=== PATIENT | male | born 1965 | race Caucasian/White ===

== ENCOUNTER 2016-12-25 08:05 | Inpatient (IN) ==
--- NOTE | 2016-12-24 22:12 | Discharge Summary ---
<HenriettaAyleen L - Last Filed: 12/24/16 22:09> Date of Encounter: 12/24/16 - Discharge Diagnosis (1) Arthritis of knee, right Priority: Primary Status: Acute (2) Status post total knee replacement, right Priority: Primary Status: Acute (3) DMII (diabetes mellitus, type 2) Status: Chronic Qualifiers: Diabetes mellitus complication status: without complication Diabetes mellitus senior care insulin use: with keno terminal operator use Qualified Code(s): E11.9 - Type 2 diabetes mellitus without complications; Z79.4 - intermediate (current) use of insulin (4) HTN (hypertension) Priority: Secondary Status: Chronic Qualifiers: Hypertension type: essential hypertension Qualified Code(s): I10 - Essential (primary) hypertension (5) Obesity Priority: Secondary Status: Chronic Qualifiers: Obesity type: due to excess calories Obesity classification: unspecified obesity classification Serious obesity comorbidity presence: unspecified whether serious comorbidity present Qualified Code(s): E66.09 - Other obesity due to excess calories (6) CKD (chronic kidney disease) Priority: Secondary Status: Chronic Qualifiers: Chronic kidney disease stage: unspecified stage Qualified Code(s): N18.9 - Chronic kidney disease, unspecified - Discharge Medications Home Medications: Aspirin Enteric Coated [Aspirin EC] 325 mg PO DAILY #21 tablet.dr 12/24/16 [Rx] OxyCODONE Immed Rel [Roxicodone 5 MG] 5 - 10 mg PO Q6HR PRN #40 tablet 12/24/16 [Rx] Alogliptin Benzoate [Alogliptin] 25 mg PO DAILY 12/25/16 [History] Amlodipine Besylate 10 mg PO DAILY 12/25/16 [History] Aspirin [Lo-Dose Aspirin EC] 81 mg PO DAILY 12/25/16 [History] Atenolol [Tenormin] 50 mg PO BID 12/25/16 [History] Atorvastatin Calcium [Lipitor] 20 mg PO DAILY 12/25/16 [History] Chlorthalidone 50 mg PO DAILY 12/25/16 [History] Glimepiride [Amaryl] 4 mg PO BID 12/25/16 [History] Insulin Glargine,Hum.rec.anlog [Basaglar Kwikpen U-100] 60 unit SQ QPM 12/25/16 [History] Insulin Glargine,Hum.rec.anlog [Basaglar Kwikpen U-100] 80 unit SQ QAM 12/25/16 [History] Insulin LISPRO [Humalog Kwikpen U-100] 10 - 16 unit SQ TIDWM 12/25/16 [History] Liraglutide [Victoza 3-Baljit] 1.8 mg PO DAILY 12/25/16 [History] Lisinopril [Zestril] 20 mg PO DAILY 12/25/16 [History] metFORMIN [Glucophage] 500 mg PO BIDWM 12/25/16 [History] Allergies/Adverse Reactions: Allergies No Known Allergies Allergy (Verified 12/25/16 08:52) Primary care physician: Kayleen Sheth CNP - Patient Status Disposition: Home Health Service Condition: Good - Discharge Instructions Follow Up With: Raza Kirk MD [Partnered Physician] - 01/24/17 4:40 pm Ayleen Shrestha, HARJINDER [Physician Commercial Decorator] - 01/12/17 8:45 am Kayleen Sheth CNP [Primary Care Provider] - Racheal Angeles CNP [Advanced Practice Nurse] - 02/16/17 11:00 am Fransico Taylor MD [Partnered Physician] - 01/24/17 8:00 am - Hospital Course Hospital course: Mr. Ruano is a 51 year old male - Time Spent with Patient Total time spent providing and/or coordinating discharge services: <Raza Kirk - Last Filed: 12/27/16 07:44> Date of Encounter: 12/27/16 Time of Encounter: 07:43 - Discharge Diagnosis (1) Morbid obesity with BMI of 60.0-69.9, adult Priority: Secondary Status: Chronic (2) Arthritis of knee, right Priority: Primary Status: Chronic (3) Status post total knee replacement, right Priority: Secondary Status: Acute (4) DMII (diabetes mellitus, type 2) Priority: Secondary Status: Chronic Qualifiers: Diabetes mellitus complication status: without complication Diabetes mellitus senior care insulin use: with keno terminal operator use Qualified Code(s): E11.9 - Type 2 diabetes mellitus without complications; Z79.4 - intermediate (current) use of insulin (5) HTN (hypertension) Priority: Secondary Status: Chronic Qualifiers: Hypertension type: essential hypertension Qualified Code(s): I10 - Essential (primary) hypertension (6) CKD (chronic kidney disease) Priority: Secondary Status: Chronic Qualifiers: Chronic kidney disease stage: stage 2 (mild) Qualified Code(s): N18.2 - Chronic kidney disease, stage 2 (mild) Primary care physician: Kayleen Sheth CNP - Patient Status Functional capacity at discharge: uses cane/walker Overall status at discharge: patient is progressing back to baseline - Hospital Course Hospital course: Mr. Ruano is a 51 year old male Status post right total knee replacement. The patient had an uneventful postoperative course. They received antibiotics and physical therapy and were discharged in stable condition. There will follow -up in the office in 2 weeks. - Time Spent with Patient Total time spent providing and/or coordinating discharge services:
--- NOTE | 2016-12-24 22:15 | Physician Discharge Referral ---
Home Health/Hosp Referral Info Transfer to: Home Health Provider in Charge Post Discharge: PCP - Diagnosis (1) Arthritis of knee, right Priority: Primary Status: Acute (2) Status post total knee replacement, right Priority: Primary Status: Acute (3) DMII (diabetes mellitus, type 2) Priority: Secondary Status: Chronic (4) HTN (hypertension) Priority: Secondary Status: Chronic (5) Obesity Priority: Secondary Status: Chronic (6) CKD (chronic kidney disease) Priority: Secondary Status: Chronic - Respiratory Orders None Smoking Cessation: Smoking cessation has been advised. For more information, call the [place] Tobacco Quit Line at 4-356-RGRA-NOW. - Diet/Nutrition Diet/Nutrition Orders: Regular, Renal - Activity Activity Orders: Up ad tony, Ambulate - Services Needed Following services are medically necessary services: Nursing, Home Health Aide, Physical Therapy, Occupational Therapy Other Treatments: Opsite dressing, leave intact until first post-operative visit. If dressing becomes >50% saturated, contact office, remove dressing and place appropriate dressing in its place. Do not allow for dressing to get wet. Emma in place, plan to remove at post-operative day #14-16. Total Joint Precautions x 6 weeks Apply cold therapy wrap 3-6x/day for 20 minutes at a time. Encourage ambulation throughout the day Use Incentive spirometer 10x/hour. Elevate affected extremity above heart as tolerated. Brace: Wear knee immobilizer at night x 2 weeks. - Transfer Medications Prescriptions: OxyCODONE Immed Rel [Roxicodone 5 MG] 5 - 10 mg PO Q6HR PRN #40 tablet PRN Reason: Pain Aspirin Enteric Coated [Aspirin EC] 325 mg PO DAILY #21 tablet. Home Medications: Aspirin Enteric Coated [Aspirin EC] 325 mg PO DAILY #21 tablet. 12/24/16 [Rx] OxyCODONE Immed Rel [Roxicodone 5 MG] 5 - 10 mg PO Q6HR PRN #40 tablet 12/24/16 [Rx] Allergies/Adverse Reactions: Allergies No Known Allergies Allergy (Verified 12/18/16 10:05) Certification: Further, I certify that my clinical findings support that this patient is homebound (i.e. absences from home require considerable and taxing effort and are for medical reasons or catholic services or infrequently or short duration when for other reasons) because: Homebound Reason: Post-surgery restriction and or conditions limit ability to leave home Attestation: My signature below is to certify that this patient is under my care and that I, or nurse practitioner, or a physician's nursing assistant working with me, has a face-to -face encounter with this patient.
--- NOTE | 2016-12-25 08:15 | History & Physical Report ---
Date of Encounter: 12/25/16 Time of Encounter: 08:14 24 Hour HP Update - Instructions Instructions: If the History and Physical is less than 30 days old and was completed prior to A.M. admission and or procedure and has NOT been updated on calendar day of procedure please complete this update prior to performing procedure. - Update Patient reports changes in Medical Condition: No Changes in examination, assessment, or condition: No Changes in Medication: No Preop tests/diagnostics Reviewed: Yes Surgery Remains Indicated: Yes Consent for Planned Operative Procedure(s) Verified: Yes - Pre-Operative Checklist Preoperative Checklist Indicated: No Prophylactic Antibiotic Ordered: Yes Is VTE Prophylaxis Indicated?: Yes
[2016-12-25] MEDS ORDERED: Ringers Solution, Lactated 1,000 ML IVC SCH ×2 (08:45→13:15)
[2016-12-25] MEDS ORDERED: CeFAZolin Pre 3,000 MG/100 ML 3,000 MG/100 ML BAG IVPB ONE (08:45)
--- NOTE | 2016-12-25 09:04 | Anesthesia Evaluation PreOp ---
Date of Encounter: 12/25/16 Time of Encounter: 09:00 - Past History Planned Operation: r tka Cardiac History: HTN, Hyperlipidemia Pulmonary History: Denies Any Significant HX BMET History: Denies Any Significant HX Other Medical History: Renal (stones), Diabetes Type II Anesthesia History: No Prior Anesthetic Complications, Past Anesthesia (t&a, l tka) Alcohol Use: none Drug use: none Medications and Allergies Aspirin Enteric Coated [Aspirin EC] 325 mg PO DAILY #21 tablet.dr 12/24/16 [Rx] OxyCODONE Immed Rel [Roxicodone 5 MG] 5 - 10 mg PO Q6HR PRN #40 tablet 12/24/16 [Rx] Alogliptin Benzoate [Alogliptin] 25 mg PO DAILY 12/25/16 [History] Amlodipine Besylate 10 mg PO DAILY 12/25/16 [History] Aspirin [Lo-Dose Aspirin EC] 81 mg PO DAILY 12/25/16 [History] Atenolol [Tenormin] 50 mg PO BID 12/25/16 [History] Atorvastatin Calcium [Lipitor] 20 mg PO DAILY 12/25/16 [History] Chlorthalidone 50 mg PO DAILY 12/25/16 [History] Glimepiride [Amaryl] 4 mg PO BID 12/25/16 [History] Insulin Glargine,Hum.rec.anlog [Basaglar Kwikpen U-100] 60 unit SQ QPM 12/25/16 [History] Insulin Glargine,Hum.rec.anlog [Basaglar Kwikpen U-100] 80 unit SQ QAM 12/25/16 [History] Insulin LISPRO [Humalog Kwikpen U-100] 10 - 16 unit SQ TIDWM 12/25/16 [History] Liraglutide [Victoza 3-Baljit] 1.8 mg PO DAILY 12/25/16 [History] Lisinopril [Zestril] 20 mg PO DAILY 12/25/16 [History] metFORMIN [Glucophage] 500 mg PO BIDWM 12/25/16 [History] Allergies No Known Allergies Allergy (Verified 12/25/16 08:52) - Meds/Allergy Pre-op Review Medications Reviewed: Yes Allergies Reviewed: Yes Beta Blockers on Current Med List: Yes If Beta Blockers taken, Date/Time (Last Dose taken): atenolol 0600 Anesthesia Results - Labs Laboratory Tests 12/18/16 12/18/16 12/18/16 10:23 10:23 10:23 Hgb 13.7 Hct 42.7 Plt Count 343 PT 9.6 INR 0.9 APTT 29.0 Sodium 139 Potassium 3.6 Creatinine 1.69 H - Imaging EKG: report reviewed (sr, mod ivcd) Anesthesia Exam O2 Sat Height 1.68 m Height 1.68 m Height 1.68 m Weight 170.097 kg Weight 170.097 kg Weight 170.097 kg O2 Sat by Pulse Oximetry 96 O2 Sat by Pulse Oximetry 98 Vital Signs Temp Pulse Resp BP Pulse Ox 97.7 F 77 18 163/78 98 12/25/16 08:30 12/25/16 08:30 12/25/16 08:30 12/25/16 08:30 12/25/16 08:30 Blood glucose: 138 Height: 1.68 Weight: 170 NPO (# of Hours): >8 - HEENT Pupil (Motor): Pupils equal, EOMI Mallampati: II Teeth: Poor dentition Oral Opening: Greater than 3 (good underbite) - BMET LOC: Oriented BMET Motor: Normal RUE, Normal LUE, Normal RLE, Normal LLE, Normal Face BMET Sensory: Normal: RUE, LUE, RLE, LLE, Face - Cardiac Rhythm: Regular Murmur: None - Pulmonary Breath Sounds: bilateral Clear Respiratory Effort: Symmetrical Anesthesia Assess/Plan ASA Score: 3 Modified Fowler Scale for Level of Consciousness: Cooperative, oriented, and tranquil Anesthetic Plan: General, Regional Monitoring Plan: Standard Monitors Recovery Plan: PACU
[2016-12-25] MEDS ORDERED: CloNIDine Patch 0.1 MG PATCH (WEEKLY) TD ONE (09:30)
[2016-12-25] MEDS ORDERED: *HR* Midazolam HCl 5 MG/5 ML VIAL IVP ONE (09:33)
[2016-12-25] MEDS ORDERED: *HR* Propofol 200 MG/20 ML VIAL IVP ONE (09:33)
[2016-12-25] MEDS ORDERED: *HR* FentaNYL (PF) 100 MCG/2 ML VIAL ONE (09:34)
[2016-12-25] MEDS ORDERED: *HR* Midazolam HCl 2 MG/2 ML VIAL ONE ×2 (09:34→09:58)
[2016-12-25] MEDS ORDERED: Ketamine *HR* 500 MG/10 ML MDV ONE (09:37)
[2016-12-25] MEDS ORDERED: *HR* Succinylcholine 200 MG/10 ML VIAL IVP ONE (09:37)
[2016-12-25] MEDS ORDERED: Lidocaine -MPF 2% 2 ML VIAL ONE (09:37)
[2016-12-25] MEDS ORDERED: Lidocaine -MPF 4% 5 ML AMPUL ONE (09:38)
[2016-12-25] MEDS ORDERED: CloNIDine Patch 0.1 MG PATCH (WEEKLY) ONE (09:38)
[2016-12-25] MEDS ORDERED: *HR* Promethazine 25 MG/ML VIAL IVP PRN (09:56)
[2016-12-25] MEDS ORDERED: *HR* Labetalol 20 MG/4 ML SYRINGE IVP PRN (09:56)
[2016-12-25] MEDS ORDERED: *HR* HYDROmorphone (PF) 1 MG/ML SYRINGE IVP PRN ×2 (09:56→13:15)
[2016-12-25] MEDS ORDERED: ROPIVACAINE HCL/PF 0.5% 30 ML VIAL ONE (10:09)
[2016-12-25] MEDS ORDERED: Bupivacaine/Clonidine Syringe 1 EACH SYRINGE ONE (10:09)
[2016-12-25] MEDS ORDERED: *HR* Magnesium Sulfate 1 GM/2 ML VIAL ONE (10:53)
[2016-12-25] MEDS ORDERED: Ketorolac 30 MG/ML VIAL ONE (10:55)
[2016-12-25] MEDS ORDERED: Ondansetron 4 MG/2 ML VIAL ONE (10:59)
--- NOTE | 2016-12-25 11:12 | Anesthesia Procedures ---
Date of Encounter: 12/25/16 Time of Encounter: 10:34 Procedures: Anesthesia - Nerve Block Procedure Date: 12/25/16 Time: 10:34 Allergies/Adv Reactions: nka Pre-op Diagnosis: right knee OA Surgical Procedure: right TKA Checklist: Correct Patient Identifier, Correct procedure, History checked Correct side: Right Blood Thinner: No Monitor Applied: EKG, BP, Pulse Oximetry Supplemental Oxygen via Nasal Cannula (L/min): 2 Sedation: Versed (mg): 4 Sedation: Fentanyl (mcg): 100 Indication: Post Op Analgesia Pre-op Neuro Deficits: No Block Type: Femoral, Other (IPACK, anterior infiltration) Catheter placed: No Sterile Technique: Yes Ultrasound used: Yes Anatomy identified: Yes Visual spread of Local: Yes Neuro Stimulation: Yes (femoral only) Nerve Stimulator Range: 0.2 - 0.4 mA Blood on Needle Aspiration: No Smooth Injection of Local: Yes Pain with Injection of Local: No Prep: Chlorhexadine Needle: 22 x 50 mm Stimuplex Local: 0.25% Bupivicaine w/Clonidine 20 mcg/cc (40mL ipack / anterior infiltration), Ropivacaine (0.5% femoral), Other (10mg decadron femoral) Volume (cc): 70 Number of Attempts: 1 Complications: None/effective block Vitals: Vital Signs/O2 Sat/Glucose, Most Recent Temp Pulse Resp BP Pulse Ox 97.7 F 67 15 153/75 96 12/25/16 08:30 12/25/16 10:34 12/25/16 10:34 12/25/16 10:34 12/25/16 10:34 Blood Glucose* 138
[2016-12-25] MEDS ORDERED: *HR* HYDROmorphone 2 MG/ML SYRINGE ONE (11:23)
--- NOTE | 2016-12-25 11:49 | Orthopedic Operative Note ---
Date of procedure: 12/25/16 Pre-op diagnosis: Knee arthritis right Post-op diagnosis: same Procedure: Procedure: Right Total knee replacement Estimated blood loss: 200 cc Hardware: Metal and polyethylene replacement: Biomet Femur: 70, 16 x 120 stem Tibia: 75, 12 x 120 stem Sahara insert: 12 Patella: 40 Exam Under anesthesia: Loss full extension 10 degrees flexion 90 degrees Procedural Notes: Grade 4 arthritic changes medial compartment grade 3 arthritic changes patellofemoral joint. Operative procedure: The patient was brought to the operating room and placed on the operating room table. After general anesthesia was administered the operative knee was examined. Findings were noted in the exam under anesthesia. The operative extremity was prepped and draped in sterile surgical fashion. The patient received IV antibiotics prior to skin incision. A standard midline incision was made centered over the patella. The incision was made through the skin and subcutaneous tissue. A medial parapatellar tendon approach was performed. Care was taken to preserve tissue along the medial aspect of the patella. And to protect the patella tendon. The deep MCL was released off the medial tibia. The infra patella fat pad was excised. Knee was brought into flexion. Patient noted to have grade 4 arthritic changes medial compartment and grade 3 arthritic changes patellofemoral joint. The entry hole was made for the intramedullary femoral guide. The guide was seated in 6 degrees of valgus. Anterior cut was made followed by the distal cut. The PCL the medial and the lateral menisci were excised. The tibia was subluxed forward. The entry hole was made for the intramedullary tibial guide. Guide was seated to resect 2 mm off the more abnormal side. The knee was brought into flexion the distal femur was sized to a 70 The femur was first reamed to a 16 x 120 The femoral guide was seated, the anterior cut was made followed by the posterior condylar cut, followed by the chamfer cuts. The finishing guide was seated the box cut was made. Trial had good fit and fixation The tibia was sized to a an 75 The tibia was first reamed 12 by 120 Trial reduction revealed full extension no varus valgus instability with the appropriate 12 insert. The patella was everted and cut was made at the level of the insertion of the quadriceps and patella tendon. The patella was sized to a 40 the guide was seated and the lug holes are drilled. Trial reduction revealed excellent patella tracking. All trial components were removed all bony surfaces were irrigated. Components were assembled on the back table. The femur was cemented first followed by the tibia. The X Shaara was seated and secured. The knee was brought into full extension. The patella was cemented and held in place with the patellar holding clamp. After the cement had hardened, the knee sat for 2 minutes with a Betadine saline solution. The knee was then irrigated out with 2 L of pulse irrigation. The knee was closed by the PA. The extensor mechanism was closed with #2 FiberWire suture and #2 PDS suture. The subcutaneous tissue was then irrigated and closed deep with #1 PDS suture superficially with 0 PDS suture and skin was closed with skin renay The patient was then placed in a sterile dressing and a postoperative brace extubated and transferred to recovery room in stable condition. Anesthesia: SERGEY Surgeon: Raza Kirk Cognos Consultant: Ayleen Shrestha Condition: stable Disposition: PACU
--- NOTE | 2016-12-25 13:03 | Anesthesia Evaluation Post Op ---
Date of Encounter: 12/25/16 Time of Encounter: 12:55 - Vital Signs Vital Signs: Last Vital Signs Temp 97.2 F L 12/25/16 12:51 Pulse 64 12/25/16 12:51 Resp 16 12/25/16 12:51 BP 143/81 12/25/16 12:51 Pulse Ox 94 12/25/16 12:51 - Lungs Lungs: Clear Ascult./Percussion - Airway Airway: Non-obstructed - Cardiovascular Regular Rate - Mental Status Mental Status: Alert & Oriented, Answers Appropriately - Pain Pain Scale: 3 - Nausea Vomiting Nausea Vomiting: Not Present - Hydration Hydration: NPO - Discharge PostOp Status: Transfer Patient to floor
[2016-12-25] MEDS ORDERED: D5% in Water 1,000 ML IVC PRN (13:15)
[2016-12-25] MEDS ORDERED: Dextrose Gel 15 GM PO PRN ×2 (13:15)
[2016-12-25] MEDS ORDERED: MOM Conc 10 ML UD.LIQ PO PRN (13:15)
[2016-12-25] MEDS ORDERED: Naloxone 0.4 MG/ML INJ IVP PRN (13:15)
[2016-12-25] MEDS ORDERED: Ondansetron 4 MG/2 ML VIAL IVP PRN (13:15)
[2016-12-25] MEDS ORDERED: *HR* Dextrose 50 % in Water (Syg) 50 ML SYRINGE IVP PRN (13:15)
[2016-12-25 13:37] LABS: Hematocrit 39.7 % (37.5-50.1); Hemoglobin 12.7 g/dL (12.9-16.9)
[2016-12-25] MEDS: *HR* OxyCODONE Immed Rel 5 MG TABLET PO PRN (14:04)
[2016-12-25] MEDS: Insulin LISPRO 300 UNITS/3 ML VIAL SQ SCH ×6 (14:05→17:10)
[2016-12-25] MEDS: ceFAZolin 3,000 MG in D5% in Water 100 ML IVPB SCH ×2 (16:16→22:59)
[2016-12-25] MEDS: *HR* Metformin 500 MG TABLET PO SCH (17:08)
[2016-12-25] MEDS: *HR* Enoxaparin 30 MG/0.3 ML SYRINGE SQ SCH (17:08)
[2016-12-25] MEDS ORDERED: NON-FORMULARY MEDICATION 1 EACH EACH (Insulin Glargine,Hum.Rec.Anlog [Basaglar Kwikpen U-1 SQ SCH (18:00)
[2016-12-25] MEDS ORDERED: *HR* Enoxaparin 30 MG/0.3 ML SYRINGE SQ SCH (18:00)
[2016-12-25] MEDS: *HR* Glimepiride 4 MG TABLET PO SCH (19:53)
[2016-12-25] MEDS: Insulin DETEMIR 100 UNIT/ML X5UNITS SQ SCH (20:54)
[2016-12-25] MEDS ORDERED: Sennosides 8.6 MG TABLET PO PRN (21:00)
[2016-12-25] MEDS ORDERED: Temazepam 15 MG CAPSULE PO PRN (21:00)
[2016-12-26] MEDS: *HR* OxyCODONE Immed Rel 5 MG TABLET PO PRN ×6 (00:01→23:16)
[2016-12-26] MEDS: *HR* Enoxaparin 30 MG/0.3 ML SYRINGE SQ SCH ×2 (04:23→17:38)
--- NOTE | 2016-12-26 06:46 | Orthopedics Progress Note ---
Date of Encounter: 12/26/16 Time of Encounter: 06:46 - Assessment and Plan (1) Morbid obesity with BMI of 60.0-69.9, adult Current Visit: Yes Status: Chronic (2) Arthritis of knee, right Current Visit: Yes Status: Chronic (3) Status post total knee replacement, right Current Visit: Yes Status: Acute (4) DMII (diabetes mellitus, type 2) Current Visit: Yes Status: Chronic Qualifiers: Diabetes mellitus complication status: without complication Diabetes mellitus residential insulin use: with residential use Qualified Code(s): E11.9 - Type 2 diabetes mellitus without complications; Z79.4 - half-way (current) use of insulin (5) HTN (hypertension) Current Visit: Yes Status: Chronic Qualifiers: Hypertension type: essential hypertension Qualified Code(s): I10 - Essential (primary) hypertension (6) CKD (chronic kidney disease) Current Visit: Yes Status: Chronic Qualifiers: Chronic kidney disease stage: stage 2 (mild) Qualified Code(s): N18.2 - Chronic kidney disease, stage 2 (mild) Subjective Interval history: Patient was seen this morning doing well without complaints. Afebrile vital signs stable. Operative extremity: Neurovascularly intact Dressing clean dry and intact Calves nontender Assessment and plan: Continue with postoperative care Hematocrit 39 Objective Vital signs: Vital Signs Temp Pulse Resp BP Pulse Ox 12/26/16 05:34 97.7 F 77 20 126/61 94 12/26/16 00:39 98.0 F 78 18 149/74 91 12/25/16 19:56 98.1 F 77 17 145/68 94 12/25/16 16:10 98 F 67 16 105/53 96 12/25/16 15:21 98.2 F 73 18 120/53 95 12/25/16 14:16 93 12/25/16 14:10 97.8 F 72 20 135/60 93 12/25/16 13:45 94 12/25/16 13:40 65 16 140/69 94 12/25/16 13:15 97.6 F 65 16 136/64 97 12/25/16 12:51 97.2 F L 64 16 143/81 94 12/25/16 12:41 64 16 141/78 96 12/25/16 12:31 62 16 125/63 96 12/25/16 12:21 97.2 F L 72 16 138/70 96 12/25/16 10:34 67 15 153/75 96 12/25/16 10:05 75 16 162/70 100 12/25/16 08:30 97.7 F 78 18 163/78 96 Intake and Output 12/25/16 12/25/16 12/26/16 15:59 23:59 07:59 Intake Total 760 / 760 700 / 700 Output Total 200 / 200 200 / 200 Balance -200 / -200 760 / 760 500 / 500 Intake: IV Fluids 200 / 200 Ancef 3,000 MG In 200 / 200 Dextrose 5% 100 ML @ 200 mls/hr IVPB Q8HR MK Rx#: [id number] Oral 560 / 560 700 / 700 Output: Urine 0 / 0 200 / 200 Estimated Blood Loss 200 / 200 Other: Meal Dinner Percent of Meal Consumed 90% 100% # Voids 2 Weight 170 kg Blood Glucose* 182 235 - Labs CBC & BMP: 12/25/16 13:29 Labs: Abnormal lab results Hgb 12.7 g/dL (12.9-16.9) L 12/25/16 13:29 POC Glucose 252 (58-89) H 12/25/16 20:58 - VTE Documentation of Mechanical Device: Venous foot pump, device Consult Discharge Plan - Plan Referrals: Kayleen Sheth, ACID CONCENTRATOR [Primary Care Provider] -
[2016-12-26 08:06] LABS: Hematocrit 36.7 % (37.5-50.1); Hemoglobin 12.1 g/dL (12.9-16.9)
[2016-12-26] MEDS: Aspirin Enteric Coated 81 MG Tablet PO SCH (08:25)
[2016-12-26] MEDS: *HR* Glimepiride 4 MG TABLET PO SCH ×2 (08:25→21:06)
[2016-12-26] MEDS: Lisinopril 20 MG TABLET PO SCH (08:26)
[2016-12-26] MEDS: *HR* Metformin 500 MG TABLET PO SCH ×2 (08:26→17:39)
[2016-12-26] MEDS: amLODIPine 5 MG TABLET PO SCH (08:26)
[2016-12-26] MEDS: Insulin LISPRO 300 UNITS/3 ML VIAL SQ SCH ×6 (08:27→17:40)
[2016-12-26] MEDS: (Liraglutide [Victoza 3-Pak] 1.8 MG) PO SCH (08:28)
[2016-12-26] MEDS: (Alogliptin Benzoate [Alogliptin] 25 MG) PO SCH (08:28)
[2016-12-26] MEDS: Insulin DETEMIR 100 UNIT/ML X5UNITS SQ SCH ×2 (08:33→21:06)
[2016-12-26] MEDS ORDERED: NON-FORMULARY MEDICATION 1 EACH EACH (Insulin Glargine,Hum.Rec.Anlog [Basaglar Kwikpen U-1 SQ SCH (09:00)
[2016-12-26 09:03] LABS: Calcium 8.8 mg/dL (8.6-10.8); Potassium 4.6 mEq/L (3.5-4.5)
--- NOTE | 2016-12-26 12:41 | Event Note ---
Date of Encounter: 12/26/16 Time of Encounter: 12:41 PCR - POD#1 - Right TKR Patient seen at bedside. Pain control: Yes Participating in PT. All questions and concerns addressed. Educated on use of incentive spirometer, ambulation, and hydration. Patient educated on post-operative restrictions and care. Addressed: See above D/C plan:.D/c Home tomorrow with home health
[2016-12-27] MEDS: Gabapentin 300 MG CAPSULE PO SCH ×2 (00:01→08:21)
[2016-12-27] MEDS: *HR* OxyCODONE Immed Rel 5 MG TABLET PO PRN ×3 (01:44→09:28)
[2016-12-27] MEDS: *HR* Enoxaparin 30 MG/0.3 ML SYRINGE SQ SCH (05:17)
--- NOTE | 2016-12-27 07:45 | Orthopedics Progress Note ---
Date of Encounter: 12/27/16 Time of Encounter: 07:44 - Assessment and Plan (1) Morbid obesity with BMI of 60.0-69.9, adult Current Visit: Yes Status: Chronic (2) Arthritis of knee, right Current Visit: Yes Status: Chronic (3) Status post total knee replacement, right Current Visit: Yes Status: Acute (4) DMII (diabetes mellitus, type 2) Current Visit: Yes Status: Chronic Qualifiers: Diabetes mellitus complication status: without complication Diabetes mellitus bed bug exterminator insulin use: with bed bug exterminator use Qualified Code(s): E11.9 - Type 2 diabetes mellitus without complications; Z79.4 - MCFP (current) use of insulin (5) HTN (hypertension) Current Visit: Yes Status: Chronic Qualifiers: Hypertension type: essential hypertension Qualified Code(s): I10 - Essential (primary) hypertension (6) CKD (chronic kidney disease) Current Visit: Yes Status: Chronic Qualifiers: Chronic kidney disease stage: stage 2 (mild) Qualified Code(s): N18.2 - Chronic kidney disease, stage 2 (mild) Subjective Interval history: Patient was seen this morning doing well without complaints. Afebrile vital signs stable. Operative extremity: Neurovascularly intact Dressing clean dry and intact Calves nontender Assessment and plan: Continue with postoperative care Hematocrit 38 discharged today Objective Vital signs: Vital Signs Temp Pulse Resp BP Pulse Ox 12/27/16 07:30 97.5 F L 69 18 133/68 12/27/16 04:02 97.1 F L 61 18 165/71 90 12/27/16 00:22 97.5 F L 73 21 186/70 95 12/26/16 20:36 97.8 F 78 18 147/71 90 12/26/16 16:19 97.5 F L 79 18 159/65 91 12/26/16 11:25 98.1 F 72 18 119/66 91 Intake and Output 12/26/16 12/26/16 12/27/16 15:59 23:59 07:59 Intake Total 480 / 480 240 / 240 500 / 500 Balance 480 / 480 240 / 240 500 / 500 Intake: Oral 480 / 480 240 / 240 500 / 500 Other: Meal Lunch Dinner Percent of Meal Consumed 100% 100% # Voids 1 2 Blood Glucose* 181 153 105 - Labs CBC & BMP: 12/26/16 06:55 12/26/16 06:55 Labs: Abnormal lab results Hgb 12.1 g/dL (12.9-16.9) L 12/26/16 06:55 Hct 36.7 % (37.5-50.1) L 12/26/16 06:55 Potassium 4.6 mEq/L (3.5-4.5) H 12/26/16 06:55 BUN 47 mg/dL (8-26) H 12/26/16 06:55 Creatinine 2.06 mg/dL (0.72-1.25) H 12/26/16 06:55 Est GFR ( Amer) 41 (> 60) L 12/26/16 06:55 Est GFR (Non-Af Amer) 34 (> 60) L 12/26/16 06:55 Glucose 193 mg/dL (70-99) H 12/26/16 06:55 POC Glucose 252 (58-89) H 12/25/16 20:58 Calculated Osmolality 302 (280-300) H 12/26/16 06:55 - VTE Documentation of Mechanical Device: Venous foot pump, device Consult Discharge Plan - Plan Referrals: Raza Kirk MD [Partnered Physician] - 01/24/17 4:40 pm Ayleen Shrestha, PAC [Physician Tripper] - 01/12/17 8:45 am Kayleen Sheth CNP [Primary Care Provider] - Racheal Angeles CNP [Advanced Practice Nurse] - 02/16/17 11:00 am Fransico Taylor MD [Partnered Physician] - 01/24/17 8:00 am
[2016-12-27 08:02] LABS: Calcium 8.6 mg/dL (8.6-10.8); Potassium 3.7 mEq/L (3.5-4.5)
[2016-12-27] MEDS: Insulin LISPRO 300 UNITS/3 ML VIAL SQ SCH ×4 (08:06→11:38)
[2016-12-27] MEDS: Aspirin Enteric Coated 81 MG Tablet PO SCH (08:17)
[2016-12-27] MEDS: *HR* Metformin 500 MG TABLET PO SCH (08:17)
[2016-12-27] MEDS: *HR* Glimepiride 4 MG TABLET PO SCH (08:19)
[2016-12-27] MEDS: Lisinopril 20 MG TABLET PO SCH (08:19)
[2016-12-27] MEDS: amLODIPine 5 MG TABLET PO SCH (08:22)
[2016-12-27] MEDS: (Alogliptin Benzoate [Alogliptin] 25 MG) PO SCH (08:25)
[2016-12-27] MEDS: (Liraglutide [Victoza 3-Pak] 1.8 MG) PO SCH (08:26)
[2016-12-27 08:27] LABS: Hematocrit 36.7 % (37.5-50.1); Hemoglobin 11.6 g/dL (12.9-16.9)
[2016-12-27] MEDS: Insulin DETEMIR 100 UNIT/ML X5UNITS SQ SCH (08:30)
[2016-12-27 11:25] VITALS: BP 149/61
== END 2016-12-27 12:42 | disposition home health service (06) | DRG 302 ==
LOC: SAMDAY 08:05 → 3NENU 13:12
PROVIDERS: ADMIT Orthopaedic Surgery; ATTEND Orthopaedic Surgery

== ENCOUNTER 2017-09-05 20:40 | Inpatient (IN) ==
--- NOTE | 2017-09-06 00:07 | Internal Med History&Physical ---
<Quintin Posada - Last Filed: 09/06/17 00:52> Date of Encounter: 09/06/17 Time of Encounter: 00:12 Internal Medicine - H&P: HPI Chief complaint: Right knee pain Admitted From: Hospital to Hospital Transfer Plans for Post Hospital Care: Home History of present illness: Donn Ruano is a 51 year old male with a past medical history of diabetes mellitus and CHF who presented to [facility] on the evening of 09/05/17 as a transfer from [facility]. Patient presented to [facility] ED via EMS with a chief complaint of weakness. Patient reported that his right knee started becoming painful yesterday afternoon following a trip to [address] [place] [address]. Patient reported that his pain was located in the front of his knee, and that he was experiencing shortness of breath and a cough with phlegm. Patient reports that he had a total knee replacement on December 252016. His pain was exacerbated with weight bearing, and range of motion. Upon presentation to [facility], patients blood pressure was 106/43, pulse was 95, temperature was elevated at 99.9, respiratory rate was 23/m, and O2 saturation was 93%. Patients BMI was calculated at 64.9. On physical exam, patients lung sounds were diminished. Tenderness was present around the right knee. Erythema was present, pain with range of motion. Tender to palpation. Chronic venous stasis changes present in bilateral lower extremities. Chest x-ray performed on 09/05/17 demonstrated the following: Increased bronchovascular markings, no lobar infiltrates, cardiomegaly. Right knee radiographs demonstrated the following: Status post total knee arthroplasty, no fracture. Right lower extremity venous Doppler was performed; demonstrated no evidence of DVT. EKG demonstrated no ischemic changes Laboratory analysis at [facility] demonstrated the following: Elevated white count with left shift; White count 14.6, hemoglobin 10.1, glucose was elevated at 349 , BUN was elevated at 80, creatinine was elevated at 2.74, d-dimer 738, BNP 1490 , Lactate 1.8, Sedimentation rate 107. Patient was placed on 2 L of oxygen and then transferred to [facility]. Patient was seen and examined at bedside this evening. Erythema present on left knee; faint erythema present on the right knee as well. Patient appears to be very drowsy; currently on BiPAP. Mask appears to be uncomfortable to patient. Currently in moderate respiratory distress. Unable to obtain review of systems. Past Med Surg Social Fam HX - Past Medical History Medical history: cardiomyopathy, diabetes, hypertension Psychiatric history: no psych history - Social History Smoking Status: Former smoker Smokeless Tobacco Status: No Alcohol use: none Drug use: none Internal Medicine - H&P: Meds Amlodipine Besylate 10 mg PO DAILY 12/25/16 [History] Aspirin [Lo-Dose Aspirin EC] 81 mg PO DAILY 12/25/16 [History] Atenolol [Tenormin] 50 mg PO BID 12/25/16 [History] Atorvastatin Calcium [Lipitor] 20 mg PO DAILY 12/25/16 [History] Chlorthalidone 50 mg PO DAILY 12/25/16 [History] Glimepiride [Amaryl] 4 mg PO BID 12/25/16 [History] Liraglutide [Victoza 3-Baljit] 1.8 mg PO DAILY 12/25/16 [History] Lisinopril [Zestril] 20 mg PO DAILY 12/25/16 [History] metFORMIN [Glucophage] 500 mg PO BIDWM 12/25/16 [History] Furosemide [Lasix] 40 mg PO DAILY #14 tablet 06/14/17 [Rx] Gabapentin [Neurontin] 300 mg PO TID PRN 09/06/17 [History] Insulin Regular U-500 [HumuLIN R U-500] 65 - 75 unit SQ BID 09/06/17 [History] 3 Allergy/AdvReac Type Severity Reaction Status Date / Time No Known Allergies Allergy Verified 12/25/16 08:52 ROS unobtainable: due to mental status All Systems PM: A 10-system review of systems was performed and is negative for pertinent findings except as documented above in the HPI. - Constitutional Vitals: Temp Pulse Resp BP Pulse Ox 98.7 F 90 18 115/65 92 09/05/17 23:32 09/05/17 23:32 09/05/17 23:32 09/05/17 23:32 09/05/17 23:40 General appearance: Present: morbidly obese, severe distress - Head Head exam: Present: atraumatic, normocephalic - Respiratory Respiratory exam: Present: decreased breath sounds, prolonged expiratory phase, wheezes. Absent: accessory muscle use, rales, rhonchi - Cardiovascular Cardiovascular exam: Present: RRR, +S1, +S2. Absent: diastolic murmur, gallop, rubs, systolic murmur - Extremities Exam Extremities exam: Present: warm. Absent: calf tenderness, cyanotic, pedal edema Additional comments: Erythema present on both lower extremities; left greater than right. Postsurgical scar observed on the right knee. - Skin Skin exam: Present: dry, intact - Assessment and plan (1) Right knee pain Current Visit: Yes Status: Acute Assessment and plan: Concern for possible septic prosthetic joint - Patient presented to [facility] with a chief complaint of right knee pain - Pain present with weightbearing; exacerbated with increased range of motion - Area appears swollen and erythematous; tenderness to palpation - Patient is status post total knee replacement - Right knee radiographs demonstrated the following: Status post total knee arthroplasty, no fracture - Laboratory analysis demonstrated an elevated white count with left shift; white count 14.6 - Lactic acid was 1.8 Plan: - IV vancomycin - IV Zosyn - Obtain blood cultures; tailor antibiotic therapy based on results Qualifiers: Qualified Code(s): M25.561 - Pain in right knee (2) Acute respiratory failure with hypoxia Current Visit: Yes Status: Acute Assessment and plan: Patient presented to [facility] with shortness of breath and increased sputum production - Chest x-ray performed on 09/05/17 demonstrated the following: Increased bronchovascular markings, no lobar infiltrates, cardiomegaly - Arterial blood gas demonstrated the following: Arterial pH 7.34, PCO2 64, PO2 52, bicarbonate 34.5, CO2 total of 36.5, O2 saturation 84 - Patient was placed on BiPAP upon arrival to [facility] - Currently satting at 92% - Patient will be transferred to ICU for further management - Continuous pulse oximetry (3) Elevated d-dimer Current Visit: Yes Status: Acute Assessment and plan: Laboratory analysis at [facility] demonstrated an elevated d-dimer at 738 - Venous Doppler ultrasound of lower extremities was performed; demonstrated no evidence of DVT; deep veins of the leg poorly visualized - We will start on heparin drip - Obtain VQ scan in the morning - We will continue to monitor patients clinical condition (4) Diabetes mellitus Current Visit: Yes Status: Acute Assessment and plan: Patient had an elevated glucose on laboratory analysis at 349 - Patient has a known history of diabetes; takes metformin at home - Sliding scale insulin Qualifiers: Qualified Code(s): E11.9 - Type 2 diabetes mellitus without complications (5) JAZZY (acute kidney injury) Current Visit: Yes Status: Acute Assessment and plan: Laboratory analysis demonstrated an elevated creatinine at 2.42 - IV fluid hydration (6) Hypertension Current Visit: Yes Status: Acute Assessment and plan: Patient has a known history of hypertension - Takes the following medications at home: Amlodipine, atenolol, chlorthalidone Qualifiers: Qualified Code(s): I10 - Essential (primary) hypertension - Time Spent With Patient Total time spent is greater than 50% in coordination of care (as documented) at patient's floor/unit and/or counseling patient: <Dewayne Funez - Last Filed: 09/06/17 20:26> Date of Encounter: 09/06/17 Internal Medicine - H&P: HPI History of present illness: Mr. Ruano is a 51 year old male All Systems PM: A 10-system review of systems was performed and is negative for pertinent findings except as documented above in the HPI. - Constitutional Vitals: Temp Pulse Resp BP Pulse Ox 100.8 F H 78 22 133/69 92 09/06/17 19:00 09/06/17 20:14 09/06/17 20:14 09/06/17 20:14 09/06/17 20:14 Internal Med - H&P Results - Labs CBC & Chem 7: 09/06/17 14:49 09/06/17 14:49 Labs: Short CBC 09/06/17 09/06/17 09/06/17 Range/Units 01:33 03:43 14:49 WBC 14.3 H 15.5 H 11.6 H (4.3-11.1) K/mcL Hgb 10.3 L 10.3 L 9.5 L (12.9-16.9) g/dL Hct 34.7 L 35.5 L 30.9 L (37.5-50.1) % Plt Count 327 337 325 (140-400) K/mcL Neutrophils # 11.3 H 8.3 (1.6-8.9) K/mcL BMP 09/06/17 09/06/17 03:43 14:49 Sodium 136 139 Potassium 3.8 3.7 Chloride 97 L 100 Carbon Dioxide 32 H 30 H BUN 79 H 82 H Creatinine 2.81 H 2.88 H Glucose 269 H 188 H Calcium 8.6 8.6 Cardiac Enzymes 09/06/17 Range/Units 08:17 Troponin I 0.05 H* (< 0.04) ng/mL - ABG Interpretation ABG results: 09/06/17 09/06/17 09/06/17 01:35 04:26 06:44 ABG pH 7.21 L 7.17 L* 7.23 L ABG pCO2 89 H* 93 H* 80 H* ABG pO2 108 H 58 L D 56 L ABG HCO3 35 H 34 H 33 H ABG Total CO2 38 H 37 H 36 H ABG O2 Saturation 96 79 L 81 L ABG Base Excess 5 H 3 4 H 09/06/17 07:59 ABG pH 7.34 ABG pCO2 61 H ABG pO2 71 L ABG HCO3 33 H ABG Total CO2 35 H ABG O2 Saturation 92 L ABG Base Excess 6 H - Impressions ITS Impressions Chest X-Ray 09/06/17 05:32 IMPRESSION: Chest: 1. The endotracheal tube tip is approximately 5 cm above the casa. 2. Bilateral airspace disease is favored to represent pulmonary edema. There is superimposed left basilar atelectasis or pneumonia. Abdomen: 1. The tip of the enteric tube is either in the distal stomach or proximal duodenum. 2. Bowel-gas pattern suggests a small bowel obstruction. D/ / Dustin Velasco MD / Dustin Velasco MD Interpreting Provider: Dustin Velasco MD X-Ray 09/06/17 05:32 IMPRESSION: Chest: 1. The endotracheal tube tip is approximately 5 cm above the casa. 2. Bilateral airspace disease is favored to represent pulmonary edema. There is superimposed left basilar atelectasis or pneumonia. Abdomen: 1. The tip of the enteric tube is either in the distal stomach or proximal duodenum. 2. Bowel-gas pattern suggests a small bowel obstruction. D/ / Dustin Velasco MD / Dustin Velasco MD Interpreting Provider: Dustin Velasco MD Abdomen/Pelvis CT 09/06/17 08:00 IMPRESSION: 1. Partial collapse of the bilateral lower lobes with suspected superimposed pneumonia. Additional areas of atelectasis in the bilateral upper lobes without suggestion of pneumonia. 2. Trace bilateral pleural effusions. 3. A few mildly dilated jejunal loops most likely due to ileus. 4. Skin thickening and minimal subcutaneous stranding in the pannus potentially related to edema or cellulitis. 5. Multifocal intravenous gas. Correlate for recent attempts at venous access. 6. A few solid nodules in the right upper lobe measuring up to 0.6 cm x 0.3 cm, most likely benign sequelae of an infectious or inflammatory process. Consider follow-up chest CT in 12 months as below. 7. 3.4 cm x 2.5 cm right thyroid nodule. Recommend further evaluation with sonography on a nonemergent basis as below. 8. Additional incidental findings as above. RECOMMENDATIONS: Fleischner Society guidelines for follow-up and management of incidentally detected pulmonary nodules: Multiple Solid Nodules: Nodule size less than 6 mm In a high-risk patient, optional CT at 12 months. Radiology 2017 http://pubs.rsna.org/doi/full/10.1148/radiol.9247644370 Managing Incidental Thyroid Nodule Detected at CT or MRI or US 1. Further evaluation by thyroid Ultrasound recommended for these incidental nodules: Patient Age 35 years or more - Nodule 1.5 cm in size or greater 3. NO further imaging is recommended in the following scenarios - Any nodule not meeting above criteria. - Those patients with limited life expectancy or significant co-morbidities. Note: These recommendations do not apply to pts. w/ increased risk for thyroid cancer or pts. with symptomatic thyroid disease. Recommendations for f/u of Incidental Thyroid Nodules (ITN) found on CT, MR, NM and Extrathyroidal US are based upon the ACR white paper and Cardoza 3-tiered system for managing ITNs: J Am Malia Radiol. 2015 Jun;12(2): 143-50 D/ / Rosalio Wylie MD / Rosalio Wylie MD Interpreting Provider: Rosalio Wylie MD Chest CT 09/06/17 08:00 IMPRESSION: 1. Partial collapse of the bilateral lower lobes with suspected superimposed pneumonia. Additional areas of atelectasis in the bilateral upper lobes without suggestion of pneumonia. 2. Trace bilateral pleural effusions. 3. A few mildly dilated jejunal loops most likely due to ileus. 4. Skin thickening and minimal subcutaneous stranding in the pannus potentially related to edema or cellulitis. 5. Multifocal intravenous gas. Correlate for recent attempts at venous access. 6. A few solid nodules in the right upper lobe measuring up to 0.6 cm x 0.3 cm, most likely benign sequelae of an infectious or inflammatory process. Consider follow-up chest CT in 12 months as below. 7. 3.4 cm x 2.5 cm right thyroid nodule. Recommend further evaluation with sonography on a nonemergent basis as below. 8. Additional incidental findings as above. RECOMMENDATIONS: Fleischner Society guidelines for follow-up and management of incidentally detected pulmonary nodules: Multiple Solid Nodules: Nodule size less than 6 mm In a high-risk patient, optional CT at 12 months. Radiology 2017 http://pubs.rsna.org/doi/full/10.1148/radiol.8661852976 Managing Incidental Thyroid Nodule Detected at CT or MRI or US 1. Further evaluation by thyroid Ultrasound recommended for these incidental nodules: Patient Age 35 years or more - Nodule 1.5 cm in size or greater 3. NO further imaging is recommended in the following scenarios - Any nodule not meeting above criteria. - Those patients with limited life expectancy or significant co-morbidities. Note: These recommendations do not apply to pts. w/ increased risk for thyroid cancer or pts. with symptomatic thyroid disease. Recommendations for f/u of Incidental Thyroid Nodules (ITN) found on CT, MR, NM and Extrathyroidal US are based upon the ACR white paper and Cardoza 3-tiered system for managing ITNs: J Am Malia Radiol. 2015 Jun;12(2): 143-50 D/ / Rosalio Wylie MD / Rosalio Wylie MD Interpreting Provider: Rosalio Wylie MD Lower Extremity CT 09/06/17 08:00 IMPRESSION: 1. Skin thickening and subcutaneous edema about the anterior aspect of each knee and proximal leg. Subcutaneous edema involves the majority of the imaged portion of the right leg. Findings may reflect cellulitis. No defined abscess or soft tissue gas. 2. Bilateral total knee arthroplasties are in place. No joint effusions identified. D/ / 09/06/2017 10:15:14 Froialn Gregory MD / get Interpreting Provider: Froilan Gregory MD Lower Extremity CT 09/06/17 08:00 IMPRESSION: 1. Skin thickening and subcutaneous edema about the anterior aspect of each knee and proximal leg. Subcutaneous edema involves the majority of the imaged portion of the right leg. Findings may reflect cellulitis. No defined abscess or soft tissue gas. 2. Bilateral total knee arthroplasties are in place. No joint effusions identified. D/ / 09/06/2017 10:15:14 Froilan Gregory MD / get Interpreting Provider: Froilan Gregory MD - Attending Attestation I examined this patient and my medical decision-making was reviewed with the Resident Physician. I agree with the documented findings, disposition and treatment plan as described except to the extent set forth below. - Time Spent With Patient Total time spent is greater than 50% in coordination of care (as documented) at patient's floor/unit and/or counseling patient:
[2017-09-06] MEDS ORDERED: *HR* Heparin 5,000 UNIT/ML VIAL IVP PRN ×2 (00:44)
[2017-09-06] MEDS ORDERED: *HR* Heparin 5,000 UNIT/ML VIAL IVP ONE (00:44)
[2017-09-06] MEDS ORDERED: Naloxone 0.4 MG/ML INJ IVP PRN (00:49)
[2017-09-06 01:40] LABS: Hematocrit 34.7 % (37.5-50.1); Hemoglobin 10.3 g/dL (12.9-16.9); Mean Corpuscular HGB Conc 29.7 g/dL (31.6-35.5); Mean Corpuscular Hemoglobin 27.2 pg (28.0-33.3); Mean Corpuscular Volume 91.8 fL (83.0-100.0); Mean Platelet Volume 9.4 fL (9.4-12.4); Platelet Count 327 K/mcL (140-400); Red Blood Count 3.78 M/mcL (4.19-5.50); Red Cell Distribution Width 15.7 % (11.5-14.5)
[2017-09-06 01:45] LABS: INR 1.2; Prothrombin Time 12.9 Seconds (9.4-12.1)
[2017-09-06 01:47] LABS: Activated Partial Thrombo Time 33.5 Seconds (26.0-36.0)
[2017-09-06 01:52] LABS: ABG Base Excess 5 mEq/L (-2 to 3); ABG HCO3 35 mEq/L (21-27); ABG Oxygen Saturation 96 % (95-98); ABG PCO2 89 mmHg (35-45); ABG PH 7.21 pH Units (7.32-7.45); ABG PO2 108 mmHg (85-104); ABG TCO2 38 mEq/L (20-26)
[2017-09-06] MEDS: Heparin 25,000 UNIT/500 ML D5W 25,000 UNIT/500 ML BAG IVC SCH ×2 (01:58→11:33)
[2017-09-06 04:05] LABS: Basophils # 0.1 K/mcL (0.0-0.2); Basophils % 0.4 %; Eosinophils # 0.1 K/mcL (0.0-0.6); Eosinophils % 0.8 %; Hematocrit 35.5 % (37.5-50.1); Hemoglobin 10.3 g/dL (12.9-16.9); Lymphocytes # 1.9 K/mcL (0.6-4.6); Mean Corpuscular Hemoglobin 26.8 pg (28.0-33.3); Mean Corpuscular Volume 92.4 fL (83.0-100.0); Mean Platelet Volume 9.7 fL (9.4-12.4); Monocytes % 12.7 %; Neutrophils # 11.3 K/mcL (1.6-8.9); Platelet Count 337 K/mcL (140-400); Red Blood Count 3.84 M/mcL (4.19-5.50); Red Cell Distribution Width 15.8 % (11.5-14.5); Segmented Neutrophils % 73.1 %
[2017-09-06 04:20] LABS: Calcium 8.6 mg/dL (8.6-10.3); Potassium 3.8 mEq/L (3.5-5.1)
[2017-09-06 04:32] LABS: ABG Base Excess 3 mEq/L (-2 to 3); ABG HCO3 34 mEq/L (21-27); ABG Oxygen Saturation 79 % (95-98); ABG PCO2 93 mmHg (35-45); ABG PH 7.17 pH Units (7.32-7.45); ABG PO2 58 mmHg (85-104); ABG TCO2 37 mEq/L (20-26)
--- NOTE | 2017-09-06 05:31 | Anesthesia Procedures ---
Date of Encounter: 09/06/17 Time of Encounter: 05:29 Procedures: Anesthesia - Intubation Time out performed: No (emergency in ICU) Sedative: none (per KEG INSPECTORstaffing consultant) Amount Sedative given: see JENNIFER Laryngoscope: video scope (Storz unit D Blade) Laryngoscope Size: 3 ET Tube Size: 7.5 ET tube uncuffed: Yes Tube secured depth (cm): 23 Tube secured location: lips Tube Placement Confirmation: visualized tube passing through cords, equal breath sounds bilaterally, no breath sounds over epigastrium, confirmation by capnometry, confirmation by colorimetric device Patient tolerated procedure: well, no complications Intubation complications: none Additional comments: called to ICU Bed #9 at 5:15a to be on stan for "possible intubation" 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 Arrived to ICU at 5:20a. R/T staff providing face-mask ventilation via ambu bag using 2 person technique w/ max jaw thrust and oral airway. Per staff, 2 intubation attempts already made. Blood in airway. SpO2 86%. Intubation attempt made with SpO2 at 93%. Although initial attempt took about 45sec-1min, was successful on 1st attempt. Grade IIb view with D-BLade. Oral mucosa and dentition unchanged.
[2017-09-06] MEDS ORDERED: Piperacillin/Tazobactam 3.375 GM in 0.9 % Sodium Chloride Mini Bag 100 ML IVPB SCH ×2 (06:00→14:00)
[2017-09-06 06:48] LABS: ABG Base Excess 4 mEq/L (-2 to 3); ABG HCO3 33 mEq/L (21-27); ABG Oxygen Saturation 81 % (95-98); ABG PCO2 80 mmHg (35-45); ABG PH 7.23 pH Units (7.32-7.45); ABG PO2 56 mmHg (85-104); ABG TCO2 36 mEq/L (20-26); Blood Gas Modality VC; Blood Gas PEEP 15 cm H2O; Blood Gas Respiration Rate 14; Blood Gas VT 600 cc
[2017-09-06] MEDS ORDERED: *HR* FentaNYL (PF) 100 MCG/2 ML VIAL ONE (07:06)
[2017-09-06] MEDS ORDERED: Dexmedetomidine HCl 400 MCG/100 ML MLS IVC ONE (07:06)
[2017-09-06] MEDS ORDERED: Lacri-Lube 3.5 GM TUBE BOTH EYES PRN (07:06)
[2017-09-06] MEDS: Dexmedetomidine HCl 400 MCG/100 ML MLS IVC SCH ×6 (07:14→22:30)
[2017-09-06] MEDS ORDERED: *HR* FentaNYL (PF) 100 MCG/2 ML VIAL IVP ONE (07:14)
[2017-09-06] MEDS: FentaNYL (PF) 1,000 MCG in 0.9 % Sodium Chloride 80 ML IVC SCH ×3 (07:18→21:35)
[2017-09-06] MEDS ORDERED: Dextrose Gel 15 GM/37.5 ML TUBE PO PRN ×2 (07:18)
[2017-09-06] MEDS ORDERED: D5% in Water 1,000 ML IVC PRN (07:18)
[2017-09-06] MEDS ORDERED: *HR* Dextrose 50 % in Water (Syg) 50 ML SYRINGE IVP PRN ×2 (07:18→09:52)
--- NOTE | 2017-09-06 07:19 | Pulmonology Consult Note ---
<Les Velazquez W - Last Filed: 09/06/17 10:19> Date of Encounter: 09/06/17 Medications and Allergies Amlodipine Besylate 10 mg PO DAILY 12/25/16 [History] Aspirin [Lo-Dose Aspirin EC] 81 mg PO DAILY 12/25/16 [History] Atenolol [Tenormin] 50 mg PO BID 12/25/16 [History] Atorvastatin Calcium [Lipitor] 20 mg PO DAILY 12/25/16 [History] Chlorthalidone 50 mg PO DAILY 12/25/16 [History] Glimepiride [Amaryl] 4 mg PO BID 12/25/16 [History] Liraglutide [Victoza 3-Baljit] 1.8 mg PO DAILY 12/25/16 [History] Lisinopril [Zestril] 20 mg PO DAILY 12/25/16 [History] metFORMIN [Glucophage] 500 mg PO BIDWM 12/25/16 [History] Furosemide [Lasix] 40 mg PO DAILY #14 tablet 06/14/17 [Rx] Gabapentin [Neurontin] 300 mg PO TID PRN 09/06/17 [History] Insulin Regular U-500 [HumuLIN R U-500] 65 - 75 unit SQ BID 09/06/17 [History] 3 Allergy/AdvReac Type Severity Reaction Status Date / Time No Known Allergies Allergy Verified 12/25/16 08:52 All Systems: The remainder of the systems were reviewed and are negative Physical Examination Vital Signs: Vital Signs, Last 4 Hours Pulse Resp BP Pulse Ox 09/06/17 07:43 22 88/54 92 09/06/17 07:00 87 15 129/66 91 09/06/17 06:08 89 14 86/38 95 09/06/17 05:53 14 82/35 94 09/06/17 05:00 88 19 131/55 93 Ventilator Settings Ventilator Settings: Ventilator Settings, Last 8 Hours Ventilator Mode VC+ Ventilator Mode VC+ Ventilator Mode VC+ Ventilator Mode VC+ Ventilator Mode VC+ Ventilator Mode VC+ Ventilator Tidal Volume 500 Setting Ventilator Tidal Volume 500 Setting Ventilator Tidal Volume 600 Setting Ventilator Tidal Volume 600 Setting Ventilator Tidal Volume 600 Setting Ventilator Tidal Volume 600 Setting Ventilator Respiratory Rate 22 Setting Ventilator Respiratory Rate 22 Setting Ventilator Respiratory Rate 14 Setting Ventilator Respiratory Rate 14 Setting Ventilator Respiratory Rate 14 Setting Ventilator Respiratory Rate 14 Setting Actual Respiratory Rate 22 Actual Respiratory Rate 15 Actual Respiratory Rate 14 Actual Respiratory Rate 14 Positive End Expiratory 15 Pressure Positive End Expiratory 15 Pressure Positive End Expiratory 15 Pressure Positive End Expiratory 15 Pressure Positive End Expiratory 15 Pressure Positive End Expiratory 15 Pressure Peak Inspiratory Airway 38 Pressure Peak Inspiratory Airway 43 Pressure Peak Inspiratory Airway 34 Pressure Peak Inspiratory Airway 34 Pressure Results - Laboratory Findings CBC and BMP: 09/06/17 03:43 09/06/17 03:43 ABG ABG pH 7.34 pH Units (7.32-7.45) 09/06/17 07:59 ABG pCO2 61 mmHg (35-45) H 09/06/17 07:59 ABG pO2 71 mmHg (85-104) L 09/06/17 07:59 ABG O2 Saturation 92 % (95-98) L 09/06/17 07:59 PT/INR, D-dimer PT 12.9 Seconds (9.4-12.1) H 09/06/17 01:33 Abnormal lab findings: Abnormal lab results WBC 15.5 K/mcL (4.3-11.1) H 09/06/17 03:43 RBC 3.84 M/mcL (4.19-5.50) L 09/06/17 03:43 Hgb 10.3 g/dL (12.9-16.9) L 09/06/17 03:43 Hct 35.5 % (37.5-50.1) L 09/06/17 03:43 MCH 26.8 pg (28.0-33.3) L 09/06/17 03:43 MCHC 29.0 g/dL (31.6-35.5) L 09/06/17 03:43 RDW 15.8 % (11.5-14.5) H 09/06/17 03:43 Neutrophils # 11.3 K/mcL (1.6-8.9) H 09/06/17 03:43 Monocytes # 2.0 K/mcL (0.0-1.3) H 09/06/17 03:43 PT 12.9 Seconds (9.4-12.1) H 09/06/17 01:33 ABG pCO2 61 mmHg (35-45) H 09/06/17 07:59 ABG pO2 71 mmHg (85-104) L 09/06/17 07:59 ABG HCO3 33 mEq/L (21-27) H 09/06/17 07:59 ABG Total CO2 35 mEq/L (20-26) H 09/06/17 07:59 ABG O2 Saturation 92 % (95-98) L 09/06/17 07:59 ABG Base Excess 6 mEq/L (-2 to 3) H 09/06/17 07:59 Chloride 97 mEq/L (98-107) L 09/06/17 03:43 Carbon Dioxide 32 mEq/L (23-29) H 09/06/17 03:43 BUN 79 mg/dL (6-20) H 09/06/17 03:43 Creatinine 2.81 mg/dL (0.70-1.30) H 09/06/17 03:43 Est GFR ( Amer) 29 (> 60) L 09/06/17 03:43 Est GFR (Non-Af Amer) 24 (> 60) L 09/06/17 03:43 BUN/Creatinine Ratio 28 (6-26) H 09/06/17 03:43 Glucose 269 mg/dL (70-105) H 09/06/17 03:43 POC Glucose 242 mg/dL (70-99) H 09/06/17 00:20 Calculated Osmolality 315 (280-300) H 09/06/17 03:43 - Clinical Findings Intake & Output: Intake & Output 09/05/17 09/06/17 09/06/17 23:59 07:59 15:59 Intake Total 0 / 0 Output Total 520 / 520 Balance -520 / -520 Weight 158.304 kg 190.5 kg Consult Discharge Plan - Plan Referrals: Kayleen Sheth, [employer] SCIENTIST [Primary Care Provider] - - Attending Attestation I examined this patient and my medical decision-making was reviewed with the Resident Physician. I agree with the documented findings, disposition and treatment plan as described except to the extent set forth below. We independently had [id number] contact with the patient I spent 35min of Critical Care time with this patient. It involved decision making of high complexity to assess, manipulate, and support vital organ system failure and/or to prevent further life threatening deterioration of the patient' s condition. The time involved in the performance of separately reportable procedures was not counted toward critical care time. Patient seen and examined at bedside Labs, radiology, chart personally reviewed. Management was reviewed during multidisciplinary critical care rounds. 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 No focal deficits prior to deeper sedation on exam Pulm: Aucte on chronic respiratory failure s/t to PNA complicated by cardiogenic pulmonary edema and supermorbid obesity. Start LTV vent strategy wiith high PEEP to FIO2 ratio. Acceptable gas exchange now after vent changes. PEEK/plat pressures Cards: BP stable. history of HFpEF with elevated BNP. Trop slightly elevated likely s/t demand ischemia. Consider Cardiology consult if trop uptrends he is on heparin for ?VTE prohylaxis . FEN-GI: NPO for now. GI prophylaxis given Renal: UOP monitored. He has acute on chronic kidney injury and will renallly dose all meds. ID: treating for PNA and Possible Cellultis with plan to deescalate based upon micro studies Heme/Onc: ON Heparin gtt for concern of LE DVT however I have less concern for this will repeat LE duplex here if negative will stop infusion. Endo: Glucose Monitored on insulin gtt for now Integ/MSK: Skin Care per routine ICU Nursing Protocol to prevent ulcers. Lines: All lines examined without evidence of infection : Dispo: ICU for critical illness CODE:Full <Rosalio Gallardo - Last Filed: 09/06/17 14:18> Date of Encounter: 09/06/17 Time of Encounter: 08:25 Assessment and Plan (1) CHF (congestive heart failure) Current Visit: Yes Status: Acute Acute on chronic heart failure with preserved ejection fraction The patient demonstrates pulmonary edema on CXR, BNP Acute respiratory failure is consistent with decompensated CHF Initially we will be cautious with diuresis due to sepsis and JAZZY We will monitor I/Os and assess fluid balance daily Qualifiers: Heart failure type: diastolic Heart failure chronicity: acute on chronic Qualified Code(s): I50.33 - Acute on chronic diastolic (congestive) heart failure (2) Acute respiratory failure with hypoxia Current Visit: Yes Status: Acute Acute hypoxic respiratory failure with hypercapnia, ventilator dependent This is likely secondary to acutely decompensated CHF with comorbid pneumonia PE is considered a less likely potential cause of acute respiratory failure On arrival the patient had respiratory acidosis with pH of 7.17 CXR shows increased pulmonary vascular congestion CT Chest shows Partial collapse of the bilateral lower lobes with suspected superimposed pneumonia ABG'S 7.17/93/58/34/79% on BiPAP 7.34/61/71/33/93% on AC with 100%FiO2 Plan -Treat pneumonia with Cefepime and Vancomycin -Continue ventilator support, repeat ABG in the morning -Following hemo-dynamic improvement, consider gentle diuresis (3) Sepsis Current Visit: Yes Status: Acute Sepsis secondary to Pneumonia vs. Cellulitis SIRS Criteria: Hypotension, Tachycardia, Tachypnea, WBC 15.5 Lactic acid 1.8 -> 0.6 -> 1.3 Possible source: Pneumonia vs. Cellulitis Started on Vancomycin and Zosyn on arrival Currently no pressor support Plan: -We will DC Zosyn due to JZAZY Vancomycin Day 1 Cefepime Day 1 -Careful hydration due to CHF with pulmonary edema -May require addition of Levophed depending on BP stability Qualifiers: Sepsis type: sepsis due to unspecified organism Qualified Code(s): A41.9 - Sepsis, unspecified organism (4) DMII (diabetes mellitus, type 2) Current Visit: Yes Status: Chronic Poorly controlled Insulin Dependent DM2 Patient is apparently transitioning to a U500 Insulin regimen at home Currently the patient is very hyperglycemic Plan: -Start IV Insulin to maintain goal Glucose 140-180 -Q1h Accucheck Qualifiers: Diabetes mellitus nursing home insulin use: with nursing home use Diabetes mellitus complication status: without complication Qualified Code(s): E11.9 - Type 2 diabetes mellitus without complications; 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; Z79.4 - half-way (current) use of insulin; Z79.4 - half-way ( current) use of insulin; 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 (5) Right knee pain Current Visit: Yes Status: Acute Acute right knee pain status post total right knee replacement in December 2016 Although there is initial concern for septic joint, the patient does not have that appearance to me I see very limited swelling and the erythema seems to be superficial I believe this is more of a cellulitis than a septic joint CT of the lower extremity does demonstrate soft tissue edema without obvious fluid collection in the joint We will continue to monitor this If blood cultures come back positive we will consider further workup for septic joint Qualifiers: Chronicity: acute Qualified Code(s): M25.561 - Pain in right knee (6) JAZZY (acute kidney injury) Current Visit: Yes Status: Acute Acute on chronic kidney injury Patient does have elevated serum creatinine (2.81) from baseline (~1.8) Likely this is due to sepsis and intravascular volume depletion We will continue to slowly replete fluid with colloid Trend BMPs (7) Ileus Current Visit: Yes Status: Suspected Likely Ileus on CT/CXR The patient has OG tube in place NPO/Bowel rest (8) Morbid obesity with BMI of 60.0-69.9, adult Current Visit: No Status: Chronic (9) Elevated d-dimer Current Visit: Yes Status: Acute Elevated d-dimer in setting of acute respiratory failure I believe that pulmonary embolism is unlikely in this patient however cannot be ruled out Right leg venous Doppler did not demonstrate DVT, however it was noted that the study was suboptimal CTA of the chest is contraindicated in this patient secondary to JAZZY on CKD We will repeat bilateral lower extremity Doppler ultrasound The patient is currently being treated with a heparin drip, however intended discontinue if Doppler ultrasounds are negative (10) DVT prophylaxis Current Visit: Yes Status: Acute Patient is currently on a heparin drip History of Present Illness Consult date: 09/06/17 Requesting physician: Quintin Posada Reason for consult: other (Respiratory failure) Chief complaint: Weakness and shortness of breath History of present illness: Mr. Ruano is a 51-year-old gentleman with a history of morbid obesity, poorly controlled diabetes mellitus and diastolic cardiomyopathy with CHF, presented initially to [facility] via EMS for chief complaint of weakness and right leg pain. Significantly, the patient does have a history of bilateral total knee replacements, with most recent total knee of the right knee in December 2016. The patient is currently under sedation and intubated so it is impossible to gather a history from him, however history below is primarily taken from previous documentation. The patient apparently initially developed pain in his right knee approximately 2 days ago, and he felt that it may be swollen. He had significant trouble bearing weight and turning on the slide. In addition to this, the patient said that he had been developing shortness of breath and a cough with significant phlegm production. At that time he was found to be hypotensive and borderline febrile with a temperature of 99.2. He additionally had some respiratory distress which continued to get worse, and the patient was tachycardic so consideration of pulmonary embolism was made. They found erythema and edema in his lower extremities, most notably in the right lower extremity at which time they ordered lower extremity venous Doppler on the right leg which was seemingly negative for DVT however it mention that the study was poor quality. D-dimer was elevated, however CTA of the chest was not appropriate to the patient's acute kidney injury. Chest x-ray at that time demonstrated increased bronchovascular markings without obvious infiltrates. The ER was concern for possible septic joint and pulmonary embolism determined that it would be appropriate to transfer the patient to [facility] for advanced care. On transport to [place] the patient apparently became significantly short of breath and hypoxic, and the patient required BiPAP. He was initially admitted with concern of septic joint, however he continued to decompensate as far as respiratory status was concerned, and eventually was determined that the patient would require intubation with ventilatory support. At that time the patient was transferred to the ICU. Past Med Surg Social Fam HX - Past Medical History Medical history: cardiomyopathy, diabetes, hypertension Psychiatric history: no psych history - Social History Smoking Status: Former smoker Smokeless Tobacco Status: No Alcohol use: none Drug use: none ROS unobtainable: due to endotracheal tube All Systems: The remainder of the systems were reviewed and are negative Physical Examination Vital Signs: Vital Signs, Last 4 Hours Temp Pulse Resp BP Pulse Ox 09/06/17 07:00 87 15 129/66 91 09/06/17 06:08 89 14 86/38 95 09/06/17 05:53 14 82/35 94 09/06/17 05:00 88 19 131/55 93 09/06/17 04:00 98.9 F 72 12 107/50 91 09/06/17 03:49 89 Gen: Vitals noted. No acute distress. HEENT: Normocephalic, atraumatic. ET Tube and OG Tube in place with possible clots in aspirated fluid Neck: Supple. No adenopathy. Cardiac: RRR, no murmur, +S1/S2 Pulmonary: Diffuse wheezes and possible rhonchi b/l Abdomen: Mildly distended without any palpable masses. There is erythema and moisture in abdominal folds suggestive of pannus cellulitis : Rogel catheter in place Neuro: Difficult to assess due to sedation Extremities: * Left Lower: Grossly edematous with erythema and warmth on the medial thigh extending to distal thigh without inclusion of knee joint. Mid-patellar vertical incision scar present which appears well healed. There is 1-2+ pretibial edema with evidence of stasis wounds and surrounding excoriations * Right Lower: Grossly edematous with mild erythema on medial thigh which is less apparent than LLE. Mid-patellar vertical incision scar present which appears well healed. There is 1-2+ pretibial edema with evidence of stasis wounds and surrounding excoriations Ventilator Settings Ventilator Settings: Ventilator Settings, Last 8 Hours Ventilator Mode VC+ Ventilator Mode VC+ Ventilator Mode VC+ Ventilator Mode VC+ Ventilator Tidal Volume 600 Setting Ventilator Tidal Volume 600 Setting Ventilator Tidal Volume 600 Setting Ventilator Tidal Volume 600 Setting Ventilator Respiratory Rate 14 Setting Ventilator Respiratory Rate 14 Setting Ventilator Respiratory Rate 14 Setting Ventilator Respiratory Rate 14 Setting Actual Respiratory Rate 15 Actual Respiratory Rate 14 Actual Respiratory Rate 14 Positive End Expiratory 15 Pressure Positive End Expiratory 15 Pressure Positive End Expiratory 15 Pressure Positive End Expiratory 15 Pressure Peak Inspiratory Airway 43 Pressure Peak Inspiratory Airway 34 Pressure Peak Inspiratory Airway 34 Pressure Results - Laboratory Findings CBC and BMP: 09/06/17 03:43 09/06/17 03:43 ABG ABG pH 7.23 pH Units (7.32-7.45) L 09/06/17 06:44 ABG pCO2 80 mmHg (35-45) H* 09/06/17 06:44 ABG pO2 56 mmHg (85-104) L 09/06/17 06:44 ABG O2 Saturation 81 % (95-98) L 09/06/17 06:44 PT/INR, D-dimer PT 12.9 Seconds (9.4-12.1) H 09/06/17 01:33 Abnormal lab findings: Abnormal lab results WBC 15.5 K/mcL (4.3-11.1) H 09/06/17 03:43 RBC 3.84 M/mcL (4.19-5.50) L 09/06/17 03:43 Hgb 10.3 g/dL (12.9-16.9) L 09/06/17 03:43 Hct 35.5 % (37.5-50.1) L 09/06/17 03:43 MCH 26.8 pg (28.0-33.3) L 09/06/17 03:43 MCHC 29.0 g/dL (31.6-35.5) L 09/06/17 03:43 RDW 15.8 % (11.5-14.5) H 09/06/17 03:43 Neutrophils # 11.3 K/mcL (1.6-8.9) H 09/06/17 03:43 Monocytes # 2.0 K/mcL (0.0-1.3) H 09/06/17 03:43 PT 12.9 Seconds (9.4-12.1) H 09/06/17 01:33 ABG pH 7.23 pH Units (7.32-7.45) L 09/06/17 06:44 ABG pCO2 80 mmHg (35-45) H* 09/06/17 06:44 ABG pO2 56 mmHg (85-104) L 09/06/17 06:44 ABG HCO3 33 mEq/L (21-27) H 09/06/17 06:44 ABG Total CO2 36 mEq/L (20-26) H 09/06/17 06:44 ABG O2 Saturation 81 % (95-98) L 09/06/17 06:44 ABG Base Excess 4 mEq/L (-2 to 3) H 09/06/17 06:44 Chloride 97 mEq/L (98-107) L 09/06/17 03:43 Carbon Dioxide 32 mEq/L (23-29) H 09/06/17 03:43 BUN 79 mg/dL (6-20) H 09/06/17 03:43 Creatinine 2.81 mg/dL (0.70-1.30) H 09/06/17 03:43 Est GFR ( Amer) 29 (> 60) L 09/06/17 03:43 Est GFR (Non-Af Amer) 24 (> 60) L 09/06/17 03:43 BUN/Creatinine Ratio 28 (6-26) H 09/06/17 03:43 Glucose 269 mg/dL (70-105) H 09/06/17 03:43 POC Glucose 242 mg/dL (70-99) H 09/06/17 00:20 Calculated Osmolality 315 (280-300) H 09/06/17 03:43 - Clinical Findings Intake & Output: Intake & Output 09/05/17 09/05/17 09/06/17 15:59 23:59 07:59 Intake Total 0 / 0 Output Total 520 / 520 Balance -520 / -520 Weight 158.304 kg 190.5 kg
[2017-09-06] MEDS ORDERED: *HR* Midazolam HCl 5 MG/5 ML VIAL IVP ONE (07:57)
[2017-09-06] MEDS ORDERED: *HR* Etomidate 20 MG/10 ML AMPUL IVP ONE (07:57)
[2017-09-06 08:04] LABS: ABG Base Excess 6 mEq/L (-2 to 3); ABG HCO3 33 mEq/L (21-27); ABG Oxygen Saturation 92 % (95-98); ABG PCO2 61 mmHg (35-45); ABG PH 7.34 pH Units (7.32-7.45); ABG PO2 71 mmHg (85-104); ABG TCO2 35 mEq/L (20-26); Blood Gas Modality VC; Blood Gas PEEP 15 cm H2O; Blood Gas Respiration Rate 22; Blood Gas VT 500 cc
[2017-09-06] MEDS: Insulin LISPRO 300 UNITS/3 ML VIAL SQ SCH ×2 (09:26→10:57)
[2017-09-06] MEDS: Lacri-Lube 3.5 GM TUBE BOTH EYES SCH ×5 (09:27→23:36)
[2017-09-06] MEDS: Chlorhexidine Rinse 15 ML MOUTHWASH MM SCH ×2 (09:27→20:25)
[2017-09-06 09:47] LABS: Troponin I 0.05 ng/mL (< 0.04)
[2017-09-06] MEDS ORDERED: *HR* Atropine Sulfate 1 MG/10 ML SYRINGE IV ONE (10:44)
[2017-09-06] MEDS: Cefepime HCl 2,000 MG in Water for inj. (sterile) 20 ML 20 ML IVP SCH ×2 (10:56→23:41)
[2017-09-06] MEDS: Insulin Human Regular 100 UNIT in 0.9 % Sodium Chloride 100 ML IVC SCH (11:09)
[2017-09-06 11:12] LABS: Adenovirus Not Detected (Not Detect); Bordetella Pertussis Not Detected (Not Detect); Chlamydophila pneumoniae Not Detected (Not Detect); Coronavirus 229E Not Detected (Not Detect); Coronavirus HKU1 Not Detected (Not Detect); Coronavirus NL63 Not Detected (Not Detect); Coronavirus OC43 Not Detected (Not Detect); Human Metapneumovirus Not Detected (Not Detect); Human Rhinovirus/Enterovirus Not Detected (Not Detect); Influenza A Subtype 2009 H1 Not Detected (Not Detect); Influenza A Untypeable Not Detected (Not Detect); Influenza B Not Detected (Not Detect); Mycoplasma pneumoniae Not Detected (Not Detect); Parainfluenza Virus 1 Not Detected (Not Detect); Parainfluenza Virus 2 Not Detected (Not Detect); Parainfluenza Virus 3 Not Detected (Not Detect); Parainfluenza Virus 4 Not Detected (Not Detect); Respiratory Syncytial Virus Not Detected (Not Detect)
[2017-09-06 15:00] LABS: Basophils # 0.1 K/mcL (0.0-0.2); Basophils % 0.5 %; Eosinophils # 0.2 K/mcL (0.0-0.6); Eosinophils % 1.5 %; Hematocrit 30.9 % (37.5-50.1); Hemoglobin 9.5 g/dL (12.9-16.9); Immature Granulocytes % 1.5 % (0-4); Lymphocytes # 1.7 K/mcL (0.6-4.6); Lymphocytes % 14.6 %; Mean Corpuscular HGB Conc 30.7 g/dL (31.6-35.5); Mean Corpuscular Hemoglobin 27.5 pg (28.0-33.3); Mean Corpuscular Volume 89.3 fL (83.0-100.0); Mean Platelet Volume 9.7 fL (9.4-12.4); Monocytes # 1.2 K/mcL (0.0-1.3); Monocytes % 10.6 %; Neutrophils # 8.3 K/mcL (1.6-8.9); Nucleated Red Blood Cells 0.2 /100 WBC (0); Platelet Count 325 K/mcL (140-400); Red Blood Count 3.46 M/mcL (4.19-5.50); Red Cell Distribution Width 15.8 % (11.5-14.5); Segmented Neutrophils % 71.3 %
[2017-09-06 15:17] LABS: Calcium 8.6 mg/dL (8.6-10.3); Potassium 3.7 mEq/L (3.5-5.1)
[2017-09-06] MEDS: Pantoprazole 40 MG VIAL IVP SCH (16:06)
[2017-09-06] MEDS ORDERED: Cefepime HCl 2,000 MG in D5% in Water (Mini-Bag+) 100 ML IVPB SCH (18:00)
[2017-09-06] MEDS: *HR* Heparin 5,000 UNIT/ML VIAL SQ SCH (20:25)
[2017-09-07 00:23] LABS: Hematocrit 32.9 % (37.5-50.1); Hemoglobin 10.4 g/dL (12.9-16.9)
[2017-09-07] MEDS: FentaNYL (PF) 1,000 MCG in 0.9 % Sodium Chloride 80 ML IVC SCH ×2 (01:57→07:25)
[2017-09-07] MEDS: Dexmedetomidine HCl 400 MCG/100 ML MLS IVC SCH (02:55)
[2017-09-07 03:38] LABS: Basophils # 0.1 K/mcL (0.0-0.2); Basophils % 0.7 %; Eosinophils # 0.3 K/mcL (0.0-0.6); Eosinophils % 2.4 %; Hematocrit 32.9 % (37.5-50.1); Hemoglobin 10.5 g/dL (12.9-16.9); Immature Granulocytes % 1.7 % (0-4); Lymphocytes # 1.5 K/mcL (0.6-4.6); Mean Corpuscular HGB Conc 31.9 g/dL (31.6-35.5); Mean Corpuscular Hemoglobin 27.5 pg (28.0-33.3); Mean Corpuscular Volume 86.1 fL (83.0-100.0); Mean Platelet Volume 9.8 fL (9.4-12.4); Monocytes # 1.3 K/mcL (0.0-1.3); Monocytes % 10.8 %; Neutrophils # 8.4 K/mcL (1.6-8.9); Platelet Count 324 K/mcL (140-400); Red Blood Count 3.82 M/mcL (4.19-5.50); Red Cell Distribution Width 15.7 % (11.5-14.5); Segmented Neutrophils % 71.4 %
[2017-09-07 03:54] LABS: Calcium 8.7 mg/dL (8.6-10.3); Potassium 3.4 mEq/L (3.5-5.1)
[2017-09-07 04:12] LABS: ABG Base Excess 5 mEq/L (-2 to 3); ABG HCO3 30 mEq/L (21-27); ABG Oxygen Saturation 90 % (95-98); ABG PCO2 47 mmHg (35-45); ABG PH 7.42 pH Units (7.32-7.45); ABG PO2 59 mmHg (85-104); ABG TCO2 32 mEq/L (20-26); Blood Gas Modality VC; Blood Gas PEEP 13 cm H2O; Blood Gas Respiration Rate 22; Blood Gas VT 500 cc
[2017-09-07] MEDS: Lacri-Lube 3.5 GM TUBE BOTH EYES SCH ×5 (04:21→21:52)
[2017-09-07] MEDS: *HR* Heparin 5,000 UNIT/ML VIAL SQ SCH ×3 (05:33→21:51)
[2017-09-07] MEDS: Pantoprazole 40 MG VIAL IVP SCH ×2 (05:33→17:12)
[2017-09-07] MEDS ORDERED: Potassium Chloride 20 MEQ, Lidocaine 1% 2 ML in D5% in Water 250 ML IVPB ONE (06:36)
--- NOTE | 2017-09-07 07:02 | Pulmonology Progress Note ---
<CarolineLes W - Last Filed: 09/07/17 12:09> Date of Encounter: 09/07/17 Objective PUL Vital signs: Last Vital Signs Temp 98.8 F 09/07/17 07:45 Pulse 58 09/07/17 09:00 Resp 18 09/07/17 09:00 BP 114/61 09/07/17 09:00 Pulse Ox 93 09/07/17 09:00 Ventilator Settings Ventilator Settings: Ventilator Settings, Last 8 Hours Ventilator Mode VC+ Ventilator Mode VC+ Ventilator Mode VC+ Ventilator Mode VC+ Ventilator Mode VC+ Ventilator Mode VC+ Ventilator Mode VC+ Ventilator Mode VC+ Ventilator Mode VC+ Ventilator Mode VC+ Ventilator Mode VC+ Ventilator Mode VC+ Ventilator Mode VC+ Ventilator Tidal Volume 500 Setting Ventilator Tidal Volume 500 Setting Ventilator Tidal Volume 500 Setting Ventilator Tidal Volume 500 Setting Ventilator Tidal Volume 500 Setting Ventilator Tidal Volume 500 Setting Ventilator Tidal Volume 500 Setting Ventilator Tidal Volume 500 Setting Ventilator Tidal Volume 500 Setting Ventilator Tidal Volume 500 Setting Ventilator Tidal Volume 500 Setting Ventilator Tidal Volume 500 Setting Ventilator Tidal Volume 500 Setting Ventilator Respiratory Rate 18 Setting Ventilator Respiratory Rate 18 Setting Ventilator Respiratory Rate 18 Setting Ventilator Respiratory Rate 22 Setting Ventilator Respiratory Rate 22 Setting Ventilator Respiratory Rate 22 Setting Ventilator Respiratory Rate 22 Setting Ventilator Respiratory Rate 22 Setting Ventilator Respiratory Rate 22 Setting Ventilator Respiratory Rate 22 Setting Ventilator Respiratory Rate 22 Setting Ventilator Respiratory Rate 22 Setting Ventilator Respiratory Rate 22 Setting Actual Respiratory Rate 18 Actual Respiratory Rate 18 Actual Respiratory Rate 22 Actual Respiratory Rate 22 Actual Respiratory Rate 22 Actual Respiratory Rate 22 Actual Respiratory Rate 22 Actual Respiratory Rate 22 Actual Respiratory Rate 22 Actual Respiratory Rate 22 Actual Respiratory Rate 22 Positive End Expiratory 16 Pressure Positive End Expiratory 16 Pressure Positive End Expiratory 16 Pressure Positive End Expiratory 13 Pressure Positive End Expiratory 13 Pressure Positive End Expiratory 13 Pressure Positive End Expiratory 13 Pressure Positive End Expiratory 13 Pressure Positive End Expiratory 13 Pressure Positive End Expiratory 13 Pressure Positive End Expiratory 13 Pressure Positive End Expiratory 13 Pressure Positive End Expiratory 13 Pressure Peak Inspiratory Airway 36 Pressure Peak Inspiratory Airway 33 Pressure Peak Inspiratory Airway 37 Pressure Peak Inspiratory Airway 45 Pressure Peak Inspiratory Airway 38 Pressure Peak Inspiratory Airway 39 Pressure Peak Inspiratory Airway 37 Pressure Peak Inspiratory Airway 41 Pressure Peak Inspiratory Airway 47 Pressure Peak Inspiratory Airway 35 Pressure Peak Inspiratory Airway 31 Pressure Results - Laboratory Findings CBC and BMP: 09/07/17 03:29 09/07/17 03:29 ABG ABG pH 7.39 pH Units (7.32-7.45) 09/07/17 08:17 ABG pCO2 46 mmHg (35-45) H 09/07/17 08:17 ABG pO2 68 mmHg (85-104) L 09/07/17 08:17 ABG O2 Saturation 93 % (95-98) L 09/07/17 08:17 PT/INR, D-dimer PT 12.9 Seconds (9.4-12.1) H 09/06/17 01:33 Abnormal lab findings: Abnormal lab results WBC 11.7 K/mcL (4.3-11.1) H 09/07/17 03:29 RBC 3.82 M/mcL (4.19-5.50) L 09/07/17 03:29 Hgb 10.5 g/dL (12.9-16.9) L 09/07/17 03:29 Hct 32.9 % (37.5-50.1) L 09/07/17 03:29 MCH 27.5 pg (28.0-33.3) L 09/07/17 03:29 RDW 15.7 % (11.5-14.5) H 09/07/17 03:29 Nucleated RBCs/100 WBC 0.2 /100 WBC (0) H 09/06/17 14:49 PT 12.9 Seconds (9.4-12.1) H 09/06/17 01:33 APTT 45.9 Seconds (26.0-36.0) H 09/06/17 08:17 ABG pCO2 46 mmHg (35-45) H 09/07/17 08:17 ABG pO2 68 mmHg (85-104) L 09/07/17 08:17 ABG HCO3 28 mEq/L (21-27) H 09/07/17 08:17 ABG Total CO2 29 mEq/L (20-26) H 09/07/17 08:17 ABG O2 Saturation 93 % (95-98) L 09/07/17 08:17 Potassium 3.4 mEq/L (3.5-5.1) L 09/07/17 03:29 BUN 74 mg/dL (6-20) H 09/07/17 03:29 Creatinine 2.49 mg/dL (0.70-1.30) H 09/07/17 03:29 Est GFR ( Amer) 33 (> 60) L 09/07/17 03:29 Est GFR (Non-Af Amer) 27 (> 60) L 09/07/17 03:29 BUN/Creatinine Ratio 30 (6-26) H 09/07/17 03:29 Glucose 160 mg/dL (70-105) H 09/07/17 03:29 POC Glucose 201 mg/dL (70-99) H 09/07/17 08:57 Calculated Osmolality 319 (280-300) H 09/07/17 03:29 Creatine Kinase 251 Units/L (30-223) H 09/06/17 08:17 Troponin I 0.05 ng/mL (< 0.04) H* 09/06/17 08:17 B-Natriuretic Peptide 127 pg/mL (Less than 100) H 09/06/17 08:16 - Microbiology Findings Microbiology Findings: Microbiology, Last 48 Hours 09/06/17 15:00 Sputum Culture - Preliminary Sputum - Clinical Findings Intake & Output: Intake & Output 09/06/17 09/07/17 09/07/17 23:59 07:59 15:59 Intake Total 538.9 / 538.9 1001.1 / 1001.1 98 / 98 Output Total 690 / 690 1150 / 1150 550 / 550 Balance -151.1 / -151.1 -148.9 / -148.9 -452 / -452 Weight 191 kg Consult Discharge Plan - Plan Referrals: Kayleen Sheth, SITE MEDICAL DIRECTOR [Primary Care Provider] - - Attending Attestation I examined this patient and my medical decision-making was reviewed with the Resident Physician. I agree with the documented findings, disposition and treatment plan as described except to the extent set forth below. We independently had [id number] contact with the patient Patient seen and examined at bedside Labs, radiology, chart personally reviewed. Management was reviewed during multidisciplinary critical care rounds. 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 Prior to increasing level of sedation on my arrival the patient was more awake and able to follow commands without deficit Pulm: Acute hypoxic hypercarbic respiratory failure secondary to pneumonia complicated by cardiogenic and noncardiogenic pulmonary edema we will continue low tidal volume ventilatory strategy with high PEEP to FiO2 O2 ratio I increased the PEEP further today for hypoxia diuresis should also help pulmonary edema otherwise acceptable gas exchange. Overall respiratory mechanics are affected by his super morbid obesity peak and plateau pressures are not reliable given size of patient but generally within acceptable range Cards: Blood pressure monitored and stable diuresis for cardiogenic pulmonary edema FEN-GI: GI prophylaxis given Renal: Acute on chronic kidney injury which is improving continue diuresis continue daily monitoring of serum creatinine and electrolytes ID: Treating for presumed pneumonia on broad-spectrum antibiotics with planned to de-escalate based upon cultures Heme/Onc: DVT prophylaxis given lower extremity duplex negative for DVT stop heparin infusion Endo: Glucose Monitored Integ/MSK: Skin Care per routine ICU Nursing Protocol to prevent ulcers. Lines: All lines examined without evidence of infection : Dispo: Remain in ICU for ventilator management CODE: Full <Rosalio Gallardo - Last Filed: 09/07/17 14:49> Date of Encounter: 09/07/17 Time of Encounter: 08:35 Assessment and Plan (1) CHF (congestive heart failure) Current Visit: Yes Status: Acute Acute on chronic heart failure with preserved ejection fraction The patient demonstrates pulmonary edema on CXR, BNP Acute respiratory failure is consistent with decompensated CHF Initially we will be cautious with diuresis due to sepsis and JAZZY With gentle lasix usage, the patient's UOP is poor today We will monitor I/Os and assess fluid balance daily Qualifiers: Heart failure type: diastolic Heart failure chronicity: acute on chronic Qualified Code(s): I50.33 - Acute on chronic diastolic (congestive) heart failure (2) Acute respiratory failure with hypoxia Current Visit: Yes Status: Acute Acute hypoxic respiratory failure with hypercapnia/ARDS, ventilator dependent This is likely secondary to acutely decompensated CHF with comorbid pneumonia PE is considered a less likely potential cause of acute respiratory failure On arrival the patient had respiratory acidosis with pH of 7.17 CXR shows increased pulmonary vascular congestion CT Chest shows Partial collapse of the bilateral lower lobes with suspected superimposed pneumonia ABG'S 7.17/93/58/34/79% on BiPAP 7.39/46/68/27.9/93% on AC with 80%FiO2 Plan -Treat pneumonia with Cefepime and Vancomycin Day 2 -Continue ventilator support, repeat ABG in the morning -Following hemo-dynamic improvement, consider gentle diuresis (3) JAZZY (acute kidney injury) Current Visit: Yes Status: Acute Acute on chronic kidney injury with oliguria Patient does have elevated serum creatinine (2.81) from baseline (~1.8) Likely this is due to sepsis and intravascular volume depletion vs hypoperfusion There was mild improvement with the introduction of Colloid fluid yesterday Plan: -We will continue to slowly replete fluid with colloid as needed -IV Lasix for gentle diuesis with monitor of UOP -Trend BMPs (4) Sepsis Current Visit: Yes Status: Acute Sepsis secondary to Pneumonia vs. Cellulitis SIRS Criteria: Hypotension, Tachycardia, Tachypnea, WBC 7.7 Lactic acid 1.8 -> 0.6 -> 1.3 Possible source: Pneumonia vs. Cellulitis Started on Vancomycin and Zosyn on arrival Currently no pressor support Plan: -We will DC Zosyn due to JAZZY Vancomycin Day 2 Cefepime Day 2 -Careful hydration due to CHF with pulmonary edema -May require addition of Levophed depending on BP stability -Consider DC of Vancomycin if cellulitis improves/negative blood cultures Qualifiers: Sepsis type: sepsis due to unspecified organism Qualified Code(s): A41.9 - Sepsis, unspecified organism (5) DMII (diabetes mellitus, type 2) Current Visit: Yes Status: Chronic Poorly controlled Insulin Dependent DM2 Patient is apparently transitioning to a U500 Insulin regimen at home Currently the patient is very hyperglycemic Plan: -Start IV Insulin to maintain goal Glucose 140-180 -Q1h Accucheck Qualifiers: Diabetes mellitus [facility] insulin use: with [facility] use Diabetes mellitus complication status: without complication Qualified Code(s): E11.9 - Type 2 diabetes mellitus without complications; Z79.4 - [facility] (current) use of insulin; Z79.4 - [facility] (current) use of insulin; Z79.4 - [facility] ( current) use of insulin; 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 (6) Right knee pain Current Visit: Yes Status: Acute Acute right knee pain status post total right knee replacement in December 2016 Although there is initial concern for septic joint, the patient does not have that appearance to me I see very limited swelling and the erythema seems to be superficial I believe this is more of a cellulitis than a septic joint CT of the lower extremity does demonstrate soft tissue edema without obvious fluid collection in the joint We will continue to monitor this If blood cultures come back positive we will consider further workup for septic joint Qualifiers: Chronicity: acute Qualified Code(s): M25.561 - Pain in right knee (7) Ileus Current Visit: Yes Status: Suspected Likely Ileus on CT/CXR The patient has OG tube in place NPO/Bowel rest (8) Morbid obesity with BMI of 60.0-69.9, adult Current Visit: No Status: Chronic (9) Elevated d-dimer Current Visit: Yes Status: Acute Elevated d-dimer in setting of acute respiratory failure I believe that pulmonary embolism is unlikely in this patient however cannot be ruled out Right leg venous Doppler did not demonstrate DVT, however it was noted that the study was suboptimal Repeat doppler US b/l is negative, suspicion for DVT/PE is extremely low CTA of the chest is contraindicated in this patient secondary to JAZZY on CKD We will continue DVT prophylaxis, however no heparin drip at this time (10) DVT prophylaxis Current Visit: Yes Status: Acute SQ Heparin Subjective Principal diagnosis: Acute hypoxic respiratory Interval history: The patient continues to have severe respiratory failure and remains intubated. He has required increased sedation in order to prevent fighting the vent which was causing some desaturation. He is otherwise stable. Objective PUL Vital signs: Last Vital Signs Temp 98.1 F 09/07/17 03:45 Pulse 63 09/07/17 06:00 Resp 22 09/07/17 06:00 BP 94/67 09/07/17 06:00 Pulse Ox 93 09/07/17 06:00 Gen: Vitals noted. No acute distress. Remains sedated, more so than prior day HEENT: Normocephalic, atraumatic. ET Tube and OG Tube in place Neck: Supple. No adenopathy. Cardiac: RRR, no murmur, +S1/S2 Pulmonary: Diffuse wheezes and possible rhonchi b/l Abdomen: Mildly distended without any palpable masses. There is erythema and moisture in abdominal folds suggestive of pannus cellulitis : Rogel catheter in place Neuro: Patient remains intubated Extremities: * Left Lower: Grossly edematous with erythema and warmth on the medial thigh extending to distal thigh without inclusion of knee joint which is significantly improved from prior. Mid-patellar vertical incision scar present which appears well healed. There is 1-2+ pretibial edema with evidence of stasis wounds and surrounding excoriations * Right Lower: Grossly edematous with mild erythema on medial thigh which is less apparent than LLE which is significantly improved from prior. Mid-patellar vertical incision scar present which appears well healed. There is 1-2+ pretibial edema with evidence of stasis wounds and surrounding excoriations Ventilator Settings Ventilator Settings: Ventilator Settings, Last 8 Hours Ventilator Mode VC+ Ventilator Mode VC+ Ventilator Mode VC+ Ventilator Mode VC+ Ventilator Mode VC+ Ventilator Mode VC+ Ventilator Mode VC+ Ventilator Mode VC+ Ventilator Mode VC+ Ventilator Mode VC+ Ventilator Mode VC+ Ventilator Mode VC+ Ventilator Tidal Volume 500 Setting Ventilator Tidal Volume 500 Setting Ventilator Tidal Volume 500 Setting Ventilator Tidal Volume 500 Setting Ventilator Tidal Volume 500 Setting Ventilator Tidal Volume 500 Setting Ventilator Tidal Volume 500 Setting Ventilator Tidal Volume 500 Setting Ventilator Tidal Volume 500 Setting Ventilator Tidal Volume 500 Setting Ventilator Tidal Volume 500 Setting Ventilator Tidal Volume 500 Setting Ventilator Respiratory Rate 22 Setting Ventilator Respiratory Rate 22 Setting Ventilator Respiratory Rate 22 Setting Ventilator Respiratory Rate 22 Setting Ventilator Respiratory Rate 22 Setting Ventilator Respiratory Rate 22 Setting Ventilator Respiratory Rate 22 Setting Ventilator Respiratory Rate 22 Setting Ventilator Respiratory Rate 22 Setting Ventilator Respiratory Rate 22 Setting Ventilator Respiratory Rate 22 Setting Ventilator Respiratory Rate 22 Setting Actual Respiratory Rate 22 Actual Respiratory Rate 22 Actual Respiratory Rate 22 Actual Respiratory Rate 22 Actual Respiratory Rate 22 Actual Respiratory Rate 22 Actual Respiratory Rate 22 Actual Respiratory Rate 22 Actual Respiratory Rate 22 Actual Respiratory Rate 22 Actual Respiratory Rate 22 Positive End Expiratory 13 Pressure Positive End Expiratory 13 Pressure Positive End Expiratory 13 Pressure Positive End Expiratory 13 Pressure Positive End Expiratory 13 Pressure Positive End Expiratory 13 Pressure Positive End Expiratory 13 Pressure Positive End Expiratory 13 Pressure Positive End Expiratory 13 Pressure Positive End Expiratory 13 Pressure Positive End Expiratory 13 Pressure Positive End Expiratory 13 Pressure Peak Inspiratory Airway 38 Pressure Peak Inspiratory Airway 39 Pressure Peak Inspiratory Airway 37 Pressure Peak Inspiratory Airway 41 Pressure Peak Inspiratory Airway 47 Pressure Peak Inspiratory Airway 35 Pressure Peak Inspiratory Airway 31 Pressure Peak Inspiratory Airway 30 Pressure Peak Inspiratory Airway 30 Pressure Peak Inspiratory Airway 30 Pressure Peak Inspiratory Airway 30 Pressure Results - Laboratory Findings CBC and BMP: 09/07/17 03:29 09/07/17 03:29 ABG ABG pH 7.42 pH Units (7.32-7.45) 09/07/17 04:07 ABG pCO2 47 mmHg (35-45) H 09/07/17 04:07 ABG pO2 59 mmHg (85-104) L 09/07/17 04:07 ABG O2 Saturation 90 % (95-98) L 09/07/17 04:07 PT/INR, D-dimer PT 12.9 Seconds (9.4-12.1) H 09/06/17 01:33 Abnormal lab findings: Abnormal lab results WBC 11.7 K/mcL (4.3-11.1) H 09/07/17 03:29 RBC 3.82 M/mcL (4.19-5.50) L 09/07/17 03:29 Hgb 10.5 g/dL (12.9-16.9) L 09/07/17 03:29 Hct 32.9 % (37.5-50.1) L 09/07/17 03:29 MCH 27.5 pg (28.0-33.3) L 09/07/17 03:29 RDW 15.7 % (11.5-14.5) H 09/07/17 03:29 Nucleated RBCs/100 WBC 0.2 /100 WBC (0) H 09/06/17 14:49 PT 12.9 Seconds (9.4-12.1) H 09/06/17 01:33 APTT 45.9 Seconds (26.0-36.0) H 09/06/17 08:17 ABG pCO2 47 mmHg (35-45) H 09/07/17 04:07 ABG pO2 59 mmHg (85-104) L 09/07/17 04:07 ABG HCO3 30 mEq/L (21-27) H 09/07/17 04:07 ABG Total CO2 32 mEq/L (20-26) H 09/07/17 04:07 ABG O2 Saturation 90 % (95-98) L 09/07/17 04:07 ABG Base Excess 5 mEq/L (-2 to 3) H 09/07/17 04:07 Potassium 3.4 mEq/L (3.5-5.1) L 09/07/17 03:29 BUN 74 mg/dL (6-20) H 09/07/17 03:29 Creatinine 2.49 mg/dL (0.70-1.30) H 09/07/17 03:29 Est GFR ( Amer) 33 (> 60) L 09/07/17 03:29 Est GFR (Non-Af Amer) 27 (> 60) L 09/07/17 03:29 BUN/Creatinine Ratio 30 (6-26) H 09/07/17 03:29 Glucose 160 mg/dL (70-105) H 09/07/17 03:29 POC Glucose 144 mg/dL (70-99) H 09/07/17 06:04 Calculated Osmolality 319 (280-300) H 09/07/17 03:29 Creatine Kinase 251 Units/L (30-223) H 09/06/17 08:17 Troponin I 0.05 ng/mL (< 0.04) H* 09/06/17 08:17 B-Natriuretic Peptide 127 pg/mL (Less than 100) H 09/06/17 08:16 - Microbiology Findings Microbiology Findings: Microbiology, Last 48 Hours 09/06/17 15:00 Sputum Culture - Preliminary Sputum - Clinical Findings Intake & Output: Intake & Output 09/06/17 09/06/17 09/07/17 15:59 23:59 07:59 Intake Total 2379 / 2379 538.9 / 538.9 818 / 818 Output Total 625 / 625 690 / 690 900 / 900 Balance 1754 / 1754 -151.1 / -151.1 -82 / -82 Weight 191 kg
[2017-09-07] MEDS ORDERED: Furosemide 20 MG/2 ML VIAL IVP ONE (07:20)
[2017-09-07] MEDS: MethylPREDNISolone 40 MG/ML VIAL IVP SCH ×2 (07:34→15:00)
[2017-09-07] MEDS: Chlorhexidine Rinse 15 ML MOUTHWASH MM SCH ×2 (07:34→21:52)
[2017-09-07] MEDS: Insulin Human Regular 100 UNIT in 0.9 % Sodium Chloride 100 ML IVC SCH ×2 (07:58→17:54)
[2017-09-07] MEDS ORDERED: Aminoglycoside Consult 1 EACH MC ONE (08:05)
[2017-09-07 08:20] LABS: ABG Base Excess 3 mEq/L (-2 to 3); ABG HCO3 28 mEq/L (21-27); ABG Oxygen Saturation 93 % (95-98); ABG PCO2 46 mmHg (35-45); ABG PH 7.39 pH Units (7.32-7.45); ABG PO2 68 mmHg (85-104); ABG TCO2 29 mEq/L (20-26); Blood Gas Modality VC; Blood Gas PEEP 16 cm H2O; Blood Gas Respiration Rate 18; Blood Gas VT 500 cc
[2017-09-07] MEDS: Cefepime HCl 2,000 MG in Water for inj. (sterile) 20 ML 20 ML IVP SCH ×2 (09:57→22:08)
[2017-09-07] MEDS: Ipratropium/Albuterol Neb 3 ML IH SCH ×3 (09:59→21:38)
[2017-09-07] MEDS: FentaNYL (PF) 2,500 MCG in EMPTY BAG 50 EACH IVC SCH ×2 (11:12→18:14)
[2017-09-07 14:53] LABS: Acinetobacter baumannii by PCR Not Detected (Not Detect); Candida albicans by PCR Not Detected (Not Detect); Candida glabrata by PCR Not Detected (Not Detect); Candida krusei by PCR Not Detected (Not Detect); Candida parapsilosis by PCR Not Detected (Not Detect); Candida tropicalis by PCR Not Detected (Not Detect); Enterococcus by PCR Not Detected (Not Detect); Escherichia coli by PCR Not Detected (Not Detect); Klebsiella oxytoca by PCR Not Detected (Not Detect); Klebsiella pneumoniae by PCR Not Detected (Not Detect); Pseudomonas aeruginosa by PCR Not Detected (Not Detect); Serratia marcescens by PCR Not Detected (Not Detect); Staphylococcus aureus by PCR Not Detected (Not Detect); Streptococcus agalactiae(B)PCR Not Detected (Not Detect); Streptococcus by PCR Not Detected (Not Detect); Streptococcus pneumoniae PCR Not Detected (Not Detect); Streptococcus pyogenes (A) PCR Not Detected (Not Detect)
[2017-09-07 16:35] LABS: Calcium 8.9 mg/dL (8.6-10.3); Potassium 4.8 mEq/L (3.5-5.1)
[2017-09-08] MEDS: Insulin Human Regular 100 UNIT in 0.9 % Sodium Chloride 100 ML IVC SCH ×4 (00:05→23:34)
[2017-09-08] MEDS: Lacri-Lube 3.5 GM TUBE BOTH EYES SCH ×7 (00:06→22:55)
[2017-09-08] MEDS: MethylPREDNISolone 40 MG/ML VIAL IVP SCH ×4 (00:30→22:56)
[2017-09-08] MEDS: Ipratropium/Albuterol Neb 3 ML IH SCH ×4 (03:37→21:48)
[2017-09-08] MEDS: *HR* Heparin 5,000 UNIT/ML VIAL SQ SCH ×3 (05:56→20:51)
[2017-09-08] MEDS: Pantoprazole 40 MG VIAL IVP SCH ×2 (05:56→18:42)
[2017-09-08 06:24] LABS: VBG HCO3 25 mEq/L (21-27); VBG PCO2 61 mmHg (41-51); VBG PH 7.22 pH Units (7.32-7.42); VBG PO2 166 mmHg (25-50)
[2017-09-08 06:29] LABS: Basophils % 0.3 %; Hemoglobin 9.8 g/dL (12.9-16.9); Immature Granulocytes % 2.6 % (0-4); Lymphocytes # 0.5 K/mcL (0.6-4.6); Lymphocytes % 3.3 %; Mean Corpuscular HGB Conc 29.7 g/dL (31.6-35.5); Mean Corpuscular Hemoglobin 27.1 pg (28.0-33.3); Mean Corpuscular Volume 91.2 fL (83.0-100.0); Mean Platelet Volume 9.9 fL (9.4-12.4); Monocytes # 0.6 K/mcL (0.0-1.3); Monocytes % 4.1 %; Neutrophils # 12.3 K/mcL (1.6-8.9); Nucleated Red Blood Cells 0.1 /100 WBC (0); Platelet Count 358 K/mcL (140-400); Red Blood Count 3.62 M/mcL (4.19-5.50); Red Cell Distribution Width 15.9 % (11.5-14.5); Segmented Neutrophils % 89.7 %
[2017-09-08 06:44] LABS: Calcium 8.9 mg/dL (8.6-10.3); Potassium 4.6 mEq/L (3.5-5.1)
[2017-09-08 06:46] LABS: ABG Base Excess -4 mEq/L (-2 to 3); ABG HCO3 25 mEq/L (21-27); ABG Oxygen Saturation 86 % (95-98); ABG PCO2 60 mmHg (35-45); ABG PH 7.22 pH Units (7.32-7.45); ABG PO2 63 mmHg (85-104); ABG TCO2 26 mEq/L (20-26); Blood Gas Modality PRVC; Blood Gas PEEP 16 cm H2O; Blood Gas Respiration Rate 18; Blood Gas VT 500 cc
[2017-09-08] MEDS: FentaNYL (PF) 2,500 MCG in EMPTY BAG 50 EACH IVC SCH ×2 (06:52→18:35)
--- NOTE | 2017-09-08 07:14 | Pulmonology Progress Note ---
<Rosalio Gallardo - Last Filed: 09/08/17 08:26> Date of Encounter: 09/08/17 Time of Encounter: 08:04 Assessment and Plan (1) CHF (congestive heart failure) Current Visit: Yes Status: Acute Acute on chronic heart failure with preserved ejection fraction The patient demonstrates pulmonary edema on CXR, BNP Acute respiratory failure is consistent with decompensated CHF Respiratory failure continues to make minimal improvement More aggressive diuresis will be needed in this patient to stimulate UOP We will monitor I/Os and assess fluid balance daily Qualifiers: Heart failure type: diastolic Heart failure chronicity: acute on chronic Qualified Code(s): I50.33 - Acute on chronic diastolic (congestive) heart failure (2) Acute respiratory failure with hypoxia Current Visit: Yes Status: Acute Acute hypoxic respiratory failure with hypercapnia/ARDS, ventilator dependent This is likely secondary to acutely decompensated CHF with comorbid pneumonia PE is considered a less likely potential cause of acute respiratory failure On arrival the patient had respiratory acidosis with pH of 7.17 CXR shows increased pulmonary vascular congestion CT Chest shows Partial collapse of the bilateral lower lobes with suspected superimposed pneumonia ABG'S 7.17/93/58/34/79% on BiPAP 7.22/60/63/25/86% on AC with 80%FiO2 Plan -Due to minimal improvement in respiratory status, we will reconstitute Zosyn, DC Vanc/Cefepime -More aggressive diuresis with 80mg Lasix -Continue ventilator support, repeat ABG in the morning -Following hemo-dynamic improvement, consider gentle diuresis (3) JAZZY (acute kidney injury) Current Visit: Yes Status: Acute Acute on chronic kidney injury with oliguria Patient does have elevated serum creatinine (3.57) from baseline (~1.8) Likely this is due to sepsis and intravascular volume depletion vs hypoperfusion There seems to be progression of kidney disease in response to acute illness UOP overnight was approximately 75mL despite hydration and lasix Plan: -We will start albumin 25% q8h -IV Lasix at higher dose to attempt to remove fluid, patient may require progression to HD -Nephrology consultation with Dr. Lucas, appreciate recommendations -Trend BMPs (4) Sepsis Current Visit: Yes Status: Acute Sepsis secondary to Pneumonia vs. Cellulitis SIRS Criteria: Hypotension, Tachycardia, Tachypnea, WBC 13.7 Lactic acid 1.8 -> 0.6 -> 1.3 Possible source: Pneumonia vs. Cellulitis Started on Vancomycin and Zosyn on arrival Cultures do currently grow few GPC, however may be contaminant Currently no pressor support Plan: -JAZZY is worsening, no evidence of continued cellulitis Stop Vancomycin and Cefepime Restart Zosyn at renal dosing Antibiotic day 3 -Consider repeat blood cultures -Careful hydration due to CHF with pulmonary edema -May require addition of Levophed depending on BP stability Qualifiers: Sepsis type: sepsis due to unspecified organism Qualified Code(s): A41.9 - Sepsis, unspecified organism (5) DMII (diabetes mellitus, type 2) Current Visit: Yes Status: Chronic Poorly controlled Insulin Dependent DM2 Patient is apparently transitioning to a U500 Insulin regimen at home Currently the patient is very hyperglycemic Plan: -Start IV Insulin to maintain goal Glucose 140-180 -Q1h Accucheck Qualifiers: Diabetes mellitus senior care insulin use: with senior care use Diabetes mellitus complication status: without complication Qualified Code(s): E11.9 - Type 2 diabetes mellitus without complications; Z79.4 - skilled nursing (current) use of insulin; Z79.4 - superintendent container terminal (current) use of insulin; Z79.4 - superintendent container terminal ( current) use of insulin; Z79.4 - superintendent container terminal (current) use of insulin (6) Right knee pain Current Visit: Yes Status: Acute Acute right knee pain status post total right knee replacement in December 2016 Although there is initial concern for septic joint, the patient does not have that appearance to me I see very limited swelling and the erythema seems to be superficial I believe this is more of a cellulitis than a septic joint CT of the lower extremity does demonstrate soft tissue edema without obvious fluid collection in the joint If blood cultures come back positive we will consider further workup for septic joint We will continue to monitor this Qualifiers: Chronicity: acute Qualified Code(s): M25.561 - Pain in right knee (7) Ileus Current Visit: Yes Status: Suspected Likely Ileus on CT/CXR The patient has OG tube in place NPO/Bowel rest (8) Morbid obesity with BMI of 60.0-69.9, adult Current Visit: No Status: Chronic (9) Elevated d-dimer Current Visit: Yes Status: Acute Elevated d-dimer in setting of acute respiratory failure I believe that pulmonary embolism is unlikely in this patient however cannot be ruled out Right leg venous Doppler did not demonstrate DVT, however it was noted that the study was suboptimal Repeat doppler US b/l is negative, suspicion for DVT/PE is extremely low CTA of the chest is contraindicated in this patient secondary to JAZZY on CKD We will continue DVT prophylaxis, however no heparin drip at this time (10) DVT prophylaxis Current Visit: Yes Status: Acute SQ Heparin Subjective Principal diagnosis: Acute hypoxic respiratory Interval history: The patient continues to have severe respiratory failure and remains intubated. Overnight he continues to be oliguric with approximately 50-75mL UOP total despite fluid resuscitation and albumin given. Objective PUL Vital signs: Last Vital Signs Temp 97.4 F L 09/08/17 04:00 Pulse 85 09/08/17 06:00 Resp 18 09/08/17 06:00 BP 121/71 09/08/17 06:00 Pulse Ox 91 09/08/17 06:00 Gen: Vitals noted. No acute distress. Remains sedated, more so than prior day HEENT: Normocephalic, atraumatic. ET Tube and OG Tube in place Neck: Supple. No adenopathy. Cardiac: RRR, no murmur, +S1/S2 Pulmonary: CTAB on today's exam Abdomen: Mildly distended without any palpable masses. There is erythema and moisture in abdominal folds suggestive of pannus cellulitis : Rogel catheter in place Neuro: Patient remains intubated Extremities: * Left Lower: Grossly edematous with erythema and warmth on the medial thigh extending to distal thigh without inclusion of knee joint which is significantly improved from prior. Mid-patellar vertical incision scar present which appears well healed. There is 1-2+ pretibial edema with evidence of stasis wounds and surrounding excoriations * Right Lower: Grossly edematous with mild erythema on medial thigh which is less apparent than LLE which is significantly improved from prior. Mid-patellar vertical incision scar present which appears well healed. There is 1-2+ pretibial edema with evidence of stasis wounds and surrounding excoriations Ventilator Settings Ventilator Settings: Ventilator Settings, Last 8 Hours Ventilator Mode VC+ Ventilator Mode VC+ Ventilator Mode VC+ Ventilator Mode VC+ Ventilator Mode VC+ Ventilator Mode VC+ Ventilator Mode VC+ Ventilator Mode VC+ Ventilator Mode VC+ Ventilator Mode VC+ Ventilator Mode VC+ Ventilator Mode VC+ Ventilator Tidal Volume 500 Setting Ventilator Tidal Volume 500 Setting Ventilator Tidal Volume 500 Setting Ventilator Tidal Volume 500 Setting Ventilator Tidal Volume 500 Setting Ventilator Tidal Volume 500 Setting Ventilator Tidal Volume 500 Setting Ventilator Tidal Volume 500 Setting Ventilator Tidal Volume 500 Setting Ventilator Tidal Volume 500 Setting Ventilator Tidal Volume 500 Setting Ventilator Tidal Volume 500 Setting Ventilator Respiratory Rate 18 Setting Ventilator Respiratory Rate 18 Setting Ventilator Respiratory Rate 18 Setting Ventilator Respiratory Rate 18 Setting Ventilator Respiratory Rate 18 Setting Ventilator Respiratory Rate 18 Setting Ventilator Respiratory Rate 18 Setting Ventilator Respiratory Rate 18 Setting Ventilator Respiratory Rate 18 Setting Ventilator Respiratory Rate 18 Setting Ventilator Respiratory Rate 18 Setting Ventilator Respiratory Rate 18 Setting Actual Respiratory Rate 18 Actual Respiratory Rate 18 Actual Respiratory Rate 18 Actual Respiratory Rate 18 Actual Respiratory Rate 18 Actual Respiratory Rate 18 Actual Respiratory Rate 18 Actual Respiratory Rate 18 Actual Respiratory Rate 18 Actual Respiratory Rate 18 Actual Respiratory Rate 18 Positive End Expiratory 16 Pressure Positive End Expiratory 16 Pressure Positive End Expiratory 16 Pressure Positive End Expiratory 16 Pressure Positive End Expiratory 16 Pressure Positive End Expiratory 16 Pressure Positive End Expiratory 16 Pressure Positive End Expiratory 16 Pressure Positive End Expiratory 16 Pressure Positive End Expiratory 16 Pressure Positive End Expiratory 16 Pressure Positive End Expiratory 16 Pressure Peak Inspiratory Airway 34 Pressure Peak Inspiratory Airway 35 Pressure Peak Inspiratory Airway 35 Pressure Peak Inspiratory Airway 39 Pressure Peak Inspiratory Airway 37 Pressure Peak Inspiratory Airway 37 Pressure Peak Inspiratory Airway 34 Pressure Peak Inspiratory Airway 39 Pressure Peak Inspiratory Airway 33 Pressure Peak Inspiratory Airway 34 Pressure Peak Inspiratory Airway 34 Pressure Results - Laboratory Findings CBC and BMP: 09/08/17 06:03 09/08/17 06:03 ABG ABG pH 7.22 pH Units (7.32-7.45) L 09/08/17 06:42 ABG pCO2 60 mmHg (35-45) H 09/08/17 06:42 ABG pO2 63 mmHg (85-104) L 09/08/17 06:42 ABG O2 Saturation 86 % (95-98) L 09/08/17 06:42 PT/INR, D-dimer PT 12.9 Seconds (9.4-12.1) H 09/06/17 01:33 Abnormal lab findings: Abnormal lab results WBC 13.7 K/mcL (4.3-11.1) H 09/08/17 06:03 RBC 3.62 M/mcL (4.19-5.50) L 09/08/17 06:03 Hgb 9.8 g/dL (12.9-16.9) L 09/08/17 06:03 Hct 33.0 % (37.5-50.1) L 09/08/17 06:03 MCH 27.1 pg (28.0-33.3) L 09/08/17 06:03 MCHC 29.7 g/dL (31.6-35.5) L 09/08/17 06:03 RDW 15.9 % (11.5-14.5) H 09/08/17 06:03 Neutrophils # 12.3 K/mcL (1.6-8.9) H 09/08/17 06:03 Lymphocytes # 0.5 K/mcL (0.6-4.6) L 09/08/17 06:03 Nucleated RBCs/100 WBC 0.1 /100 WBC (0) H 09/08/17 06:03 PT 12.9 Seconds (9.4-12.1) H 09/06/17 01:33 APTT 45.9 Seconds (26.0-36.0) H 09/06/17 08:17 ABG pH 7.22 pH Units (7.32-7.45) L 09/08/17 06:42 ABG pCO2 60 mmHg (35-45) H 09/08/17 06:42 ABG pO2 63 mmHg (85-104) L 09/08/17 06:42 ABG O2 Saturation 86 % (95-98) L 09/08/17 06:42 ABG Base Excess -4 mEq/L (-2 to 3) L 09/08/17 06:42 VBG pH 7.22 pH Units (7.32-7.42) L 09/08/17 06:20 VBG pCO2 61 mmHg (41-51) H 09/08/17 06:20 VBG pO2 166 mmHg (25-50) H 09/08/17 06:20 BUN 83 mg/dL (6-20) H 09/08/17 06:03 Creatinine 3.57 mg/dL (0.70-1.30) H 09/08/17 06:03 Est GFR ( Amer) 22 (> 60) L 09/08/17 06:03 Est GFR (Non-Af Amer) 18 (> 60) L 09/08/17 06:03 Glucose 174 mg/dL (70-105) H 09/08/17 06:03 POC Glucose 185 mg/dL (70-99) H 09/08/17 06:46 Calculated Osmolality 315 (280-300) H 09/08/17 06:03 Creatine Kinase 251 Units/L (30-223) H 09/06/17 08:17 Troponin I 0.05 ng/mL (< 0.04) H* 09/06/17 08:17 B-Natriuretic Peptide 127 pg/mL (Less than 100) H 09/06/17 08:16 - Microbiology Findings Microbiology Findings: Microbiology, Last 48 Hours 09/06/17 01:33 Blood Culture - Preliminary Peripheral Venipuncture Gram Positive Cocci 09/06/17 15:00 Sputum Culture - Preliminary Sputum - Clinical Findings Intake & Output: Intake & Output 09/07/17 09/07/17 09/08/17 15:59 23:59 07:59 Intake Total 1326 / 1326 1697 / 1697 482 / 482 Output Total 835 / 835 90 / 90 310 / 310 Balance 491 / 491 1607 / 1607 172 / 172 Weight 193.3 kg Consult Discharge Plan - Plan Referrals: Kayleen Sheth CNP [Primary Care Provider] - <Les Velazquez - Last Filed: 09/08/17 10:19> Date of Encounter: 09/08/17 Objective PUL Vital signs: Last Vital Signs Temp 97.7 F 09/08/17 08:02 Pulse 80 09/08/17 09:02 Resp 20 09/08/17 09:02 BP 128/75 09/08/17 09:02 Pulse Ox 92 09/08/17 09:02 Ventilator Settings Ventilator Settings: Ventilator Settings, Last 8 Hours Ventilator Mode VC+ Ventilator Mode VC+ Ventilator Mode VC+ Ventilator Mode VC+ Ventilator Mode VC+ Ventilator Mode VC+ Ventilator Mode VC+ Ventilator Mode VC+ Ventilator Mode VC+ Ventilator Mode VC+ Ventilator Tidal Volume 500 Setting Ventilator Tidal Volume 500 Setting Ventilator Tidal Volume 500 Setting Ventilator Tidal Volume 500 Setting Ventilator Tidal Volume 500 Setting Ventilator Tidal Volume 500 Setting Ventilator Tidal Volume 500 Setting Ventilator Tidal Volume 500 Setting Ventilator Tidal Volume 500 Setting Ventilator Tidal Volume 500 Setting Ventilator Respiratory Rate 20 Setting Ventilator Respiratory Rate 20 Setting Ventilator Respiratory Rate 18 Setting Ventilator Respiratory Rate 18 Setting Ventilator Respiratory Rate 18 Setting Ventilator Respiratory Rate 18 Setting Ventilator Respiratory Rate 18 Setting Ventilator Respiratory Rate 18 Setting Ventilator Respiratory Rate 18 Setting Ventilator Respiratory Rate 18 Setting Actual Respiratory Rate 20 Actual Respiratory Rate 20 Actual Respiratory Rate 21 Actual Respiratory Rate 18 Actual Respiratory Rate 18 Actual Respiratory Rate 18 Actual Respiratory Rate 18 Actual Respiratory Rate 18 Actual Respiratory Rate 18 Positive End Expiratory 16 Pressure Positive End Expiratory 16 Pressure Positive End Expiratory 16 Pressure Positive End Expiratory 16 Pressure Positive End Expiratory 16 Pressure Positive End Expiratory 16 Pressure Positive End Expiratory 16 Pressure Positive End Expiratory 16 Pressure Positive End Expiratory 16 Pressure Positive End Expiratory 16 Pressure Peak Inspiratory Airway 34 Pressure Peak Inspiratory Airway 33 Pressure Peak Inspiratory Airway 34 Pressure Peak Inspiratory Airway 34 Pressure Peak Inspiratory Airway 35 Pressure Peak Inspiratory Airway 35 Pressure Peak Inspiratory Airway 39 Pressure Peak Inspiratory Airway 37 Pressure Peak Inspiratory Airway 37 Pressure Results - Laboratory Findings CBC and BMP: 09/08/17 06:03 09/08/17 06:03 ABG ABG pH 7.22 pH Units (7.32-7.45) L 09/08/17 06:42 ABG pCO2 60 mmHg (35-45) H 09/08/17 06:42 ABG pO2 63 mmHg (85-104) L 09/08/17 06:42 ABG O2 Saturation 86 % (95-98) L 09/08/17 06:42 PT/INR, D-dimer PT 12.9 Seconds (9.4-12.1) H 09/06/17 01:33 Abnormal lab findings: Abnormal lab results WBC 13.7 K/mcL (4.3-11.1) H 09/08/17 06:03 RBC 3.62 M/mcL (4.19-5.50) L 09/08/17 06:03 Hgb 9.8 g/dL (12.9-16.9) L 09/08/17 06:03 Hct 33.0 % (37.5-50.1) L 09/08/17 06:03 MCH 27.1 pg (28.0-33.3) L 09/08/17 06:03 MCHC 29.7 g/dL (31.6-35.5) L 09/08/17 06:03 RDW 15.9 % (11.5-14.5) H 09/08/17 06:03 Neutrophils # 12.3 K/mcL (1.6-8.9) H 09/08/17 06:03 Lymphocytes # 0.5 K/mcL (0.6-4.6) L 09/08/17 06:03 Nucleated RBCs/100 WBC 0.1 /100 WBC (0) H 09/08/17 06:03 PT 12.9 Seconds (9.4-12.1) H 09/06/17 01:33 APTT 45.9 Seconds (26.0-36.0) H 09/06/17 08:17 ABG pH 7.22 pH Units (7.32-7.45) L 09/08/17 06:42 ABG pCO2 60 mmHg (35-45) H 09/08/17 06:42 ABG pO2 63 mmHg (85-104) L 09/08/17 06:42 ABG O2 Saturation 86 % (95-98) L 09/08/17 06:42 ABG Base Excess -4 mEq/L (-2 to 3) L 09/08/17 06:42 VBG pH 7.22 pH Units (7.32-7.42) L 09/08/17 06:20 VBG pCO2 61 mmHg (41-51) H 09/08/17 06:20 VBG pO2 166 mmHg (25-50) H 09/08/17 06:20 BUN 83 mg/dL (6-20) H 09/08/17 06:03 Creatinine 3.57 mg/dL (0.70-1.30) H 09/08/17 06:03 Est GFR ( Amer) 22 (> 60) L 09/08/17 06:03 Est GFR (Non-Af Amer) 18 (> 60) L 09/08/17 06:03 Glucose 174 mg/dL (70-105) H 09/08/17 06:03 POC Glucose 151 mg/dL (70-99) H 09/08/17 09:03 Calculated Osmolality 315 (280-300) H 09/08/17 06:03 Creatine Kinase 251 Units/L (30-223) H 09/06/17 08:17 Troponin I 0.05 ng/mL (< 0.04) H* 09/06/17 08:17 B-Natriuretic Peptide 127 pg/mL (Less than 100) H 09/06/17 08:16 - Microbiology Findings Microbiology Findings: Microbiology, Last 48 Hours 09/06/17 15:00 Sputum Culture - Preliminary Sputum 09/06/17 01:33 Blood Culture - Preliminary Peripheral Venipuncture Gram Positive Cocci - Clinical Findings Intake & Output: Intake & Output 09/07/17 09/08/17 09/08/17 23:59 07:59 15:59 Intake Total 1697 / 1697 582 / 582 Output Total 90 / 90 310 / 310 100 / 100 Balance 1607 / 1607 272 / 272 -100 / -100 Weight 193.3 kg - Attending Attestation I examined this patient and my medical decision-making was reviewed with the Resident Physician. I agree with the documented findings, disposition and treatment plan as described except to the extent set forth below. We independently had [id number] contact with the patient Patient seen and examined at bedside Labs, radiology, chart personally reviewed. Management was reviewed during multidisciplinary critical care rounds. [employer]: Patient remains deeply sedated for ventilator synchrony. Pulm: Acute on chronic hypoxic hypercarbic respiratory failure likely secondary to pneumonia with progression to ARDS also complicated by underlying noncardiogenic pulmonary edema continue low tidal volume ventilatory strategy with high PEEP to FiO2 ratio unfortunately remains on 70% FiO2 today we will continue to decrease to keep PO2 greater than 55 her saturation greater than 89% . Overall acceptable oxygenation although more acidotic today which is secondary to increased PCO2 as well as a metabolic component renal failure 5 increase the minute ventilation slightly to accommodate for this however we will continue to employ permissive hypercapnia strategy. Patient plateau pressures are appropriate further complicated by the patient's super morbid obesity. Continue steroids and bronchodilators Cards: Blood pressure monitored and stable off pressor FEN-GI: Start trophic enteral nutrition per dietary recommendations continue GI prophylaxis Renal: Worsening acute on chronic kidney injury patient responded to albumin yesterday we will employ a strategy of albumin and Lasix diuresis formal consultation nephrology has been placed continue to renal dose all medications ID: 1 blood culture positive for gram-positive cocci I suspect this is probably a contaminant holding vancomycin at present because of kidney injury will switch back from cefepime to Zosyn because of worsening leukocytosis and the concern of aspiration. Heme/Onc: DVT prophylaxis given Endo: Glucose Monitored continue insulin infusion for hyperglycemia Integ/MSK: Skin Care per routine ICU Nursing Protocol to prevent ulcers. Lines: All lines examined without evidence of infection : Dispo: Remain in ICU CODE: Full code
[2017-09-08] MEDS ORDERED: Furosemide 40 MG/4 ML VIAL IVP ONE (08:25)
[2017-09-08] MEDS ORDERED: Furosemide 480 MG in D5% in Water 192 ML IVC SCH (08:30)
[2017-09-08] MEDS: Piperacillin/Tazobactam 3.375 GM in 0.9 % Sodium Chloride Mini Bag 100 ML IVPB SCH ×3 (08:36→22:56)
[2017-09-08] MEDS: Albumin 25% 25gram/100mL 25 GM/100 ML IV.SOLN IVPB SCH ×3 (08:36→22:56)
--- NOTE | 2017-09-08 08:36 | Nephrology Consult Note ---
Date of Encounter: 09/18/17 Time of Encounter: 08:34 History of Present Illness - History of Present Illness This is a 51-year-old male who originally presented to an outside hospital with complaints of knee pain as well as weakness. Patient was subsequently [facility] He subsequently has been diagnosed with pneumonia sepsis and respiratory failure. He does have a history of chronic kidney disease. Appears his baseline creatinine ranges from 1.6-2.0. Urine hospital the patient apparently has become all icteric and has developed acute kidney injury superimposed on his chronic kidney disease. Hypotensive episodes during his hospital stay. He has not required any vasopressors. He has required intubation and mechanical ventilation. Her creatinine today has increased to 3.57. Blood cultures are growing gram-positive cocci. Urinalysis shows only trace proteinuria. Patient does have a long-standing history of diabetes. Recent echocardiogram showed a preserved left ventricular ejection fraction with evidence of diastolic dysfunction as well as moderate pulmonary hypertension. Patient is intubated and on though unable to give any history. History is obtained from the medical record. Patient is currently requiring 70 % FiO2 as well as 16 of PEEP to maintain oxygenation. Patient has a clinical picture of acute kidney injury superimposed on stage III chronic kidney disease in the setting of sepsis, pneumonia, and respiratory failure. Acute kidney injury is likely related to these acute illnesses as well as possible nephrotoxicity from vancomycin and/or Zosyn. Patient does have quite a bit of lower extremity edema and some difficulty with oxygenation. He is oliguric. I have recommended starting the patient on a Lasix drip at 20 mg per hour. I have also discussed with the ICU team the possibility of continuing to give him some supplemental albumin to help maintain intravascular refilling. If the patient fails to improve he may require dialysis in the near future. I would recommend avoiding nephrotoxic antibiotics as much as possible. I realize the in order to adequately treat his infection this may not be entirely possible. Past Med Surg Social Fam HX - Past Medical History Medical history: cardiomyopathy, diabetes, hypertension Psychiatric history: no psych history - Social History Smoking Status: Former smoker Smokeless Tobacco Status: No Alcohol use: none Drug use: none Medications and Allergies Amlodipine Besylate 10 mg PO DAILY 12/25/16 [History] Aspirin [Lo-Dose Aspirin EC] 81 mg PO DAILY 12/25/16 [History] Atenolol [Tenormin] 50 mg PO BID 12/25/16 [History] Atorvastatin Calcium [Lipitor] 20 mg PO DAILY 12/25/16 [History] Chlorthalidone 50 mg PO DAILY 12/25/16 [History] Glimepiride [Amaryl] 4 mg PO BID 12/25/16 [History] Liraglutide [Victoza 3-Baljit] 1.8 mg PO DAILY 12/25/16 [History] Lisinopril [Zestril] 20 mg PO DAILY 12/25/16 [History] metFORMIN [Glucophage] 500 mg PO BIDWM 12/25/16 [History] Furosemide [Lasix] 40 mg PO DAILY #14 tablet 06/14/17 [Rx] Gabapentin [Neurontin] 300 mg PO TID PRN 09/06/17 [History] Insulin Regular U-500 [HumuLIN R U-500] 65 - 75 unit SQ BID 09/06/17 [History] 3 Allergy/AdvReac Type Severity Reaction Status Date / Time No Known Allergies Allergy Verified 12/25/16 08:52 Review of Systems ROS unobtainable: due to endotracheal tube Exam - Vital Signs Vital signs: Initial Vital Signs Temp Pulse Resp BP Pulse Ox 98.7 F 90 18 115/65 92 09/05/17 23:32 09/05/17 23:32 09/05/17 23:32 09/05/17 23:32 09/05/17 23:32 Vital Signs - Last 8 Hours Temp Pulse Resp BP Pulse Ox 09/08/17 08:02 97.7 F 09/08/17 07:45 21 128/59 89 09/08/17 06:00 85 18 121/71 91 09/08/17 05:46 18 119/67 90 09/08/17 05:00 86 19 120/71 91 09/08/17 04:00 97.4 F L 84 19 124/67 88 09/08/17 03:37 18 119/59 91 09/08/17 03:00 83 18 133/68 90 09/08/17 02:00 85 18 149/57 93 09/08/17 01:00 75 18 97/54 92 Intake and Output 09/07/17 09/08/17 09/08/17 23:59 07:59 15:59 Intake Total 1697 / 1697 482 / 482 Output Total 90 / 90 310 / 310 100 / 100 Balance 1607 / 1607 172 / 172 -100 / -100 Intake: IV Fluids 1697 / 1697 482 / 482 ALBURX 5% 12.5 gm In 250 ml @ 1000 / 1000 60 mls/hr IVC .Q4H10M MK Rx#: [id number] FentaNYL (PF) 2,500 MCG In 50 / 50 50 / 50 Empty Bag 50 Each @ 200 MCG/HR 4 mls/hr IVC CONT MK Rx#: [id number] HumuLIN R 100 UNIT In 0.9 % 147 / 147 112 / 112 Sodium Chloride 100 ML @ 7 UNIT /HR 7.07 mls/hr IVC CONT MK Rx #:[id number] Diprivan 1,000 mg In 100 ml @ 5 500 / 500 300 / 300 MCG/KG/MIN 5.715 mls/hr IVC . [id number] MK Rx#:[id number] Maxipime 2,000 MG In Water for 20 / 20 inj. (sterile) 20 ML @ 300 mls/ hr IVP Q12H MK Rx#:[id number] Oral 0 / 0 Output: Gastric Tube Lavage Amount 100 / 100 Oral 100 / 100 Catheter 40 / 40 110 / 110 100 / 100 Urethral (Rogel) 20 / 20 55 / 55 Gastric Drainage 50 / 50 100 / 100 Other: Weight 193.3 kg Blood Glucose* 175 185 Patient Weight 09/08/17 23:59 Weight 193.3 kg - General Appearance Exam: Patient is currently sedated on the ventilator. Blood pressure is 128/59. Patient is morbidly obese and appears chronically ill. Lungs to manage breath sounds bilaterally. Heart regular rate and rhythm with a 2/6 talk ejection murmur. Abdomen is obese. Bowel sounds are diminished. There is no guarding nor rigidity. Patient has 2-3+ lower extremity edema. A Rogel catheter is in place. Results - Lab Results 09/17/17 01:22 09/17/17 01:22 Most recent lab results ABG pH 7.22 pH Units (7.32-7.45) L 09/08/17 06:42 ABG pCO2 60 mmHg (35-45) H 09/08/17 06:42 ABG pO2 63 mmHg (85-104) L 09/08/17 06:42 ABG HCO3 25 mEq/L (21-27) 09/08/17 06:42 ABG O2 Saturation 86 % (95-98) L 09/08/17 06:42 Calcium 8.9 mg/dL (8.6-10.3) 09/08/17 06:03 Magnesium 2.2 mg/dL (1.6-2.6) 09/07/17 15:59 Consult Discharge Plan - Plan Referrals: Kayleen Sheth, PAUL [Primary Care Provider] -
[2017-09-08] MEDS: Chlorhexidine Rinse 15 ML MOUTHWASH MM SCH ×2 (08:37→20:08)
[2017-09-08] MEDS ORDERED: Furosemide 40 MG/4 ML VIAL IVP SCH (09:30)
[2017-09-08 10:24] LABS: Bilirubin,Urine Negative (Negative); Blood,Urine Large (Negative); Clarity,Urine Turbid (Clear); Color,Urine Yellow (Yellow); Glucose,Urine (UA) Normal (Normal); Ketones,Urine Negative (Negative); Leukocyte Esterase,Urine Negative (Negative); Nitrite,Urine Negative (Negative); PH,Urine 5.5 pH Units (5.0-8.0); Protein,Urine 30 mg/dL (Neg-Trace); Specific Gravity,Urine 1.025 (1.010-1.025); Urobilinogen,Urine Normal (Normal)
[2017-09-08 10:28] LABS: Bacteria,Urine None Seen per hpf (None-Few); Squamous Epithelial Cell,Urine Many per lpf (None-Few); WBC,Urine TNTC per hpf (0-3)
[2017-09-08 10:51] LABS: RBC,Urine 50-100 per hpf (0-3)
[2017-09-08 10:54] LABS: Transitional Epi Cells,Urine Few per hpf (None-Few)
[2017-09-08 10:59] LABS: Renal Epithelial Cells,Urine Few per hpf (None-Few)
[2017-09-08 11:00] LABS: Amorphous Sediment,Urine Moderate (Few)
[2017-09-08 11:22] LABS: ABG Base Excess -3 mEq/L (-2 to 3); ABG HCO3 25 mEq/L (21-27); ABG Oxygen Saturation 91 % (95-98); ABG PCO2 53 mmHg (35-45); ABG PH 7.28 pH Units (7.32-7.45); ABG PO2 70 mmHg (85-104); ABG TCO2 26 mEq/L (20-26); Blood Gas Modality ASSIST CONTROL; Blood Gas PEEP 16 cm H2O; Blood Gas Respiration Rate 20; Blood Gas VT 500 cc
[2017-09-08 11:59] LABS: ABG Base Excess -3 mEq/L (-2 to 3); ABG HCO3 25 mEq/L (21-27); ABG Oxygen Saturation 87 % (95-98); ABG PCO2 57 mmHg (35-45); ABG PH 7.25 pH Units (7.32-7.45); ABG PO2 63 mmHg (85-104); ABG TCO2 27 mEq/L (20-26); Blood Gas Modality ASSIST CONTROL; Blood Gas PEEP 16 cm H2O; Blood Gas Respiration Rate 20; Blood Gas VT 500 cc
[2017-09-08 12:06] LABS: ABG Base Excess -4 mEq/L (-2 to 3); ABG HCO3 24 mEq/L (21-27); ABG Oxygen Saturation 88 % (95-98); ABG PCO2 52 mmHg (35-45); ABG PH 7.27 pH Units (7.32-7.45); ABG PO2 64 mmHg (85-104); ABG TCO2 25 mEq/L (20-26); Blood Gas Modality ASSIST CONTROL; Blood Gas PEEP 5 cm H2O; Blood Gas Respiration Rate 20; Blood Gas VT 500 cc
--- NOTE | 2017-09-08 12:44 | Procedure Note ---
Date of procedure: 09/08/17 Pre-op diagnosis: Hypotension Post-op diagnosis: same Procedure: CVC insertion under ultrasound guidance Surgeon: Les Velazquez Was there an assistant golf course superintendent present: No Estimated blood loss (cc): 1 Specimen: none Pathology: none sent Disposition: no change Procedures: Internal Med - Central Line Placement Right IJ Consent Obtained: verbal consent Time out performed: Yes Patient placed on monitor/pulse ox: Yes MD prep: mask, gown, gloves, other Central line prep: Chlorhexidine scrub Local anesthesia used: Lidocaine 1% Amount of anesthesia used (mls): 10 Ultrasound used for placement: Yes Central line lumen inserted: triple Post Procedure: sutured in place, good blood return, all ports aspirated, flushed, capped, sterile dressing applied, dark venous blood, biodisk applied Post procedure x-ray: other (Pending ) Patient tolerated procedure: well, no complications
[2017-09-08 14:52] LABS: Albumin 3.3 g/dL (3.5-5.7); Albumin/Globulin Ratio 0.9 (1.1-2.2); Bilirubin,Direct 0.3 mg/dL (0.0-0.2); Bilirubin,Indirect 0.1 mg/dL (0.0-1.2); Bilirubin,Total 0.4 mg/dL (0.3-1.0); Globulin 3.5 g/dL (2.4-3.5); Total Protein 6.8 g/dL (6.4-8.9)
[2017-09-08] MEDS: Docusate Oral Soln 100 MG/10 ML UDC GTUBE SCH (20:09)
[2017-09-09] MEDS: Ipratropium/Albuterol Neb 3 ML IH SCH ×4 (03:53→21:46)
[2017-09-09 03:55] LABS: Hematocrit 29.2 % (37.5-50.1); Hemoglobin 8.8 g/dL (12.9-16.9); Mean Corpuscular HGB Conc 30.1 g/dL (31.6-35.5); Mean Corpuscular Hemoglobin 26.9 pg (28.0-33.3); Mean Corpuscular Volume 89.3 fL (83.0-100.0); Monocytes # 0.4 K/mcL (0.0-1.3); Nucleated Red Blood Cells 0.4 /100 WBC (0); Platelet Count 327 K/mcL (140-400); Red Blood Count 3.27 M/mcL (4.19-5.50); Red Cell Distribution Width 15.9 % (11.5-14.5)
[2017-09-09] MEDS: Insulin Human Regular 100 UNIT in 0.9 % Sodium Chloride 100 ML IVC SCH ×6 (03:59→23:11)
[2017-09-09] MEDS: Lacri-Lube 3.5 GM TUBE BOTH EYES SCH ×6 (04:01→23:11)
[2017-09-09 04:14] LABS: Calcium 8.8 mg/dL (8.6-10.3); Magnesium 2.4 mg/dL (1.6-2.6)
[2017-09-09 04:15] LABS: Chol/HDL Ratio 6.9 (0-4.9); Cholesterol 138 mg/dL (< 200); HDL Cholesterol 20 mg/dL (40-59); Triglycerides 526 mg/dL (< 150)
[2017-09-09 04:31] LABS: LDL Cholesterol,Direct 60 mg/dL (75-193)
[2017-09-09 04:38] LABS: Neutrophils # 8.3 K/mcL (1.6-8.9); Platelet Estimate Normal (Normal)
[2017-09-09] MEDS: Pantoprazole 40 MG VIAL IVP SCH ×2 (05:50→17:29)
[2017-09-09] MEDS: *HR* Heparin 5,000 UNIT/ML VIAL SQ SCH ×3 (05:50→20:45)
[2017-09-09 06:06] LABS: ABG Base Excess -3 mEq/L (-2 to 3); ABG HCO3 24 mEq/L (21-27); ABG Oxygen Saturation 94 % (95-98); ABG PCO2 51 mmHg (35-45); ABG PH 7.28 pH Units (7.32-7.45); ABG PO2 81 mmHg (85-104); ABG TCO2 26 mEq/L (20-26); Blood Gas Modality PRVC; Blood Gas PEEP 16 cm H2O; Blood Gas Respiration Rate 20; Blood Gas VT 500 cc
[2017-09-09] MEDS: FentaNYL (PF) 2,500 MCG in EMPTY BAG 50 EACH IVC SCH ×3 (06:42→21:30)
--- NOTE | 2017-09-09 07:59 | Nephrology Progress Note ---
Date of Encounter: 09/09/17 Time of Encounter: 07:57 - Assessment and Plan (1) JAZZY (acute kidney injury) Current Visit: Yes Status: Acute Patient has acute kidney injury superimposed on stage III chronic kidney disease in the setting of sepsis, pneumonia, and acute respiratory failure. Azotemia continues to increase. Urine output is fair. The patient's renal function continues to worsen he may require dialysis within the next 24-48 hours. He continues to receive albumin for blood pressure support. (2) Acute respiratory failure with hypoxia Current Visit: Yes Status: Acute (3) Chronic kidney disease, stage III (moderate) Current Visit: Yes Status: Acute Subjective Principal diagnosis: Acute hypoxic respiratory Interval history: The patient remained sedated on the ventilator. Serum creatinine continues to worsen. He did receive some Lasix yesterday. Urine output appears to be approximately 760 mL for yesterday. Blood pressure is better today 154/65. He still requiring 70% supplemental oxygen on the ventilator. Objective - Vital Signs Vital signs: Vital Signs Temp Pulse Resp BP Pulse Ox 09/09/17 07:48 97.3 F L 09/09/17 07:25 17 145/57 93 09/09/17 06:00 87 20 154/65 93 09/09/17 05:00 80 20 115/54 92 09/09/17 04:27 96.7 F L 09/09/17 04:00 70 20 102/46 92 09/09/17 03:54 20 107/57 92 09/09/17 03:00 68 20 98/48 91 09/09/17 02:00 74 20 110/54 93 09/09/17 01:00 82 20 123/56 94 09/09/17 00:00 86 20 122/59 95 09/08/17 23:52 97.9 F 09/08/17 23:41 20 116/55 95 09/08/17 23:25 85 09/08/17 23:00 85 20 120/58 95 09/08/17 22:00 81 20 126/62 95 09/08/17 21:48 20 130/64 95 09/08/17 21:00 77 20 117/59 94 09/08/17 20:08 98.4 F 09/08/17 20:07 20 101/51 92 09/08/17 20:00 72 20 101/51 92 09/08/17 19:01 81 20 105/50 92 09/08/17 18:30 89 20 120/53 95 09/08/17 17:56 20 132/55 95 09/08/17 17:00 89 20 141/60 95 09/08/17 16:37 91 20 151/61 97 09/08/17 15:27 22 122/57 93 09/08/17 15:24 97.3 F L 09/08/17 15:00 88 09/08/17 14:07 80 20 122/57 94 09/08/17 13:23 20 122/57 94 09/08/17 13:00 73 20 105/50 94 09/08/17 12:20 78 20 100/56 09/08/17 11:39 76 21 95/65 91 09/08/17 11:34 20 128/75 92 09/08/17 09:02 80 20 128/75 92 09/08/17 08:11 80 20 134/62 92 09/08/17 08:02 97.7 F Intake and Output 09/08/17 09/08/17 09/09/17 15:59 23:59 07:59 Intake Total 590 / 590 851 / 851 1611 / 1611 Output Total 400 / 400 200 / 200 275 / 275 Balance 190 / 190 651 / 651 1336 / 1336 Intake: IV Fluids 590 / 590 851 / 851 1401 / 1401 FentaNYL (PF) 2,500 MCG In 50 / 50 50 / 50 Empty Bag 50 Each @ 200 MCG/HR 4 mls/hr IVC CONT MK Rx#: [id number] HumuLIN R 100 UNIT In 0.9 % 90 / 90 101 / 101 151 / 151 Sodium Chloride 100 ML @ 7 UNIT /HR 7.07 mls/hr IVC CONT MK Rx #:[id number] Diprivan 1,000 mg In 100 ml @ 5 300 / 300 500 / 500 500 / 500 MCG/KG/MIN 5.715 mls/hr IVC . [id number] MK Rx#:[id number] Flexbumin 25 gm In 100 ml @ 60 100 / 100 100 / 100 100 / 100 mls/hr IVPB Q8HR MK Rx#: [id number] Zosyn 3.375 GM In 0.9 % Sodium 100 / 100 100 / 100 100 / 100 Chloride (Mini-Bag +) 100 ML @ 25 mls/hr IVPB Q8HR [facility] Rx#: [id number] Tube Feeding 210 / 210 Output: Catheter 400 / 400 200 / 200 275 / 275 Other: Weight 185.3 kg Blood Glucose* 155 212 195 - General Appearance Exam: Patient is sedated on the ventilator. He is in no acute distress. Lungs coarse breath sounds. Heart regular rate and rhythm. Abdomen shows some diminished bowel sounds. Abdomen is obese. There is no guarding or rigidity. Patient has 2+ lower extremity swelling. A Rogel catheter is in place. - Lab 09/09/17 03:40 09/09/17 03:40 Most recent lab results ABG pH 7.28 pH Units (7.32-7.45) L 09/09/17 06:03 ABG pCO2 51 mmHg (35-45) H 09/09/17 06:03 ABG pO2 81 mmHg (85-104) L 09/09/17 06:03 ABG HCO3 24 mEq/L (21-27) 09/09/17 06:03 ABG O2 Saturation 94 % (95-98) L 09/09/17 06:03 Calcium 8.8 mg/dL (8.6-10.3) 09/09/17 03:40 Magnesium 2.4 mg/dL (1.6-2.6) 09/09/17 03:40 Consult Discharge Plan - Plan Referrals: Kayleen Sheth, LOTTERY SALES CLERK [Primary Care Provider] -
[2017-09-09] MEDS: MethylPREDNISolone 40 MG/ML VIAL IVP SCH ×2 (08:08→16:02)
[2017-09-09] MEDS: Piperacillin/Tazobactam 3.375 GM in 0.9 % Sodium Chloride Mini Bag 100 ML IVPB SCH ×3 (08:08→23:09)
[2017-09-09] MEDS: Albumin 25% 25gram/100mL 25 GM/100 ML IV.SOLN IVPB SCH ×3 (08:08→23:10)
[2017-09-09] MEDS: Dexmedetomidine HCl 400 MCG/100 ML MLS IVC SCH ×2 (08:09→17:29)
[2017-09-09] MEDS: Chlorhexidine Rinse 15 ML MOUTHWASH MM SCH ×2 (08:09→20:45)
[2017-09-09] MEDS: Docusate Oral Soln 100 MG/10 ML UDC GTUBE SCH ×2 (08:10→20:45)
[2017-09-09] MEDS ORDERED: Furosemide 40 MG/4 ML VIAL IVP ONE (08:12)
--- NOTE | 2017-09-09 08:24 | Pulmonology Progress Note ---
<CarolineLes W - Last Filed: 09/09/17 09:10> Date of Encounter: 09/09/17 Objective PUL Vital signs: Last Vital Signs Temp 97.3 F L 09/09/17 07:48 Pulse 87 09/09/17 06:00 Resp 25 09/09/17 08:14 BP 138/65 09/09/17 08:14 Pulse Ox 90 09/09/17 08:14 Ventilator Settings Ventilator Settings: Ventilator Settings, Last 8 Hours Ventilator Mode VC+ Ventilator Mode VC+ Ventilator Mode VC+ Ventilator Mode VC+ Ventilator Mode VC+ Ventilator Mode VC+ Ventilator Mode VC+ Ventilator Mode VC+ Ventilator Mode VC+ Ventilator Mode VC+ Ventilator Tidal Volume 500 Setting Ventilator Tidal Volume 500 Setting Ventilator Tidal Volume 500 Setting Ventilator Tidal Volume 500 Setting Ventilator Tidal Volume 500 Setting Ventilator Tidal Volume 500 Setting Ventilator Tidal Volume 500 Setting Ventilator Tidal Volume 500 Setting Ventilator Tidal Volume 500 Setting Ventilator Tidal Volume 500 Setting Ventilator Respiratory Rate 20 Setting Ventilator Respiratory Rate 20 Setting Ventilator Respiratory Rate 20 Setting Ventilator Respiratory Rate 20 Setting Ventilator Respiratory Rate 20 Setting Ventilator Respiratory Rate 20 Setting Ventilator Respiratory Rate 20 Setting Ventilator Respiratory Rate 20 Setting Ventilator Respiratory Rate 20 Setting Ventilator Respiratory Rate 20 Setting Actual Respiratory Rate 22 Actual Respiratory Rate 21 Actual Respiratory Rate 20 Actual Respiratory Rate 20 Actual Respiratory Rate 20 Actual Respiratory Rate 20 Actual Respiratory Rate 20 Actual Respiratory Rate 20 Actual Respiratory Rate 20 Positive End Expiratory 16 Pressure Positive End Expiratory 16 Pressure Positive End Expiratory 16 Pressure Positive End Expiratory 16 Pressure Positive End Expiratory 16 Pressure Positive End Expiratory 16 Pressure Positive End Expiratory 16 Pressure Positive End Expiratory 16 Pressure Positive End Expiratory 16 Pressure Positive End Expiratory 16 Pressure Peak Inspiratory Airway 45 Pressure Peak Inspiratory Airway 38 Pressure Peak Inspiratory Airway 37 Pressure Peak Inspiratory Airway 34 Pressure Peak Inspiratory Airway 35 Pressure Peak Inspiratory Airway 34 Pressure Peak Inspiratory Airway 34 Pressure Peak Inspiratory Airway 34 Pressure Peak Inspiratory Airway 32 Pressure Results - Laboratory Findings CBC and BMP: 09/09/17 03:40 09/09/17 03:40 ABG ABG pH 7.28 pH Units (7.32-7.45) L 09/09/17 06:03 ABG pCO2 51 mmHg (35-45) H 09/09/17 06:03 ABG pO2 81 mmHg (85-104) L 09/09/17 06:03 ABG O2 Saturation 94 % (95-98) L 09/09/17 06:03 PT/INR, D-dimer PT 12.9 Seconds (9.4-12.1) H 09/06/17 01:33 Abnormal lab findings: Abnormal lab results RBC 3.27 M/mcL (4.19-5.50) L 09/09/17 03:40 Hgb 8.8 g/dL (12.9-16.9) L 09/09/17 03:40 Hct 29.2 % (37.5-50.1) L 09/09/17 03:40 MCH 26.9 pg (28.0-33.3) L 09/09/17 03:40 MCHC 30.1 g/dL (31.6-35.5) L 09/09/17 03:40 RDW 15.9 % (11.5-14.5) H 09/09/17 03:40 Band Neutrophils % 22.0 % (0-4) H 09/09/17 03:40 Nucleated RBCs/100 WBC 0.4 /100 WBC (0) H 09/09/17 03:40 PT 12.9 Seconds (9.4-12.1) H 09/06/17 01:33 ABG pH 7.28 pH Units (7.32-7.45) L 09/09/17 06:03 ABG pCO2 51 mmHg (35-45) H 09/09/17 06:03 ABG pO2 81 mmHg (85-104) L 09/09/17 06:03 ABG O2 Saturation 94 % (95-98) L 09/09/17 06:03 ABG Base Excess -3 mEq/L (-2 to 3) L 09/09/17 06:03 VBG pH 7.22 pH Units (7.32-7.42) L 09/08/17 06:20 VBG pCO2 61 mmHg (41-51) H 09/08/17 06:20 VBG pO2 166 mmHg (25-50) H 09/08/17 06:20 Carbon Dioxide 22 mEq/L (23-29) L 09/09/17 03:40 BUN 104 mg/dL (6-20) H 09/09/17 03:40 Creatinine 3.87 mg/dL (0.70-1.30) H 09/09/17 03:40 Est GFR ( Amer) 20 (> 60) L 09/09/17 03:40 Est GFR (Non-Af Amer) 16 (> 60) L 09/09/17 03:40 BUN/Creatinine Ratio 27 (6-26) H 09/09/17 03:40 Glucose 227 mg/dL (70-105) H 09/09/17 03:40 POC Glucose 209 mg/dL (70-99) H 09/09/17 07:56 Calculated Osmolality 326 (280-300) H 09/09/17 03:40 Direct Bilirubin 0.3 mg/dL (0.0-0.2) H 09/08/17 06:03 AST 69 Units/L (13-39) H 09/08/17 06:03 ALT 60 Units/L (7-52) H 09/08/17 06:03 Creatine Kinase 1160 Units/L (30-223) H 09/09/17 03:40 Troponin I 0.05 ng/mL (< 0.04) H* 09/06/17 08:17 B-Natriuretic Peptide 127 pg/mL (Less than 100) H 09/06/17 08:16 Albumin 3.3 g/dL (3.5-5.7) L 09/08/17 06:03 Albumin/Globulin Ratio 0.9 (1.1-2.2) L 09/08/17 06:03 Triglycerides 526 mg/dL (< 150) H 09/09/17 03:40 LDL Cholesterol Measurd 60 mg/dL (75-193) L 09/09/17 03:40 HDL Cholesterol 20 mg/dL (40-59) L 09/09/17 03:40 Cholesterol/HDL Ratio 6.9 (0-4.9) H 09/09/17 03:40 Urine Clarity Turbid (Clear) A 09/08/17 09:40 Urine Protein 30 mg/dL (Neg-Trace) H 09/08/17 09:40 Urine Blood Large (Negative) H 09/08/17 09:40 Urine Microscopic RBC 50-100 per hpf (0-3) H 09/08/17 09:40 Urine Microscopic WBC TNTC per hpf (0-3) H 09/08/17 09:40 Ur Squamous Epith Cells Many per lpf (None-Few) H 09/08/17 09:40 Amorphous Sediment Moderate (Few) H 09/08/17 09:40 Vancomycin Trough 57 mcg/mL (5-10) H 09/08/17 06:03 - Microbiology Findings Microbiology Findings: Microbiology, Last 48 Hours 09/06/17 15:00 Sputum Culture - Final Sputum 09/06/17 01:33 Blood Culture - Preliminary Peripheral Venipuncture Gram Positive Cocci - Clinical Findings Intake & Output: Intake & Output 09/08/17 09/09/17 09/09/17 23:59 07:59 15:59 Intake Total 851 / 851 1611 / 1611 51 / 51 Output Total 200 / 200 275 / 275 Balance 651 / 651 1336 / 1336 51 / 51 Weight 185.3 kg Consult Discharge Plan - Plan Referrals: Kayleen Sheth, HEALTH INFORMATION CODER [Primary Care Provider] - - Attending Attestation I examined this patient and my medical decision-making was reviewed with the Resident Physician. I agree with the documented findings, disposition and treatment plan as described except to the extent set forth below. We independently had [id number] contact with the patient Patient seen and examined at bedside Labs, radiology, chart personally reviewed. Management was reviewed during multidisciplinary critical care rounds. 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 not candidate for SAT today because of severe Hypoxemia Pulm: Remains intubated on vent. Acceptable gas exchange. severe ARDS complicated with underlying cardiogenic pulmonary edema. Wean Fio2 today and then will attempt to lower PEEP. super morbid obesity is complicating this condition. Cards: BP monitored and stable. FEN-GI: Cont trophic enteral nutrition per nutrition consult recs. Gi prophylaxis given Renal: JAZZY ON CKD Neprho following oliguric. Cont albumin with Lasix. Likely will need LUMBER SORTER MACHINE but no ID: Cont Zosyn for PNA see a positive trend in WBC after switching I suspect aspiration Heme/Onc: DVT prophylaxis given Endo: Glucose Monitored stop steroids because of worsening Hyperglycemia. Integ/MSK: Skin Care per routine ICU Nursing Protocol to prevent ulcers. Lines: All lines examined without evidence of infection : Dispo: Remain in ICU for VEnt mngt CODE: Full. <Quintin Posada - Last Filed: 09/09/17 15:13> Date of Encounter: 09/09/17 Time of Encounter: 08:22 Assessment and Plan (1) CHF (congestive heart failure) Current Visit: Yes Status: Acute - Acute on chronic heart failure with preserved ejection fraction - The patient demonstrates pulmonary edema on CXR, BNP - Acute respiratory failure is consistent with decompensated CHF - Respiratory failure continues to make minimal improvement - More aggressive diuresis will be needed in this patient to stimulate UOP - Monitor I/Os and assess fluid balance daily; total I/O balance is 5481 mL - Lasix drip; initial bolus of 40 mg, followed by a rate of 20 mg per hour Qualifiers: Heart failure type: diastolic Heart failure chronicity: acute on chronic Qualified Code(s): I50.33 - Acute on chronic diastolic (congestive) heart failure (2) Acute respiratory failure with hypoxia Current Visit: Yes Status: Acute Acute hypoxic respiratory failure with hypercapnia/ARDS, ventilator dependent - Likely secondary to acutely decompensated CHF with comorbid pneumonia - PE is considered a less likely potential cause of acute respiratory failure - On arrival the patient had respiratory acidosis with pH of 7.17 - CXR shows increased pulmonary vascular congestion - CT Chest shows Partial collapse of the bilateral lower lobes with suspected superimposed pneumonia Plan - Solu-Medrol 40 mg IV every 8 - Duo nebs 3 mL inhaled every 6 scheduled - Currently sedated on propofol, Precedex, fentanyl - O2 sat this morning was 93 - Currently sedated on propofol, Precedex, fentanyl (3) JAZZY (acute kidney injury) Current Visit: Yes Status: Acute - Acute on chronic kidney injury with oliguria - Patient does have elevated serum creatinine (3.57) from baseline (~1.8) - Likely this is due to sepsis and intravascular volume depletion vs hypoperfusion - There seems to be progression of kidney disease in response to acute illness -Was given albumin 25% q8h Plan: - Nephrology consultation with Dr. Lucas, appreciate recommendations - Trend BMPs (4) Sepsis Current Visit: Yes Status: Acute Sepsis secondary to Pneumonia vs. Cellulitis - SIRS Criteria: Hypotension, Tachycardia, Tachypnea, WBC 13.7 - Lactic acid 1.8 -> 0.6 -> 1.3 - Possible source: Pneumonia vs. Cellulitis - Started on Vancomycin and Zosyn on arrival - Cultures do currently grow few GPC, however may be contaminant - Currently no pressor support - White count has decreased from 13.7-9.7 - Blood culture drawn on 09/06/17 was positive for gram-positive cocci; final report pending Plan: -JAZZY is worsening, no evidence of continued cellulitis - Zosyn 3.375 g IV Q8; was restarted after being d/c (started 09/08/17; day 2) day 4 total of ABX -Consider repeat blood cultures -Careful hydration due to CHF with pulmonary edema Qualifiers: Sepsis type: sepsis due to unspecified organism Qualified Code(s): A41.9 - Sepsis, unspecified organism (5) Right knee pain Current Visit: Yes Status: Acute - Blood culture drawn on 09/06/17 was positive for gram-positive cocci; final report pending - Creatinine kinase morning was 1060 Qualifiers: Chronicity: acute Qualified Code(s): M25.561 - Pain in right knee (6) Diabetes mellitus Current Visit: Yes Status: Acute - Poorly controlled Insulin Dependent DM2 - Patient is apparently transitioning to a U500 Insulin regimen at home Qualifiers: Qualified Code(s): E11.9 - Type 2 diabetes mellitus without complications (7) Ileus Current Visit: Yes Status: Suspected - Likely Ileus on CT/CXR - The patient has OG tube in place - NPO/Bowel rest - Protonix 40 mg IV every 12 Subjective Principal diagnosis: Acute hypoxic respiratory Interval history: Patient was seen and examined at bedside this morning. Patient is currently asleep. Currently sedated. Oxygenation slightly improved. Clinical picture is consistent with severe ARDS complicated with underlying cardiogenic pulmonary edema. Wean FiO2 today. We will attempt to lower PEEP. Objective PUL Vital signs: Last Vital Signs Temp 97.3 F L 09/09/17 07:48 Pulse 87 09/09/17 06:00 Resp 25 09/09/17 08:14 BP 138/65 09/09/17 08:14 Pulse Ox 90 09/09/17 08:14 General appearance: asleep Eyes: nonicteric ENT: oropharynx moist Neck: supple Effort: normal Auscultation: bilateral: diminished breath sounds, rales, rhonchi Percussion: bilateral: not dull Tactile fremitus: bilateral: normal Cardiovascular: regular rate and rhythm Gastrointestinal: hypoactive bowel sounds Integumentary: normal Musculoskeletal: joint inflammation Ventilator Settings Ventilator Settings: Ventilator Settings, Last 8 Hours Ventilator Mode VC+ Ventilator Mode VC+ Ventilator Mode VC+ Ventilator Mode VC+ Ventilator Mode VC+ Ventilator Mode VC+ Ventilator Mode VC+ Ventilator Mode VC+ Ventilator Mode VC+ Ventilator Mode VC+ Ventilator Tidal Volume 500 Setting Ventilator Tidal Volume 500 Setting Ventilator Tidal Volume 500 Setting Ventilator Tidal Volume 500 Setting Ventilator Tidal Volume 500 Setting Ventilator Tidal Volume 500 Setting Ventilator Tidal Volume 500 Setting Ventilator Tidal Volume 500 Setting Ventilator Tidal Volume 500 Setting Ventilator Tidal Volume 500 Setting Ventilator Respiratory Rate 20 Setting Ventilator Respiratory Rate 20 Setting Ventilator Respiratory Rate 20 Setting Ventilator Respiratory Rate 20 Setting Ventilator Respiratory Rate 20 Setting Ventilator Respiratory Rate 20 Setting Ventilator Respiratory Rate 20 Setting Ventilator Respiratory Rate 20 Setting Ventilator Respiratory Rate 20 Setting Ventilator Respiratory Rate 20 Setting Actual Respiratory Rate 22 Actual Respiratory Rate 21 Actual Respiratory Rate 20 Actual Respiratory Rate 20 Actual Respiratory Rate 20 Actual Respiratory Rate 20 Actual Respiratory Rate 20 Actual Respiratory Rate 20 Actual Respiratory Rate 20 Positive End Expiratory 16 Pressure Positive End Expiratory 16 Pressure Positive End Expiratory 16 Pressure Positive End Expiratory 16 Pressure Positive End Expiratory 16 Pressure Positive End Expiratory 16 Pressure Positive End Expiratory 16 Pressure Positive End Expiratory 16 Pressure Positive End Expiratory 16 Pressure Positive End Expiratory 16 Pressure Peak Inspiratory Airway 45 Pressure Peak Inspiratory Airway 38 Pressure Peak Inspiratory Airway 37 Pressure Peak Inspiratory Airway 34 Pressure Peak Inspiratory Airway 35 Pressure Peak Inspiratory Airway 34 Pressure Peak Inspiratory Airway 34 Pressure Peak Inspiratory Airway 34 Pressure Peak Inspiratory Airway 32 Pressure Results - Laboratory Findings CBC and BMP: 09/09/17 03:40 09/09/17 13:50 ABG ABG pH 7.28 pH Units (7.32-7.45) L 09/09/17 06:03 ABG pCO2 51 mmHg (35-45) H 09/09/17 06:03 ABG pO2 81 mmHg (85-104) L 09/09/17 06:03 ABG O2 Saturation 94 % (95-98) L 09/09/17 06:03 PT/INR, D-dimer PT 12.9 Seconds (9.4-12.1) H 09/06/17 01:33 Abnormal lab findings: Abnormal lab results RBC 3.27 M/mcL (4.19-5.50) L 09/09/17 03:40 Hgb 8.8 g/dL (12.9-16.9) L 09/09/17 03:40 Hct 29.2 % (37.5-50.1) L 09/09/17 03:40 MCH 26.9 pg (28.0-33.3) L 09/09/17 03:40 MCHC 30.1 g/dL (31.6-35.5) L 09/09/17 03:40 RDW 15.9 % (11.5-14.5) H 09/09/17 03:40 Band Neutrophils % 22.0 % (0-4) H 09/09/17 03:40 Nucleated RBCs/100 WBC 0.4 /100 WBC (0) H 09/09/17 03:40 PT 12.9 Seconds (9.4-12.1) H 09/06/17 01:33 ABG pH 7.28 pH Units (7.32-7.45) L 09/09/17 06:03 ABG pCO2 51 mmHg (35-45) H 09/09/17 06:03 ABG pO2 81 mmHg (85-104) L 09/09/17 06:03 ABG O2 Saturation 94 % (95-98) L 09/09/17 06:03 ABG Base Excess -3 mEq/L (-2 to 3) L 09/09/17 06:03 VBG pH 7.22 pH Units (7.32-7.42) L 09/08/17 06:20 VBG pCO2 61 mmHg (41-51) H 09/08/17 06:20 VBG pO2 166 mmHg (25-50) H 09/08/17 06:20 Carbon Dioxide 22 mEq/L (23-29) L 09/09/17 03:40 BUN 104 mg/dL (6-20) H 09/09/17 03:40 Creatinine 3.87 mg/dL (0.70-1.30) H 09/09/17 03:40 Est GFR ( Amer) 20 (> 60) L 09/09/17 03:40 Est GFR (Non-Af Amer) 16 (> 60) L 09/09/17 03:40 BUN/Creatinine Ratio 27 (6-26) H 09/09/17 03:40 Glucose 227 mg/dL (70-105) H 09/09/17 03:40 POC Glucose 209 mg/dL (70-99) H 09/09/17 07:56 Calculated Osmolality 326 (280-300) H 09/09/17 03:40 Direct Bilirubin 0.3 mg/dL (0.0-0.2) H 09/08/17 06:03 AST 69 Units/L (13-39) H 09/08/17 06:03 ALT 60 Units/L (7-52) H 09/08/17 06:03 Creatine Kinase 1160 Units/L (30-223) H 09/09/17 03:40 Troponin I 0.05 ng/mL (< 0.04) H* 09/06/17 08:17 B-Natriuretic Peptide 127 pg/mL (Less than 100) H 09/06/17 08:16 Albumin 3.3 g/dL (3.5-5.7) L 09/08/17 06:03 Albumin/Globulin Ratio 0.9 (1.1-2.2) L 09/08/17 06:03 Triglycerides 526 mg/dL (< 150) H 09/09/17 03:40 LDL Cholesterol Measurd 60 mg/dL (75-193) L 09/09/17 03:40 HDL Cholesterol 20 mg/dL (40-59) L 09/09/17 03:40 Cholesterol/HDL Ratio 6.9 (0-4.9) H 09/09/17 03:40 Urine Clarity Turbid (Clear) A 09/08/17 09:40 Urine Protein 30 mg/dL (Neg-Trace) H 09/08/17 09:40 Urine Blood Large (Negative) H 09/08/17 09:40 Urine Microscopic RBC 50-100 per hpf (0-3) H 09/08/17 09:40 Urine Microscopic WBC TNTC per hpf (0-3) H 09/08/17 09:40 Ur Squamous Epith Cells Many per lpf (None-Few) H 09/08/17 09:40 Amorphous Sediment Moderate (Few) H 09/08/17 09:40 Vancomycin Trough 57 mcg/mL (5-10) H 09/08/17 06:03 - Microbiology Findings Microbiology Findings: Microbiology, Last 48 Hours 09/06/17 15:00 Sputum Culture - Final Sputum 09/06/17 01:33 Blood Culture - Preliminary Peripheral Venipuncture Gram Positive Cocci - Clinical Findings Intake & Output: Intake & Output 09/08/17 09/09/17 09/09/17 23:59 07:59 15:59 Intake Total 851 / 851 1611 / 1611 51 / 51 Output Total 200 / 200 275 / 275 Balance 651 / 651 1336 / 1336 51 / 51 Weight 185.3 kg
[2017-09-09] MEDS: Furosemide 480 MG in D5% in Water 192 ML IVC SCH (09:27)
[2017-09-09 14:42] LABS: Potassium 4.1 mEq/L (3.5-5.1)
[2017-09-10] MEDS: Ipratropium/Albuterol Neb 3 ML IH SCH ×4 (03:54→21:27)
[2017-09-10 04:33] LABS: ABG Base Excess -4 mEq/L (-2 to 3); ABG HCO3 24 mEq/L (21-27); ABG Oxygen Saturation 90 % (95-98); ABG PCO2 58 mmHg (35-45); ABG PH 7.22 pH Units (7.32-7.45); ABG PO2 70 mmHg (85-104); ABG TCO2 26 mEq/L (20-26); Blood Gas Modality VC; Blood Gas PEEP 16 cm H2O; Blood Gas Respiration Rate 20; Blood Gas VT 500 cc
[2017-09-10] MEDS: Pantoprazole 40 MG VIAL IVP SCH ×2 (04:50→17:14)
[2017-09-10] MEDS: *HR* Heparin 5,000 UNIT/ML VIAL SQ SCH ×3 (04:50→20:58)
[2017-09-10] MEDS: Lacri-Lube 3.5 GM TUBE BOTH EYES SCH ×6 (04:51→23:23)
[2017-09-10 04:53] LABS: Hemoglobin 9.1 g/dL (12.9-16.9); Mean Corpuscular HGB Conc 30.3 g/dL (31.6-35.5); Mean Corpuscular Hemoglobin 27.1 pg (28.0-33.3); Mean Corpuscular Volume 89.3 fL (83.0-100.0); Mean Platelet Volume 9.6 fL (9.4-12.4); Nucleated Red Blood Cells 0.7 /100 WBC (0); Platelet Count 340 K/mcL (140-400); Red Blood Count 3.36 M/mcL (4.19-5.50); Red Cell Distribution Width 16.3 % (11.5-14.5)
[2017-09-10 05:13] LABS: Calcium 8.6 mg/dL (8.6-10.3); Potassium 4.6 mEq/L (3.5-5.1)
[2017-09-10 05:14] LABS: Lymphocytes # 0.7 K/mcL (0.6-4.6); Monocytes # 1.3 K/mcL (0.0-1.3); Neutrophils # 9.9 K/mcL (1.6-8.9)
[2017-09-10 05:15] LABS: Platelet Estimate Normal (Normal)
[2017-09-10] MEDS: FentaNYL (PF) 2,500 MCG in EMPTY BAG 50 EACH IVC SCH ×2 (05:33→17:16)
[2017-09-10] MEDS: Insulin Human Regular 100 UNIT in 0.9 % Sodium Chloride 100 ML IVC SCH (05:33)
[2017-09-10] MEDS: Dexmedetomidine HCl 400 MCG/100 ML MLS IVC SCH ×2 (06:11→15:20)
--- NOTE | 2017-09-10 07:03 | Pulmonology Progress Note ---
<Luisa Shirley M - Last Filed: 09/10/17 10:25> Date of Encounter: 09/10/17 Objective PUL Vital signs: Last Vital Signs Temp 98.2 F 09/10/17 04:00 Pulse 88 09/10/17 10:10 Resp 22 09/10/17 10:10 BP 157/69 09/10/17 10:10 Pulse Ox 91 09/10/17 10:10 Ventilator Settings Ventilator Settings: Ventilator Settings, Last 8 Hours Ventilator Mode VC+ Ventilator Mode VC+ Ventilator Mode VC+ Ventilator Mode VC+ Ventilator Mode VC+ Ventilator Mode VC+ Ventilator Mode VC+ Ventilator Mode VC+ Ventilator Mode VC+ Ventilator Mode VC+ Ventilator Mode VC+ Ventilator Tidal Volume 550 Setting Ventilator Tidal Volume 550 Setting Ventilator Tidal Volume 550 Setting Ventilator Tidal Volume 500 Setting Ventilator Tidal Volume 500 Setting Ventilator Tidal Volume 500 Setting Ventilator Tidal Volume 500 Setting Ventilator Tidal Volume 500 Setting Ventilator Tidal Volume 500 Setting Ventilator Tidal Volume 500 Setting Ventilator Tidal Volume 500 Setting Ventilator Respiratory Rate 22 Setting Ventilator Respiratory Rate 22 Setting Ventilator Respiratory Rate 22 Setting Ventilator Respiratory Rate 20 Setting Ventilator Respiratory Rate 20 Setting Ventilator Respiratory Rate 20 Setting Ventilator Respiratory Rate 20 Setting Ventilator Respiratory Rate 20 Setting Ventilator Respiratory Rate 20 Setting Ventilator Respiratory Rate 20 Setting Ventilator Respiratory Rate 20 Setting Actual Respiratory Rate 22 Actual Respiratory Rate 22 Actual Respiratory Rate 22 Actual Respiratory Rate 20 Actual Respiratory Rate 20 Actual Respiratory Rate 20 Actual Respiratory Rate 20 Actual Respiratory Rate 20 Actual Respiratory Rate 20 Actual Respiratory Rate 20 Positive End Expiratory 14 Pressure Positive End Expiratory 14 Pressure Positive End Expiratory 14 Pressure Positive End Expiratory 16 Pressure Positive End Expiratory 16 Pressure Positive End Expiratory 16 Pressure Positive End Expiratory 16 Pressure Positive End Expiratory 16 Pressure Positive End Expiratory 16 Pressure Positive End Expiratory 16 Pressure Positive End Expiratory 16 Pressure Peak Inspiratory Airway 34 Pressure Peak Inspiratory Airway 36 Pressure Peak Inspiratory Airway 35 Pressure Peak Inspiratory Airway 35 Pressure Peak Inspiratory Airway 35 Pressure Peak Inspiratory Airway 34 Pressure Peak Inspiratory Airway 36 Pressure Peak Inspiratory Airway 38 Pressure Peak Inspiratory Airway 35 Pressure Peak Inspiratory Airway 35 Pressure Results - Laboratory Findings CBC and BMP: 09/10/17 04:00 09/10/17 04:00 ABG ABG pH 7.22 pH Units (7.32-7.45) L 09/10/17 04:27 ABG pCO2 58 mmHg (35-45) H 09/10/17 04:27 ABG pO2 70 mmHg (85-104) L 09/10/17 04:27 ABG O2 Saturation 90 % (95-98) L 09/10/17 04:27 PT/INR, D-dimer PT 12.9 Seconds (9.4-12.1) H 09/06/17 01:33 Abnormal lab findings: Abnormal lab results WBC 12.2 K/mcL (4.3-11.1) H 09/10/17 04:00 RBC 3.36 M/mcL (4.19-5.50) L 09/10/17 04:00 Hgb 9.1 g/dL (12.9-16.9) L 09/10/17 04:00 Hct 30.0 % (37.5-50.1) L 09/10/17 04:00 MCH 27.1 pg (28.0-33.3) L 09/10/17 04:00 MCHC 30.3 g/dL (31.6-35.5) L 09/10/17 04:00 RDW 16.3 % (11.5-14.5) H 09/10/17 04:00 Metamyelocytes % 1.0 % (0) H 09/10/17 04:00 Myelocytes % 1.0 % (0) H 09/10/17 04:00 Neutrophils # 9.9 K/mcL (1.6-8.9) H 09/10/17 04:00 Nucleated RBCs/100 WBC 0.7 /100 WBC (0) H 09/10/17 04:00 PT 12.9 Seconds (9.4-12.1) H 09/06/17 01:33 ABG pH 7.22 pH Units (7.32-7.45) L 09/10/17 04:27 ABG pCO2 58 mmHg (35-45) H 09/10/17 04:27 ABG pO2 70 mmHg (85-104) L 09/10/17 04:27 ABG O2 Saturation 90 % (95-98) L 09/10/17 04:27 ABG Base Excess -4 mEq/L (-2 to 3) L 09/10/17 04:27 VBG pH 7.22 pH Units (7.32-7.42) L 09/08/17 06:20 VBG pCO2 61 mmHg (41-51) H 09/08/17 06:20 VBG pO2 166 mmHg (25-50) H 09/08/17 06:20 Chloride 97 mEq/L (98-107) L 09/10/17 04:00 Carbon Dioxide 21 mEq/L (23-29) L 09/10/17 04:00 BUN 120 mg/dL (6-20) H 09/10/17 04:00 Creatinine 4.08 mg/dL (0.70-1.30) H 09/10/17 04:00 Est GFR ( Amer) 19 (> 60) L 09/10/17 04:00 Est GFR (Non-Af Amer) 15 (> 60) L 09/10/17 04:00 BUN/Creatinine Ratio 29 (6-26) H 09/10/17 04:00 Glucose 127 mg/dL (70-105) H 09/10/17 04:00 POC Glucose 105 mg/dL (70-99) H 09/10/17 10:09 Calculated Osmolality 328 (280-300) H 09/10/17 04:00 Direct Bilirubin 0.3 mg/dL (0.0-0.2) H 09/08/17 06:03 AST 69 Units/L (13-39) H 09/08/17 06:03 ALT 60 Units/L (7-52) H 09/08/17 06:03 Creatine Kinase 1160 Units/L (30-223) H 09/09/17 03:40 Troponin I 0.05 ng/mL (< 0.04) H* 09/06/17 08:17 B-Natriuretic Peptide 127 pg/mL (Less than 100) H 09/06/17 08:16 Albumin 3.3 g/dL (3.5-5.7) L 09/08/17 06:03 Albumin/Globulin Ratio 0.9 (1.1-2.2) L 09/08/17 06:03 Triglycerides 526 mg/dL (< 150) H 09/09/17 03:40 LDL Cholesterol Measurd 60 mg/dL (75-193) L 09/09/17 03:40 HDL Cholesterol 20 mg/dL (40-59) L 09/09/17 03:40 Cholesterol/HDL Ratio 6.9 (0-4.9) H 09/09/17 03:40 Urine Clarity Turbid (Clear) A 09/08/17 09:40 Urine Protein 30 mg/dL (Neg-Trace) H 09/08/17 09:40 Urine Blood Large (Negative) H 09/08/17 09:40 Urine Microscopic RBC 50-100 per hpf (0-3) H 09/08/17 09:40 Urine Microscopic WBC TNTC per hpf (0-3) H 09/08/17 09:40 Ur Squamous Epith Cells Many per lpf (None-Few) H 09/08/17 09:40 Amorphous Sediment Moderate (Few) H 09/08/17 09:40 Vancomycin Trough 57 mcg/mL (5-10) H 09/08/17 06:03 - Microbiology Findings Microbiology Findings: Microbiology, Last 48 Hours 09/08/17 14:49 Blood Culture - Preliminary Peripheral Venipuncture No growth. 09/08/17 14:49 Blood Culture - Preliminary Peripheral Venipuncture No growth. 09/06/17 01:33 Blood Culture - Final Peripheral Venipuncture Staphylococcus capitis 09/06/17 15:00 Sputum Culture - Final Sputum - Clinical Findings Intake & Output: Intake & Output 09/09/17 09/10/17 09/10/17 23:59 07:59 15:59 Intake Total 1002.0 / 1002.0 922 / 922 340 / 340 Output Total 350 / 350 200 / 200 400 / 400 Balance 652.0 / 652.0 722 / 722 -60 / -60 Weight 186.6 kg Consult Discharge Plan - Plan Referrals: Kayleen Sheth, DIRECTOR [employer] [Primary Care Provider] - - Attending Attestation I examined this patient and my medical decision-making was reviewed with the Resident Physician. I agree with the documented findings, disposition and treatment plan as described except to the extent set forth below. Patient seen and examined. Labs, radiology, chart personally reviewed. 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 Pulmonary: Patient still have need for high PEEP which is most likely from chest wall from morbid obesity. patient Plp is 32 and lowered PEEP to 14 and increased RR and TV mainly for the respiratory acidosis. I suspect this is pulmonary edema and nephrology is following up. I suspect he will need HD. Continue wean off FIO2. Cardiovascular: stable GI: Nutrition per dietary and GI prophylaxis per routine Heme: DVT prophylaxis per routine ID: Continue antibiotics and plan to de-escalation Renal; urine out put and renal funtion reviewed Endorcine: blood glucose is monitored Lines: all lines checked and no evidence of infections Skin: skin care to prevent pressure ulcers per nursing routine care The high probability of a clinically significant, sudden or life threatening deterioration of the respiratory and renal systems required my full and direct attention, intervention and personal management. The aggregate critical care time was 35 minutes. This time is in addition to time spent performing reported procedures but includes the following: [] Data Review and interpretation [] Patient assessment and monitoring of vital signs [] Documentation [] Medication orders and management <CristalRosalio hernández - Last Filed: 09/10/17 11:10> Date of Encounter: 09/10/17 Time of Encounter: 08:25 Assessment and Plan (1) Acute respiratory failure with hypoxia Current Visit: Yes Status: Acute Acute hypoxic respiratory failure with hypercapnia/ARDS, ventilator dependent This is likely secondary to acutely decompensated CHF with comorbid pneumonia PE is considered a less likely potential cause of acute respiratory failure On arrival the patient had respiratory acidosis with pH of 7.17 CXR shows increased pulmonary vascular congestion CT Chest shows Partial collapse of the bilateral lower lobes with suspected superimposed pneumonia ABG'S 7.17/93/58/34/79% on BiPAP 7.22/58/70/24/90%on 60% Plan -Continue Zosyn for treatment of pneumonia -More aggressive diuresis with Lasix drip, ~600mL UOP over 24hr -Continue ventilator support, repeat ABG in the morning (2) CHF (congestive heart failure) Current Visit: Yes Status: Acute Acute on chronic heart failure with preserved ejection fraction The patient demonstrates pulmonary edema on CXR, BNP Acute respiratory failure is consistent with decompensated CHF Respiratory failure continues to make minimal improvement More aggressive diuresis will be needed in this patient to stimulate UOP We will monitor I/Os and assess fluid balance daily Qualifiers: Heart failure type: diastolic Heart failure chronicity: acute on chronic Qualified Code(s): I50.33 - Acute on chronic diastolic (congestive) heart failure (3) JAZZY (acute kidney injury) Current Visit: Yes Status: Acute Acute on chronic kidney injury with oliguria Patient does have elevated serum creatinine (4.08) from baseline (~1.8) Likely this is due to sepsis and intravascular volume depletion vs hypoperfusion There seems to be progression of kidney disease in response to acute illness UOP overnight was approximately 600mL on Lasix drip Plan: -Continue 25% and Lasix drip -Nephrology consultation with Dr. Lucas, appreciate recommendations -Patient is likely going to require HD, however per nephrology, does not need today -Trend BMPs (4) Sepsis Current Visit: Yes Status: Acute Sepsis secondary to Pneumonia vs. Cellulitis SIRS Criteria: Hypotension, Tachycardia, Tachypnea, WBC 13.7 Lactic acid 1.8 -> 0.6 -> 1.3 Possible source: Pneumonia vs. Cellulitis Started on Vancomycin and Zosyn on arrival Cultures initially grew Staph capitis, however repeat negative Currently no pressor support Plan: -JAZZY is worsening, no evidence of continued cellulitis Zosyn Day 3 Antibiotic day 5 -Careful hydration due to CHF with pulmonary edema -May require addition of Levophed depending on BP stability Qualifiers: Sepsis type: sepsis due to unspecified organism Qualified Code(s): A41.9 - Sepsis, unspecified organism (5) DMII (diabetes mellitus, type 2) Current Visit: Yes Status: Chronic Poorly controlled Insulin Dependent DM2 Patient is apparently transitioning to a U500 Insulin regimen at home Currently the patient is very hyperglycemic Plan: -Start IV Insulin to maintain goal Glucose 140-180 -Q1h Accucheck Qualifiers: 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 insulin use: with assisted use Diabetes mellitus complication status: without complication Qualified Code(s): E11.9 - Type 2 diabetes mellitus without complications; Z79.4 - manager terminal (current) use of insulin; Z79.4 - penitentiary (current) use of insulin; Z79.4 - manager terminal ( current) use of insulin; Z79.4 - manager terminal (current) use of insulin (6) Ileus Current Visit: Yes Status: Suspected Likely Ileus on CT/CXR The patient has OG tube in place NPO/Bowel rest (7) Morbid obesity with BMI of 60.0-69.9, adult Current Visit: No Status: Chronic (8) DVT prophylaxis Current Visit: Yes Status: Acute SQ Heparin (9) Right knee pain Current Visit: Yes Status: Ruled-out Acute right knee pain status post total right knee replacement in December 2016 Although there is initial concern for septic joint, the patient does not have that appearance to me I see very limited swelling and the erythema seems to be superficial I believe this is more of a cellulitis than a septic joint CT of the lower extremity does demonstrate soft tissue edema without obvious fluid collection in the joint If blood cultures come back positive we will consider further workup for septic joint We will continue to monitor this Qualifiers: Chronicity: acute Qualified Code(s): M25.561 - Pain in right knee (10) Elevated d-dimer Current Visit: Yes Status: Resolved Elevated d-dimer in setting of acute respiratory failure I believe that pulmonary embolism is unlikely in this patient however cannot be ruled out Right leg venous Doppler did not demonstrate DVT, however it was noted that the study was suboptimal Repeat doppler US b/l is negative, suspicion for DVT/PE is extremely low CTA of the chest is contraindicated in this patient secondary to JAZZY on CKD We will continue DVT prophylaxis, however no heparin drip at this time Subjective Principal diagnosis: Acute hypoxic respiratory Interval history: The patient continues to have severe respiratory failure and remains intubated. Oliguria continues to be present, however he is putting out slightly more urine than was previously. Objective PUL Vital signs: Last Vital Signs Temp 98.2 F 09/10/17 04:00 Pulse 74 09/10/17 07:00 Resp 20 09/10/17 07:00 BP 107/52 09/10/17 07:00 Pulse Ox 91 09/10/17 07:00 Gen: Vitals noted. No acute distress. Remains sedated, more so than prior day HEENT: Normocephalic, atraumatic. ET Tube and OG Tube in place Neck: Supple. No adenopathy. Cardiac: RRR, no murmur, +S1/S2 Pulmonary: CTAB on today's exam Abdomen: Mildly distended without any palpable masses. : Rogel catheter in place Neuro: Patient remains intubated Extremities: * Left Lower: Grossly edematous with erythema and warmth on the medial thigh extending to distal thigh without inclusion of knee joint which is significantly improved from prior. Mid-patellar vertical incision scar present which appears well healed. There is 1-2+ pretibial edema with evidence of stasis wounds and surrounding excoriations * Right Lower: Grossly edematous with mild erythema on medial thigh which is less apparent than LLE which is significantly improved from prior. Mid-patellar vertical incision scar present which appears well healed. There is 1-2+ pretibial edema with evidence of stasis wounds and surrounding excoriations Ventilator Settings Ventilator Settings: Ventilator Settings, Last 8 Hours Ventilator Mode VC+ Ventilator Mode VC+ Ventilator Mode VC+ Ventilator Mode VC+ Ventilator Mode VC+ Ventilator Mode VC+ Ventilator Mode VC+ Ventilator Mode VC+ Ventilator Mode VC+ Ventilator Mode VC+ Ventilator Mode VC+ Ventilator Mode VC+ Ventilator Tidal Volume 500 Setting Ventilator Tidal Volume 500 Setting Ventilator Tidal Volume 500 Setting Ventilator Tidal Volume 500 Setting Ventilator Tidal Volume 500 Setting Ventilator Tidal Volume 500 Setting Ventilator Tidal Volume 500 Setting Ventilator Tidal Volume 500 Setting Ventilator Tidal Volume 500 Setting Ventilator Tidal Volume 500 Setting Ventilator Tidal Volume 500 Setting Ventilator Tidal Volume 500 Setting Ventilator Respiratory Rate 20 Setting Ventilator Respiratory Rate 20 Setting Ventilator Respiratory Rate 20 Setting Ventilator Respiratory Rate 20 Setting Ventilator Respiratory Rate 20 Setting Ventilator Respiratory Rate 20 Setting Ventilator Respiratory Rate 20 Setting Ventilator Respiratory Rate 20 Setting Ventilator Respiratory Rate 20 Setting Ventilator Respiratory Rate 20 Setting Ventilator Respiratory Rate 20 Setting Ventilator Respiratory Rate 20 Setting Actual Respiratory Rate 20 Actual Respiratory Rate 20 Actual Respiratory Rate 20 Actual Respiratory Rate 20 Actual Respiratory Rate 20 Actual Respiratory Rate 20 Actual Respiratory Rate 20 Actual Respiratory Rate 20 Actual Respiratory Rate 20 Actual Respiratory Rate 20 Actual Respiratory Rate 20 Positive End Expiratory 16 Pressure Positive End Expiratory 16 Pressure Positive End Expiratory 16 Pressure Positive End Expiratory 16 Pressure Positive End Expiratory 16 Pressure Positive End Expiratory 16 Pressure Positive End Expiratory 16 Pressure Positive End Expiratory 16 Pressure Positive End Expiratory 16 Pressure Positive End Expiratory 16 Pressure Positive End Expiratory 16 Pressure Positive End Expiratory 16 Pressure Peak Inspiratory Airway 35 Pressure Peak Inspiratory Airway 35 Pressure Peak Inspiratory Airway 34 Pressure Peak Inspiratory Airway 36 Pressure Peak Inspiratory Airway 38 Pressure Peak Inspiratory Airway 35 Pressure Peak Inspiratory Airway 35 Pressure Peak Inspiratory Airway 35 Pressure Peak Inspiratory Airway 35 Pressure Peak Inspiratory Airway 35 Pressure Peak Inspiratory Airway 36 Pressure Results - Laboratory Findings CBC and BMP: 09/10/17 04:00 09/10/17 04:00 ABG ABG pH 7.22 pH Units (7.32-7.45) L 09/10/17 04:27 ABG pCO2 58 mmHg (35-45) H 09/10/17 04:27 ABG pO2 70 mmHg (85-104) L 09/10/17 04:27 ABG O2 Saturation 90 % (95-98) L 09/10/17 04:27 PT/INR, D-dimer PT 12.9 Seconds (9.4-12.1) H 09/06/17 01:33 Abnormal lab findings: Abnormal lab results WBC 12.2 K/mcL (4.3-11.1) H 09/10/17 04:00 RBC 3.36 M/mcL (4.19-5.50) L 09/10/17 04:00 Hgb 9.1 g/dL (12.9-16.9) L 09/10/17 04:00 Hct 30.0 % (37.5-50.1) L 09/10/17 04:00 MCH 27.1 pg (28.0-33.3) L 09/10/17 04:00 MCHC 30.3 g/dL (31.6-35.5) L 09/10/17 04:00 RDW 16.3 % (11.5-14.5) H 09/10/17 04:00 Metamyelocytes % 1.0 % (0) H 09/10/17 04:00 Myelocytes % 1.0 % (0) H 09/10/17 04:00 Neutrophils # 9.9 K/mcL (1.6-8.9) H 09/10/17 04:00 Nucleated RBCs/100 WBC 0.7 /100 WBC (0) H 09/10/17 04:00 PT 12.9 Seconds (9.4-12.1) H 09/06/17 01:33 ABG pH 7.22 pH Units (7.32-7.45) L 09/10/17 04:27 ABG pCO2 58 mmHg (35-45) H 09/10/17 04:27 ABG pO2 70 mmHg (85-104) L 09/10/17 04:27 ABG O2 Saturation 90 % (95-98) L 09/10/17 04:27 ABG Base Excess -4 mEq/L (-2 to 3) L 09/10/17 04:27 VBG pH 7.22 pH Units (7.32-7.42) L 09/08/17 06:20 VBG pCO2 61 mmHg (41-51) H 09/08/17 06:20 VBG pO2 166 mmHg (25-50) H 09/08/17 06:20 Chloride 97 mEq/L (98-107) L 09/10/17 04:00 Carbon Dioxide 21 mEq/L (23-29) L 09/10/17 04:00 BUN 120 mg/dL (6-20) H 09/10/17 04:00 Creatinine 4.08 mg/dL (0.70-1.30) H 09/10/17 04:00 Est GFR ( Amer) 19 (> 60) L 09/10/17 04:00 Est GFR (Non-Af Amer) 15 (> 60) L 09/10/17 04:00 BUN/Creatinine Ratio 29 (6-26) H 09/10/17 04:00 Glucose 127 mg/dL (70-105) H 09/10/17 04:00 POC Glucose 123 mg/dL (70-99) H 09/10/17 06:57 Calculated Osmolality 328 (280-300) H 09/10/17 04:00 Direct Bilirubin 0.3 mg/dL (0.0-0.2) H 09/08/17 06:03 AST 69 Units/L (13-39) H 09/08/17 06:03 ALT 60 Units/L (7-52) H 09/08/17 06:03 Creatine Kinase 1160 Units/L (30-223) H 09/09/17 03:40 Troponin I 0.05 ng/mL (< 0.04) H* 09/06/17 08:17 B-Natriuretic Peptide 127 pg/mL (Less than 100) H 09/06/17 08:16 Albumin 3.3 g/dL (3.5-5.7) L 09/08/17 06:03 Albumin/Globulin Ratio 0.9 (1.1-2.2) L 09/08/17 06:03 Triglycerides 526 mg/dL (< 150) H 09/09/17 03:40 LDL Cholesterol Measurd 60 mg/dL (75-193) L 09/09/17 03:40 HDL Cholesterol 20 mg/dL (40-59) L 09/09/17 03:40 Cholesterol/HDL Ratio 6.9 (0-4.9) H 09/09/17 03:40 Urine Clarity Turbid (Clear) A 09/08/17 09:40 Urine Protein 30 mg/dL (Neg-Trace) H 09/08/17 09:40 Urine Blood Large (Negative) H 09/08/17 09:40 Urine Microscopic RBC 50-100 per hpf (0-3) H 09/08/17 09:40 Urine Microscopic WBC TNTC per hpf (0-3) H 09/08/17 09:40 Ur Squamous Epith Cells Many per lpf (None-Few) H 09/08/17 09:40 Amorphous Sediment Moderate (Few) H 09/08/17 09:40 Vancomycin Trough 57 mcg/mL (5-10) H 09/08/17 06:03 - Microbiology Findings Microbiology Findings: Microbiology, Last 48 Hours 09/06/17 01:33 Blood Culture - Final Peripheral Venipuncture Staphylococcus capitis 09/06/17 15:00 Sputum Culture - Final Sputum - Clinical Findings Intake & Output: Intake & Output 09/09/17 09/09/17 09/10/17 15:59 23:59 07:59 Intake Total 1157 / 1157 1002.0 / 1002.0 814 / 814 Output Total 175 / 175 350 / 350 200 / 200 Balance 982 / 982 652.0 / 652.0 614 / 614 Weight 186.6 kg
--- NOTE | 2017-09-10 08:32 | Nephrology Progress Note ---
Date of Encounter: 09/10/17 Time of Encounter: 08:30 - Assessment and Plan (1) JAZZY (acute kidney injury) Current Visit: Yes Status: Acute Patient has acute kidney injury superimposed on stage III chronic kidney disease in the setting of sepsis, pneumonia, and acute respiratory failure. Azotemia continues to increase. Urine output is relatively fixed at 600-700 mL per day. He continues on a Lasix drip at 20 mg per hour. Potassium and acid base status are satisfactory. There is no acute indication to initiate dialysis today. I do feel that if his azotemia continues to worsen and/or if his urine output fails to improve he may require dialysis initiation tomorrow. (2) Acute respiratory failure with hypoxia Current Visit: Yes Status: Acute (3) Chronic kidney disease, stage III (moderate) Current Visit: Yes Status: Acute Subjective Principal diagnosis: Acute hypoxic respiratory Interval history: The patient remained sedated on the ventilator. He is hemodynamically stable. Urine output is relatively fixed at about 625 mL. Azotemia continues to worsen. His FiO2 requirement has decreased down to 60%. Potassium is stable at 4.6 and acid base status is satisfactory. Objective - Vital Signs Vital signs: Vital Signs Temp Pulse Resp BP Pulse Ox 09/10/17 07:00 74 20 107/52 91 09/10/17 06:00 75 20 98/51 91 09/10/17 05:00 80 20 129/54 90 09/10/17 04:00 98.2 F 81 20 128/60 89 09/10/17 03:54 20 129/59 88 09/10/17 03:00 80 20 116/55 90 09/10/17 02:36 20 108/53 90 09/10/17 02:00 76 20 107/50 89 09/10/17 01:00 71 20 80/46 88 09/10/17 00:26 98.3 F 09/10/17 00:00 81 20 117/61 89 09/09/17 23:59 20 117/61 89 09/09/17 23:00 79 20 115/62 89 09/09/17 22:00 85 21 132/72 92 09/09/17 21:46 20 127/67 90 09/09/17 21:13 79 20 120/67 89 09/09/17 20:30 98.2 F 80 20 121/65 89 09/09/17 20:11 20 125/68 90 09/09/17 19:25 80 09/09/17 19:12 82 20 128/70 91 09/09/17 18:32 81 20 122/66 90 09/09/17 17:00 81 20 108/59 89 09/09/17 16:13 81 20 114/61 90 09/09/17 16:04 98.4 F 09/09/17 15:48 87 20 132/59 92 09/09/17 15:35 22 128/56 92 09/09/17 14:17 88 22 128/56 92 09/09/17 13:00 89 21 137/56 92 09/09/17 12:01 97.6 F 92 22 144/56 92 09/09/17 11:10 92 20 146/61 92 09/09/17 10:28 21 143/65 92 09/09/17 10:00 92 20 143/65 92 09/09/17 09:18 89 21 104/33 91 Intake and Output 09/09/17 09/10/17 09/10/17 23:59 07:59 15:59 Intake Total 1002.0 / 1002.0 922 / 922 Output Total 350 / 350 200 / 200 Balance 652.0 / 652.0 722 / 722 Intake: IV Fluids 952.0 / 952.0 922 / 922 FentaNYL (PF) 2,500 MCG In 50 / 50 50 / 50 Empty Bag 50 Each @ 200 MCG/HR 4 mls/hr IVC CONT KM Rx#: [id number] HumuLIN R 100 UNIT In 0.9 % 202.0 / 202.0 172 / 172 Sodium Chloride 100 ML @ 7 UNIT /HR 7.07 mls/hr IVC CONT MK Rx #:[id number] Diprivan 1,000 mg In 100 ml @ 5 500 / 500 500 / 500 MCG/KG/MIN 5.715 mls/hr IVC . [id number] MK Rx#:[id number] Flexbumin 25 gm In 100 ml @ 60 100 / 100 100 / 100 mls/hr IVPB Q8HR MK Rx#: [id number] Zosyn 3.375 GM In 0.9 % Sodium 100 / 100 100 / 100 Chloride (Mini-Bag +) 100 ML @ 25 mls/hr IVPB Q8HR MK Rx#: [id number] Tube Feeding 0 / 0 0 / 0 Free Water 50 / 50 Output: Catheter 350 / 350 200 / 200 Other: Weight 186.6 kg Blood Glucose* 137 123 Patient Weight 09/10/17 23:59 Weight 186.6 kg - General Appearance Exam: Patient sedated on the ventilator. He is afebrile. Blood pressure 107/52. Lung sounds bilaterally. Heart regular rate and rhythm. Abdomen is obese. Bowel sounds are present. There is no guarding or rigidity. There is lower extremity swelling which appears to be about the same. - Lab 09/10/17 04:00 09/10/17 04:00 Most recent lab results ABG pH 7.22 pH Units (7.32-7.45) L 09/10/17 04:27 ABG pCO2 58 mmHg (35-45) H 09/10/17 04:27 ABG pO2 70 mmHg (85-104) L 09/10/17 04:27 ABG HCO3 24 mEq/L (21-27) 09/10/17 04:27 ABG O2 Saturation 90 % (95-98) L 09/10/17 04:27 Calcium 8.6 mg/dL (8.6-10.3) 09/10/17 04:00 Magnesium 2.4 mg/dL (1.6-2.6) 09/09/17 03:40 Consult Discharge Plan - Plan Referrals: Kayleen Sheth, REPA[employer] [Primary Care Provider] -
[2017-09-10] MEDS: Furosemide 480 MG in D5% in Water 192 ML IVC SCH (08:34)
[2017-09-10] MEDS: Chlorhexidine Rinse 15 ML MOUTHWASH MM SCH ×2 (08:38→20:58)
[2017-09-10] MEDS: Piperacillin/Tazobactam 3.375 GM in 0.9 % Sodium Chloride Mini Bag 100 ML IVPB SCH ×3 (08:38→23:22)
[2017-09-10] MEDS: Docusate Oral Soln 100 MG/10 ML UDC GTUBE SCH ×2 (08:39→20:58)
[2017-09-10] MEDS: Albumin 25% 25gram/100mL 25 GM/100 ML IV.SOLN IVPB SCH ×3 (08:39→23:23)
[2017-09-10] MEDS: Metoclopramide 10 MG/2 ML VIAL IVP SCH ×3 (11:41→23:22)
[2017-09-11] MEDS: Insulin Human Regular 100 UNIT in 0.9 % Sodium Chloride 100 ML IVC SCH (01:16)
[2017-09-11] MEDS: Ipratropium/Albuterol Neb 3 ML IH SCH ×4 (03:22→21:29)
[2017-09-11] MEDS: Lacri-Lube 3.5 GM TUBE BOTH EYES SCH ×6 (04:04→23:51)
[2017-09-11 04:14] LABS: Basophils % 0.3 %; Eosinophils # 0.1 K/mcL (0.0-0.6); Eosinophils % 0.5 %; Hematocrit 26.8 % (37.5-50.1); Hemoglobin 8.4 g/dL (12.9-16.9); Immature Granulocytes % 7.7 % (0-4); Lymphocytes # 1.2 K/mcL (0.6-4.6); Lymphocytes % 9.5 %; Mean Corpuscular HGB Conc 31.3 g/dL (31.6-35.5); Mean Corpuscular Hemoglobin 27.2 pg (28.0-33.3); Mean Corpuscular Volume 86.7 fL (83.0-100.0); Mean Platelet Volume 9.5 fL (9.4-12.4); Monocytes # 1.4 K/mcL (0.0-1.3); Monocytes % 10.4 %; Neutrophils # 9.3 K/mcL (1.6-8.9); Nucleated Red Blood Cells 0.5 /100 WBC (0); Platelet Count 315 K/mcL (140-400); Red Blood Count 3.09 M/mcL (4.19-5.50); Red Cell Distribution Width 16.6 % (11.5-14.5); Segmented Neutrophils % 71.6 %
[2017-09-11 04:29] LABS: ABG Base Excess -6 mEq/L (-2 to 3); ABG HCO3 21 mEq/L (21-27); ABG Oxygen Saturation 86 % (95-98); ABG PCO2 46 mmHg (35-45); ABG PH 7.26 pH Units (7.32-7.45); ABG PO2 60 mmHg (85-104); ABG TCO2 22 mEq/L (20-26); Blood Gas Modality VC; Blood Gas PEEP 14 cm H2O; Blood Gas Respiration Rate 22; Blood Gas VT 550 cc
[2017-09-11 04:45] LABS: Blood Urea Nitrogen > 130 mg/dL (6-20); Calcium 8.2 mg/dL (8.6-10.3); Carbon Dioxide 19 mEq/L (23-29); Chloride 97 mEq/L (98-107); Glucose 126 mg/dL (70-105); Potassium 4.4 mEq/L (3.5-5.1); Sodium 137 mEq/L (136-145); eGFR For African Americans 15 (> 60); eGFR For Non-African Americans 13 (> 60)
[2017-09-11] MEDS: *HR* Heparin 5,000 UNIT/ML VIAL SQ SCH ×3 (05:07→23:04)
[2017-09-11] MEDS: Pantoprazole 40 MG VIAL IVP SCH ×2 (05:08→18:26)
[2017-09-11] MEDS: Dexmedetomidine HCl 400 MCG/100 ML MLS IVC SCH ×3 (05:08→23:16)
[2017-09-11] MEDS: Norepinephrine 4 MG in D5% in Water 250 ML IVC SCH ×2 (05:08→23:52)
[2017-09-11] MEDS: Metoclopramide 10 MG/2 ML VIAL IVP SCH (05:08)
[2017-09-11 05:19] LABS: Platelet Estimate Normal (Normal)
--- NOTE | 2017-09-11 07:58 | Nephrology Progress Note ---
Date of Encounter: 09/11/17 Time of Encounter: 07:57 - Assessment and Plan (1) JAZZY (acute kidney injury) Current Visit: Yes Status: Acute Patient has acute kidney injury superimposed on stage III chronic kidney disease in the setting of sepsis, pneumonia, and acute respiratory failure. Azotemia continues to increase. Urine output is slightly better but the patient remains in positive fluid balance. Because of the progressive increase in his azotemia where going to initiate dialysis today. Interventional nephrology will be consulted to place a temporary dialysis catheter. (2) Acute respiratory failure with hypoxia Current Visit: Yes Status: Acute (3) Chronic kidney disease, stage III (moderate) Current Visit: Yes Status: Acute Subjective Principal diagnosis: Acute hypoxic respiratory Interval history: The patient is clinically about the same. He remains on the ventilator. FiO2 was increased back to 70%. Urine output is about a liter. Azotemia continues to worsen. The patient remains hemodynamically stable. Objective - Vital Signs Vital signs: Vital Signs Temp Pulse Resp BP Pulse Ox 09/11/17 07:39 22 106/50 93 09/11/17 07:00 94 22 106/50 93 09/11/17 06:00 97 23 110/46 93 09/11/17 05:11 24 124/58 90 09/11/17 05:00 92 23 124/58 89 09/11/17 04:00 88 22 106/51 95 09/11/17 03:22 22 105/50 94 09/11/17 03:00 99.6 F 87 22 102/48 94 09/11/17 02:00 86 22 106/47 95 09/11/17 01:08 22 93/46 95 09/11/17 01:00 86 22 93/46 94 09/11/17 00:01 90 22 96/48 94 09/10/17 23:31 22 94/49 94 09/10/17 23:00 98.6 F 89 22 92/47 94 09/10/17 22:00 89 22 84/45 94 09/10/17 21:27 22 129/60 92 09/10/17 21:00 104 22 129/60 92 09/10/17 20:52 98.8 F 09/10/17 20:00 105 22 134/57 92 09/10/17 19:35 108 09/10/17 19:33 22 134/56 90 09/10/17 19:30 109 22 134/56 91 09/10/17 18:10 22 155/70 93 09/10/17 18:04 115 22 155/70 92 09/10/17 17:04 120 22 166/64 91 09/10/17 16:01 98.5 F 95 22 137/62 91 09/10/17 15:24 22 128/64 93 09/10/17 15:05 81 22 128/64 93 09/10/17 14:45 82 22 128/60 93 09/10/17 13:32 85 22 129/57 93 09/10/17 13:10 22 133/56 93 09/10/17 12:01 89 22 143/60 93 09/10/17 12:00 98.7 F 09/10/17 11:20 89 22 156/63 93 09/10/17 10:53 22 160/66 92 09/10/17 10:10 88 22 157/69 91 09/10/17 09:14 80 22 134/50 91 09/10/17 08:45 81 22 119/56 92 09/10/17 08:00 98.3 F Intake and Output 09/10/17 09/10/17 09/11/17 15:59 23:59 07:59 Intake Total 940 / 940 777 / 777 517.7 / 517.7 Output Total 725 / 725 535 / 535 90 / 90 Balance 215 / 215 242 / 242 427.7 / 427.7 Intake: IV Fluids 940 / 940 643 / 643 429.7 / 429.7 FentaNYL (PF) 2,500 MCG In 50 / 50 Empty Bag 50 Each @ 200 MCG/HR 4 mls/hr IVC CONT MK Rx#: [id number] Lasix 480 MG In Dextrose 5% 192 240 / 240 ML @ 20 MG/HR 10 mls/hr IVC . Q24H MK Rx#:[id number] HumuLIN R 100 UNIT In 0.9 % 93 / 93 29.7 / 29.7 Sodium Chloride 100 ML @ 7 UNIT /HR 7.07 mls/hr IVC CONT MK Rx #:[id number] Diprivan 1,000 mg In 100 ml @ 5 500 / 500 300 / 300 200 / 200 MCG/KG/MIN 5.715 mls/hr IVC . [id number] MK Rx#:[id number] Flexbumin 25 gm In 100 ml @ 60 100 / 100 100 / 100 100 / 100 mls/hr IVPB Q8HR MK Rx#: [id number] Zosyn 3.375 GM In 0.9 % Sodium 100 / 100 100 / 100 100 / 100 Chloride (Mini-Bag +) 100 ML @ 25 mls/hr IVPB Q8HR MK Rx#: [id number] Tube Feeding 134 / 134 88 / 88 Free Water 0 / 0 Free Water Intake Amount 0 / 0 0 / 0 Output: Urine 300 / 300 Catheter 325 / 325 185 / 185 90 / 90 Gastric Drainage 400 / 400 50 / 50 Other: # Bowel Movements 0 Weight 189.7 kg Blood Glucose* 133 130 146 Patient Weight 09/11/17 23:59 Weight 189.7 kg - General Appearance Exam: Patient sedated on the ventilator. He is in no acute distress. Blood pressure 116/50. Heart regular rate and rhythm lungs diminished breath sounds. Abdomen is obese. There is 2+ lower extremity swelling. - Lab 09/11/17 03:55 09/11/17 03:55 Most recent lab results ABG pH 7.26 pH Units (7.32-7.45) L 09/11/17 04:25 ABG pCO2 46 mmHg (35-45) H 09/11/17 04:25 ABG pO2 60 mmHg (85-104) L 09/11/17 04:25 ABG HCO3 21 mEq/L (21-27) 09/11/17 04:25 ABG O2 Saturation 86 % (95-98) L 09/11/17 04:25 Calcium 8.2 mg/dL (8.6-10.3) L 09/11/17 03:55 Magnesium 2.4 mg/dL (1.6-2.6) 09/09/17 03:40 Consult Discharge Plan - Plan Referrals: Kayleen Sheth, INTERMODAL DISPATCHER [Primary Care Provider] -
[2017-09-11] MEDS ORDERED: 0.9 % Sodium Chloride 250 ML IVC PRN (07:59)
[2017-09-11] MEDS ORDERED: 0.9 % Sodium Chloride 2,000 ML ONE (08:16)
[2017-09-11 08:50] LABS: Hepatitis B Surface Antigen Nonreactive (Nonreactive)
[2017-09-11] MEDS ORDERED: *HR* Heparin 5,000 UNIT/ML VIAL ONE (08:52)
[2017-09-11] MEDS: Piperacillin/Tazobactam 3.375 GM in 0.9 % Sodium Chloride Mini Bag 100 ML IVPB SCH ×3 (09:30→23:51)
[2017-09-11] MEDS: Docusate Oral Soln 100 MG/10 ML UDC GTUBE SCH ×2 (09:30→20:11)
[2017-09-11] MEDS: Chlorhexidine Rinse 15 ML MOUTHWASH MM SCH ×2 (09:30→20:10)
[2017-09-11] MEDS: Albumin 25% 25gram/100mL 25 GM/100 ML IV.SOLN IVPB SCH (09:31)
--- NOTE | 2017-09-11 09:34 | Pulmonology Progress Note ---
<Luisa Shirley M - Last Filed: 09/11/17 11:08> Date of Encounter: 09/11/17 Objective PUL Vital signs: Last Vital Signs Temp 99.8 F H 09/11/17 09:00 Pulse 93 09/11/17 10:00 Resp 22 09/11/17 11:00 BP 111/52 09/11/17 11:00 Pulse Ox 91 09/11/17 11:00 Ventilator Settings Ventilator Settings: Ventilator Settings, Last 8 Hours Ventilator Mode VC+ Ventilator Mode VC+ Ventilator Mode VC+ Ventilator Mode VC+ Ventilator Mode VC+ Ventilator Mode VC+ Ventilator Mode VC+ Ventilator Mode VC+ Ventilator Mode VC+ Ventilator Mode VC+ Ventilator Mode VC+ Ventilator Tidal Volume 550 Setting Ventilator Tidal Volume 550 Setting Ventilator Tidal Volume 550 Setting Ventilator Tidal Volume 550 Setting Ventilator Tidal Volume 550 Setting Ventilator Tidal Volume 550 Setting Ventilator Tidal Volume 550 Setting Ventilator Tidal Volume 550 Setting Ventilator Tidal Volume 550 Setting Ventilator Tidal Volume 550 Setting Ventilator Tidal Volume 550 Setting Ventilator Respiratory Rate 22 Setting Ventilator Respiratory Rate 22 Setting Ventilator Respiratory Rate 22 Setting Ventilator Respiratory Rate 22 Setting Ventilator Respiratory Rate 22 Setting Ventilator Respiratory Rate 22 Setting Ventilator Respiratory Rate 22 Setting Ventilator Respiratory Rate 22 Setting Ventilator Respiratory Rate 22 Setting Ventilator Respiratory Rate 22 Setting Ventilator Respiratory Rate 22 Setting Actual Respiratory Rate 23 Actual Respiratory Rate 23 Actual Respiratory Rate 23 Actual Respiratory Rate 23 Actual Respiratory Rate 23 Actual Respiratory Rate 23 Actual Respiratory Rate 22 Actual Respiratory Rate 22 Actual Respiratory Rate 22 Positive End Expiratory 14 Pressure Positive End Expiratory 14 Pressure Positive End Expiratory 14 Pressure Positive End Expiratory 14 Pressure Positive End Expiratory 14 Pressure Positive End Expiratory 14 Pressure Positive End Expiratory 14 Pressure Positive End Expiratory 14 Pressure Positive End Expiratory 14 Pressure Positive End Expiratory 14 Pressure Positive End Expiratory 14 Pressure Peak Inspiratory Airway 35 Pressure Peak Inspiratory Airway 33 Pressure Peak Inspiratory Airway 35 Pressure Peak Inspiratory Airway 36 Pressure Peak Inspiratory Airway 34 Pressure Peak Inspiratory Airway 33 Pressure Peak Inspiratory Airway 35 Pressure Peak Inspiratory Airway 39 Pressure Peak Inspiratory Airway 34 Pressure Peak Inspiratory Airway 34 Pressure Results - Laboratory Findings CBC and BMP: 09/11/17 03:55 09/11/17 03:55 ABG ABG pH 7.26 pH Units (7.32-7.45) L 09/11/17 04:25 ABG pCO2 46 mmHg (35-45) H 09/11/17 04:25 ABG pO2 60 mmHg (85-104) L 09/11/17 04:25 ABG O2 Saturation 86 % (95-98) L 09/11/17 04:25 PT/INR, D-dimer PT 12.9 Seconds (9.4-12.1) H 09/06/17 01:33 Abnormal lab findings: Abnormal lab results WBC 13.0 K/mcL (4.3-11.1) H 09/11/17 03:55 RBC 3.09 M/mcL (4.19-5.50) L 09/11/17 03:55 Hgb 8.4 g/dL (12.9-16.9) L 09/11/17 03:55 Hct 26.8 % (37.5-50.1) L 09/11/17 03:55 MCH 27.2 pg (28.0-33.3) L 09/11/17 03:55 MCHC 31.3 g/dL (31.6-35.5) L 09/11/17 03:55 RDW 16.6 % (11.5-14.5) H 09/11/17 03:55 Immature Gran % 7.7 % (0-4) H 09/11/17 03:55 Metamyelocytes % 1.0 % (0) H 09/10/17 04:00 Myelocytes % 1.0 % (0) H 09/10/17 04:00 Neutrophils # 9.3 K/mcL (1.6-8.9) H 09/11/17 03:55 Monocytes # 1.4 K/mcL (0.0-1.3) H 09/11/17 03:55 Nucleated RBCs/100 WBC 0.5 /100 WBC (0) H 09/11/17 03:55 PT 12.9 Seconds (9.4-12.1) H 09/06/17 01:33 ABG pH 7.26 pH Units (7.32-7.45) L 09/11/17 04:25 ABG pCO2 46 mmHg (35-45) H 09/11/17 04:25 ABG pO2 60 mmHg (85-104) L 09/11/17 04:25 ABG O2 Saturation 86 % (95-98) L 09/11/17 04:25 ABG Base Excess -6 mEq/L (-2 to 3) L 09/11/17 04:25 VBG pH 7.22 pH Units (7.32-7.42) L 09/08/17 06:20 VBG pCO2 61 mmHg (41-51) H 09/08/17 06:20 VBG pO2 166 mmHg (25-50) H 09/08/17 06:20 Chloride 97 mEq/L (98-107) L 09/11/17 03:55 Carbon Dioxide 19 mEq/L (23-29) L 09/11/17 03:55 BUN > 130 mg/dL (6-20) H 09/11/17 03:55 Creatinine 4.84 mg/dL (0.70-1.30) H 09/11/17 03:55 Est GFR ( Amer) 15 (> 60) L 09/11/17 03:55 Est GFR (Non-Af Amer) 13 (> 60) L 09/11/17 03:55 Glucose 126 mg/dL (70-105) H 09/11/17 03:55 POC Glucose 145 mg/dL (70-99) H 09/11/17 10:06 Calcium 8.2 mg/dL (8.6-10.3) L 09/11/17 03:55 Direct Bilirubin 0.3 mg/dL (0.0-0.2) H 09/08/17 06:03 AST 69 Units/L (13-39) H 09/08/17 06:03 ALT 60 Units/L (7-52) H 09/08/17 06:03 Creatine Kinase 1160 Units/L (30-223) H 09/09/17 03:40 Troponin I 0.05 ng/mL (< 0.04) H* 09/06/17 08:17 B-Natriuretic Peptide 127 pg/mL (Less than 100) H 09/06/17 08:16 Albumin 3.3 g/dL (3.5-5.7) L 09/08/17 06:03 Albumin/Globulin Ratio 0.9 (1.1-2.2) L 09/08/17 06:03 Triglycerides 526 mg/dL (< 150) H 09/09/17 03:40 LDL Cholesterol Measurd 60 mg/dL (75-193) L 09/09/17 03:40 HDL Cholesterol 20 mg/dL (40-59) L 09/09/17 03:40 Cholesterol/HDL Ratio 6.9 (0-4.9) H 09/09/17 03:40 Urine Clarity Turbid (Clear) A 09/08/17 09:40 Urine Protein 30 mg/dL (Neg-Trace) H 09/08/17 09:40 Urine Blood Large (Negative) H 09/08/17 09:40 Urine Microscopic RBC 50-100 per hpf (0-3) H 09/08/17 09:40 Urine Microscopic WBC TNTC per hpf (0-3) H 09/08/17 09:40 Ur Squamous Epith Cells Many per lpf (None-Few) H 09/08/17 09:40 Amorphous Sediment Moderate (Few) H 09/08/17 09:40 Vancomycin Trough 57 mcg/mL (5-10) H 09/08/17 06:03 - Microbiology Findings Microbiology Findings: Microbiology, Last 48 Hours 09/06/17 01:33 Blood Culture - Final Peripheral Venipuncture Staphylococcus capitis 09/08/17 14:49 Blood Culture - Preliminary Peripheral Venipuncture No growth. 09/08/17 14:49 Blood Culture - Preliminary Peripheral Venipuncture No growth. - Clinical Findings Intake & Output: Intake & Output 09/10/17 09/11/17 09/11/17 23:59 07:59 15:59 Intake Total 777 / 777 517.7 / 517.7 105.5 / 105.5 Output Total 535 / 535 90 / 90 50 / 50 Balance 242 / 242 427.7 / 427.7 55.5 / 55.5 Weight 189.7 kg Consult Discharge Plan - Plan Referrals: Kayleen Sheth, CUST[employer]S PATROL OFFICER [Primary Care Provider] - - Attending Attestation I examined this patient and my medical decision-making was reviewed with the Resident Physician. I agree with the documented findings, disposition and treatment plan as described except to the extent set forth below. Patient seen and examined. Labs, radiology, chart personally reviewed. Agree with resident's history and physical, assessment, plan with following comments: SAMPLER RADIOACTIVE WASTE: Patient sedated and does not follows commands, try to weansedation as much as possible for RAMSY score of 2. Pulmonary: Patient still not ready for the spontaneous breathing trial and expect with hemodialysis and fluid management hopefully will be able to wean off FiO2 more. Cardiovascular: stable GI: Nutrition per dietary and GI prophylaxis per routine Heme: DVT prophylaxis per routine ID: Continue antibiotics and plan to de-escalation Renal; urine out put and renal funtion reviewed Endorcine: blood glucose is monitored Lines: all lines checked and no evidence of infections Skin: skin care to prevent pressure ulcers per nursing routine care <Quintin Posada - Last Filed: 09/11/17 18:32> Date of Encounter: 09/11/17 Time of Encounter: 09:32 Assessment and Plan (1) Acute respiratory failure with hypoxia Current Visit: Yes Status: Acute Acute hypoxic respiratory failure with hypercapnia/ARDS, ventilator dependent - Likely 2/2 acutely decompensated CHF w/ comorbid PNA - On arrival the patient had respiratory acidosis with pH of 7.17 - CXR shows increased pulmonary vascular congestion - CT Chest demonstrated partial collapse of the b/l lower lobes with suspected superimposed PNA - Patients last ABG demonstrated the followin.26/46/60// Plan: - Continue Zosyn for treatment of pneumonia - More aggressive diuresis with Lasix drip, ~600mL UOP over 24hr - Continue ventilator support: FiO2 60, tidal volume 550, PEEP 14 (2) CHF (congestive heart failure) Current Visit: Yes Status: Acute Acute on CHF with preserved ejection fraction - The patient demonstrates pulmonary edema on CXR, BNP - Acute respiratory failure is consistent with decompensated CHF - Respiratory failure continues to make minimal improvement - More aggressive diuresis will be needed in this patient to stimulate UOP - We will monitor I/Os and assess fluid balance daily Qualifiers: Heart failure type: diastolic Heart failure chronicity: acute on chronic Qualified Code(s): I50.33 - Acute on chronic diastolic (congestive) heart failure (3) JAZZY (acute kidney injury) Current Visit: Yes Status: Acute Acute on chronic kidney injury with oliguria - Patient does have elevated serum creatinine (4.84) from baseline (~1.8) - Likely this is due to sepsis and intravascular volume depletion vs hypoperfusion - There seems to be progression of kidney disease in response to acute illness - UOP overnight was approximately 600mL on Lasix drip Plan: - Per nephrology, dialysis will be initiated today - IR has been consulted for placement of a temporary dialysis catheter - Continue 25% and Lasix drip - Patient is likely going to require HD, however per nephrology, does not need today - Trend BMPs (4) Sepsis Current Visit: Yes Status: Acute Sepsis secondary to Pneumonia vs. Cellulitis - White count today is 13.0 - Possible source: Pneumonia - Started on Vancomycin and Zosyn on arrival - Cultures initially grew Staph capitis, however repeat negative Plan: -Zosyn Day 4 -Antibiotic day 6 -Careful hydration due to CHF with pulmonary edema Qualifiers: Sepsis type: sepsis due to unspecified organism Qualified Code(s): A41.9 - Sepsis, unspecified organism (5) Diabetes mellitus Current Visit: Yes Status: Acute Poorly controlled Insulin Dependent DM2 - Patient is apparently transitioning to a U500 Insulin regimen at home Plan: -Start IV Insulin to maintain goal Glucose 140-180 -Q1h Accucheck Qualifiers: Qualified Code(s): E11.9 - Type 2 diabetes mellitus without complications (6) Ileus Current Visit: Yes Status: Suspected Likely Ileus on CT/CXR - The patient has OG tube in place - NPO/Bowel rest (7) Right knee pain Current Visit: Yes Status: Ruled-out Acute right knee pain s/p total right knee replacement in December 2016 - Although there is initial concern for septic joint, the patient does not have that appearance to me - I see very limited swelling and the erythema seems to be superficial - I believe this is more of a cellulitis than a septic joint - CT of the LE does demonstrate soft tissue edema without obvious fluid collection in the joint - If blood cultures come back positive we will consider further workup for septic joint - We will continue to monitor this Qualifiers: Chronicity: acute Qualified Code(s): M25.561 - Pain in right knee Subjective Principal diagnosis: Acute hypoxic respiratory Interval history: Patient was seen and examined at bedside this morning. Currently intubated and sedated. Plan is to start dialysis today. IR was consulted for the placement of a temporary dialysis catheter. Objective PUL Vital signs: Last Vital Signs Temp 99.8 F H 09/11/17 09:00 Pulse 93 09/11/17 09:00 Resp 24 09/11/17 09:00 BP 97/43 09/11/17 09:00 Pulse Ox 90 09/11/17 09:00 ENT: oropharynx moist Neck: supple Effort: normal Auscultation: bilateral: clear Percussion: bilateral: not dull Tactile fremitus: bilateral: normal Cardiovascular: regular rate and rhythm Gastrointestinal: normoactive bowel sounds, non-distended Integumentary: normal Musculoskeletal: no deformities, ROM normal Ventilator Settings Ventilator Settings: Ventilator Settings, Last 8 Hours Ventilator Mode VC+ Ventilator Mode VC+ Ventilator Mode VC+ Ventilator Mode VC+ Ventilator Mode VC+ Ventilator Mode VC+ Ventilator Mode VC+ Ventilator Mode VC+ Ventilator Mode VC+ Ventilator Mode VC+ Ventilator Mode VC+ Ventilator Tidal Volume 550 Setting Ventilator Tidal Volume 550 Setting Ventilator Tidal Volume 550 Setting Ventilator Tidal Volume 550 Setting Ventilator Tidal Volume 550 Setting Ventilator Tidal Volume 550 Setting Ventilator Tidal Volume 550 Setting Ventilator Tidal Volume 550 Setting Ventilator Tidal Volume 550 Setting Ventilator Tidal Volume 550 Setting Ventilator Tidal Volume 550 Setting Ventilator Respiratory Rate 22 Setting Ventilator Respiratory Rate 22 Setting Ventilator Respiratory Rate 22 Setting Ventilator Respiratory Rate 22 Setting Ventilator Respiratory Rate 22 Setting Ventilator Respiratory Rate 22 Setting Ventilator Respiratory Rate 22 Setting Ventilator Respiratory Rate 22 Setting Ventilator Respiratory Rate 22 Setting Ventilator Respiratory Rate 22 Setting Ventilator Respiratory Rate 22 Setting Actual Respiratory Rate 23 Actual Respiratory Rate 23 Actual Respiratory Rate 23 Actual Respiratory Rate 23 Actual Respiratory Rate 22 Actual Respiratory Rate 22 Actual Respiratory Rate 22 Actual Respiratory Rate 22 Actual Respiratory Rate 22 Positive End Expiratory 14 Pressure Positive End Expiratory 14 Pressure Positive End Expiratory 14 Pressure Positive End Expiratory 14 Pressure Positive End Expiratory 14 Pressure Positive End Expiratory 14 Pressure Positive End Expiratory 14 Pressure Positive End Expiratory 14 Pressure Positive End Expiratory 14 Pressure Positive End Expiratory 14 Pressure Positive End Expiratory 14 Pressure Peak Inspiratory Airway 35 Pressure Peak Inspiratory Airway 36 Pressure Peak Inspiratory Airway 34 Pressure Peak Inspiratory Airway 33 Pressure Peak Inspiratory Airway 35 Pressure Peak Inspiratory Airway 39 Pressure Peak Inspiratory Airway 34 Pressure Peak Inspiratory Airway 34 Pressure Peak Inspiratory Airway 35 Pressure Peak Inspiratory Airway 33 Pressure Results - Laboratory Findings CBC and BMP: 09/11/17 03:55 09/11/17 03:55 ABG ABG pH 7.26 pH Units (7.32-7.45) L 09/11/17 04:25 ABG pCO2 46 mmHg (35-45) H 09/11/17 04:25 ABG pO2 60 mmHg (85-104) L 09/11/17 04:25 ABG O2 Saturation 86 % (95-98) L 09/11/17 04:25 PT/INR, D-dimer PT 12.9 Seconds (9.4-12.1) H 09/06/17 01:33 Abnormal lab findings: Abnormal lab results WBC 13.0 K/mcL (4.3-11.1) H 09/11/17 03:55 RBC 3.09 M/mcL (4.19-5.50) L 09/11/17 03:55 Hgb 8.4 g/dL (12.9-16.9) L 09/11/17 03:55 Hct 26.8 % (37.5-50.1) L 09/11/17 03:55 MCH 27.2 pg (28.0-33.3) L 09/11/17 03:55 MCHC 31.3 g/dL (31.6-35.5) L 09/11/17 03:55 RDW 16.6 % (11.5-14.5) H 09/11/17 03:55 Immature Gran % 7.7 % (0-4) H 09/11/17 03:55 Metamyelocytes % 1.0 % (0) H 09/10/17 04:00 Myelocytes % 1.0 % (0) H 09/10/17 04:00 Neutrophils # 9.3 K/mcL (1.6-8.9) H 09/11/17 03:55 Monocytes # 1.4 K/mcL (0.0-1.3) H 09/11/17 03:55 Nucleated RBCs/100 WBC 0.5 /100 WBC (0) H 09/11/17 03:55 PT 12.9 Seconds (9.4-12.1) H 09/06/17 01:33 ABG pH 7.26 pH Units (7.32-7.45) L 09/11/17 04:25 ABG pCO2 46 mmHg (35-45) H 09/11/17 04:25 ABG pO2 60 mmHg (85-104) L 09/11/17 04:25 ABG O2 Saturation 86 % (95-98) L 09/11/17 04:25 ABG Base Excess -6 mEq/L (-2 to 3) L 09/11/17 04:25 VBG pH 7.22 pH Units (7.32-7.42) L 09/08/17 06:20 VBG pCO2 61 mmHg (41-51) H 09/08/17 06:20 VBG pO2 166 mmHg (25-50) H 09/08/17 06:20 Chloride 97 mEq/L (98-107) L 09/11/17 03:55 Carbon Dioxide 19 mEq/L (23-29) L 09/11/17 03:55 BUN > 130 mg/dL (6-20) H 09/11/17 03:55 Creatinine 4.84 mg/dL (0.70-1.30) H 09/11/17 03:55 Est GFR ( Amer) 15 (> 60) L 09/11/17 03:55 Est GFR (Non-Af Amer) 13 (> 60) L 09/11/17 03:55 Glucose 126 mg/dL (70-105) H 09/11/17 03:55 POC Glucose 146 mg/dL (70-99) H 09/11/17 08:02 Calcium 8.2 mg/dL (8.6-10.3) L 09/11/17 03:55 Direct Bilirubin 0.3 mg/dL (0.0-0.2) H 09/08/17 06:03 AST 69 Units/L (13-39) H 09/08/17 06:03 ALT 60 Units/L (7-52) H 09/08/17 06:03 Creatine Kinase 1160 Units/L (30-223) H 09/09/17 03:40 Troponin I 0.05 ng/mL (< 0.04) H* 09/06/17 08:17 B-Natriuretic Peptide 127 pg/mL (Less than 100) H 09/06/17 08:16 Albumin 3.3 g/dL (3.5-5.7) L 09/08/17 06:03 Albumin/Globulin Ratio 0.9 (1.1-2.2) L 09/08/17 06:03 Triglycerides 526 mg/dL (< 150) H 09/09/17 03:40 LDL Cholesterol Measurd 60 mg/dL (75-193) L 09/09/17 03:40 HDL Cholesterol 20 mg/dL (40-59) L 09/09/17 03:40 Cholesterol/HDL Ratio 6.9 (0-4.9) H 09/09/17 03:40 Urine Clarity Turbid (Clear) A 09/08/17 09:40 Urine Protein 30 mg/dL (Neg-Trace) H 09/08/17 09:40 Urine Blood Large (Negative) H 09/08/17 09:40 Urine Microscopic RBC 50-100 per hpf (0-3) H 09/08/17 09:40 Urine Microscopic WBC TNTC per hpf (0-3) H 09/08/17 09:40 Ur Squamous Epith Cells Many per lpf (None-Few) H 09/08/17 09:40 Amorphous Sediment Moderate (Few) H 09/08/17 09:40 Vancomycin Trough 57 mcg/mL (5-10) H 09/08/17 06:03 - Microbiology Findings Microbiology Findings: Microbiology, Last 48 Hours 09/06/17 01:33 Blood Culture - Final Peripheral Venipuncture Staphylococcus capitis 09/08/17 14:49 Blood Culture - Preliminary Peripheral Venipuncture No growth. 09/08/17 14:49 Blood Culture - Preliminary Peripheral Venipuncture No growth. 09/06/17 15:00 Sputum Culture - Final Sputum - Clinical Findings Intake & Output: Intake & Output 09/10/17 09/11/17 09/11/17 23:59 07:59 15:59 Intake Total 777 / 777 517.7 / 517.7 5.5 / 5.5 Output Total 535 / 535 90 / 90 50 / 50 Balance 242 / 242 427.7 / 427.7 -44.5 / -44.5 Weight 189.7 kg
[2017-09-11] MEDS ORDERED: Erythromycin Lactobionate 250 MG in 0.9 % Sodium Chloride 100 ML IVPB SCH (12:00)
[2017-09-11] MEDS: Furosemide 480 MG in D5% in Water 192 ML IVC SCH (12:12)
[2017-09-11] MEDS: Erythromycin Susp 200 MG/5 ML UDC PO SCH ×2 (12:15→20:11)
[2017-09-11] MEDS: FentaNYL (PF) 2,500 MCG in EMPTY BAG 50 EACH IVC SCH (12:15)
[2017-09-12] MEDS: Ipratropium/Albuterol Neb 3 ML IH SCH ×4 (03:27→21:22)
[2017-09-12] MEDS ORDERED: Scopolamine Patch 1.5 MG PATCH.TD72 TD ONE (03:27)
[2017-09-12] MEDS: Lacri-Lube 3.5 GM TUBE BOTH EYES SCH ×6 (04:24→23:53)
[2017-09-12 05:00] LABS: ABG Base Excess -5 mEq/L (-2 to 3); ABG HCO3 22 mEq/L (21-27); ABG Oxygen Saturation 90 % (95-98); ABG PCO2 47 mmHg (35-45); ABG PH 7.27 pH Units (7.32-7.45); ABG PO2 67 mmHg (85-104); ABG TCO2 23 mEq/L (20-26); Blood Gas Modality VC; Blood Gas PEEP 14 cm H2O; Blood Gas Respiration Rate 22; Blood Gas VT 550 cc
[2017-09-12] MEDS: Insulin Human Regular 100 UNIT in 0.9 % Sodium Chloride 100 ML IVC SCH (05:00)
[2017-09-12 05:08] LABS: Hematocrit 28.2 % (37.5-50.1); Hemoglobin 8.8 g/dL (12.9-16.9); Mean Corpuscular HGB Conc 31.2 g/dL (31.6-35.5); Mean Corpuscular Hemoglobin 26.8 pg (28.0-33.3); Mean Platelet Volume 9.7 fL (9.4-12.4); Nucleated Red Blood Cells 0.3 /100 WBC (0); Platelet Count 332 K/mcL (140-400); Red Blood Count 3.28 M/mcL (4.19-5.50)
[2017-09-12 05:30] LABS: Calcium 8.2 mg/dL (8.6-10.3); Potassium 4.6 mEq/L (3.5-5.1)
[2017-09-12] MEDS: Erythromycin Susp 200 MG/5 ML UDC PO SCH ×3 (05:46→19:43)
[2017-09-12] MEDS: *HR* Heparin 5,000 UNIT/ML VIAL SQ SCH ×3 (05:46→22:27)
[2017-09-12] MEDS: Pantoprazole 40 MG VIAL IVP SCH ×2 (05:46→18:34)
[2017-09-12 06:00] LABS: Eosinophils # 0.7 K/mcL (0.0-0.6); Lymphocytes # 3.2 K/mcL (0.6-4.6); Neutrophils # 13.7 K/mcL (1.6-8.9); Platelet Estimate Normal (Normal)
[2017-09-12] MEDS: Piperacillin/Tazobactam 3.375 GM in 0.9 % Sodium Chloride Mini Bag 100 ML IVPB SCH ×3 (08:02→23:53)
[2017-09-12] MEDS: Chlorhexidine Rinse 15 ML MOUTHWASH MM SCH ×2 (08:03→19:44)
[2017-09-12] MEDS: Docusate Oral Soln 100 MG/10 ML UDC GTUBE SCH ×2 (08:03→19:45)
--- NOTE | 2017-09-12 09:28 | Nephrology Progress Note ---
Date of Encounter: 09/12/17 Time of Encounter: 09:15 - Assessment and Plan (1) JAZZY (acute kidney injury) Current Visit: Yes Status: Acute JAZZY superimposed on CKD in setting of sepsis, pneumonia and acute respiratory failure. Creat plateued, slight improvement, creat 4.02. Documented urine output 400cc. Will do HD again today for positive fluid balance and worsening CXR. Orders given. (2) Acute respiratory failure with hypoxia Current Visit: Yes Status: Acute (3) Sepsis Current Visit: Yes Status: Acute Qualifiers: Sepsis type: sepsis due to unspecified organism Qualified Code(s): A41.9 - Sepsis, unspecified organism Subjective Principal diagnosis: Acute hypoxic respiratory Interval history: Intubated, sedated. FIO2 100, peep 16. CXR-Worsening alveolar and interstitial opacities bilaterally, favoring edema. Small effusions likely present. Objective - Vital Signs Vital signs: Vital Signs Temp Pulse Resp BP Pulse Ox 09/12/17 09:13 25 90 09/12/17 09:00 92 26 122/60 89 09/12/17 08:00 89 23 148/68 93 09/12/17 07:45 24 95 09/12/17 07:36 99.2 F 09/12/17 07:00 87 24 114/54 94 09/12/17 06:00 88 24 100/47 92 09/12/17 05:34 25 100/37 92 09/12/17 05:00 94 24 100/37 89 09/12/17 04:00 97 28 150/63 88 09/12/17 03:28 23 153/64 94 09/12/17 03:00 103 29 142/56 96 09/12/17 02:00 89 24 126/56 92 09/12/17 01:09 24 99/40 93 09/12/17 01:00 89 24 106/52 94 09/12/17 00:25 98.9 F 09/12/17 00:00 92 22 107/46 92 09/11/17 23:13 24 115/46 89 09/11/17 23:00 93 23 132/59 89 09/11/17 22:00 95 23 113/50 90 09/11/17 21:29 25 119/56 90 09/11/17 21:00 98 26 118/57 90 09/11/17 20:00 98 26 125/58 89 09/11/17 19:58 23 129/62 89 09/11/17 19:00 100 26 129/62 90 09/11/17 18:48 99.1 F 09/11/17 18:00 98 27 137/63 90 09/11/17 17:55 98.9 F 16 141/68 09/11/17 17:45 150/61 09/11/17 17:30 141/66 09/11/17 17:15 141/63 09/11/17 17:08 25 147/61 91 09/11/17 17:00 96 25 134/63 93 09/11/17 16:45 137/62 09/11/17 16:30 136/61 09/11/17 16:15 146/68 09/11/17 16:00 95 27 138/62 92 09/11/17 15:45 136/65 09/11/17 15:30 118/58 09/11/17 15:15 106/54 09/11/17 15:00 98.9 F 85 24 109/53 92 09/11/17 14:45 99.7 F H 16 106/51 09/11/17 14:00 88 23 110/51 91 09/11/17 13:00 89 23 111/54 90 09/11/17 12:29 99.7 F H 09/11/17 12:00 89 24 105/50 90 09/11/17 11:00 22 111/52 91 09/11/17 10:00 93 25 114/52 91 09/11/17 09:35 24 105/48 90 Intake and Output 09/11/17 09/12/17 09/12/17 23:59 07:59 15:59 Intake Total 717.0 / 717.0 665 / 665 109.3 / 109.3 Output Total 1910 / 1910 510 / 510 Balance -1193.0 / -1193.0 155 / 155 109.3 / 109.3 Intake: IV Fluids 213.0 / 213.0 581 / 581 109.3 / 109.3 FentaNYL (PF) 2,500 MCG In 40 / 40 Empty Bag 50 Each @ 200 MCG/HR 4 mls/hr IVC CONT MK Rx#: [id number] Lasix 480 MG In Dextrose 5% 192 165 / 165 ML @ 20 MG/HR 10 mls/hr IVC . Q24H MK Rx#:[id number] HumuLIN R 100 UNIT In 0.9 % 13.0 / 13.0 76 / 76 9.3 / 9.3 Sodium Chloride 100 ML @ 7 UNIT /HR 7.07 mls/hr IVC CONT MK Rx #:[id number] Diprivan 1,000 mg In 100 ml @ 5 100 / 100 200 / 200 100 / 100 MCG/KG/MIN 5.715 mls/hr IVC . [id number] MK Rx#:[id number] Zosyn 3.375 GM In 0.9 % Sodium 100 / 100 100 / 100 Chloride (Mini-Bag +) 100 ML @ 25 mls/hr IVPB Q8HR MK Rx#: [id number] Tube Feeding 254 / 254 84 / 84 Free Water Intake Amount 250 / 250 0 / 0 Output: Urine 100 / 100 Total Dialysis (HD) Output 1600 / 1600 Catheter 160 / 160 310 / 310 Gastric Drainage 50 / 50 200 / 200 Other: Stool Size Moderate Stool Consistency liquid Stool Color Brown Weight 189.5 kg Blood Glucose* 165 178 153 Hemodialysis Net Fluid Removed 1000 (mL) Patient Weight 09/12/17 23:59 Weight 189.5 kg - General Appearance General appearance: Present: well-developed, well-nourished, appears started age , obese EENT: Present: mucous membranes moist Neck: Present: no JVD Additional Comments: harsh Cardiology: Present: edema, regular rate, regular rhythm Additional Comments: 1+ pitting Dialysis Vascular Access: Venous Catheter Gastrointestinal: Present: hypoactive bowel sounds Integumentary: Present: warm and dry - Lab 09/12/17 04:53 09/12/17 04:53 Most recent lab results ABG pH 7.27 pH Units (7.32-7.45) L 09/12/17 04:57 ABG pCO2 47 mmHg (35-45) H 09/12/17 04:57 ABG pO2 67 mmHg (85-104) L 09/12/17 04:57 ABG HCO3 22 mEq/L (21-27) 09/12/17 04:57 ABG O2 Saturation 90 % (95-98) L 09/12/17 04:57 Calcium 8.2 mg/dL (8.6-10.3) L 09/12/17 04:53 Magnesium 2.4 mg/dL (1.6-2.6) 09/09/17 03:40 Consult Discharge Plan - Plan Referrals: Kayleen Sheth, PAUL [Primary Care Provider] -
[2017-09-12] MEDS: FentaNYL (PF) 2,500 MCG in EMPTY BAG 50 EACH IVC SCH (09:52)
--- NOTE | 2017-09-12 09:55 | Pulmonology Progress Note ---
<Quintin Posada - Last Filed: 09/12/17 16:14> Date of Encounter: 09/12/17 Time of Encounter: 09:53 Assessment and Plan (1) Acute respiratory failure with hypoxia Current Visit: Yes Status: Acute Acute hypoxic respiratory failure with hypercapnia/ARDS, ventilator dependent - Likely 2/2 acutely decompensated CHF w/ comorbid PNA - On arrival the patient had respiratory acidosis with pH of 7.17 - CXR shows increased pulmonary vascular congestion - CT Chest demonstrated partial collapse of the b/l lower lobes with suspected superimposed PNA - Last AB./47/// Plan: - Continue Zosyn for treatment of pneumonia - Patient will receive hemodialysis today due to worsening chest x-ray - Continue ventilator support: Inspired O2 85, tidal volume 550, PEEP 14 (2) CHF (congestive heart failure) Current Visit: Yes Status: Acute Acute on CHF with preserved ejection fraction - The patient demonstrates pulmonary edema on CXR, BNP - Acute respiratory failure is consistent with decompensated CHF - Respiratory failure continues to make minimal improvement - We will monitor I/Os and assess fluid balance daily - Hemodialysis today Qualifiers: Heart failure type: diastolic Heart failure chronicity: acute on chronic Qualified Code(s): I50.33 - Acute on chronic diastolic (congestive) heart failure (3) JAZZY (acute kidney injury) Current Visit: Yes Status: Acute - Acute on chronic kidney injury with oliguria - Per nephrology, creatinine plateaued, slight improvement today with a creatinine of 4.02. - Documented urine output is 400cc - Patient will have hemodialysis again today due to positive fluid balance and worsening chest x-ray (4) Sepsis Current Visit: Yes Status: Acute Sepsis secondary to Pneumonia vs. Cellulitis - White count today is 13.0 - Possible source: Pneumonia - Started on Vancomycin and Zosyn on arrival - Cultures initially grew Staph capitis, however repeat negative - Patients white count increased from 13 to 17.6 Plan: -Zosyn Day 5 -Antibiotic day 7 -Careful hydration due to CHF with pulmonary edema Qualifiers: Sepsis type: sepsis due to unspecified organism Qualified Code(s): A41.9 - Sepsis, unspecified organism (5) Diabetes mellitus Current Visit: Yes Status: Acute Poorly controlled Insulin Dependent DM2 - Patient is apparently transitioning to a U500 Insulin regimen at home Qualifiers: Qualified Code(s): E11.9 - Type 2 diabetes mellitus without complications (6) Right knee pain Current Visit: Yes Status: Ruled-out Acute right knee pain s/p total right knee replacement in December 2016 - Although there is initial concern for septic joint, the patient does not have that appearance to me - I see very limited swelling and the erythema seems to be superficial - I believe this is more of a cellulitis than a septic joint - CT of the LE does demonstrate soft tissue edema without obvious fluid collection in the joint - If blood cultures come back positive we will consider further workup for septic joint - We will continue to monitor this Qualifiers: Chronicity: acute Qualified Code(s): M25.561 - Pain in right knee Subjective Principal diagnosis: Acute hypoxic respiratory Interval history: Patient was seen and examined at bedside this morning. Currently intubated and sedated. Plan is to have dialysis today due to worsening CXR and positive fluid balance. Objective PUL Vital signs: Last Vital Signs Temp 99.2 F 09/12/17 07:36 Pulse 92 09/12/17 09:00 Resp 25 09/12/17 09:13 BP 122/60 09/12/17 09:00 Pulse Ox 90 09/12/17 09:13 General appearance: asleep Eyes: nonicteric Neck: supple Effort: normal Auscultation: bilateral: diminished breath sounds, rales Percussion: bilateral: not dull Tactile fremitus: bilateral: normal Cardiovascular: regular rate and rhythm Gastrointestinal: normoactive bowel sounds, non-distended Integumentary: normal Extremities: no cyanosis, no edema, no clubbing Ventilator Settings Ventilator Settings: Ventilator Settings, Last 8 Hours Ventilator Mode VC+ Ventilator Mode VC+ Ventilator Mode VC+ Ventilator Mode VC+ Ventilator Mode VC+ Ventilator Mode VC+ Ventilator Mode VC+ Ventilator Mode VC+ Ventilator Mode VC+ Ventilator Mode VC+ Ventilator Mode VC+ Ventilator Mode VC+ Ventilator Mode VC+ Ventilator Tidal Volume 550 Setting Ventilator Tidal Volume 550 Setting Ventilator Tidal Volume 550 Setting Ventilator Tidal Volume 550 Setting Ventilator Tidal Volume 550 Setting Ventilator Tidal Volume 550 Setting Ventilator Tidal Volume 550 Setting Ventilator Tidal Volume 550 Setting Ventilator Tidal Volume 550 Setting Ventilator Tidal Volume 550 Setting Ventilator Tidal Volume 550 Setting Ventilator Tidal Volume 550 Setting Ventilator Tidal Volume 550 Setting Ventilator Respiratory Rate 22 Setting Ventilator Respiratory Rate 22 Setting Ventilator Respiratory Rate 22 Setting Ventilator Respiratory Rate 22 Setting Ventilator Respiratory Rate 22 Setting Ventilator Respiratory Rate 22 Setting Ventilator Respiratory Rate 22 Setting Ventilator Respiratory Rate 22 Setting Ventilator Respiratory Rate 22 Setting Ventilator Respiratory Rate 22 Setting Ventilator Respiratory Rate 22 Setting Ventilator Respiratory Rate 22 Setting Ventilator Respiratory Rate 22 Setting Actual Respiratory Rate 25 Actual Respiratory Rate 23 Actual Respiratory Rate 23 Actual Respiratory Rate 22 Actual Respiratory Rate 24 Actual Respiratory Rate 24 Actual Respiratory Rate 25 Actual Respiratory Rate 24 Actual Respiratory Rate 28 Actual Respiratory Rate 24 Actual Respiratory Rate 29 Actual Respiratory Rate 23 Positive End Expiratory 16 Pressure Positive End Expiratory 16 Pressure Positive End Expiratory 16 Pressure Positive End Expiratory 16 Pressure Positive End Expiratory 16 Pressure Positive End Expiratory 14 Pressure Positive End Expiratory 14 Pressure Positive End Expiratory 14 Pressure Positive End Expiratory 14 Pressure Positive End Expiratory 14 Pressure Positive End Expiratory 14 Pressure Positive End Expiratory 14 Pressure Positive End Expiratory 14 Pressure Peak Inspiratory Airway 29 Pressure Peak Inspiratory Airway 29 Pressure Peak Inspiratory Airway 39 Pressure Peak Inspiratory Airway 33 Pressure Peak Inspiratory Airway 38 Pressure Peak Inspiratory Airway 35 Pressure Peak Inspiratory Airway 34 Pressure Peak Inspiratory Airway 35 Pressure Peak Inspiratory Airway 33 Pressure Peak Inspiratory Airway 24 Pressure Peak Inspiratory Airway 34 Pressure Results - Laboratory Findings CBC and BMP: 09/12/17 04:53 09/12/17 04:53 ABG ABG pH 7.27 pH Units (7.32-7.45) L 09/12/17 04:57 ABG pCO2 47 mmHg (35-45) H 09/12/17 04:57 ABG pO2 67 mmHg (85-104) L 09/12/17 04:57 ABG O2 Saturation 90 % (95-98) L 09/12/17 04:57 PT/INR, D-dimer PT 12.9 Seconds (9.4-12.1) H 09/06/17 01:33 Abnormal lab findings: Abnormal lab results WBC 17.6 K/mcL (4.3-11.1) H 09/12/17 04:53 RBC 3.28 M/mcL (4.19-5.50) L 09/12/17 04:53 Hgb 8.8 g/dL (12.9-16.9) L 09/12/17 04:53 Hct 28.2 % (37.5-50.1) L 09/12/17 04:53 MCH 26.8 pg (28.0-33.3) L 09/12/17 04:53 MCHC 31.2 g/dL (31.6-35.5) L 09/12/17 04:53 RDW 17.0 % (11.5-14.5) H 09/12/17 04:53 Immature Gran % 7.7 % (0-4) H 09/11/17 03:55 Band Neutrophils % 8.0 % (0-4) H 09/12/17 04:53 Metamyelocytes % 1.0 % (0) H 09/10/17 04:00 Myelocytes % 1.0 % (0) H 09/10/17 04:00 Neutrophils # 13.7 K/mcL (1.6-8.9) H 09/12/17 04:53 Monocytes # 1.4 K/mcL (0.0-1.3) H 09/11/17 03:55 Eosinophils # 0.7 K/mcL (0.0-0.6) H 09/12/17 04:53 Nucleated RBCs/100 WBC 0.3 /100 WBC (0) H 09/12/17 04:53 PT 12.9 Seconds (9.4-12.1) H 09/06/17 01:33 ABG pH 7.27 pH Units (7.32-7.45) L 09/12/17 04:57 ABG pCO2 47 mmHg (35-45) H 09/12/17 04:57 ABG pO2 67 mmHg (85-104) L 09/12/17 04:57 ABG O2 Saturation 90 % (95-98) L 09/12/17 04:57 ABG Base Excess -5 mEq/L (-2 to 3) L 09/12/17 04:57 VBG pH 7.22 pH Units (7.32-7.42) L 09/08/17 06:20 VBG pCO2 61 mmHg (41-51) H 09/08/17 06:20 VBG pO2 166 mmHg (25-50) H 09/08/17 06:20 Chloride 95 mEq/L (98-107) L 09/12/17 04:53 Carbon Dioxide 21 mEq/L (23-29) L 09/12/17 04:53 BUN 95 mg/dL (6-20) H 09/12/17 04:53 Creatinine 4.02 mg/dL (0.70-1.30) H 09/12/17 04:53 Est GFR ( Amer) 19 (> 60) L 09/12/17 04:53 Est GFR (Non-Af Amer) 16 (> 60) L 09/12/17 04:53 Glucose 211 mg/dL (70-105) H 09/12/17 04:53 POC Glucose 153 mg/dL (70-99) H 09/12/17 09:00 Calculated Osmolality 320 (280-300) H 09/12/17 04:53 Calcium 8.2 mg/dL (8.6-10.3) L 09/12/17 04:53 Direct Bilirubin 0.3 mg/dL (0.0-0.2) H 09/08/17 06:03 AST 69 Units/L (13-39) H 09/08/17 06:03 ALT 60 Units/L (7-52) H 09/08/17 06:03 Creatine Kinase 1160 Units/L (30-223) H 09/09/17 03:40 Troponin I 0.05 ng/mL (< 0.04) H* 09/06/17 08:17 B-Natriuretic Peptide 127 pg/mL (Less than 100) H 09/06/17 08:16 Albumin 3.3 g/dL (3.5-5.7) L 09/08/17 06:03 Albumin/Globulin Ratio 0.9 (1.1-2.2) L 09/08/17 06:03 Triglycerides 526 mg/dL (< 150) H 09/09/17 03:40 LDL Cholesterol Measurd 60 mg/dL (75-193) L 09/09/17 03:40 HDL Cholesterol 20 mg/dL (40-59) L 09/09/17 03:40 Cholesterol/HDL Ratio 6.9 (0-4.9) H 09/09/17 03:40 Urine Clarity Turbid (Clear) A 09/08/17 09:40 Urine Protein 30 mg/dL (Neg-Trace) H 09/08/17 09:40 Urine Blood Large (Negative) H 09/08/17 09:40 Urine Microscopic RBC 50-100 per hpf (0-3) H 09/08/17 09:40 Urine Microscopic WBC TNTC per hpf (0-3) H 09/08/17 09:40 Ur Squamous Epith Cells Many per lpf (None-Few) H 09/08/17 09:40 Amorphous Sediment Moderate (Few) H 09/08/17 09:40 Vancomycin Trough 57 mcg/mL (5-10) H 09/08/17 06:03 - Microbiology Findings Microbiology Findings: Microbiology, Last 48 Hours 09/06/17 01:33 Blood Culture - Final Peripheral Venipuncture Staphylococcus capitis 09/08/17 14:49 Blood Culture - Preliminary Peripheral Venipuncture No growth. 09/08/17 14:49 Blood Culture - Preliminary Peripheral Venipuncture No growth. - Clinical Findings Intake & Output: Intake & Output 09/11/17 09/12/17 09/12/17 23:59 07:59 15:59 Intake Total 717.0 / 717.0 665 / 665 119.3 / 119.3 Output Total 1910 / 1910 510 / 510 Balance -1193.0 / -1193.0 155 / 155 119.3 / 119.3 Weight 189.5 kg Consult Discharge Plan - Plan Referrals: Kayleen Sheth, GUNNER MATE [Primary Care Provider] - <Luisa Shirley - Last Filed: 09/13/17 07:59> Date of Encounter: 09/13/17 Objective PUL Vital signs: Last Vital Signs Temp 98.5 F 09/13/17 03:36 Pulse 92 09/13/17 07:00 Resp 22 09/13/17 07:00 BP 105/42 09/13/17 07:00 Pulse Ox 93 09/13/17 07:00 Ventilator Settings Ventilator Settings: Ventilator Settings, Last 8 Hours Ventilator Mode VC+ Ventilator Mode VC+ Ventilator Mode VC+ Ventilator Mode VC+ Ventilator Mode VC+ Ventilator Mode VC+ Ventilator Mode VC+ Ventilator Mode VC+ Ventilator Mode VC+ Ventilator Mode VC+ Ventilator Mode VC+ Ventilator Mode VC+ Ventilator Mode VC+ Ventilator Tidal Volume 550 Setting Ventilator Tidal Volume 550 Setting Ventilator Tidal Volume 550 Setting Ventilator Tidal Volume 550 Setting Ventilator Tidal Volume 550 Setting Ventilator Tidal Volume 550 Setting Ventilator Tidal Volume 550 Setting Ventilator Tidal Volume 550 Setting Ventilator Tidal Volume 550 Setting Ventilator Tidal Volume 550 Setting Ventilator Tidal Volume 550 Setting Ventilator Tidal Volume 550 Setting Ventilator Tidal Volume 550 Setting Ventilator Respiratory Rate 22 Setting Ventilator Respiratory Rate 22 Setting Ventilator Respiratory Rate 22 Setting Ventilator Respiratory Rate 22 Setting Ventilator Respiratory Rate 22 Setting Ventilator Respiratory Rate 22 Setting Ventilator Respiratory Rate 22 Setting Ventilator Respiratory Rate 22 Setting Ventilator Respiratory Rate 22 Setting Ventilator Respiratory Rate 22 Setting Ventilator Respiratory Rate 22 Setting Ventilator Respiratory Rate 22 Setting Ventilator Respiratory Rate 22 Setting Actual Respiratory Rate 22 Actual Respiratory Rate 22 Actual Respiratory Rate 24 Actual Respiratory Rate 25 Actual Respiratory Rate 24 Actual Respiratory Rate 27 Actual Respiratory Rate 23 Actual Respiratory Rate 24 Actual Respiratory Rate 22 Actual Respiratory Rate 26 Actual Respiratory Rate 22 Actual Respiratory Rate 29 Positive End Expiratory 16 Pressure Positive End Expiratory 16 Pressure Positive End Expiratory 16 Pressure Positive End Expiratory 16 Pressure Positive End Expiratory 16 Pressure Positive End Expiratory 16 Pressure Positive End Expiratory 16 Pressure Positive End Expiratory 16 Pressure Positive End Expiratory 16 Pressure Positive End Expiratory 16 Pressure Positive End Expiratory 16 Pressure Positive End Expiratory 16 Pressure Positive End Expiratory 16 Pressure Peak Inspiratory Airway 40 Pressure Peak Inspiratory Airway 40 Pressure Peak Inspiratory Airway 38 Pressure Peak Inspiratory Airway 24 Pressure Peak Inspiratory Airway 28 Pressure Peak Inspiratory Airway 37 Pressure Peak Inspiratory Airway 36 Pressure Peak Inspiratory Airway 36 Pressure Results - Laboratory Findings CBC and BMP: 09/13/17 04:00 09/13/17 04:00 ABG ABG pH 7.31 pH Units (7.32-7.45) L 09/13/17 06:07 ABG pCO2 50 mmHg (35-45) H 09/13/17 06:07 ABG pO2 105 mmHg (85-104) H 09/13/17 06:07 ABG O2 Saturation 97 % (95-98) 09/13/17 06:07 PT/INR, D-dimer PT 12.9 Seconds (9.4-12.1) H 09/06/17 01:33 Abnormal lab findings: Abnormal lab results WBC 18.6 K/mcL (4.3-11.1) H 09/13/17 04:00 RBC 3.20 M/mcL (4.19-5.50) L 09/13/17 04:00 Hgb 8.6 g/dL (12.9-16.9) L 09/13/17 04:00 Hct 28.1 % (37.5-50.1) L 09/13/17 04:00 MCH 26.9 pg (28.0-33.3) L 09/13/17 04:00 MCHC 30.6 g/dL (31.6-35.5) L 09/13/17 04:00 RDW 17.0 % (11.5-14.5) H 09/13/17 04:00 Immature Gran % 7.7 % (0-4) H 09/11/17 03:55 Band Neutrophils % 6.0 % (0-4) H 09/13/17 04:00 Metamyelocytes % 1.0 % (0) H 09/10/17 04:00 Myelocytes % 1.0 % (0) H 09/10/17 04:00 Neutrophils # 16.4 K/mcL (1.6-8.9) H 09/13/17 04:00 Monocytes # 1.4 K/mcL (0.0-1.3) H 09/11/17 03:55 Eosinophils # 0.7 K/mcL (0.0-0.6) H 09/13/17 04:00 Nucleated RBCs/100 WBC 0.2 /100 WBC (0) H 09/13/17 04:00 Anisocytosis 1+ (Not Present) A 09/13/17 04:00 PT 12.9 Seconds (9.4-12.1) H 09/06/17 01:33 ABG pH 7.31 pH Units (7.32-7.45) L 09/13/17 06:07 ABG pCO2 50 mmHg (35-45) H 09/13/17 06:07 ABG pO2 105 mmHg (85-104) H 09/13/17 06:07 ABG Total CO2 27 mEq/L (20-26) H 09/13/17 06:07 VBG pH 7.22 pH Units (7.32-7.42) L 09/08/17 06:20 VBG pCO2 61 mmHg (41-51) H 09/08/17 06:20 VBG pO2 166 mmHg (25-50) H 09/08/17 06:20 Chloride 93 mEq/L (98-107) L 09/13/17 04:00 BUN 74 mg/dL (6-20) H 09/13/17 04:00 Creatinine 4.04 mg/dL (0.70-1.30) H 09/13/17 04:00 Est GFR ( Amer) 19 (> 60) L 09/13/17 04:00 Est GFR (Non-Af Amer) 16 (> 60) L 09/13/17 04:00 Glucose 160 mg/dL (70-105) H 09/13/17 04:00 POC Glucose 151 mg/dL (70-99) H 09/13/17 06:57 Calculated Osmolality 307 (280-300) H 09/13/17 04:00 Calcium 8.1 mg/dL (8.6-10.3) L 09/13/17 04:00 Direct Bilirubin 0.3 mg/dL (0.0-0.2) H 09/08/17 06:03 AST 69 Units/L (13-39) H 09/08/17 06:03 ALT 60 Units/L (7-52) H 09/08/17 06:03 Creatine Kinase 1160 Units/L (30-223) H 09/09/17 03:40 Troponin I 0.05 ng/mL (< 0.04) H* 09/06/17 08:17 B-Natriuretic Peptide 127 pg/mL (Less than 100) H 09/06/17 08:16 Albumin 3.3 g/dL (3.5-5.7) L 09/08/17 06:03 Albumin/Globulin Ratio 0.9 (1.1-2.2) L 09/08/17 06:03 Triglycerides 526 mg/dL (< 150) H 09/09/17 03:40 LDL Cholesterol Measurd 60 mg/dL (75-193) L 09/09/17 03:40 HDL Cholesterol 20 mg/dL (40-59) L 09/09/17 03:40 Cholesterol/HDL Ratio 6.9 (0-4.9) H 09/09/17 03:40 Urine Clarity Turbid (Clear) A 09/08/17 09:40 Urine Protein 30 mg/dL (Neg-Trace) H 09/08/17 09:40 Urine Blood Large (Negative) H 09/08/17 09:40 Urine Microscopic RBC 50-100 per hpf (0-3) H 09/08/17 09:40 Urine Microscopic WBC TNTC per hpf (0-3) H 09/08/17 09:40 Ur Squamous Epith Cells Many per lpf (None-Few) H 09/08/17 09:40 Amorphous Sediment Moderate (Few) H 09/08/17 09:40 Vancomycin Trough 57 mcg/mL (5-10) H 09/08/17 06:03 - Microbiology Findings Microbiology Findings: Microbiology, Last 48 Hours 09/06/17 01:33 Blood Culture - Final Peripheral Venipuncture Staphylococcus capitis - Clinical Findings Intake & Output: Intake & Output 09/12/17 09/12/17 09/13/17 15:59 23:59 07:59 Intake Total 857.1 / 857.1 497 / 497 507 / 507 Output Total 75 / 75 3184 / 3184 Balance 782.1 / 782.1 -2687 / -2687 491 / 491 Weight 184.7 kg - Attending Attestation This documentation was done on 09/13/2077, however the case was seen and examined on 09/12/2017 and plan of care was discussed with resident and nurses in 09/12/2017 I examined this patient and my medical decision-making was reviewed with the Resident Physician. I agree with the documented findings, disposition and treatment plan as described except to the extent set forth below. Patient seen and examined. Labs, radiology, chart personally reviewed. Agree with resident's history and physical, assessment, plan with following comments: ORCHID HAND: Patient does not follows commands, he should not remain sedated mainly for vent synchrony and still hypoxic Pulmonary: Patient still requiring high FiO2 and not stable for spontaneous breathing trial. I expect this patient will have tracheostomy. Unfortunately with his family's illness its difficult to have next of kin to discuss plan of care. Cardiovascular: stable GI: Nutrition per dietary and GI prophylaxis per routine Heme: DVT prophylaxis per routine ID: Continue antibiotics and plan to de-escalation Renal; HD and fluid removal as much as possible. Discussed with nephrology. Endorcine: blood glucose is monitored Lines: all lines checked and no evidence of infections Skin: skin care to prevent pressure ulcers per nursing routine care
[2017-09-12] MEDS ORDERED: *HR* Heparin 10,000 UNIT/10 ML VIAL IV PRN (10:43)
[2017-09-12] MEDS ORDERED: 0.9 % Sodium Chloride 250 ML IVC PRN (10:43)
[2017-09-12] MEDS ORDERED: 0.9 % Sodium Chloride 1,000 ML PRIME SCH (10:45)
[2017-09-12] MEDS: Dexmedetomidine HCl 400 MCG/100 ML MLS IVC SCH ×2 (11:59→19:44)
[2017-09-12] MEDS ORDERED: 0.9 % Sodium Chloride 1,000 ML ONE (12:03)
[2017-09-12] MEDS ORDERED: *HR* Vecuronium 10 MG VIAL IVP ONE (16:11)
[2017-09-13] MEDS: Norepinephrine 4 MG in D5% in Water 250 ML IVC SCH (02:51)
[2017-09-13] MEDS: Ipratropium/Albuterol Neb 3 ML IH SCH ×4 (03:53→21:28)
[2017-09-13 04:30] LABS: Hematocrit 28.1 % (37.5-50.1); Hemoglobin 8.6 g/dL (12.9-16.9); Mean Corpuscular HGB Conc 30.6 g/dL (31.6-35.5); Mean Corpuscular Hemoglobin 26.9 pg (28.0-33.3); Mean Corpuscular Volume 87.8 fL (83.0-100.0); Mean Platelet Volume 10.3 fL (9.4-12.4); Nucleated Red Blood Cells 0.2 /100 WBC (0); Platelet Count 375 K/mcL (140-400)
[2017-09-13] MEDS: Lacri-Lube 3.5 GM TUBE BOTH EYES SCH ×5 (04:35→20:29)
[2017-09-13] MEDS: Erythromycin Susp 200 MG/5 ML UDC PO SCH ×3 (04:35→20:29)
[2017-09-13] MEDS: FentaNYL (PF) 2,500 MCG in EMPTY BAG 50 EACH IVC SCH (04:37)
[2017-09-13 04:49] LABS: Calcium 8.1 mg/dL (8.6-10.3); Potassium 4.4 mEq/L (3.5-5.1)
[2017-09-13 04:54] LABS: Anisocytosis 1+ (Not Present); Eosinophils # 0.7 K/mcL (0.0-0.6); Lymphocytes # 1.5 K/mcL (0.6-4.6); Neutrophils # 16.4 K/mcL (1.6-8.9); Platelet Estimate Normal (Normal)
[2017-09-13 06:10] LABS: ABG Base Excess -1 mEq/L (-2 to 3); ABG HCO3 25 mEq/L (21-27); ABG Oxygen Saturation 97 % (95-98); ABG PCO2 50 mmHg (35-45); ABG PH 7.31 pH Units (7.32-7.45); ABG PO2 105 mmHg (85-104); ABG TCO2 27 mEq/L (20-26); Blood Gas Modality ASSIST CONTROL; Blood Gas PEEP 16 cm H2O; Blood Gas Respiration Rate 22; Blood Gas VT 550 cc
[2017-09-13] MEDS: *HR* Heparin 5,000 UNIT/ML VIAL SQ SCH ×3 (06:27→22:46)
[2017-09-13] MEDS: Pantoprazole 40 MG VIAL IVP SCH ×2 (06:27→17:07)
[2017-09-13] MEDS: Dexmedetomidine HCl 400 MCG/100 ML MLS IVC SCH ×2 (06:27→15:29)
[2017-09-13] MEDS: Chlorhexidine Rinse 15 ML MOUTHWASH MM SCH ×2 (07:40→19:55)
[2017-09-13] MEDS: Piperacillin/Tazobactam 3.375 GM in 0.9 % Sodium Chloride Mini Bag 100 ML IVPB SCH ×2 (07:40→15:27)
[2017-09-13] MEDS: Docusate Oral Soln 100 MG/10 ML UDC GTUBE SCH ×2 (07:40→19:55)
[2017-09-13] MEDS ORDERED: *HR* Heparin 10,000 UNIT/10 ML VIAL IV PRN (08:41)
[2017-09-13] MEDS ORDERED: 0.9 % Sodium Chloride 250 ML IVC PRN (08:41)
[2017-09-13] MEDS ORDERED: Albumin 25% 12.5gm/50mL 12.5 GM/50 ML IV.SOLN IVPB PRN (08:41)
[2017-09-13] MEDS ORDERED: 0.9 % Sodium Chloride 1,000 ML PRIME SCH (08:45)
[2017-09-13] MEDS ORDERED: 0.9 % Sodium Chloride 1,000 ML ONE (08:47)
[2017-09-13] MEDS ORDERED: Albumin 25% 12.5gm/50mL 12.5 GM/50 ML IV.SOLN ONE (08:47)
--- NOTE | 2017-09-13 09:04 | Pulmonology Progress Note ---
<Luisa Shirley M - Last Filed: 09/13/17 11:57> Date of Encounter: 09/13/17 Objective PUL Vital signs: Last Vital Signs Temp 97.8 F 09/13/17 11:00 Pulse 93 09/13/17 11:40 Resp 22 09/13/17 11:00 BP 99/54 09/13/17 11:37 Pulse Ox 99 09/13/17 11:00 Ventilator Settings Ventilator Settings: Ventilator Settings, Last 8 Hours Ventilator Mode VC+ Ventilator Mode VC+ Ventilator Mode VC+ Ventilator Mode VC+ Ventilator Mode VC+ Ventilator Mode VC+ Ventilator Mode VC+ Ventilator Mode VC+ Ventilator Mode VC+ Ventilator Mode VC+ Ventilator Mode VC+ Ventilator Tidal Volume 550 Setting Ventilator Tidal Volume 550 Setting Ventilator Tidal Volume 550 Setting Ventilator Tidal Volume 550 Setting Ventilator Tidal Volume 550 Setting Ventilator Tidal Volume 550 Setting Ventilator Tidal Volume 550 Setting Ventilator Tidal Volume 550 Setting Ventilator Tidal Volume 550 Setting Ventilator Tidal Volume 550 Setting Ventilator Tidal Volume 550 Setting Ventilator Respiratory Rate 22 Setting Ventilator Respiratory Rate 22 Setting Ventilator Respiratory Rate 22 Setting Ventilator Respiratory Rate 22 Setting Ventilator Respiratory Rate 22 Setting Ventilator Respiratory Rate 22 Setting Ventilator Respiratory Rate 22 Setting Ventilator Respiratory Rate 22 Setting Ventilator Respiratory Rate 22 Setting Ventilator Respiratory Rate 22 Setting Ventilator Respiratory Rate 22 Setting Actual Respiratory Rate 22 Actual Respiratory Rate 23 Actual Respiratory Rate 22 Actual Respiratory Rate 22 Actual Respiratory Rate 22 Actual Respiratory Rate 22 Actual Respiratory Rate 22 Actual Respiratory Rate 24 Actual Respiratory Rate 25 Actual Respiratory Rate 24 Positive End Expiratory 18 Pressure Positive End Expiratory 18 Pressure Positive End Expiratory 18 Pressure Positive End Expiratory 18 Pressure Positive End Expiratory 18 Pressure Positive End Expiratory 16 Pressure Positive End Expiratory 16 Pressure Positive End Expiratory 16 Pressure Positive End Expiratory 16 Pressure Positive End Expiratory 16 Pressure Positive End Expiratory 16 Pressure Peak Inspiratory Airway 36 Pressure Peak Inspiratory Airway 35 Pressure Peak Inspiratory Airway 43 Pressure Peak Inspiratory Airway 40 Pressure Peak Inspiratory Airway 40 Pressure Peak Inspiratory Airway 40 Pressure Peak Inspiratory Airway 40 Pressure Peak Inspiratory Airway 38 Pressure Peak Inspiratory Airway 24 Pressure Results - Laboratory Findings CBC and BMP: 09/13/17 04:00 09/13/17 04:00 ABG ABG pH 7.31 pH Units (7.32-7.45) L 09/13/17 06:07 ABG pCO2 50 mmHg (35-45) H 09/13/17 06:07 ABG pO2 105 mmHg (85-104) H 09/13/17 06:07 ABG O2 Saturation 97 % (95-98) 09/13/17 06:07 PT/INR, D-dimer PT 12.9 Seconds (9.4-12.1) H 09/06/17 01:33 Abnormal lab findings: Abnormal lab results WBC 18.6 K/mcL (4.3-11.1) H 09/13/17 04:00 RBC 3.20 M/mcL (4.19-5.50) L 09/13/17 04:00 Hgb 8.6 g/dL (12.9-16.9) L 09/13/17 04:00 Hct 28.1 % (37.5-50.1) L 09/13/17 04:00 MCH 26.9 pg (28.0-33.3) L 09/13/17 04:00 MCHC 30.6 g/dL (31.6-35.5) L 09/13/17 04:00 RDW 17.0 % (11.5-14.5) H 09/13/17 04:00 Immature Gran % 7.7 % (0-4) H 09/11/17 03:55 Band Neutrophils % 6.0 % (0-4) H 09/13/17 04:00 Metamyelocytes % 1.0 % (0) H 09/10/17 04:00 Myelocytes % 1.0 % (0) H 09/10/17 04:00 Neutrophils # 16.4 K/mcL (1.6-8.9) H 09/13/17 04:00 Monocytes # 1.4 K/mcL (0.0-1.3) H 09/11/17 03:55 Eosinophils # 0.7 K/mcL (0.0-0.6) H 09/13/17 04:00 Nucleated RBCs/100 WBC 0.2 /100 WBC (0) H 09/13/17 04:00 Anisocytosis 1+ (Not Present) A 09/13/17 04:00 PT 12.9 Seconds (9.4-12.1) H 09/06/17 01:33 ABG pH 7.31 pH Units (7.32-7.45) L 09/13/17 06:07 ABG pCO2 50 mmHg (35-45) H 09/13/17 06:07 ABG pO2 105 mmHg (85-104) H 09/13/17 06:07 ABG Total CO2 27 mEq/L (20-26) H 09/13/17 06:07 VBG pH 7.22 pH Units (7.32-7.42) L 09/08/17 06:20 VBG pCO2 61 mmHg (41-51) H 09/08/17 06:20 VBG pO2 166 mmHg (25-50) H 09/08/17 06:20 Chloride 93 mEq/L (98-107) L 09/13/17 04:00 BUN 74 mg/dL (6-20) H 09/13/17 04:00 Creatinine 4.04 mg/dL (0.70-1.30) H 09/13/17 04:00 Est GFR ( Amer) 19 (> 60) L 09/13/17 04:00 Est GFR (Non-Af Amer) 16 (> 60) L 09/13/17 04:00 Glucose 160 mg/dL (70-105) H 09/13/17 04:00 POC Glucose 130 mg/dL (70-99) H 09/13/17 11:01 Calculated Osmolality 307 (280-300) H 09/13/17 04:00 Calcium 8.1 mg/dL (8.6-10.3) L 09/13/17 04:00 Direct Bilirubin 0.3 mg/dL (0.0-0.2) H 09/08/17 06:03 AST 69 Units/L (13-39) H 09/08/17 06:03 ALT 60 Units/L (7-52) H 09/08/17 06:03 Creatine Kinase 1160 Units/L (30-223) H 09/09/17 03:40 Troponin I 0.05 ng/mL (< 0.04) H* 09/06/17 08:17 B-Natriuretic Peptide 127 pg/mL (Less than 100) H 09/06/17 08:16 Albumin 3.3 g/dL (3.5-5.7) L 09/08/17 06:03 Albumin/Globulin Ratio 0.9 (1.1-2.2) L 09/08/17 06:03 Triglycerides 526 mg/dL (< 150) H 09/09/17 03:40 LDL Cholesterol Measurd 60 mg/dL (75-193) L 09/09/17 03:40 HDL Cholesterol 20 mg/dL (40-59) L 09/09/17 03:40 Cholesterol/HDL Ratio 6.9 (0-4.9) H 09/09/17 03:40 Urine Clarity Turbid (Clear) A 09/08/17 09:40 Urine Protein 30 mg/dL (Neg-Trace) H 09/08/17 09:40 Urine Blood Large (Negative) H 09/08/17 09:40 Urine Microscopic RBC 50-100 per hpf (0-3) H 09/08/17 09:40 Urine Microscopic WBC TNTC per hpf (0-3) H 09/08/17 09:40 Ur Squamous Epith Cells Many per lpf (None-Few) H 09/08/17 09:40 Amorphous Sediment Moderate (Few) H 09/08/17 09:40 Vancomycin Trough 57 mcg/mL (5-10) H 09/08/17 06:03 - Clinical Findings Intake & Output: Intake & Output 09/12/17 09/13/17 09/13/17 23:59 07:59 15:59 Intake Total 497 / 497 507 / 507 774 / 774 Output Total 3184 / 3184 16 / 16 0 / 0 Balance -2687 / -2687 491 / 491 774 / 774 Weight 184.7 kg Consult Discharge Plan - Plan Referrals: Kayleen Sheth, DIRECTOR HOUSEKEEPING [Primary Care Provider] - - Attending Attestation I examined this patient and my medical decision-making was reviewed with the Resident Physician. I agree with the documented findings, disposition and treatment plan as described except to the extent set forth below. Patient seen and examined. Labs, radiology, chart personally reviewed. Agree with resident's history and physical, assessment, plan with following comments: [employer]: Patient does not follows commands, patient is sedated. Pulmonary: There is still having problem with oxygenation and discuss with nephrology for more aggressive fluid removal. Increased PEEP and FiO2 area I still expect this patient will end up with tracheostomy. Plateau pressure remain within acceptable range with increasing PEEP. Unfortunately with his morbid obesity this is will not be reliable completely. Social service consultation. Cardiovascular: stable GI: Nutrition per dietary and GI prophylaxis per routine Heme: DVT prophylaxis per routine ID: Continue antibiotics and plan to de-escalation Renal; urine out put and renal funtion reviewed Endorcine: blood glucose is monitored Lines: all lines checked and no evidence of infections Skin: skin care to prevent pressure ulcers per nursing routine care I spent 32 min of Critical Care time with this patient. It involved decision making of high complexity to assess, manipulate, and support vital organ system failure and/or to prevent further life threatening deterioration of the patient' s condition. The time involved in the performance of separately reportable procedures was not counted toward critical care time. <AlbinoQuintin - Last Filed: 09/13/17 18:45> Date of Encounter: 09/13/17 Time of Encounter: 09:00 Assessment and Plan (1) Acute respiratory failure with hypoxia Current Visit: Yes Status: Acute Acute hypoxic respiratory failure with hypercapnia/ARDS, ventilator dependent - Likely 2/2 acutely decompensated CHF w/ comorbid PNA - On arrival the patient had respiratory acidosis with pH of 7.17 - CXR shows increased pulmonary vascular congestion - CT Chest demonstrated partial collapse of the b/l lower lobes with suspected superimposed PNA ABGs: - 7.28/51/81/// - 7.22/58/70/// - 7.26/46/60/// - 7.27/47/67/// - 7.31/50/105/// Current vent settings: Inspired O2 90, tidal volume 550, PEEP 16 Plan: - Zosyn 3.375 g IV every 8 hours - Continue ventilator support: Inspired O2 85, tidal volume 550, PEEP 14 - Currently on Precedex and propofol for sedation - Levophed for pressure support (2) CHF (congestive heart failure) Current Visit: Yes Status: Acute Acute on CHF with preserved ejection fraction - The patient demonstrates pulmonary edema on CXR, BNP - Acute respiratory failure is consistent with decompensated CHF - Respiratory failure continues to make minimal improvement - We will monitor I/Os and assess fluid balance daily Qualifiers: Heart failure type: diastolic Heart failure chronicity: acute on chronic Qualified Code(s): I50.33 - Acute on chronic diastolic (congestive) heart failure (3) Sepsis Current Visit: Yes Status: Acute Sepsis secondary to Pneumonia vs. Cellulitis - White count today is 18.6 - Possible source: Pneumonia - Started on Vancomycin and Zosyn on arrival - Cultures initially grew Staph capitis, however repeat negative Plan -Continue zosyn -Careful hydration due to CHF with pulmonary edema Qualifiers: Sepsis type: sepsis due to unspecified organism Qualified Code(s): A41.9 - Sepsis, unspecified organism (4) JAZZY (acute kidney injury) Current Visit: Yes Status: Acute - Acute on chronic kidney injury with oliguria - Nephrology following (5) Diabetes mellitus Current Visit: Yes Status: Acute Poorly controlled Insulin Dependent DM2 - Patient is apparently transitioning to a U500 Insulin regimen at home Qualifiers: Qualified Code(s): E11.9 - Type 2 diabetes mellitus without complications Subjective Principal diagnosis: Acute hypoxic respiratory Interval history: Patient was seen and examined at bedside this morning. Currently intubated and sedated. Objective PUL Vital signs: Last Vital Signs Temp 98.9 F 09/13/17 08:00 Pulse 86 09/13/17 08:00 Resp 22 09/13/17 08:00 BP 93/38 09/13/17 08:00 Pulse Ox 95 09/13/17 08:00 General appearance: no acute distress Neck: supple Effort: normal Auscultation: bilateral: diminished breath sounds, rales Percussion: bilateral: not dull Tactile fremitus: bilateral: normal Cardiovascular: regular rate and rhythm Gastrointestinal: normoactive bowel sounds, non-distended Integumentary: normal Musculoskeletal: no deformities Ventilator Settings Ventilator Settings: Ventilator Settings, Last 8 Hours Ventilator Mode VC+ Ventilator Mode VC+ Ventilator Mode VC+ Ventilator Mode VC+ Ventilator Mode VC+ Ventilator Mode VC+ Ventilator Mode VC+ Ventilator Mode VC+ Ventilator Mode VC+ Ventilator Mode VC+ Ventilator Mode VC+ Ventilator Tidal Volume 550 Setting Ventilator Tidal Volume 550 Setting Ventilator Tidal Volume 550 Setting Ventilator Tidal Volume 550 Setting Ventilator Tidal Volume 550 Setting Ventilator Tidal Volume 550 Setting Ventilator Tidal Volume 550 Setting Ventilator Tidal Volume 550 Setting Ventilator Tidal Volume 550 Setting Ventilator Tidal Volume 550 Setting Ventilator Tidal Volume 550 Setting Ventilator Respiratory Rate 22 Setting Ventilator Respiratory Rate 22 Setting Ventilator Respiratory Rate 22 Setting Ventilator Respiratory Rate 22 Setting Ventilator Respiratory Rate 22 Setting Ventilator Respiratory Rate 22 Setting Ventilator Respiratory Rate 22 Setting Ventilator Respiratory Rate 22 Setting Ventilator Respiratory Rate 22 Setting Ventilator Respiratory Rate 22 Setting Ventilator Respiratory Rate 22 Setting Actual Respiratory Rate 22 Actual Respiratory Rate 22 Actual Respiratory Rate 22 Actual Respiratory Rate 24 Actual Respiratory Rate 25 Actual Respiratory Rate 24 Actual Respiratory Rate 27 Actual Respiratory Rate 23 Actual Respiratory Rate 24 Actual Respiratory Rate 22 Positive End Expiratory 18 Pressure Positive End Expiratory 16 Pressure Positive End Expiratory 16 Pressure Positive End Expiratory 16 Pressure Positive End Expiratory 16 Pressure Positive End Expiratory 16 Pressure Positive End Expiratory 16 Pressure Positive End Expiratory 16 Pressure Positive End Expiratory 16 Pressure Positive End Expiratory 16 Pressure Positive End Expiratory 16 Pressure Peak Inspiratory Airway 40 Pressure Peak Inspiratory Airway 40 Pressure Peak Inspiratory Airway 40 Pressure Peak Inspiratory Airway 38 Pressure Peak Inspiratory Airway 24 Pressure Peak Inspiratory Airway 28 Pressure Peak Inspiratory Airway 37 Pressure Results - Laboratory Findings CBC and BMP: 09/13/17 04:00 09/13/17 04:00 ABG ABG pH 7.31 pH Units (7.32-7.45) L 09/13/17 06:07 ABG pCO2 50 mmHg (35-45) H 09/13/17 06:07 ABG pO2 105 mmHg (85-104) H 09/13/17 06:07 ABG O2 Saturation 97 % (95-98) 09/13/17 06:07 PT/INR, D-dimer PT 12.9 Seconds (9.4-12.1) H 09/06/17 01:33 Abnormal lab findings: Abnormal lab results WBC 18.6 K/mcL (4.3-11.1) H 09/13/17 04:00 RBC 3.20 M/mcL (4.19-5.50) L 09/13/17 04:00 Hgb 8.6 g/dL (12.9-16.9) L 09/13/17 04:00 Hct 28.1 % (37.5-50.1) L 09/13/17 04:00 MCH 26.9 pg (28.0-33.3) L 09/13/17 04:00 MCHC 30.6 g/dL (31.6-35.5) L 09/13/17 04:00 RDW 17.0 % (11.5-14.5) H 09/13/17 04:00 Immature Gran % 7.7 % (0-4) H 09/11/17 03:55 Band Neutrophils % 6.0 % (0-4) H 09/13/17 04:00 Metamyelocytes % 1.0 % (0) H 09/10/17 04:00 Myelocytes % 1.0 % (0) H 09/10/17 04:00 Neutrophils # 16.4 K/mcL (1.6-8.9) H 09/13/17 04:00 Monocytes # 1.4 K/mcL (0.0-1.3) H 09/11/17 03:55 Eosinophils # 0.7 K/mcL (0.0-0.6) H 09/13/17 04:00 Nucleated RBCs/100 WBC 0.2 /100 WBC (0) H 09/13/17 04:00 Anisocytosis 1+ (Not Present) A 09/13/17 04:00 PT 12.9 Seconds (9.4-12.1) H 09/06/17 01:33 ABG pH 7.31 pH Units (7.32-7.45) L 09/13/17 06:07 ABG pCO2 50 mmHg (35-45) H 09/13/17 06:07 ABG pO2 105 mmHg (85-104) H 09/13/17 06:07 ABG Total CO2 27 mEq/L (20-26) H 09/13/17 06:07 VBG pH 7.22 pH Units (7.32-7.42) L 09/08/17 06:20 VBG pCO2 61 mmHg (41-51) H 09/08/17 06:20 VBG pO2 166 mmHg (25-50) H 09/08/17 06:20 Chloride 93 mEq/L (98-107) L 09/13/17 04:00 BUN 74 mg/dL (6-20) H 09/13/17 04:00 Creatinine 4.04 mg/dL (0.70-1.30) H 09/13/17 04:00 Est GFR ( Amer) 19 (> 60) L 09/13/17 04:00 Est GFR (Non-Af Amer) 16 (> 60) L 09/13/17 04:00 Glucose 160 mg/dL (70-105) H 09/13/17 04:00 POC Glucose 158 mg/dL (70-99) H 09/13/17 08:04 Calculated Osmolality 307 (280-300) H 09/13/17 04:00 Calcium 8.1 mg/dL (8.6-10.3) L 09/13/17 04:00 Direct Bilirubin 0.3 mg/dL (0.0-0.2) H 09/08/17 06:03 AST 69 Units/L (13-39) H 09/08/17 06:03 ALT 60 Units/L (7-52) H 09/08/17 06:03 Creatine Kinase 1160 Units/L (30-223) H 09/09/17 03:40 Troponin I 0.05 ng/mL (< 0.04) H* 09/06/17 08:17 B-Natriuretic Peptide 127 pg/mL (Less than 100) H 09/06/17 08:16 Albumin 3.3 g/dL (3.5-5.7) L 09/08/17 06:03 Albumin/Globulin Ratio 0.9 (1.1-2.2) L 09/08/17 06:03 Triglycerides 526 mg/dL (< 150) H 09/09/17 03:40 LDL Cholesterol Measurd 60 mg/dL (75-193) L 09/09/17 03:40 HDL Cholesterol 20 mg/dL (40-59) L 09/09/17 03:40 Cholesterol/HDL Ratio 6.9 (0-4.9) H 09/09/17 03:40 Urine Clarity Turbid (Clear) A 09/08/17 09:40 Urine Protein 30 mg/dL (Neg-Trace) H 09/08/17 09:40 Urine Blood Large (Negative) H 09/08/17 09:40 Urine Microscopic RBC 50-100 per hpf (0-3) H 09/08/17 09:40 Urine Microscopic WBC TNTC per hpf (0-3) H 09/08/17 09:40 Ur Squamous Epith Cells Many per lpf (None-Few) H 09/08/17 09:40 Amorphous Sediment Moderate (Few) H 09/08/17 09:40 Vancomycin Trough 57 mcg/mL (5-10) H 09/08/17 06:03 - Microbiology Findings Microbiology Findings: Microbiology, Last 48 Hours 09/06/17 01:33 Blood Culture - Final Peripheral Venipuncture Staphylococcus capitis - Clinical Findings Intake & Output: Intake & Output 09/12/17 09/13/17 09/13/17 23:59 07:59 15:59 Intake Total 497 / 497 507 / 507 100 / 100 Output Total 3184 / 3184 Balance -2687 / -2687 491 / 491 100 / 100 Weight 184.7 kg
--- NOTE | 2017-09-13 09:10 | Nephrology Progress Note ---
Date of Encounter: 09/13/17 Time of Encounter: 08:30 - Assessment and Plan (1) JAZZY (acute kidney injury) Current Visit: Yes Status: Acute JAZZY superimposed on CKD in setting of sepsis, pneumonia and acute respiratory failure. Creat plateaued, creat 4.04. Documented urine output 469cc. Will do HD again today for positive fluid balance. Orders given. Will give Albumin for BP support. (2) Acute respiratory failure with hypoxia Current Visit: Yes Status: Acute (3) Sepsis Current Visit: Yes Status: Acute Qualifiers: Sepsis type: sepsis due to unspecified organism Qualified Code(s): A41.9 - Sepsis, unspecified organism Subjective Principal diagnosis: Acute hypoxic respiratory Interval history: Intubated, sedated. FIO2 80, peep 18. CXR 09/12/17-Worsening alveolar and interstitial opacities bilaterally, favoring edema. Small effusions likely present. Objective - Vital Signs Vital signs: Vital Signs Temp Pulse Resp BP Pulse Ox 09/13/17 08:00 98.9 F 86 22 93/38 95 09/13/17 07:58 87 09/13/17 07:00 92 22 105/42 93 09/13/17 06:00 92 22 135/52 93 09/13/17 05:49 22 105/49 96 09/13/17 05:00 101 25 77/35 94 09/13/17 04:00 98 24 108/49 90 09/13/17 03:57 26 111/50 92 09/13/17 03:36 98.5 F 09/13/17 03:00 98 23 111/50 89 09/13/17 02:00 86 24 138/68 98 09/13/17 01:14 22 84/42 96 09/13/17 01:00 90 26 93/44 97 09/13/17 00:05 22 108/46 96 09/13/17 00:00 96 29 102/45 95 09/12/17 23:10 98.6 F 09/12/17 23:00 96 23 112/50 96 09/12/17 22:00 98 24 127/56 95 09/12/17 21:23 24 99/47 97 09/12/17 21:00 98 24 107/49 93 09/12/17 20:00 103 26 134/56 94 09/12/17 19:42 26 131/52 94 09/12/17 19:19 98.4 F 09/12/17 19:00 94 30 131/52 100 09/12/17 18:00 100 25 149/67 99 09/12/17 17:01 22 99 09/12/17 17:00 93 22 102/52 99 09/12/17 16:20 99.7 F H 22 123/54 09/12/17 16:05 145/60 09/12/17 16:04 30 95 09/12/17 16:00 99.7 F H 108 30 143/56 95 09/12/17 15:55 86 09/12/17 15:50 132/60 09/12/17 15:35 126/58 09/12/17 15:20 112/59 09/12/17 15:05 114/53 09/12/17 15:00 93 28 145/60 94 09/12/17 14:50 125/56 09/12/17 14:35 112/53 09/12/17 14:20 120/60 09/12/17 14:05 127/63 09/12/17 14:00 99.7 F H 100 26 143/56 94 09/12/17 13:55 25 93 09/12/17 13:50 120/59 09/12/17 13:35 111/47 09/12/17 13:20 111/43 09/12/17 13:05 99.8 F H 26 116/49 09/12/17 13:00 93 26 116/49 92 09/12/17 12:09 99.6 F 09/12/17 12:00 99.6 F 90 24 99/45 88 09/12/17 11:50 25 92 09/12/17 11:00 87 23 98/42 89 09/12/17 10:00 89 23 111/47 94 09/12/17 09:13 25 90 Intake and Output 09/12/17 09/13/17 09/13/17 23:59 07:59 15:59 Intake Total 497 / 497 507 / 507 100 / 100 Output Total 3184 / 3184 Balance -2687 / -2687 491 / 491 100 / 100 Intake: IV Fluids 300 / 300 350 / 350 100 / 100 FentaNYL (PF) 2,500 MCG In 50 / 50 Empty Bag 50 Each @ 200 MCG/HR 4 mls/hr IVC CONT MK Rx#: [id number] HumuLIN R 100 UNIT In 0.9 % 0 / 0 0 / 0 0 / 0 Sodium Chloride 100 ML @ 7 UNIT /HR 7.07 mls/hr IVC CONT MK Rx #:[id number] Diprivan 1,000 mg In 100 ml @ 5 200 / 200 200 / 200 100 / 100 MCG/KG/MIN 5.715 mls/hr IVC . [id number] MK Rx#:[id number] Zosyn 3.375 GM In 0.9 % Sodium 100 / 100 100 / 100 Chloride (Mini-Bag +) 100 ML @ 25 mls/hr IVPB Q8HR MK Rx#: [id number] Tube Feeding 197 / 197 147 / 147 Free Water Intake Amount Output: Total Dialysis (HD) Output 3100 / 3100 Catheter 84 / 84 Other: Stool Size Copious Stool Consistency liquid Stool Color Brown # Bowel Movements 1 Weight 184.7 kg Blood Glucose* 187 151 158 Hemodialysis Net Fluid Removed 2500 (mL) - General Appearance General appearance: Present: well-developed, well-nourished, appears started age , obese EENT: Present: mucous membranes moist Neck: Present: no JVD Respiratory: Present: rhonchi Cardiology: Present: edema, regular rate, regular rhythm Additional Comments: 2+ LE edema Dialysis Vascular Access: Venous Catheter Gastrointestinal: Present: hypoactive bowel sounds Integumentary: Present: warm and dry - Lab 09/13/17 04:00 09/13/17 04:00 Most recent lab results ABG pH 7.31 pH Units (7.32-7.45) L 09/13/17 06:07 ABG pCO2 50 mmHg (35-45) H 09/13/17 06:07 ABG pO2 105 mmHg (85-104) H 09/13/17 06:07 ABG HCO3 25 mEq/L (21-27) 09/13/17 06:07 ABG O2 Saturation 97 % (95-98) 09/13/17 06:07 Calcium 8.1 mg/dL (8.6-10.3) L 09/13/17 04:00 Magnesium 2.4 mg/dL (1.6-2.6) 09/09/17 03:40 Consult Discharge Plan - Plan Referrals: Kayleen Sheth, PAUL [Primary Care Provider] -
[2017-09-13] MEDS: Insulin Human Regular 100 UNIT in 0.9 % Sodium Chloride 100 ML IVC SCH (15:44)
[2017-09-14] MEDS: Piperacillin/Tazobactam 3.375 GM in 0.9 % Sodium Chloride Mini Bag 100 ML IVPB SCH ×3 (00:05→15:10)
[2017-09-14] MEDS: Lacri-Lube 3.5 GM TUBE BOTH EYES SCH ×6 (00:07→19:40)
[2017-09-14] MEDS: Norepinephrine 4 MG in D5% in Water 250 ML IVC SCH (00:40)
--- NOTE | 2017-09-14 02:43 | Pulmonology Progress Note ---
<Rosalio Gallardo - Last Filed: 09/14/17 02:38> Date of Encounter: 09/14/17 Time of Encounter: 02:38 Assessment and Plan (1) Acute respiratory failure with hypoxia Current Visit: Yes Status: Acute Acute hypoxic respiratory failure with hypercapnia/ARDS, ventilator dependent This is likely secondary to acutely decompensated CHF with comorbid pneumonia PE is considered a less likely potential cause of acute respiratory failure On arrival the patient had respiratory acidosis with pH of 7.17 CXR shows increased pulmonary vascular congestion CT Chest shows Partial collapse of the bilateral lower lobes with suspected superimposed pneumonia ABG 7.31/50/105/25/27/97% on FiO2 50% Continues to require high PEEP, currently 18 WBC continues to rise, difficult to determine if PNA is source Plan -Continue Zosyn for treatment of pneumonia, consider transitioning to broader coverage -Patient will continue HD per nephrology for fluid removal -Continue ventilator support, repeat ABG in the morning (2) CHF (congestive heart failure) Current Visit: Yes Status: Acute Acute on chronic heart failure with preserved ejection fraction The patient demonstrates pulmonary edema on CXR, BNP Acute respiratory failure is consistent with decompensated CHF Respiratory failure continues to make minimal improvement We will monitor I/Os and assess fluid balance daily Continue HD for fluid removal Qualifiers: Heart failure type: diastolic Heart failure chronicity: acute on chronic Qualified Code(s): I50.33 - Acute on chronic diastolic (congestive) heart failure (3) JAZZY (acute kidney injury) Current Visit: Yes Status: Acute Acute on chronic kidney injury with oliguria Patient has progressed to HD Plan: -Nephrology consultation with Dr. Lucas, appreciate recommendations (4) Sepsis Current Visit: Yes Status: Acute Sepsis secondary to Pneumonia vs. Cellulitis - White count today is 18.6, 5% Bands - Possible source: Pneumonia - Started on Vancomycin and Zosyn on arrival - Cultures initially grew Staph capitis, however repeat negative Plan -Repeat cultures, CBC today -May require transition to broader coverage Qualifiers: Sepsis type: sepsis due to unspecified organism Qualified Code(s): A41.9 - Sepsis, unspecified organism (5) DMII (diabetes mellitus, type 2) Current Visit: Yes Status: Chronic Poorly controlled Insulin Dependent DM2 Patient is apparently transitioning to a U500 Insulin regimen at home Plan: -IV Insulin to maintain goal Glucose 140-180 -Q1h Accucheck Qualifiers: Diabetes mellitus usp insulin use: with usp use Diabetes mellitus complication status: without complication Qualified Code(s): E11.9 - Type 2 diabetes mellitus without complications; Z79.4 - terminal clerk (current) use of insulin; Z79.4 - terminal clerk (current) use of insulin; Z79.4 - long-term ( current) use of insulin; Z79.4 - terminal clerk (current) use of insulin (6) Morbid obesity with BMI of 60.0-69.9, adult Current Visit: No Status: Chronic (7) DVT prophylaxis Current Visit: Yes Status: Acute SQ Heparin Subjective Principal diagnosis: Acute hypoxic respiratory Interval history: Patient is seen and examined at bedside. He has had low fevers overnight requiring use of tylenol. He is otherwise unchanged. Objective PUL Vital signs: Last Vital Signs Temp 100.6 F H 09/14/17 02:00 Pulse 90 09/14/17 02:00 Resp 22 09/14/17 02:00 BP 101/51 09/14/17 02:00 Pulse Ox 95 09/14/17 02:00 Gen: Vitals noted. No acute distress. Currently sedated on vent HEENT: Normocephalic, atraumatic Neck: Supple. No adenopathy. Right IJ CVC in place with well appearing surrounding tissue Cardiac: RRR, no murmur, +S1/S2 Pulmonary: CTA bilaterally, no wheezes, rales or rhonchi, equal chest expansion Abdomen: soft, nontender, BS noted, no guarding Extremities: 2+ b/l LE edema. No obvious rash or breaks in skin Neuro: Sedated Ventilator Settings Ventilator Settings: Ventilator Settings, Last 8 Hours Ventilator Mode VC+ Ventilator Mode VC+ Ventilator Mode VC+ Ventilator Mode VC+ Ventilator Mode VC+ Ventilator Mode VC+ Ventilator Mode VC+ Ventilator Mode VC+ Ventilator Mode VC+ Ventilator Mode VC+ Ventilator Mode VC+ Ventilator Mode VC+ Ventilator Tidal Volume 550 Setting Ventilator Tidal Volume 550 Setting Ventilator Tidal Volume 550 Setting Ventilator Tidal Volume 550 Setting Ventilator Tidal Volume 550 Setting Ventilator Tidal Volume 550 Setting Ventilator Tidal Volume 550 Setting Ventilator Tidal Volume 550 Setting Ventilator Tidal Volume 550 Setting Ventilator Tidal Volume 550 Setting Ventilator Tidal Volume 550 Setting Ventilator Tidal Volume 550 Setting Ventilator Respiratory Rate 22 Setting Ventilator Respiratory Rate 22 Setting Ventilator Respiratory Rate 22 Setting Ventilator Respiratory Rate 22 Setting Ventilator Respiratory Rate 22 Setting Ventilator Respiratory Rate 22 Setting Ventilator Respiratory Rate 22 Setting Ventilator Respiratory Rate 22 Setting Ventilator Respiratory Rate 22 Setting Ventilator Respiratory Rate 22 Setting Ventilator Respiratory Rate 22 Setting Ventilator Respiratory Rate 22 Setting Actual Respiratory Rate 22 Actual Respiratory Rate 22 Actual Respiratory Rate 22 Actual Respiratory Rate 22 Actual Respiratory Rate 22 Actual Respiratory Rate 22 Actual Respiratory Rate 22 Actual Respiratory Rate 22 Actual Respiratory Rate 22 Actual Respiratory Rate 22 Actual Respiratory Rate 27 Actual Respiratory Rate 24 Positive End Expiratory 18 Pressure Positive End Expiratory 18 Pressure Positive End Expiratory 18 Pressure Positive End Expiratory 18 Pressure Positive End Expiratory 18 Pressure Positive End Expiratory 18 Pressure Positive End Expiratory 18 Pressure Positive End Expiratory 18 Pressure Positive End Expiratory 18 Pressure Positive End Expiratory 18 Pressure Positive End Expiratory 18 Pressure Positive End Expiratory 18 Pressure Peak Inspiratory Airway 37 Pressure Peak Inspiratory Airway 36 Pressure Peak Inspiratory Airway 36 Pressure Peak Inspiratory Airway 35 Pressure Peak Inspiratory Airway 36 Pressure Peak Inspiratory Airway 37 Pressure Peak Inspiratory Airway 37 Pressure Peak Inspiratory Airway 37 Pressure Peak Inspiratory Airway 33 Pressure Peak Inspiratory Airway 39 Pressure Peak Inspiratory Airway 32 Pressure Peak Inspiratory Airway 37 Pressure Results - Laboratory Findings CBC and BMP: 09/13/17 04:00 09/13/17 04:00 ABG ABG pH 7.31 pH Units (7.32-7.45) L 09/13/17 06:07 ABG pCO2 50 mmHg (35-45) H 09/13/17 06:07 ABG pO2 105 mmHg (85-104) H 09/13/17 06:07 ABG O2 Saturation 97 % (95-98) 09/13/17 06:07 PT/INR, D-dimer PT 12.9 Seconds (9.4-12.1) H 09/06/17 01:33 Abnormal lab findings: Abnormal lab results WBC 18.6 K/mcL (4.3-11.1) H 09/13/17 04:00 RBC 3.20 M/mcL (4.19-5.50) L 09/13/17 04:00 Hgb 8.6 g/dL (12.9-16.9) L 09/13/17 04:00 Hct 28.1 % (37.5-50.1) L 09/13/17 04:00 MCH 26.9 pg (28.0-33.3) L 09/13/17 04:00 MCHC 30.6 g/dL (31.6-35.5) L 09/13/17 04:00 RDW 17.0 % (11.5-14.5) H 09/13/17 04:00 Immature Gran % 7.7 % (0-4) H 09/11/17 03:55 Band Neutrophils % 6.0 % (0-4) H 09/13/17 04:00 Metamyelocytes % 1.0 % (0) H 09/10/17 04:00 Myelocytes % 1.0 % (0) H 09/10/17 04:00 Neutrophils # 16.4 K/mcL (1.6-8.9) H 09/13/17 04:00 Monocytes # 1.4 K/mcL (0.0-1.3) H 09/11/17 03:55 Eosinophils # 0.7 K/mcL (0.0-0.6) H 09/13/17 04:00 Nucleated RBCs/100 WBC 0.2 /100 WBC (0) H 09/13/17 04:00 Anisocytosis 1+ (Not Present) A 09/13/17 04:00 PT 12.9 Seconds (9.4-12.1) H 09/06/17 01:33 ABG pH 7.31 pH Units (7.32-7.45) L 09/13/17 06:07 ABG pCO2 50 mmHg (35-45) H 09/13/17 06:07 ABG pO2 105 mmHg (85-104) H 09/13/17 06:07 ABG Total CO2 27 mEq/L (20-26) H 09/13/17 06:07 VBG pH 7.22 pH Units (7.32-7.42) L 09/08/17 06:20 VBG pCO2 61 mmHg (41-51) H 09/08/17 06:20 VBG pO2 166 mmHg (25-50) H 09/08/17 06:20 Chloride 93 mEq/L (98-107) L 09/13/17 04:00 BUN 74 mg/dL (6-20) H 09/13/17 04:00 Creatinine 4.04 mg/dL (0.70-1.30) H 09/13/17 04:00 Est GFR ( Amer) 19 (> 60) L 09/13/17 04:00 Est GFR (Non-Af Amer) 16 (> 60) L 09/13/17 04:00 Glucose 160 mg/dL (70-105) H 09/13/17 04:00 POC Glucose 150 mg/dL (70-99) H 09/14/17 01:07 Calculated Osmolality 307 (280-300) H 09/13/17 04:00 Calcium 8.1 mg/dL (8.6-10.3) L 09/13/17 04:00 Direct Bilirubin 0.3 mg/dL (0.0-0.2) H 09/08/17 06:03 AST 69 Units/L (13-39) H 09/08/17 06:03 ALT 60 Units/L (7-52) H 09/08/17 06:03 Creatine Kinase 1160 Units/L (30-223) H 09/09/17 03:40 Troponin I 0.05 ng/mL (< 0.04) H* 09/06/17 08:17 B-Natriuretic Peptide 127 pg/mL (Less than 100) H 09/06/17 08:16 Albumin 3.3 g/dL (3.5-5.7) L 09/08/17 06:03 Albumin/Globulin Ratio 0.9 (1.1-2.2) L 09/08/17 06:03 Triglycerides 526 mg/dL (< 150) H 09/09/17 03:40 LDL Cholesterol Measurd 60 mg/dL (75-193) L 09/09/17 03:40 HDL Cholesterol 20 mg/dL (40-59) L 09/09/17 03:40 Cholesterol/HDL Ratio 6.9 (0-4.9) H 09/09/17 03:40 Urine Clarity Turbid (Clear) A 09/08/17 09:40 Urine Protein 30 mg/dL (Neg-Trace) H 09/08/17 09:40 Urine Blood Large (Negative) H 09/08/17 09:40 Urine Microscopic RBC 50-100 per hpf (0-3) H 09/08/17 09:40 Urine Microscopic WBC TNTC per hpf (0-3) H 09/08/17 09:40 Ur Squamous Epith Cells Many per lpf (None-Few) H 09/08/17 09:40 Amorphous Sediment Moderate (Few) H 09/08/17 09:40 Vancomycin Trough 57 mcg/mL (5-10) H 09/08/17 06:03 - Clinical Findings Intake & Output: Intake & Output 09/13/17 09/13/17 09/14/17 15:59 23:59 07:59 Intake Total 1145 / 1145 317 / 317 186 / 186 Output Total 3600 / 3600 33 / 33 9 / 9 Balance -2455 / -2455 284 / 284 177 / 177 Consult Discharge Plan - Plan Referrals: Kayleen Sheth, TRUSS DESIGNER [Primary Care Provider] - <Luisa Shirley - Last Filed: 09/14/17 17:05> Date of Encounter: 09/14/17 Objective PUL Vital signs: Last Vital Signs Temp 98.8 F 09/14/17 07:00 Pulse 97 09/14/17 07:00 Resp 23 09/14/17 07:51 BP 93/43 09/14/17 07:51 Pulse Ox 96 09/14/17 07:51 Ventilator Settings Ventilator Settings: Ventilator Settings, Last 8 Hours Ventilator Mode VC+ Ventilator Mode VC+ Ventilator Mode VC+ Ventilator Mode VC+ Ventilator Mode VC+ Ventilator Mode VC+ Ventilator Mode VC+ Ventilator Mode VC+ Ventilator Mode VC+ Ventilator Mode VC+ Ventilator Mode VC+ Ventilator Mode VC+ Ventilator Tidal Volume 550 Setting Ventilator Tidal Volume 550 Setting Ventilator Tidal Volume 485 Setting Ventilator Tidal Volume 550 Setting Ventilator Tidal Volume 550 Setting Ventilator Tidal Volume 550 Setting Ventilator Tidal Volume 550 Setting Ventilator Tidal Volume 550 Setting Ventilator Tidal Volume 550 Setting Ventilator Tidal Volume 550 Setting Ventilator Tidal Volume 550 Setting Ventilator Tidal Volume 550 Setting Ventilator Respiratory Rate 22 Setting Ventilator Respiratory Rate 22 Setting Ventilator Respiratory Rate 22 Setting Ventilator Respiratory Rate 22 Setting Ventilator Respiratory Rate 22 Setting Ventilator Respiratory Rate 22 Setting Ventilator Respiratory Rate 22 Setting Ventilator Respiratory Rate 22 Setting Ventilator Respiratory Rate 22 Setting Ventilator Respiratory Rate 22 Setting Ventilator Respiratory Rate 22 Setting Ventilator Respiratory Rate 22 Setting Actual Respiratory Rate 24 Actual Respiratory Rate 24 Actual Respiratory Rate 22 Actual Respiratory Rate 26 Actual Respiratory Rate 22 Actual Respiratory Rate 22 Actual Respiratory Rate 22 Actual Respiratory Rate 22 Actual Respiratory Rate 22 Actual Respiratory Rate 22 Actual Respiratory Rate 22 Positive End Expiratory 18 Pressure Positive End Expiratory 18 Pressure Positive End Expiratory 18 Pressure Positive End Expiratory 18 Pressure Positive End Expiratory 18 Pressure Positive End Expiratory 18 Pressure Positive End Expiratory 18 Pressure Positive End Expiratory 18 Pressure Positive End Expiratory 18 Pressure Positive End Expiratory 18 Pressure Positive End Expiratory 18 Pressure Positive End Expiratory 18 Pressure Peak Inspiratory Airway 33 Pressure Peak Inspiratory Airway 34 Pressure Peak Inspiratory Airway 30 Pressure Peak Inspiratory Airway 27 Pressure Peak Inspiratory Airway 25 Pressure Peak Inspiratory Airway 28 Pressure Peak Inspiratory Airway 36 Pressure Peak Inspiratory Airway 35 Pressure Peak Inspiratory Airway 37 Pressure Peak Inspiratory Airway 36 Pressure Peak Inspiratory Airway 36 Pressure Results - Laboratory Findings CBC and BMP: 09/14/17 03:35 09/14/17 03:35 ABG ABG pH 7.32 pH Units (7.32-7.45) 09/14/17 04:40 ABG pCO2 48 mmHg (35-45) H 09/14/17 04:40 ABG pO2 88 mmHg (85-104) 09/14/17 04:40 ABG O2 Saturation 96 % (95-98) 09/14/17 04:40 PT/INR, D-dimer PT 12.9 Seconds (9.4-12.1) H 09/06/17 01:33 Abnormal lab findings: Abnormal lab results WBC 16.1 K/mcL (4.3-11.1) H 09/14/17 03:35 RBC 3.01 M/mcL (4.19-5.50) L 09/14/17 03:35 Hgb 8.1 g/dL (12.9-16.9) L 09/14/17 03:35 Hct 26.2 % (37.5-50.1) L 09/14/17 03:35 MCH 26.9 pg (28.0-33.3) L 09/14/17 03:35 MCHC 30.9 g/dL (31.6-35.5) L 09/14/17 03:35 RDW 17.0 % (11.5-14.5) H 09/14/17 03:35 Immature Gran % 10.9 % (0-4) H 09/14/17 03:35 Band Neutrophils % 6.0 % (0-4) H 09/13/17 04:00 Metamyelocytes % 1.0 % (0) H 09/10/17 04:00 Myelocytes % 1.0 % (0) H 09/10/17 04:00 Neutrophils # 11.8 K/mcL (1.6-8.9) H 09/14/17 03:35 Eosinophils # 0.7 K/mcL (0.0-0.6) H 09/14/17 03:35 Nucleated RBCs/100 WBC 0.3 /100 WBC (0) H 09/14/17 03:35 Toxic Granulation Present (Not Present) A 09/14/17 03:35 Large Platelets Present (Not Present) A 09/14/17 03:35 Hypochromasia Present (Not Present) A 09/14/17 03:35 Anisocytosis 1+ (Not Present) A 09/14/17 03:35 PT 12.9 Seconds (9.4-12.1) H 09/06/17 01:33 ABG pCO2 48 mmHg (35-45) H 09/14/17 04:40 VBG pH 7.22 pH Units (7.32-7.42) L 09/08/17 06:20 VBG pCO2 61 mmHg (41-51) H 09/08/17 06:20 VBG pO2 166 mmHg (25-50) H 09/08/17 06:20 Sodium 135 mEq/L (136-145) L 09/14/17 03:35 Chloride 93 mEq/L (98-107) L 09/14/17 03:35 BUN 69 mg/dL (6-20) H 09/14/17 03:35 Creatinine 4.17 mg/dL (0.70-1.30) H 09/14/17 03:35 Est GFR ( Amer) 18 (> 60) L 09/14/17 03:35 Est GFR (Non-Af Amer) 15 (> 60) L 09/14/17 03:35 Glucose 176 mg/dL (70-105) H 09/14/17 03:35 POC Glucose 183 mg/dL (70-99) H 09/14/17 06:51 Calculated Osmolality 304 (280-300) H 09/14/17 03:35 Direct Bilirubin 0.3 mg/dL (0.0-0.2) H 09/08/17 06:03 AST 69 Units/L (13-39) H 09/08/17 06:03 ALT 60 Units/L (7-52) H 09/08/17 06:03 Creatine Kinase 1160 Units/L (30-223) H 09/09/17 03:40 Troponin I 0.05 ng/mL (< 0.04) H* 09/06/17 08:17 B-Natriuretic Peptide 127 pg/mL (Less than 100) H 09/06/17 08:16 Albumin 3.3 g/dL (3.5-5.7) L 09/08/17 06:03 Albumin/Globulin Ratio 0.9 (1.1-2.2) L 09/08/17 06:03 Triglycerides 526 mg/dL (< 150) H 09/09/17 03:40 LDL Cholesterol Measurd 60 mg/dL (75-193) L 09/09/17 03:40 HDL Cholesterol 20 mg/dL (40-59) L 09/09/17 03:40 Cholesterol/HDL Ratio 6.9 (0-4.9) H 09/09/17 03:40 Urine Clarity Turbid (Clear) A 09/08/17 09:40 Urine Protein 30 mg/dL (Neg-Trace) H 09/08/17 09:40 Urine Blood Large (Negative) H 09/08/17 09:40 Urine Microscopic RBC 50-100 per hpf (0-3) H 09/08/17 09:40 Urine Microscopic WBC TNTC per hpf (0-3) H 09/08/17 09:40 Ur Squamous Epith Cells Many per lpf (None-Few) H 09/08/17 09:40 Amorphous Sediment Moderate (Few) H 09/08/17 09:40 Vancomycin Trough 57 mcg/mL (5-10) H 09/08/17 06:03 - Microbiology Findings Microbiology Findings: Microbiology, Last 48 Hours 09/08/17 14:49 Blood Culture - Final Peripheral Venipuncture No growth. 09/08/17 14:49 Blood Culture - Final Peripheral Venipuncture No growth. - Clinical Findings Intake & Output: Intake & Output 09/13/17 09/14/17 09/14/17 23:59 07:59 15:59 Intake Total 367 / 367 630.9 / 630.9 Output Total 33 / 33 Balance 334 / 334 613.9 / 613.9 - Attending Attestation I examined this patient and my medical decision-making was reviewed with the Resident Physician. I agree with the documented findings, disposition and treatment plan as described except to the extent set forth below. Patient seen and examined. Labs, radiology, chart personally reviewed. Agree with resident's history and physical, assessment, plan with following comments: PATHOLOGY SUPERVISOR: Patient does not follows commands, patient remained sedated and will attempt to wake him up Pulmonary: Acceptable oxygenation and ventilation, however is still requiring high PEEP and will wean off FiO2 as much as possible. His family would not agree with tracheostomy and PEG tube then patient needs to have more time to recover. Cardiovascular: stable GI: Nutrition per dietary and GI prophylaxis per routine Heme: DVT prophylaxis per routine ID: Continue antibiotics and plan to de-escalation Renal; urine out put and renal funtion reviewed and hemodialysis to remove as much as fluid as possible Endorcine: blood glucose is monitored Lines: all lines checked and no evidence of infections Skin: skin care to prevent pressure ulcers per nursing routine care
[2017-09-14] MEDS: FentaNYL (PF) 2,500 MCG in EMPTY BAG 50 EACH IVC SCH ×2 (03:11→15:08)
[2017-09-14] MEDS: Ipratropium/Albuterol Neb 3 ML IH SCH ×4 (03:29→21:49)
[2017-09-14 03:54] LABS: Basophils # 0.1 K/mcL (0.0-0.2); Basophils % 0.3 %; Eosinophils # 0.7 K/mcL (0.0-0.6); Eosinophils % 4.2 %; Hematocrit 26.2 % (37.5-50.1); Hemoglobin 8.1 g/dL (12.9-16.9); Immature Granulocytes % 10.9 % (0-4); Lymphocytes # 0.7 K/mcL (0.6-4.6); Lymphocytes % 4.5 %; Mean Corpuscular HGB Conc 30.9 g/dL (31.6-35.5); Mean Corpuscular Hemoglobin 26.9 pg (28.0-33.3); Mean Platelet Volume 9.8 fL (9.4-12.4); Monocytes # 1.1 K/mcL (0.0-1.3); Neutrophils # 11.8 K/mcL (1.6-8.9); Nucleated Red Blood Cells 0.3 /100 WBC (0); Platelet Count 382 K/mcL (140-400); Red Blood Count 3.01 M/mcL (4.19-5.50); Segmented Neutrophils % 73.1 %
[2017-09-14 04:08] LABS: Calcium 8.7 mg/dL (8.6-10.3); Potassium 4.4 mEq/L (3.5-5.1)
[2017-09-14 04:39] LABS: Platelet Estimate Normal (Normal); Toxic Granulation Present (Not Present)
[2017-09-14 04:40] LABS: Anisocytosis 1+ (Not Present); Hypochromasia Present (Not Present); Large Platelets Present (Not Present)
[2017-09-14 04:44] LABS: ABG Base Excess -1 mEq/L (-2 to 3); ABG HCO3 25 mEq/L (21-27); ABG Oxygen Saturation 96 % (95-98); ABG PCO2 48 mmHg (35-45); ABG PH 7.32 pH Units (7.32-7.45); ABG PO2 88 mmHg (85-104); ABG TCO2 26 mEq/L (20-26); Blood Gas Modality ASSIST CONTROL; Blood Gas PEEP 18 cm H2O; Blood Gas Respiration Rate 22; Blood Gas VT 550 cc
[2017-09-14] MEDS: Pantoprazole 40 MG VIAL IVP SCH ×2 (05:06→18:10)
[2017-09-14] MEDS: *HR* Heparin 5,000 UNIT/ML VIAL SQ SCH ×3 (05:06→22:11)
[2017-09-14] MEDS: Erythromycin Susp 200 MG/5 ML UDC PO SCH ×3 (05:06→19:40)
[2017-09-14] MEDS: Dexmedetomidine HCl 400 MCG/100 ML MLS IVC SCH ×2 (06:12→14:23)
[2017-09-14] MEDS: Insulin Human Regular 100 UNIT in 0.9 % Sodium Chloride 100 ML IVC SCH (06:54)
[2017-09-14] MEDS: Chlorhexidine Rinse 15 ML MOUTHWASH MM SCH ×2 (08:52→19:41)
[2017-09-14] MEDS: Docusate Oral Soln 100 MG/10 ML UDC GTUBE SCH ×2 (08:52→19:41)
--- NOTE | 2017-09-14 11:24 | Palliative - Consult Note ---
Date of Encounter: 09/14/17 Time of Encounter: 10:35 - Assessment and Plan (1) Goals of care, counseling/discussion Current Visit: Yes Status: Acute Assessment and plan: Waiting discussion with patient's mother, closest next of kin there is no medical power of finance attorney. Patient is currently a full code Discussed with patient's mother who is his surrogate decision maker in the absence of a medical power of finance attorney in any other family. After description of what is going on with the patient, and the different options patient's mother does not believe that she would want to be on a ventilator long-term, therefore would not want to proceed with trach and PEG She understands that he is extremely ill and when he is extubated tube will not be replaced and he will either do okay with his breathing or pass away. I reviewed this with her and answered in the affirmative to this and then I described to her changing CODE STATUS to DNR CCA DNI she agreed to this as well. Status has now been changed. Timing for extubation is up to the ICU team. If The patient survives extubation family wishes to continue aggressive care including dialysis. code Status has been changed. (2) JAZZY (acute kidney injury) Current Visit: Yes Status: Acute Assessment and plan: Currently requiring dialysis we will discuss this further with family. (3) Acute respiratory failure with hypoxia Current Visit: Yes Status: Acute Assessment and plan: Date 8 of ventilator. Per ICU team time is come to discuss trach and PEG will be will discuss with family over the phone. (4) CHF (congestive heart failure) Current Visit: Yes Status: Acute Assessment and plan: The patient is not responding to treatment adequately during hemodialysis and is still on a ventilator. Will discuss further with family. Qualifiers: Heart failure type: diastolic Heart failure chronicity: acute on chronic Qualified Code(s): I50.33 - Acute on chronic diastolic (congestive) heart failure (5) Sepsis Current Visit: Yes Status: Acute Assessment and plan: Treatment per ICU team white count is slightly better, the patient is currently afebrile recent blood culture showed no growth and tinea present treatment per ICU team Qualifiers: Sepsis type: sepsis due to unspecified organism Qualified Code(s): A41.9 - Sepsis, unspecified organism Palliative-CN HPI - Data of Consult Requesting Physician: Timmy Cook MD Primary Care Provider: Kayleen Sheth CNP - Consult Narrative History of present illness: Mr. Ruano is a 52 year old male Patient is dated on ventilator unable to give any history all history is coming from the medical record. Patient was transferred from [facility] he had been seen for a very sore right knee was having shortness of breath and phlegm production at the time was status post replacement of that knee in December 2016. On exam here he was found to have an elevated white count and lactic acid of 1.8 for a showing only total knee replacement no fracture tarted on IV antibiotics after blood cultures were drawn. He was short of breath his chest x-ray showed increased markings but no lobe old no lobar infiltrates blood gas showed a pH of 7.34 PCO2 of 64 PO2 of 52 and 2% Sunday also had an elevated d-dimer. He was also noted to have an acute kidney injury with a creatinine of 2.42. The patient became more short of breath end up requiring intubation and ventilator ventilatory support. It was felt that the patient probably had a PE. He is been being treated aggressively for sepsis, S2 heart failure kidney injury is probably failure. This has necessitated hemodialysis he is now considered to be a long-term vent patient. Status is currently full, Hetal has been informed however that his decision needs to be made regarding trach and PEG palliative care was consulted to facilitate conversation with family. Complicating the matter since mother who is his surrogate decision maker is inpatient at [facility]. Contact with her later today. CC: Timmy Cook MD Past Med Surg Social Fam HX - Past Medical History Medical history: cardiomyopathy, diabetes, hypertension Psychiatric history: no psych history - Social History Smoking Status: Former smoker Smokeless Tobacco Status: No Alcohol use: none Drug use: none Medications and Allergies Amlodipine Besylate 10 mg PO DAILY 12/25/16 [History] Aspirin [Lo-Dose Aspirin EC] 81 mg PO DAILY 12/25/16 [History] Atenolol [Tenormin] 50 mg PO BID 12/25/16 [History] Atorvastatin Calcium [Lipitor] 20 mg PO DAILY 12/25/16 [History] Chlorthalidone 50 mg PO DAILY 12/25/16 [History] Glimepiride [Amaryl] 4 mg PO BID 12/25/16 [History] Liraglutide [Victoza 3-Baljit] 1.8 mg PO DAILY 12/25/16 [History] Lisinopril [Zestril] 20 mg PO DAILY 12/25/16 [History] metFORMIN [Glucophage] 500 mg PO BIDWM 12/25/16 [History] Furosemide [Lasix] 40 mg PO DAILY #14 tablet 06/14/17 [Rx] Gabapentin [Neurontin] 300 mg PO TID PRN 09/06/17 [History] Insulin Regular U-500 [HumuLIN R U-500] 65 - 75 unit SQ BID 09/06/17 [History] 3 Allergy/AdvReac Type Severity Reaction Status Date / Time No Known Allergies Allergy Verified 12/25/16 08:52 ROS unobtainable: due to mental status Palliative Care-Exam - Constitutional Vitals: Temp Pulse Resp BP Pulse Ox 98.8 F 96 25 104/49 95 09/14/17 07:00 09/14/17 11:00 09/14/17 11:05 09/14/17 11:05 09/14/17 11:05 Internal Medicine - CN: Reslt - Labs CBC & Chem 7: 09/14/17 03:35 09/14/17 03:35 Labs: Short CBC 09/14/17 Range/Units 03:35 WBC 16.1 H (4.3-11.1) K/mcL Hgb 8.1 L (12.9-16.9) g/dL Hct 26.2 L (37.5-50.1) % Plt Count 382 (140-400) K/mcL Neutrophils # 11.8 H (1.6-8.9) K/mcL BMP 09/14/17 03:35 Sodium 135 L Potassium 4.4 Chloride 93 L Carbon Dioxide 23 BUN 69 H Creatinine 4.17 H Glucose 176 H Calcium 8.7 - ABG Interpretation ABG results: ABG ABG pH 7.32 pH Units (7.32-7.45) 09/14/17 04:40 ABG pCO2 48 mmHg (35-45) H 09/14/17 04:40 ABG pO2 88 mmHg (85-104) 09/14/17 04:40 ABG O2 Saturation 96 % (95-98) 09/14/17 04:40 PT/INR, D-dimer PT 12.9 Seconds (9.4-12.1) H 09/06/17 01:33 Consult Discharge Plan - Plan Referrals: Kayleen Sheth CNP [Primary Care Provider] - Palliative Quality Palliative Quality: Screen for Code Status: Yes, Screen for Goals of Care: Yes, Screen for Pain: Yes, If Pain Regimen Started, Initiate Bowel Regimen: Yes, Screen for Nausea/Vomitting: Yes Code Status: 09/06/17 00:49 Resuscitation Status: Active [RES] Routine Comment: Resuscitation Status: Full Code
--- NOTE | 2017-09-14 12:47 | Nephrology Progress Note ---
Date of Encounter: 09/14/17 Time of Encounter: 12:05 - Assessment and Plan (1) JAZZY (acute kidney injury) Current Visit: Yes Status: Acute JAZZY superimposed on CKD in setting of sepsis, pneumonia and acute respiratory failure. Creat plateaued 4.17. Oliguric. Documented urine output 49cc. Will do HD again today for positive fluid balance. Orders given. Will give Albumin for BP support. (2) Acute respiratory failure with hypoxia Current Visit: Yes Status: Acute (3) Sepsis Current Visit: Yes Status: Acute Qualifiers: Sepsis type: sepsis due to unspecified organism Qualified Code(s): A41.9 - Sepsis, unspecified organism Subjective Principal diagnosis: Acute hypoxic respiratory Interval history: Intubated, sedated. FIO2 75, peep 18. Per nursing-awaiting family decision to place PEG/Trach. Objective - Vital Signs Vital signs: Vital Signs Temp Pulse Resp BP Pulse Ox 09/14/17 12:09 98.7 F 09/14/17 12:00 99 26 118/44 94 09/14/17 11:57 98 09/14/17 11:05 25 104/49 95 09/14/17 11:00 96 23 104/49 94 09/14/17 10:00 96 23 104/47 95 09/14/17 09:50 23 104/50 95 09/14/17 09:00 97 25 111/49 95 09/14/17 08:00 96 24 95/42 96 09/14/17 07:51 23 93/43 96 09/14/17 07:00 98.8 F 97 24 97/45 95 09/14/17 06:00 112 25 101/57 94 09/14/17 05:27 25 106/45 92 09/14/17 05:00 101 22 106/45 94 09/14/17 04:20 110 09/14/17 04:00 99.2 F 107 23 139/52 100 09/14/17 03:30 22 111/56 96 09/14/17 03:00 89 22 88/52 97 09/14/17 02:00 100.6 F H 90 22 101/51 95 09/14/17 01:06 22 91/45 97 09/14/17 01:00 92 24 91/45 96 09/14/17 00:15 100 09/14/17 00:00 100.7 F H 100 24 113/54 97 09/13/17 23:36 22 124/61 97 09/13/17 23:00 100 22 113/54 98 09/13/17 22:00 98 22 110/48 97 09/13/17 21:29 22 117/53 97 09/13/17 21:00 99 24 104/51 97 09/13/17 20:00 100.2 F H 101 22 122/52 97 09/13/17 19:50 25 124/54 96 09/13/17 19:00 99 24 106/51 97 09/13/17 18:13 24 113/52 96 09/13/17 18:00 100 22 113/52 97 09/13/17 17:00 92 22 105/52 98 09/13/17 16:00 98 22 119/62 98 09/13/17 15:34 22 140/63 99 09/13/17 15:00 98.9 F 90 22 128/58 99 09/13/17 14:00 86 22 140/63 99 09/13/17 13:00 88 22 97/45 98 09/13/17 12:52 99.5 F 22 130/58 Intake and Output 09/13/17 09/14/17 09/14/17 23:59 07:59 15:59 Intake Total 367 / 367 630.9 / 630.9 289.6 / 289.6 Output Total 33 / 33 0 / 0 Balance 334 / 334 613.9 / 613.9 289.6 / 289.6 Intake: IV Fluids 206 / 206 306.9 / 306.9 122.6 / 122.6 FentaNYL (PF) 2,500 MCG In 50 / 50 Empty Bag 50 Each @ 200 MCG/HR 4 mls/hr IVC [facility] Rx#: [id number] HumuLIN R 100 UNIT In 0.9 % 0 / 0 6.9 / 6.9 22.6 / 22.6 Sodium Chloride 100 ML @ 7 UNIT /HR 7.07 mls/hr IVC [facility] Rx #:[id number] Diprivan 1,000 mg In 100 ml @ 5 56 / 56 200 / 200 100 / 100 MCG/KG/MIN 5.715 mls/hr IVC . [id number] MK Rx#:[id number] Zosyn 3.375 GM In 0.9 % Sodium 100 / 100 100 / 100 Chloride (Mini-Bag +) 100 ML @ 25 mls/hr IVPB Q8HR [facility] Rx#: [id number] Tube Feeding 161 / 161 324 / 324 167 / 167 Free Water Intake Amount 0 / 0 0 / 0 0 / 0 Output: Catheter / 0 / 0 Other: Blood Glucose* 138 183 147 - General Appearance General appearance: Present: well-developed, well-nourished, appears started age , obese EENT: Present: mucous membranes moist Neck: Present: no JVD Respiratory: Present: rhonchi Cardiology: Present: edema, regular rate, regular rhythm Additional Comments: generalized pitting Dialysis Vascular Access: Venous Catheter Gastrointestinal: Present: hypoactive bowel sounds Integumentary: Present: warm and dry - Lab 09/14/17 03:35 09/14/17 03:35 Most recent lab results ABG pH 7.32 pH Units (7.32-7.45) 09/14/17 04:40 ABG pCO2 48 mmHg (35-45) H 09/14/17 04:40 ABG pO2 88 mmHg (85-104) 09/14/17 04:40 ABG HCO3 25 mEq/L (21-27) 09/14/17 04:40 ABG O2 Saturation 96 % (95-98) 09/14/17 04:40 Calcium 8.7 mg/dL (8.6-10.3) 09/14/17 03:35 Magnesium 2.4 mg/dL (1.6-2.6) 09/09/17 03:40 Consult Discharge Plan - Plan Referrals: Kayleen Sheth, [employer] [Primary Care Provider] -
[2017-09-14] MEDS ORDERED: *HR* Heparin 10,000 UNIT/10 ML VIAL IV PRN (12:56)
[2017-09-14] MEDS ORDERED: 0.9 % Sodium Chloride 250 ML IVC PRN (12:56)
[2017-09-14] MEDS ORDERED: Albumin 25% 12.5gm/50mL 12.5 GM/50 ML IV.SOLN IVPB PRN (12:56)
[2017-09-14] MEDS ORDERED: 0.9 % Sodium Chloride 1,000 ML PRIME SCH (13:00)
[2017-09-14] MEDS: *HR* Midazolam HCl 2 MG/2 ML VIAL IVP PRN (18:17)
[2017-09-15] MEDS: Lacri-Lube 3.5 GM TUBE BOTH EYES SCH ×7 (01:28→23:04)
[2017-09-15] MEDS: Piperacillin/Tazobactam 3.375 GM in 0.9 % Sodium Chloride Mini Bag 100 ML IVPB SCH ×4 (01:28→23:04)
[2017-09-15] MEDS: FentaNYL (PF) 2,500 MCG in EMPTY BAG 50 EACH IVC SCH ×2 (01:29→16:25)
[2017-09-15] MEDS: Insulin Human Regular 100 UNIT in 0.9 % Sodium Chloride 100 ML IVC SCH ×3 (01:30→21:01)
[2017-09-15] MEDS: Ipratropium/Albuterol Neb 3 ML IH SCH ×4 (03:43→22:44)
--- NOTE | 2017-09-15 03:54 | Pulmonology Progress Note ---
<Rosalio Gallardo - Last Filed: 09/15/17 03:49> Date of Encounter: 09/15/17 Time of Encounter: 03:49 Assessment and Plan (1) Acute respiratory failure with hypoxia Current Visit: Yes Status: Acute Acute hypoxic respiratory failure with hypercapnia/ARDS, ventilator dependent This is likely secondary to acutely decompensated CHF with comorbid pneumonia PE is considered a less likely potential cause of acute respiratory failure On arrival the patient had respiratory acidosis with pH of 7.17 CXR shows increased pulmonary vascular congestion CT Chest shows Partial collapse of the bilateral lower lobes with suspected superimposed pneumonia ABG 7.32/48/88/25/26/96% on FiO2 75% Continues to require high PEEP, currently 18 WBC continues to rise, difficult to determine if PNA is source Plan -Continue Zosyn for treatment of pneumonia, consider transitioning to broader coverage -Patient will continue HD per nephrology for fluid removal -Continue ventilator support, repeat ABG in the morning (2) CHF (congestive heart failure) Current Visit: Yes Status: Acute Acute on chronic heart failure with preserved ejection fraction The patient demonstrates pulmonary edema on CXR, BNP Acute respiratory failure is consistent with decompensated CHF Respiratory failure continues to make minimal improvement We will monitor I/Os and assess fluid balance daily Continue HD for fluid removal Qualifiers: Heart failure type: diastolic Heart failure chronicity: acute on chronic Qualified Code(s): I50.33 - Acute on chronic diastolic (congestive) heart failure (3) JAZZY (acute kidney injury) Current Visit: Yes Status: Acute Acute on chronic kidney injury with oliguria Patient has progressed to HD Plan: -Nephrology consultation with Dr. Lucas, appreciate recommendations (4) Sepsis Current Visit: Yes Status: Acute Sepsis secondary to Pneumonia vs. Cellulitis - White count today is decreased to 16.1 - Possible source: Pneumonia - Started on Vancomycin and Zosyn on arrival - Cultures initially grew Staph capitis, however repeat negative Plan -Repeat blood cultures remain pending, CBC Repeated today -May require transition to broader coverage, however appears to be improving Qualifiers: Sepsis type: sepsis due to unspecified organism Qualified Code(s): A41.9 - Sepsis, unspecified organism (5) DMII (diabetes mellitus, type 2) Current Visit: Yes Status: Chronic Poorly controlled Insulin Dependent DM2 Patient is apparently transitioning to a U500 Insulin regimen at home Plan: -IV Insulin to maintain goal Glucose 140-180 -Q1h Accucheck Qualifiers: Diabetes mellitus emt intermediate insulin use: with chcf use Diabetes mellitus complication status: without complication Qualified Code(s): E11.9 - Type 2 diabetes mellitus without complications; 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 He remains intubated and sedated with no significant change from prior Objective PUL Vital signs: Last Vital Signs Temp 99.8 F H 09/15/17 00:44 Pulse 90 09/15/17 02:00 Resp 30 09/15/17 03:43 BP 156/66 09/15/17 03:43 Pulse Ox 94 09/15/17 03:43 Gen: Vitals noted. No acute distress. Currently sedated on vent HEENT: Normocephalic, atraumatic Neck: Supple. No adenopathy. Right IJ CVC in place with well appearing surrounding tissue Cardiac: RRR, no murmur, +S1/S2 Pulmonary: CTA bilaterally, no wheezes, rales or rhonchi, equal chest expansion Abdomen: soft, nontender, BS noted, no guarding Extremities: 2+ b/l LE edema. No obvious rash or breaks in skin Skin: Abdomen has regions of erythema likely associated with skin irritation Neuro: Sedated Ventilator Settings Ventilator Settings: Ventilator Settings, Last 8 Hours Ventilator Mode VC+ Ventilator Mode VC+ Ventilator Mode VC+ Ventilator Mode VC+ Ventilator Mode VC+ Ventilator Mode VC+ Ventilator Mode VC+ Ventilator Mode VC+ Ventilator Mode VC+ Ventilator Mode VC+ Ventilator Mode VC+ Ventilator Tidal Volume 550 Setting Ventilator Tidal Volume 550 Setting Ventilator Tidal Volume 550 Setting Ventilator Tidal Volume 550 Setting Ventilator Tidal Volume 550 Setting Ventilator Tidal Volume 550 Setting Ventilator Tidal Volume 550 Setting Ventilator Tidal Volume 550 Setting Ventilator Tidal Volume 550 Setting Ventilator Tidal Volume 550 Setting Ventilator Tidal Volume 550 Setting Ventilator Respiratory Rate 22 Setting Ventilator Respiratory Rate 22 Setting Ventilator Respiratory Rate 22 Setting Ventilator Respiratory Rate 22 Setting Ventilator Respiratory Rate 22 Setting Ventilator Respiratory Rate 22 Setting Ventilator Respiratory Rate 22 Setting Ventilator Respiratory Rate 22 Setting Ventilator Respiratory Rate 22 Setting Ventilator Respiratory Rate 22 Setting Ventilator Respiratory Rate 22 Setting Actual Respiratory Rate 30 Actual Respiratory Rate 24 Actual Respiratory Rate 24 Actual Respiratory Rate 24 Actual Respiratory Rate 22 Actual Respiratory Rate 22 Actual Respiratory Rate 22 Actual Respiratory Rate 22 Actual Respiratory Rate 22 Actual Respiratory Rate 22 Actual Respiratory Rate 22 Positive End Expiratory 18 Pressure Positive End Expiratory 18 Pressure Positive End Expiratory 18 Pressure Positive End Expiratory 18 Pressure Positive End Expiratory 18 Pressure Positive End Expiratory 18 Pressure Positive End Expiratory 18 Pressure Positive End Expiratory 18 Pressure Positive End Expiratory 18 Pressure Positive End Expiratory 18 Pressure Positive End Expiratory 18 Pressure Peak Inspiratory Airway 27 Pressure Peak Inspiratory Airway 37 Pressure Peak Inspiratory Airway 25 Pressure Peak Inspiratory Airway 25 Pressure Peak Inspiratory Airway 37 Pressure Peak Inspiratory Airway 37 Pressure Peak Inspiratory Airway 36 Pressure Peak Inspiratory Airway 36 Pressure Peak Inspiratory Airway 37 Pressure Peak Inspiratory Airway 37 Pressure Peak Inspiratory Airway 34 Pressure Results - Laboratory Findings CBC and BMP: 09/14/17 03:35 09/14/17 03:35 ABG ABG pH 7.32 pH Units (7.32-7.45) 09/14/17 04:40 ABG pCO2 48 mmHg (35-45) H 09/14/17 04:40 ABG pO2 88 mmHg (85-104) 09/14/17 04:40 ABG O2 Saturation 96 % (95-98) 09/14/17 04:40 PT/INR, D-dimer PT 12.9 Seconds (9.4-12.1) H 09/06/17 01:33 Abnormal lab findings: Abnormal lab results WBC 16.1 K/mcL (4.3-11.1) H 09/14/17 03:35 RBC 3.01 M/mcL (4.19-5.50) L 09/14/17 03:35 Hgb 8.1 g/dL (12.9-16.9) L 09/14/17 03:35 Hct 26.2 % (37.5-50.1) L 09/14/17 03:35 MCH 26.9 pg (28.0-33.3) L 09/14/17 03:35 MCHC 30.9 g/dL (31.6-35.5) L 09/14/17 03:35 RDW 17.0 % (11.5-14.5) H 09/14/17 03:35 Immature Gran % 10.9 % (0-4) H 09/14/17 03:35 Band Neutrophils % 6.0 % (0-4) H 09/13/17 04:00 Metamyelocytes % 1.0 % (0) H 09/10/17 04:00 Myelocytes % 1.0 % (0) H 09/10/17 04:00 Neutrophils # 11.8 K/mcL (1.6-8.9) H 09/14/17 03:35 Eosinophils # 0.7 K/mcL (0.0-0.6) H 09/14/17 03:35 Nucleated RBCs/100 WBC 0.3 /100 WBC (0) H 09/14/17 03:35 Toxic Granulation Present (Not Present) A 09/14/17 03:35 Large Platelets Present (Not Present) A 09/14/17 03:35 Hypochromasia Present (Not Present) A 09/14/17 03:35 Anisocytosis 1+ (Not Present) A 09/14/17 03:35 PT 12.9 Seconds (9.4-12.1) H 09/06/17 01:33 ABG pCO2 48 mmHg (35-45) H 09/14/17 04:40 VBG pH 7.22 pH Units (7.32-7.42) L 09/08/17 06:20 VBG pCO2 61 mmHg (41-51) H 09/08/17 06:20 VBG pO2 166 mmHg (25-50) H 09/08/17 06:20 Sodium 135 mEq/L (136-145) L 09/14/17 03:35 Chloride 93 mEq/L (98-107) L 09/14/17 03:35 BUN 69 mg/dL (6-20) H 09/14/17 03:35 Creatinine 4.17 mg/dL (0.70-1.30) H 09/14/17 03:35 Est GFR ( Amer) 18 (> 60) L 09/14/17 03:35 Est GFR (Non-Af Amer) 15 (> 60) L 09/14/17 03:35 Glucose 176 mg/dL (70-105) H 09/14/17 03:35 POC Glucose 186 mg/dL (70-99) H 09/15/17 02:04 Calculated Osmolality 304 (280-300) H 09/14/17 03:35 Direct Bilirubin 0.3 mg/dL (0.0-0.2) H 09/08/17 06:03 AST 69 Units/L (13-39) H 09/08/17 06:03 ALT 60 Units/L (7-52) H 09/08/17 06:03 Creatine Kinase 1160 Units/L (30-223) H 09/09/17 03:40 Troponin I 0.05 ng/mL (< 0.04) H* 09/06/17 08:17 B-Natriuretic Peptide 127 pg/mL (Less than 100) H 09/06/17 08:16 Albumin 3.3 g/dL (3.5-5.7) L 09/08/17 06:03 Albumin/Globulin Ratio 0.9 (1.1-2.2) L 09/08/17 06:03 Triglycerides 526 mg/dL (< 150) H 09/09/17 03:40 LDL Cholesterol Measurd 60 mg/dL (75-193) L 09/09/17 03:40 HDL Cholesterol 20 mg/dL (40-59) L 09/09/17 03:40 Cholesterol/HDL Ratio 6.9 (0-4.9) H 09/09/17 03:40 Urine Clarity Turbid (Clear) A 09/08/17 09:40 Urine Protein 30 mg/dL (Neg-Trace) H 09/08/17 09:40 Urine Blood Large (Negative) H 09/08/17 09:40 Urine Microscopic RBC 50-100 per hpf (0-3) H 09/08/17 09:40 Urine Microscopic WBC TNTC per hpf (0-3) H 09/08/17 09:40 Ur Squamous Epith Cells Many per lpf (None-Few) H 09/08/17 09:40 Amorphous Sediment Moderate (Few) H 09/08/17 09:40 Vancomycin Trough 57 mcg/mL (5-10) H 09/08/17 06:03 - Microbiology Findings Microbiology Findings: Microbiology, Last 48 Hours 09/08/17 14:49 Blood Culture - Final Peripheral Venipuncture No growth. 09/08/17 14:49 Blood Culture - Final Peripheral Venipuncture No growth. - Clinical Findings Intake & Output: Intake & Output 09/14/17 09/14/17 09/15/17 15:59 23:59 07:59 Intake Total 1157.5 / 1157.5 689.2 / 689.2 306.8 / 306.8 Output Total 0 / 0 3600 / 3600 0 / 0 Balance 1157.5 / 1157.5 -2910.8 / -2910.8 306.8 / 306.8 Weight 179 kg Consult Discharge Plan - Plan Referrals: Kayleen Sheth, [employer] [Primary Care Provider] - <Luisa Shirley - Last Filed: 09/15/17 08:34> Date of Encounter: 09/15/17 Objective PUL Vital signs: Last Vital Signs Temp 99.6 F 09/15/17 08:00 Pulse 105 09/15/17 08:00 Resp 25 09/15/17 08:00 BP 112/57 09/15/17 08:00 Pulse Ox 100 09/15/17 08:00 Ventilator Settings Ventilator Settings: Ventilator Settings, Last 8 Hours Ventilator Mode VC+ Ventilator Mode VC+ Ventilator Mode VC+ Ventilator Mode VC+ Ventilator Mode VC+ Ventilator Mode VC+ Ventilator Mode VC+ Ventilator Mode VC+ Ventilator Mode VC+ Ventilator Mode VC+ Ventilator Mode VC+ Ventilator Mode VC+ Ventilator Tidal Volume 550 Setting Ventilator Tidal Volume 550 Setting Ventilator Tidal Volume 550 Setting Ventilator Tidal Volume 550 Setting Ventilator Tidal Volume 550 Setting Ventilator Tidal Volume 550 Setting Ventilator Tidal Volume 550 Setting Ventilator Tidal Volume 550 Setting Ventilator Tidal Volume 550 Setting Ventilator Tidal Volume 550 Setting Ventilator Tidal Volume 550 Setting Ventilator Tidal Volume 550 Setting Ventilator Respiratory Rate 22 Setting Ventilator Respiratory Rate 22 Setting Ventilator Respiratory Rate 22 Setting Ventilator Respiratory Rate 22 Setting Ventilator Respiratory Rate 22 Setting Ventilator Respiratory Rate 22 Setting Ventilator Respiratory Rate 22 Setting Ventilator Respiratory Rate 22 Setting Ventilator Respiratory Rate 22 Setting Ventilator Respiratory Rate 22 Setting Ventilator Respiratory Rate 22 Setting Ventilator Respiratory Rate 22 Setting Actual Respiratory Rate 23 Actual Respiratory Rate 23 Actual Respiratory Rate 23 Actual Respiratory Rate 23 Actual Respiratory Rate 23 Actual Respiratory Rate 30 Actual Respiratory Rate 30 Actual Respiratory Rate 24 Actual Respiratory Rate 24 Actual Respiratory Rate 24 Actual Respiratory Rate 24 Positive End Expiratory 18 Pressure Positive End Expiratory 18 Pressure Positive End Expiratory 18 Pressure Positive End Expiratory 18 Pressure Positive End Expiratory 18 Pressure Positive End Expiratory 18 Pressure Positive End Expiratory 18 Pressure Positive End Expiratory 18 Pressure Positive End Expiratory 18 Pressure Positive End Expiratory 18 Pressure Positive End Expiratory 18 Pressure Positive End Expiratory 18 Pressure Peak Inspiratory Airway 34 Pressure Peak Inspiratory Airway 35 Pressure Peak Inspiratory Airway 27 Pressure Peak Inspiratory Airway 38 Pressure Peak Inspiratory Airway 24 Pressure Peak Inspiratory Airway 27 Pressure Peak Inspiratory Airway 27 Pressure Peak Inspiratory Airway 31 Pressure Peak Inspiratory Airway 37 Pressure Peak Inspiratory Airway 25 Pressure Peak Inspiratory Airway 25 Pressure Results - Laboratory Findings CBC and BMP: 09/15/17 05:42 09/15/17 05:42 ABG ABG pH 7.33 pH Units (7.32-7.45) 09/15/17 04:44 ABG pCO2 50 mmHg (35-45) H 09/15/17 04:44 ABG pO2 74 mmHg (85-104) L 09/15/17 04:44 ABG O2 Saturation 93 % (95-98) L 09/15/17 04:44 PT/INR, D-dimer PT 12.9 Seconds (9.4-12.1) H 09/06/17 01:33 Abnormal lab findings: Abnormal lab results WBC 18.2 K/mcL (4.3-11.1) H 09/15/17 05:42 RBC 3.32 M/mcL (4.19-5.50) L 09/15/17 05:42 Hgb 8.9 g/dL (12.9-16.9) L 09/15/17 05:42 Hct 29.0 % (37.5-50.1) L 09/15/17 05:42 MCH 26.8 pg (28.0-33.3) L 09/15/17 05:42 MCHC 30.7 g/dL (31.6-35.5) L 09/15/17 05:42 RDW 16.9 % (11.5-14.5) H 09/15/17 05:42 MPV 9.3 fL (9.4-12.4) L 09/15/17 05:42 Immature Gran % 10.9 % (0-4) H 09/14/17 03:35 Band Neutrophils % 6.0 % (0-4) H 09/15/17 05:42 Metamyelocytes % 2.0 % (0) H 09/15/17 05:42 Myelocytes % 1.0 % (0) H 09/10/17 04:00 Neutrophils # 15.3 K/mcL (1.6-8.9) H 09/15/17 05:42 Nucleated RBCs/100 WBC 0.3 /100 WBC (0) H 09/14/17 03:35 Toxic Granulation Present (Not Present) A 09/14/17 03:35 Large Platelets Present (Not Present) A 09/14/17 03:35 Hypochromasia Present (Not Present) A 09/14/17 03:35 Anisocytosis 1+ (Not Present) A 09/14/17 03:35 PT 12.9 Seconds (9.4-12.1) H 09/06/17 01:33 ABG pCO2 50 mmHg (35-45) H 09/15/17 04:44 ABG pO2 74 mmHg (85-104) L 09/15/17 04:44 ABG Total CO2 28 mEq/L (20-26) H 09/15/17 04:44 ABG O2 Saturation 93 % (95-98) L 09/15/17 04:44 VBG pH 7.22 pH Units (7.32-7.42) L 09/08/17 06:20 VBG pCO2 61 mmHg (41-51) H 09/08/17 06:20 VBG pO2 166 mmHg (25-50) H 09/08/17 06:20 Potassium 3.3 mEq/L (3.5-5.1) L 09/15/17 05:42 Carbon Dioxide 19 mEq/L (23-29) L 09/15/17 05:42 BUN 55 mg/dL (6-20) H 09/15/17 05:42 Creatinine 3.47 mg/dL (0.70-1.30) H 09/15/17 05:42 Est GFR ( Amer) 22 (> 60) L 09/15/17 05:42 Est GFR (Non-Af Amer) 19 (> 60) L 09/15/17 05:42 Glucose 137 mg/dL (70-105) H 09/15/17 05:42 POC Glucose 199 mg/dL (70-99) H 09/15/17 07:59 Calculated Osmolality 303 (280-300) H 09/15/17 05:42 Calcium 7.0 mg/dL (8.6-10.3) L 09/15/17 05:42 Direct Bilirubin 0.3 mg/dL (0.0-0.2) H 09/08/17 06:03 AST 69 Units/L (13-39) H 09/08/17 06:03 ALT 60 Units/L (7-52) H 09/08/17 06:03 Creatine Kinase 1160 Units/L (30-223) H 09/09/17 03:40 Troponin I 0.05 ng/mL (< 0.04) H* 09/06/17 08:17 B-Natriuretic Peptide 127 pg/mL (Less than 100) H 09/06/17 08:16 Albumin 3.3 g/dL (3.5-5.7) L 09/08/17 06:03 Albumin/Globulin Ratio 0.9 (1.1-2.2) L 09/08/17 06:03 Triglycerides 526 mg/dL (< 150) H 09/09/17 03:40 LDL Cholesterol Measurd 60 mg/dL (75-193) L 09/09/17 03:40 HDL Cholesterol 20 mg/dL (40-59) L 09/09/17 03:40 Cholesterol/HDL Ratio 6.9 (0-4.9) H 09/09/17 03:40 Urine Clarity Turbid (Clear) A 09/08/17 09:40 Urine Protein 30 mg/dL (Neg-Trace) H 09/08/17 09:40 Urine Blood Large (Negative) H 09/08/17 09:40 Urine Microscopic RBC 50-100 per hpf (0-3) H 09/08/17 09:40 Urine Microscopic WBC TNTC per hpf (0-3) H 09/08/17 09:40 Ur Squamous Epith Cells Many per lpf (None-Few) H 09/08/17 09:40 Amorphous Sediment Moderate (Few) H 09/08/17 09:40 Vancomycin Trough 57 mcg/mL (5-10) H 09/08/17 06:03 - Microbiology Findings Microbiology Findings: Microbiology, Last 48 Hours 09/14/17 03:23 Blood Culture - Preliminary Peripheral Venipuncture No growth. 09/14/17 03:23 Blood Culture - Preliminary Peripheral Venipuncture No growth. 09/14/17 03:35 Blood Culture - Preliminary Central Venous Catheter No growth. 09/08/17 14:49 Blood Culture - Final Peripheral Venipuncture No growth. 09/08/17 14:49 Blood Culture - Final Peripheral Venipuncture No growth. - Clinical Findings Intake & Output: Intake & Output 09/14/17 09/15/17 09/15/17 23:59 07:59 15:59 Intake Total 689.2 / 689.2 1264.3 / 1264.3 Output Total 3600 / 3600 60 / 60 Balance -2910.8 / -2910.8 1204.3 / 1204.3 Weight 179 kg - Attending Attestation I examined this patient and my medical decision-making was reviewed with the Resident Physician. I agree with the documented findings, disposition and treatment plan as described except to the extent set forth below. Patient seen and examined. Labs, radiology, chart personally reviewed. Agree with resident's history and physical, assessment, plan with following comments: [employer]: Patient respond to stimuli and will wean off sedation as much as possible, Pulmonary: Patient remain requiring vent support and gradually weaned off FiO2. In my opinion we should give more time before patient to be terminally extubated and when family is available I will discuss that with them. Patient was status has been changed appropriately. Cardiovascular: stable GI: Nutrition per dietary and GI prophylaxis per routine Heme: DVT prophylaxis per routine ID: Continue antibiotics and plan to de-escalation Renal; urine out put and renal funtion reviewed and fluid removal with hemodialysis Endorcine: blood glucose is monitored Lines: all lines checked and no evidence of infections Skin: skin care to prevent pressure ulcers per nursing routine care
[2017-09-15 04:48] LABS: ABG Base Excess 0 mEq/L (-2 to 3); ABG HCO3 26 mEq/L (21-27); ABG Oxygen Saturation 93 % (95-98); ABG PCO2 50 mmHg (35-45); ABG PH 7.33 pH Units (7.32-7.45); ABG PO2 74 mmHg (85-104); ABG TCO2 28 mEq/L (20-26); Blood Gas Modality VC; Blood Gas PEEP 18 cm H2O; Blood Gas Respiration Rate 22; Blood Gas VT 550 cc
[2017-09-15] MEDS: *HR* Heparin 5,000 UNIT/ML VIAL SQ SCH ×3 (05:54→21:00)
[2017-09-15] MEDS: Erythromycin Susp 200 MG/5 ML UDC PO SCH ×3 (05:54→19:04)
[2017-09-15] MEDS: Pantoprazole 40 MG VIAL IVP SCH ×2 (05:54→17:18)
[2017-09-15 06:13] LABS: Hemoglobin 8.9 g/dL (12.9-16.9); Mean Corpuscular HGB Conc 30.7 g/dL (31.6-35.5); Mean Corpuscular Hemoglobin 26.8 pg (28.0-33.3); Mean Corpuscular Volume 87.3 fL (83.0-100.0); Mean Platelet Volume 9.3 fL (9.4-12.4); Platelet Count 382 K/mcL (140-400); Red Blood Count 3.32 M/mcL (4.19-5.50); Red Cell Distribution Width 16.9 % (11.5-14.5)
[2017-09-15 06:50] LABS: Eosinophils # 0.4 K/mcL (0.0-0.6); Lymphocytes # 1.5 K/mcL (0.6-4.6); Monocytes # 0.7 K/mcL (0.0-1.3); Neutrophils # 15.3 K/mcL (1.6-8.9); Platelet Estimate Normal (Normal)
[2017-09-15 06:51] LABS: Potassium 3.3 mEq/L (3.5-5.1)
[2017-09-15] MEDS: Docusate Oral Soln 100 MG/10 ML UDC GTUBE SCH ×2 (07:48→20:00)
[2017-09-15] MEDS: Chlorhexidine Rinse 15 ML MOUTHWASH MM SCH ×2 (07:49→20:00)
[2017-09-15] MEDS ORDERED: Nystatin SUSP 5 ML UD.LIQ PO PRN (08:27)
[2017-09-15] MEDS ORDERED: 0.9 % Sodium Chloride 1,000 ML ONE (08:38)
[2017-09-15] MEDS ORDERED: 0.9 % Sodium Chloride 250 ML IVC PRN (08:56)
[2017-09-15] MEDS ORDERED: 0.9 % Sodium Chloride 1,000 ML PRIME SCH (09:00)
--- NOTE | 2017-09-15 09:08 | Nephrology Progress Note ---
Date of Encounter: 09/15/17 Time of Encounter: 08:40 - Assessment and Plan (1) JAZZY (acute kidney injury) Current Visit: Yes Status: Acute JAZZY superimposed on CKD in setting of sepsis, pneumonia and acute respiratory failure. Creat 3.47. Oliguric. Documented urine output 17cc. Will do UF today for positive fluid balance. Orders given. (2) Acute respiratory failure with hypoxia Current Visit: Yes Status: Acute (3) Sepsis Current Visit: Yes Status: Acute Qualifiers: Sepsis type: sepsis due to unspecified organism Qualified Code(s): A41.9 - Sepsis, unspecified organism Subjective Principal diagnosis: Acute hypoxic respiratory Interval history: Intubated, sedated. FIO2 70, peep 18. Objective - Vital Signs Vital signs: Vital Signs Temp Pulse Resp BP Pulse Ox 09/15/17 08:00 99.6 F 105 25 112/57 100 09/15/17 07:00 105 24 116/47 100 09/15/17 06:37 100 09/15/17 06:00 107 22 127/53 100 09/15/17 05:30 23 115/53 100 09/15/17 05:00 104 26 124/53 100 09/15/17 04:00 100.1 F H 100 24 103/51 94 09/15/17 03:43 30 156/66 94 09/15/17 03:00 102 23 156/66 100 09/15/17 02:00 90 24 87/39 98 09/15/17 01:01 24 144/58 91 09/15/17 01:00 91 22 111/49 91 09/15/17 00:44 99.8 F H 09/15/17 00:00 99 22 109/48 96 09/14/17 23:15 22 95/44 99 09/14/17 23:00 96 22 95/44 98 09/14/17 22:00 97 22 91/41 99 09/14/17 21:50 22 109/47 98 09/14/17 21:40 22 105/48 98 09/14/17 21:00 99 22 112/48 98 09/14/17 20:00 96 22 106/47 97 09/14/17 19:43 22 102/45 99 09/14/17 19:32 113 09/14/17 19:00 98.7 F 100 22 95/37 99 09/14/17 18:00 111 22 104/43 92 09/14/17 17:25 100.6 F H 129/49 09/14/17 17:10 133/48 09/14/17 17:00 112 26 169/67 88 09/14/17 16:55 158/64 09/14/17 16:40 162/68 09/14/17 16:25 148/53 09/14/17 16:10 152/60 09/14/17 16:00 100.4 F H 111 27 166/63 92 09/14/17 15:55 159/65 09/14/17 15:40 144/60 09/14/17 15:32 31 142/50 95 09/14/17 15:25 149/62 09/14/17 15:10 156/65 09/14/17 15:00 109 30 159/69 91 09/14/17 14:55 158/61 09/14/17 14:40 157/65 09/14/17 14:25 143/61 09/14/17 14:10 100.4 F H 24 144/54 09/14/17 14:00 103 31 156/65 89 09/14/17 13:37 27 115/54 94 09/14/17 13:00 100 25 97/47 93 09/14/17 12:09 98.7 F 09/14/17 12:07 98 09/14/17 12:00 99 26 118/44 94 09/14/17 11:05 25 104/49 95 09/14/17 11:00 96 23 104/49 94 09/14/17 10:00 96 23 104/47 95 09/14/17 09:50 23 104/50 95 Intake and Output 09/14/17 09/15/17 09/15/17 23:59 07:59 15:59 Intake Total 689.2 / 689.2 1264.3 / 1264.3 Output Total 3600 / 3600 Balance -2910.8 / -2910.8 1204.3 / 1204.3 Intake: IV Fluids 332.2 / 332.2 318.3 / 318.3 FentaNYL (PF) 2,500 MCG In 69.5 / 69.5 Empty Bag 50 Each @ 200 MCG/HR 4 mls/hr IVC CONT MK Rx#: [id number] HumuLIN R 100 UNIT In 0.9 % 25.2 / 25.2 38.8 / 38.8 44 / 44 Sodium Chloride 100 ML @ 7 UNIT /HR 7.07 mls/hr IVC CONT MK Rx #:[id number] Diprivan 1,000 mg In 100 ml @ 5 200 / 200 110 / 110 MCG/KG/MIN 5.715 mls/hr IVC . [id number] MK Rx#:[id number] Zosyn 3.375 GM In 0.9 % Sodium 100 / 100 100 / 100 Chloride (Mini-Bag +) 100 ML @ 25 mls/hr IVPB Q8HR MK Rx#: [id number] Oral 0 / 0 Tube Feeding 357 / 357 946 / 946 Free Water Intake Amount 0 / 0 0 / 0 Output: Total Dialysis (HD) Output 3600 / 3600 Catheter 0 / 0 60 / 60 Other: Weight 179 kg Blood Glucose* 190 152 199 Hemodialysis Net Fluid Removed 3000 (mL) Patient Weight 09/15/17 23:59 Weight 179 kg - General Appearance General appearance: Present: well-developed, well-nourished, appears started age , obese EENT: Present: mucous membranes moist Neck: Present: no JVD Respiratory: Present: rhonchi Cardiology: Present: edema, regular rate, regular rhythm Additional Comments: generalized pitting Dialysis Vascular Access: Venous Catheter Gastrointestinal: Present: hypoactive bowel sounds, distended Integumentary: Present: warm and dry - Lab 09/15/17 05:42 09/15/17 05:42 Most recent lab results ABG pH 7.33 pH Units (7.32-7.45) 09/15/17 04:44 ABG pCO2 50 mmHg (35-45) H 09/15/17 04:44 ABG pO2 74 mmHg (85-104) L 09/15/17 04:44 ABG HCO3 26 mEq/L (21-27) 09/15/17 04:44 ABG O2 Saturation 93 % (95-98) L 09/15/17 04:44 Calcium 7.0 mg/dL (8.6-10.3) L 09/15/17 05:42 Magnesium 2.4 mg/dL (1.6-2.6) 09/09/17 03:40 Consult Discharge Plan - Plan Referrals: Kayleen Sheth, PAPER SEALER [Primary Care Provider] -
[2017-09-15] MEDS: Dexmedetomidine HCl 400 MCG/100 ML MLS IVC SCH ×3 (09:42→20:02)
[2017-09-15] MEDS: Norepinephrine 4 MG in D5% in Water 250 ML IVC SCH ×2 (09:42→23:06)
--- NOTE | 2017-09-15 09:58 | Event Note ---
Date of Encounter: 09/15/17 Time of Encounter: 09:50 Patient undergoing Dialysis and remains intubated. FiO2 transitions between 75 - 90%. Nursing reports that conversation with patients mother last night via telephone and mother states that patient would not desire shelter mechanical ventilation. Patients brother to visit today and ICU care team to follow-up discussions with family. Palliative care will be available if needed. Patient remains DNRCC - A, DNI.
[2017-09-16 03:16] LABS: Hematocrit 28.6 % (37.5-50.1); Hemoglobin 8.9 g/dL (12.9-16.9); Mean Corpuscular HGB Conc 31.1 g/dL (31.6-35.5); Mean Corpuscular Hemoglobin 27.5 pg (28.0-33.3); Mean Corpuscular Volume 88.3 fL (83.0-100.0); Mean Platelet Volume 9.8 fL (9.4-12.4); Platelet Count 399 K/mcL (140-400); Red Blood Count 3.24 M/mcL (4.19-5.50); Red Cell Distribution Width 16.8 % (11.5-14.5)
[2017-09-16] MEDS: Lacri-Lube 3.5 GM TUBE BOTH EYES SCH ×5 (03:24→19:58)
[2017-09-16 03:38] LABS: Calcium 9.2 mg/dL (8.6-10.3); Magnesium 2.6 mg/dL (1.6-2.6); Phosphorous 10.6 mg/dL (2.7-4.5); Potassium 4.3 mEq/L (3.5-5.1)
[2017-09-16 03:42] LABS: Lymphocytes # 1.8 K/mcL (0.6-4.6); Monocytes # 0.4 K/mcL (0.0-1.3)
[2017-09-16] MEDS: Ipratropium/Albuterol Neb 3 ML IH SCH ×4 (03:44→21:23)
[2017-09-16] MEDS: Insulin Human Regular 100 UNIT in 0.9 % Sodium Chloride 100 ML IVC SCH ×3 (04:31→22:09)
[2017-09-16] MEDS: FentaNYL (PF) 2,500 MCG in EMPTY BAG 50 EACH IVC SCH ×2 (04:33→18:41)
[2017-09-16] MEDS: *HR* Heparin 5,000 UNIT/ML VIAL SQ SCH ×3 (05:00→19:57)
[2017-09-16] MEDS: Pantoprazole 40 MG VIAL IVP SCH ×2 (05:00→17:48)
[2017-09-16 05:20] LABS: ABG Base Excess -3 mEq/L (-2 to 3); ABG HCO3 24 mEq/L (21-27); ABG Oxygen Saturation 96 % (95-98); ABG PCO2 50 mmHg (35-45); ABG PH 7.29 pH Units (7.32-7.45); ABG PO2 96 mmHg (85-104); ABG TCO2 25 mEq/L (20-26); Blood Gas Modality VC; Blood Gas PEEP 18 cm H2O; Blood Gas Respiration Rate 22; Blood Gas VT 550 cc
--- NOTE | 2017-09-16 08:07 | Pulmonology Progress Note ---
Date of Encounter: 09/16/17 Time of Encounter: 08:05 Assessment and Plan (1) Acute respiratory failure with hypoxia Current Visit: Yes Status: Acute This is multifactorial which appears to be triggered by pneumonia complicated with ARDS physiology was also a component of hydrostatic pulmonary edema from heart failure. Currently remains on high vent settings including 60% FiO2 and 18 of PEEP I will lower PEEP further today No significant ventilator dyssynchrony today with examination of the vent Plan to continue to lower sedation to facilitate extubation High likelihood for progression to tracheostomy although family is adamant patient would not want this I feel that he could make some progress over the next few days to give him a chance of an coupled prior to terminal extubation Continue aggressive volume removal through dialysis/UF Continue nutritional support through enteral nutrition per dietary recommendations Continue vent bundle to prevent VAP Continue DVT prophylaxis Continue proton pump inhibitor to prevent gastric ulcers while on vent (2) Morbid obesity with BMI of 60.0-69.9, adult Current Visit: No Status: Chronic Clearly body habitus is factoring highly and the respiratory failure including the need for significant amounts of PEEP (3) Diabetes mellitus Current Visit: Yes Status: Acute Blood sugars been difficult to control okay to continue insulin infusion as needed Qualifiers: Qualified Code(s): E11.9 - Type 2 diabetes mellitus without complications (4) JAZZY (acute kidney injury) Current Visit: Yes Status: Acute The patient has acute on chronic kidney injury requiring renal replacement therapy nephrology following continue daily monitoring of electrolytes remains essentially anuric (5) Sepsis Current Visit: Yes Status: Acute This is thought secondary to pneumonia white count remains persistently elevated but repeat cultures negative clinically patient continues to improve on inclined to make any significant changes to his antimicrobial therapy right now for pneumonia which entails Zosyn Qualifiers: Sepsis type: sepsis due to unspecified organism Qualified Code(s): A41.9 - Sepsis, unspecified organism (6) Goals of care, counseling/discussion Current Visit: Yes Status: Acute The patient is DNA are/DNI per family request mother and brother are his surrogate decision makers Subjective Principal diagnosis: Acute hypoxic respiratory Interval history: No acute events overnight. Patient remained hemodynamically stable. Oxygen saturation also stable. He is more awake today. Objective PUL Vital signs: Last Vital Signs Temp 100.0 F H 09/16/17 07:00 Pulse 105 09/16/17 07:00 Resp 22 09/16/17 07:36 BP 101/48 09/16/17 07:36 Pulse Ox 96 09/16/17 07:36 General appearance: other (Patient is lethargic but opens eyes to voice he is able to intermittently follow simple commands) Eyes: nonicteric ENT: oropharynx moist Neck: supple Auscultation: bilateral: diminished breath sounds Cardiovascular: regular rate and rhythm Gastrointestinal: normoactive bowel sounds, soft, non-tender, other (Obese abdomen) Integumentary: other Extremities: other pupils equal and round, other (Patient can move his upper and lower extremities to command intermittently does not appear to have any gross focal neurological deficits) Ventilator Settings Ventilator Settings: Ventilator Settings, Last 8 Hours Ventilator Mode VC+ Ventilator Mode VC+ Ventilator Mode VC+ Ventilator Mode VC+ Ventilator Mode VC+ Ventilator Mode VC+ Ventilator Mode VC+ Ventilator Mode VC+ Ventilator Mode VC+ Ventilator Mode VC+ Ventilator Mode VC+ Ventilator Mode VC+ Ventilator Tidal Volume 550 Setting Ventilator Tidal Volume 550 Setting Ventilator Tidal Volume 550 Setting Ventilator Tidal Volume 550 Setting Ventilator Tidal Volume 550 Setting Ventilator Tidal Volume 550 Setting Ventilator Tidal Volume 550 Setting Ventilator Tidal Volume 550 Setting Ventilator Tidal Volume 550 Setting Ventilator Tidal Volume 550 Setting Ventilator Tidal Volume 550 Setting Ventilator Tidal Volume 550 Setting Ventilator Respiratory Rate 22 Setting Ventilator Respiratory Rate 22 Setting Ventilator Respiratory Rate 22 Setting Ventilator Respiratory Rate 22 Setting Ventilator Respiratory Rate 22 Setting Ventilator Respiratory Rate 22 Setting Ventilator Respiratory Rate 22 Setting Ventilator Respiratory Rate 22 Setting Ventilator Respiratory Rate 22 Setting Ventilator Respiratory Rate 22 Setting Ventilator Respiratory Rate 22 Setting Ventilator Respiratory Rate 22 Setting Actual Respiratory Rate 22 Actual Respiratory Rate 24 Actual Respiratory Rate 22 Actual Respiratory Rate 22 Actual Respiratory Rate 22 Actual Respiratory Rate 22 Actual Respiratory Rate 22 Actual Respiratory Rate 22 Actual Respiratory Rate 22 Actual Respiratory Rate 22 Actual Respiratory Rate 22 Positive End Expiratory 16 Pressure Positive End Expiratory 16 Pressure Positive End Expiratory 18 Pressure Positive End Expiratory 18 Pressure Positive End Expiratory 18 Pressure Positive End Expiratory 18 Pressure Positive End Expiratory 18 Pressure Positive End Expiratory 18 Pressure Positive End Expiratory 18 Pressure Positive End Expiratory 18 Pressure Positive End Expiratory 18 Pressure Positive End Expiratory 18 Pressure Peak Inspiratory Airway 25 Pressure Peak Inspiratory Airway 30 Pressure Peak Inspiratory Airway 37 Pressure Peak Inspiratory Airway 36 Pressure Peak Inspiratory Airway 37 Pressure Peak Inspiratory Airway 35 Pressure Peak Inspiratory Airway 36 Pressure Peak Inspiratory Airway 35 Pressure Peak Inspiratory Airway 30 Pressure Peak Inspiratory Airway 39 Pressure Peak Inspiratory Airway 30 Pressure Results - Laboratory Findings CBC and BMP: 09/16/17 03:00 09/16/17 03:00 ABG ABG pH 7.29 pH Units (7.32-7.45) L 09/16/17 05:17 ABG pCO2 50 mmHg (35-45) H 09/16/17 05:17 ABG pO2 96 mmHg (85-104) 09/16/17 05:17 ABG O2 Saturation 96 % (95-98) 09/16/17 05:17 PT/INR, D-dimer PT 12.9 Seconds (9.4-12.1) H 09/06/17 01:33 Abnormal lab findings: Abnormal lab results WBC 17.9 K/mcL (4.3-11.1) H 09/16/17 03:00 RBC 3.24 M/mcL (4.19-5.50) L 09/16/17 03:00 Hgb 8.9 g/dL (12.9-16.9) L 09/16/17 03:00 Hct 28.6 % (37.5-50.1) L 09/16/17 03:00 MCH 27.5 pg (28.0-33.3) L 09/16/17 03:00 MCHC 31.1 g/dL (31.6-35.5) L 09/16/17 03:00 RDW 16.8 % (11.5-14.5) H 09/16/17 03:00 Immature Gran % 10.9 % (0-4) H 09/14/17 03:35 Metamyelocytes % 2.0 % (0) H 09/15/17 05:42 Myelocytes % 4.0 % (0) H 09/16/17 03:00 Neutrophils # 15.0 K/mcL (1.6-8.9) H 09/16/17 03:00 Nucleated RBCs/100 WBC 0.3 /100 WBC (0) H 09/14/17 03:35 Toxic Granulation Present (Not Present) A 09/14/17 03:35 Large Platelets Present (Not Present) A 09/14/17 03:35 Hypochromasia Present (Not Present) A 09/14/17 03:35 Anisocytosis 1+ (Not Present) A 09/14/17 03:35 PT 12.9 Seconds (9.4-12.1) H 09/06/17 01:33 ABG pH 7.29 pH Units (7.32-7.45) L 09/16/17 05:17 ABG pCO2 50 mmHg (35-45) H 09/16/17 05:17 ABG Base Excess -3 mEq/L (-2 to 3) L 09/16/17 05:17 VBG pH 7.22 pH Units (7.32-7.42) L 09/08/17 06:20 VBG pCO2 61 mmHg (41-51) H 09/08/17 06:20 VBG pO2 166 mmHg (25-50) H 09/08/17 06:20 Sodium 133 mEq/L (136-145) L 09/16/17 03:00 Chloride 90 mEq/L (98-107) L 09/16/17 03:00 Carbon Dioxide 22 mEq/L (23-29) L 09/16/17 03:00 BUN 92 mg/dL (6-20) H 09/16/17 03:00 Creatinine 5.66 mg/dL (0.70-1.30) H 09/16/17 03:00 Est GFR ( Amer) 13 (> 60) L 09/16/17 03:00 Est GFR (Non-Af Amer) 11 (> 60) L 09/16/17 03:00 Glucose 170 mg/dL (70-105) H 09/16/17 03:00 POC Glucose 151 mg/dL (70-99) H 09/16/17 05:26 Calculated Osmolality 308 (280-300) H 09/16/17 03:00 Phosphorus 10.6 mg/dL (2.7-4.5) H 09/16/17 03:00 Direct Bilirubin 0.3 mg/dL (0.0-0.2) H 09/08/17 06:03 AST 69 Units/L (13-39) H 09/08/17 06:03 ALT 60 Units/L (7-52) H 09/08/17 06:03 Creatine Kinase 1160 Units/L (30-223) H 09/09/17 03:40 Troponin I 0.05 ng/mL (< 0.04) H* 09/06/17 08:17 B-Natriuretic Peptide 127 pg/mL (Less than 100) H 09/06/17 08:16 Albumin 3.3 g/dL (3.5-5.7) L 09/08/17 06:03 Albumin/Globulin Ratio 0.9 (1.1-2.2) L 09/08/17 06:03 Triglycerides 526 mg/dL (< 150) H 09/09/17 03:40 LDL Cholesterol Measurd 60 mg/dL (75-193) L 09/09/17 03:40 HDL Cholesterol 20 mg/dL (40-59) L 09/09/17 03:40 Cholesterol/HDL Ratio 6.9 (0-4.9) H 09/09/17 03:40 Urine Clarity Turbid (Clear) A 09/08/17 09:40 Urine Protein 30 mg/dL (Neg-Trace) H 09/08/17 09:40 Urine Blood Large (Negative) H 09/08/17 09:40 Urine Microscopic RBC 50-100 per hpf (0-3) H 09/08/17 09:40 Urine Microscopic WBC TNTC per hpf (0-3) H 09/08/17 09:40 Ur Squamous Epith Cells Many per lpf (None-Few) H 09/08/17 09:40 Amorphous Sediment Moderate (Few) H 09/08/17 09:40 Vancomycin Trough 57 mcg/mL (5-10) H 09/08/17 06:03 - Microbiology Findings Microbiology Findings: Microbiology, Last 48 Hours 09/14/17 03:23 Blood Culture - Preliminary Peripheral Venipuncture No growth. 09/14/17 03:23 Blood Culture - Preliminary Peripheral Venipuncture No growth. 09/14/17 03:35 Blood Culture - Preliminary Central Venous Catheter No growth. 09/08/17 14:49 Blood Culture - Final Peripheral Venipuncture No growth. 09/08/17 14:49 Blood Culture - Final Peripheral Venipuncture No growth. - Clinical Findings Intake & Output: Intake & Output 09/15/17 09/16/17 09/16/17 23:59 07:59 15:59 Intake Total 739.5 / 739.5 851 / 851 Output Total Balance 729.5 / 729.5 851 / 851 Consult Discharge Plan - Plan Referrals: Kayleen Sheth, CAN MACHINE OPERATOR [Primary Care Provider] -
[2017-09-16] MEDS: Piperacillin/Tazobactam 3.375 GM in 0.9 % Sodium Chloride Mini Bag 100 ML IVPB SCH ×2 (08:10→15:53)
[2017-09-16] MEDS: Chlorhexidine Rinse 15 ML MOUTHWASH MM SCH ×2 (08:10→19:57)
[2017-09-16] MEDS: Docusate Oral Soln 100 MG/10 ML UDC GTUBE SCH ×2 (08:11→19:59)
[2017-09-16] MEDS: Dexmedetomidine HCl 400 MCG/100 ML MLS IVC SCH ×2 (08:11→23:26)
--- NOTE | 2017-09-16 08:51 | Nephrology Progress Note ---
Date of Encounter: 09/16/17 Time of Encounter: 08:05 - Assessment and Plan (1) JAZZY (acute kidney injury) Current Visit: Yes Status: Acute JAZZY superimposed on CKD in setting of sepsis, pneumonia and acute respiratory failure. Creat 5.66. Oliguric. Documented urine output 70cc. No HD or UF today. Will continue to monitor. (2) Acute respiratory failure with hypoxia Current Visit: Yes Status: Acute (3) Sepsis Current Visit: Yes Status: Acute Qualifiers: Sepsis type: sepsis due to unspecified organism Qualified Code(s): A41.9 - Sepsis, unspecified organism Subjective Principal diagnosis: Acute hypoxic respiratory Interval history: Intubated, sedated. FIO2 60, peep 16. Objective - Vital Signs Vital signs: Vital Signs Temp Pulse Resp BP Pulse Ox 09/16/17 08:00 105 24 94/44 93 09/16/17 07:36 22 101/48 96 09/16/17 07:00 100 F H 105 24 101/48 94 09/16/17 06:00 101 22 116/58 96 09/16/17 05:20 22 116/58 96 09/16/17 05:00 103 22 92/51 95 09/16/17 04:00 102 22 98/57 97 09/16/17 03:44 22 98/57 95 09/16/17 03:00 100.5 F H 105 23 94/50 97 09/16/17 02:00 107 23 101/52 96 09/16/17 01:02 23 101/52 96 09/16/17 01:00 108 23 113/53 95 09/16/17 00:00 106 24 100/51 95 09/15/17 23:03 100.1 F H 108 22 104/51 95 09/15/17 22:44 22 99/52 95 09/15/17 22:00 105 22 101/54 97 09/15/17 21:00 100.8 F H 103 22 103/53 97 09/15/17 20:00 104 26 102/49 98 09/15/17 19:47 22 102/49 97 09/15/17 19:01 101.4 F H 103 26 104/49 98 09/15/17 18:00 105 26 111/51 99 09/15/17 17:14 26 99 09/15/17 17:00 100 24 90/44 100 09/15/17 16:00 99.3 F 101 24 97/42 99 09/15/17 15:20 25 85/41 99 09/15/17 15:00 102 26 82/40 98 09/15/17 14:00 105 25 103/52 99 09/15/17 13:45 100.9 F H 16 103/58 09/15/17 13:30 94/55 09/15/17 13:15 96/56 09/15/17 13:01 106/48 09/15/17 13:00 106 25 102/45 99 09/15/17 12:45 102/52 09/15/17 12:30 97/49 09/15/17 12:15 103/53 09/15/17 12:05 26 90/50 96 09/15/17 12:00 111 24 103/53 99 09/15/17 11:45 100/49 09/15/17 11:30 90/50 09/15/17 11:15 90/53 09/15/17 11:00 100.4 F H 108 26 99/48 96 09/15/17 10:45 114/53 09/15/17 10:30 100.5 F H 16 101/51 09/15/17 10:18 25 95 09/15/17 10:00 104 25 107/48 95 09/15/17 09:00 103 25 108/50 95 Intake and Output 09/15/17 09/16/17 09/16/17 23:59 07:59 15:59 Intake Total 739.5 / 739.5 851 / 851 109 / 109 Output Total 10 Balance 729.5 / 729.5 851 / 851 109 / 109 Intake: IV Fluids 524.5 / 524.5 351 / 351 109 / 109 FentaNYL (PF) 2,500 MCG In 23.5 / 23.5 50 / 50 14 / 14 Empty Bag 50 Each @ 200 MCG/HR 4 mls/hr IVC CONT MK Rx#: [id number] HumuLIN R 100 UNIT In 0.9 % 101 / 101 101 / 101 46 / 46 Sodium Chloride 100 ML @ 7 UNIT /HR 7.07 mls/hr IVC CONT MK Rx #:[id number] Diprivan 1,000 mg In 100 ml @ 5 300 / 300 100 / 100 49 / 49 MCG/KG/MIN 5.715 mls/hr IVC . [id number] MK Rx#:[id number] Zosyn 3.375 GM In 0.9 % Sodium 100 / 100 100 / 100 Chloride (Mini-Bag +) 100 ML @ 25 mls/hr IVPB Q8HR MK Rx#: [id number] Tube Feeding 205 / 205 500 / 500 Free Water 10 / 10 Free Water Intake Amount 0 / 0 0 / 0 Output: Catheter Other: Stool Size Moderate Stool Consistency soft Blood Glucose* 171 182 - General Appearance General appearance: Present: well-developed, well-nourished, appears started age , obese EENT: Present: mucous membranes moist Neck: Present: no JVD Respiratory: Present: rhonchi Cardiology: Present: edema, regular rate, regular rhythm Additional Comments: generalized, pitting Dialysis Vascular Access: Venous Catheter Gastrointestinal: Present: hypoactive bowel sounds Integumentary: Present: warm and dry - Lab 09/16/17 03:00 09/16/17 03:00 Most recent lab results ABG pH 7.29 pH Units (7.32-7.45) L 09/16/17 05:17 ABG pCO2 50 mmHg (35-45) H 09/16/17 05:17 ABG pO2 96 mmHg (85-104) 09/16/17 05:17 ABG HCO3 24 mEq/L (21-27) 09/16/17 05:17 ABG O2 Saturation 96 % (95-98) 09/16/17 05:17 Calcium 9.2 mg/dL (8.6-10.3) 09/16/17 03:00 Phosphorus 10.6 mg/dL (2.7-4.5) H 09/16/17 03:00 Magnesium 2.6 mg/dL (1.6-2.6) 09/16/17 03:00 Consult Discharge Plan - Plan Referrals: Kayleen Sheth, DERRICK OPERATOR [Primary Care Provider] -
--- NOTE | 2017-09-16 09:31 | Event Note ---
Date of Encounter: 09/16/17 Time of Encounter: 09:00 Patient remains intubated. Embossing Toolsetter goal to lower sedation to facilitate extubation. Complicated case of pneumonia/ARDS/HF and pulmonary edema and obesity. Vent settings AC, TV 550, FiO2 50%, Peep 16. Sedated with fentanyl infusion. Critical care team to continue to manage patient and goals for extubation. Palliative care team will follow progress and assist as needed.
[2017-09-16] MEDS ORDERED: *HR* Adenosine 6 MG/2 ML VIAL IVP ONE ×2 (21:48→21:57)
[2017-09-16] MEDS: *HR* Metoprolol 5 MG/5 ML VIAL IVP SCH ×3 (22:03→22:44)
[2017-09-17] MEDS: Norepinephrine 4 MG in D5% in Water 250 ML IVC SCH (00:21)
[2017-09-17] MEDS: Lacri-Lube 3.5 GM TUBE BOTH EYES SCH ×5 (00:21→16:56)
[2017-09-17] MEDS: *HR* Midazolam HCl 2 MG/2 ML VIAL IVP PRN (00:25)
[2017-09-17] MEDS: Piperacillin/Tazobactam 3.375 GM in 0.9 % Sodium Chloride Mini Bag 100 ML IVPB SCH ×2 (00:25→07:49)
[2017-09-17 01:45] LABS: Hematocrit 28.5 % (37.5-50.1); Hemoglobin 8.8 g/dL (12.9-16.9); Mean Corpuscular HGB Conc 30.9 g/dL (31.6-35.5); Mean Corpuscular Hemoglobin 27.1 pg (28.0-33.3); Mean Corpuscular Volume 87.7 fL (83.0-100.0); Mean Platelet Volume 9.4 fL (9.4-12.4); Platelet Count 402 K/mcL (140-400); Red Blood Count 3.25 M/mcL (4.19-5.50); Red Cell Distribution Width 16.7 % (11.5-14.5)
[2017-09-17 01:51] LABS: VBG Ionized Calcium 0.93 mmol/L (1.15-1.35)
[2017-09-17 02:11] LABS: Calcium 8.8 mg/dL (8.6-10.3); Magnesium 2.7 mg/dL (1.6-2.6); Potassium 4.9 mEq/L (3.5-5.1)
[2017-09-17 02:29] LABS: Anisocytosis 1+ (Not Present); Lymphocytes # 0.6 K/mcL (0.6-4.6); Monocytes # 1.5 K/mcL (0.0-1.3); Neutrophils # 15.4 K/mcL (1.6-8.9)
[2017-09-17] MEDS: Ipratropium/Albuterol Neb 3 ML IH SCH ×3 (03:18→15:57)
[2017-09-17] MEDS: Dexmedetomidine HCl 400 MCG/100 ML MLS IVC SCH ×2 (04:36→16:55)
[2017-09-17 04:57] LABS: ABG Base Excess -7 mEq/L (-2 to 3); ABG HCO3 21 mEq/L (21-27); ABG Oxygen Saturation 93 % (95-98); ABG PCO2 47 mmHg (35-45); ABG PH 7.25 pH Units (7.32-7.45); ABG PO2 77 mmHg (85-104); ABG TCO2 22 mEq/L (20-26); Blood Gas Modality VC; Blood Gas PEEP 18 cm H2O; Blood Gas Respiration Rate 22; Blood Gas VT 550 cc
[2017-09-17] MEDS: *HR* Heparin 5,000 UNIT/ML VIAL SQ SCH ×2 (05:34→14:20)
[2017-09-17] MEDS: Pantoprazole 40 MG VIAL IVP SCH ×2 (05:35→17:30)
--- NOTE | 2017-09-17 06:00 | Pulmonology Progress Note ---
<Rosalio Gallardo - Last Filed: 09/17/17 05:53> Date of Encounter: 09/17/17 Time of Encounter: 05:53 Assessment and Plan (1) Acute respiratory failure with hypoxia Current Visit: Yes Status: Acute Acute hypoxic respiratory failure with hypercapnia/ARDS, ventilator dependent This is likely secondary to acutely decompensated CHF with comorbid pneumonia PE is considered a less likely potential cause of acute respiratory failure On arrival the patient had respiratory acidosis with pH of 7.17 CXR shows increased pulmonary vascular congestion CT Chest shows Partial collapse of the bilateral lower lobes with suspected superimposed pneumonia ABG 7.25/47/77/21/23/93% on FiO2 10% Continues to require high PEEP, currently 18, Rate 22 Plan -Continue Zosyn for treatment of pneumonia, consider transitioning to broader coverage if needed -Continue ventilator support, repeat ABG in the morning -Increase sedation as needed (2) CHF (congestive heart failure) Current Visit: Yes Status: Acute Acute on chronic heart failure with preserved ejection fraction The patient demonstrates pulmonary edema on CXR, BNP Acute respiratory failure is consistent with decompensated CHF Respiratory failure continues to make minimal improvement We will monitor I/Os and assess fluid balance daily Continue HD for fluid removal Qualifiers: Heart failure type: diastolic Heart failure chronicity: acute on chronic Qualified Code(s): I50.33 - Acute on chronic diastolic (congestive) heart failure (3) JAZZY (acute kidney injury) Current Visit: Yes Status: Acute Acute on chronic kidney injury with oliguria Patient has progressed to HD Plan: -Nephrology consultation with Dr. Lucas, appreciate recommendations (4) Sepsis Current Visit: Yes Status: Acute Sepsis secondary to Pneumonia vs. Cellulitis - White count today is decreased to 16.1 - Possible source: Pneumonia - Started on Vancomycin and Zosyn on arrival - Cultures initially grew Staph capitis, however repeat negative Plan -Repeat blood cultures remain negative Qualifiers: Sepsis type: sepsis due to unspecified organism Qualified Code(s): A41.9 - Sepsis, unspecified organism (5) DMII (diabetes mellitus, type 2) Current Visit: Yes Status: Chronic Poorly controlled Insulin Dependent DM2 Patient is apparently transitioning to a U500 Insulin regimen at home Plan: -IV Insulin to maintain goal Glucose 140-180 -Q1h Accucheck Qualifiers: Diabetes mellitus terminal superintendent insulin use: with terminal superintendent use Diabetes mellitus complication status: without complication Qualified Code(s): E11.9 - Type 2 diabetes mellitus without complications; Z79.4 - intermediate (current) use of insulin; Z79.4 - intermediate (current) use of insulin; Z79.4 - termite treater helper ( current) use of insulin; Z79.4 - termite treater helper (current) use of insulin (6) Morbid obesity with BMI of 60.0-69.9, adult Current Visit: No Status: Chronic (7) DVT prophylaxis Current Visit: Yes Status: Acute SQ Heparin Subjective Principal diagnosis: Acute hypoxic respiratory Interval history: Patient is seen and examined at bedside. He remains intubated and sedated with no significant change from prior. He did experience several episodes of afib rvr overnight which resolved with adenosine and then lopressor pushes. Objective PUL Vital signs: Last Vital Signs Temp 98.6 F 09/17/17 00:00 Pulse 108 09/17/17 05:00 Resp 26 09/17/17 05:23 BP 119/60 09/17/17 05:23 Pulse Ox 93 09/17/17 05:23 Gen: Vitals noted. No acute distress. Currently sedated on vent but more alert than prior HEENT: Normocephalic, atraumatic Neck: Supple. No adenopathy. Right IJ CVC in place with well appearing surrounding tissue Cardiac: RRR but rapid, no murmur, +S1/S2 Pulmonary: CTA bilaterally, no wheezes, rales or rhonchi, equal chest expansion Abdomen: soft, nontender, BS noted, no guarding Extremities: 2+ b/l LE edema. No obvious rash or breaks in skin however these is evidence of stasis Skin: Abdomen has regions of erythema likely associated with skin irritation Neuro: Sedated Ventilator Settings Ventilator Settings: Ventilator Settings, Last 8 Hours Ventilator Mode VC+ Ventilator Mode A/C Ventilator Mode VC+ Ventilator Mode A/C Ventilator Mode A/C Ventilator Mode A/C Ventilator Mode A/C Ventilator Mode A/C Ventilator Mode A/C Ventilator Mode A/C Ventilator Mode A/C Ventilator Mode A/C Ventilator Mode A/C Ventilator Mode A/C Ventilator Tidal Volume 550 Setting Ventilator Tidal Volume 550 Setting Ventilator Tidal Volume 550 Setting Ventilator Tidal Volume 550 Setting Ventilator Tidal Volume 550 Setting Ventilator Tidal Volume 550 Setting Ventilator Tidal Volume 550 Setting Ventilator Tidal Volume 550 Setting Ventilator Tidal Volume 550 Setting Ventilator Tidal Volume 550 Setting Ventilator Tidal Volume 550 Setting Ventilator Tidal Volume 550 Setting Ventilator Tidal Volume 550 Setting Ventilator Tidal Volume 550 Setting Ventilator Respiratory Rate 22 Setting Ventilator Respiratory Rate 22 Setting Ventilator Respiratory Rate 22 Setting Ventilator Respiratory Rate 22 Setting Ventilator Respiratory Rate 22 Setting Ventilator Respiratory Rate 22 Setting Ventilator Respiratory Rate 22 Setting Ventilator Respiratory Rate 22 Setting Ventilator Respiratory Rate 22 Setting Ventilator Respiratory Rate 22 Setting Ventilator Respiratory Rate 22 Setting Ventilator Respiratory Rate 22 Setting Ventilator Respiratory Rate 22 Setting Ventilator Respiratory Rate 22 Setting Actual Respiratory Rate 26 Actual Respiratory Rate 25 Actual Respiratory Rate 26 Actual Respiratory Rate 26 Actual Respiratory Rate 26 Actual Respiratory Rate 25 Actual Respiratory Rate 24 Actual Respiratory Rate 26 Actual Respiratory Rate 26 Actual Respiratory Rate 24 Actual Respiratory Rate 26 Actual Respiratory Rate 26 Actual Respiratory Rate 24 Positive End Expiratory 18 Pressure Positive End Expiratory 18 Pressure Positive End Expiratory 18 Pressure Positive End Expiratory 18 Pressure Positive End Expiratory 18 Pressure Positive End Expiratory 18 Pressure Positive End Expiratory 18 Pressure Positive End Expiratory 18 Pressure Positive End Expiratory 18 Pressure Positive End Expiratory 18 Pressure Positive End Expiratory 18 Pressure Positive End Expiratory 18 Pressure Positive End Expiratory 18 Pressure Positive End Expiratory 18 Pressure Peak Inspiratory Airway 24 Pressure Peak Inspiratory Airway 29 Pressure Peak Inspiratory Airway 30 Pressure Peak Inspiratory Airway 27 Pressure Peak Inspiratory Airway 27 Pressure Peak Inspiratory Airway 27 Pressure Peak Inspiratory Airway 27 Pressure Peak Inspiratory Airway 26 Pressure Peak Inspiratory Airway 27 Pressure Peak Inspiratory Airway 24 Pressure Peak Inspiratory Airway 25 Pressure Peak Inspiratory Airway 26 Pressure Peak Inspiratory Airway 26 Pressure Results - Laboratory Findings CBC and BMP: 09/17/17 01:22 09/17/17 01:22 ABG ABG pH 7.25 pH Units (7.32-7.45) L 09/17/17 04:53 ABG pCO2 47 mmHg (35-45) H 09/17/17 04:53 ABG pO2 77 mmHg (85-104) L 09/17/17 04:53 ABG O2 Saturation 93 % (95-98) L 09/17/17 04:53 PT/INR, D-dimer PT 12.9 Seconds (9.4-12.1) H 09/06/17 01:33 Abnormal lab findings: Abnormal lab results WBC 19.3 K/mcL (4.3-11.1) H 09/17/17 01:22 RBC 3.25 M/mcL (4.19-5.50) L 09/17/17 01:22 Hgb 8.8 g/dL (12.9-16.9) L 09/17/17 01:22 Hct 28.5 % (37.5-50.1) L 09/17/17 01:22 MCH 27.1 pg (28.0-33.3) L 09/17/17 01:22 MCHC 30.9 g/dL (31.6-35.5) L 09/17/17 01:22 RDW 16.7 % (11.5-14.5) H 09/17/17 01:22 Plt Count 402 K/mcL (140-400) H 09/17/17 01:22 Immature Gran % 10.9 % (0-4) H 09/14/17 03:35 Band Neutrophils % 25.0 % (0-4) H 09/17/17 01:22 Metamyelocytes % 1.0 % (0) H 09/17/17 01:22 Myelocytes % 3.0 % (0) H 09/17/17 01:22 Neutrophils # 15.4 K/mcL (1.6-8.9) H 09/17/17 01:22 Monocytes # 1.5 K/mcL (0.0-1.3) H 09/17/17 01:22 Eosinophils # 1.0 K/mcL (0.0-0.6) H 09/17/17 01:22 Nucleated RBCs/100 WBC 0.3 /100 WBC (0) H 09/14/17 03:35 Toxic Granulation Present (Not Present) A 09/14/17 03:35 Platelet Estimate Slight increase (Normal) H 09/17/17 01:22 Large Platelets Present (Not Present) A 09/14/17 03:35 Hypochromasia Present (Not Present) A 09/14/17 03:35 Anisocytosis 1+ (Not Present) A 09/17/17 01:22 PT 12.9 Seconds (9.4-12.1) H 09/06/17 01:33 ABG pH 7.25 pH Units (7.32-7.45) L 09/17/17 04:53 ABG pCO2 47 mmHg (35-45) H 09/17/17 04:53 ABG pO2 77 mmHg (85-104) L 09/17/17 04:53 ABG O2 Saturation 93 % (95-98) L 09/17/17 04:53 ABG Base Excess -7 mEq/L (-2 to 3) L 09/17/17 04:53 VBG pH 7.22 pH Units (7.32-7.42) L 09/08/17 06:20 VBG pCO2 61 mmHg (41-51) H 09/08/17 06:20 VBG pO2 166 mmHg (25-50) H 09/08/17 06:20 Sodium 135 mEq/L (136-145) L 09/17/17 01:22 Chloride 91 mEq/L (98-107) L 09/17/17 01:22 Carbon Dioxide 20 mEq/L (23-29) L 09/17/17 01:22 BUN 117 mg/dL (6-20) H 09/17/17 01:22 Creatinine 6.87 mg/dL (0.70-1.30) H 09/17/17 01:22 Est GFR ( Amer) 10 (> 60) L 09/17/17 01:22 Est GFR (Non-Af Amer) 8 (> 60) L 09/17/17 01:22 Glucose 144 mg/dL (70-105) H 09/17/17 01:22 POC Glucose 151 mg/dL (70-99) H 09/17/17 04:04 Calculated Osmolality 320 (280-300) H 09/17/17 01:22 Venous Ioniz Calcium 0.93 mmol/L (1.15-1.35) L 09/17/17 01:48 Phosphorus 10.6 mg/dL (2.7-4.5) H 09/16/17 03:00 Magnesium 2.7 mg/dL (1.6-2.6) H 09/17/17 01:22 Direct Bilirubin 0.3 mg/dL (0.0-0.2) H 09/08/17 06:03 AST 69 Units/L (13-39) H 09/08/17 06:03 ALT 60 Units/L (7-52) H 09/08/17 06:03 Creatine Kinase 1160 Units/L (30-223) H 09/09/17 03:40 Troponin I 0.05 ng/mL (< 0.04) H* 09/06/17 08:17 B-Natriuretic Peptide 127 pg/mL (Less than 100) H 09/06/17 08:16 Albumin 3.3 g/dL (3.5-5.7) L 09/08/17 06:03 Albumin/Globulin Ratio 0.9 (1.1-2.2) L 09/08/17 06:03 Triglycerides 526 mg/dL (< 150) H 09/09/17 03:40 LDL Cholesterol Measurd 60 mg/dL (75-193) L 09/09/17 03:40 HDL Cholesterol 20 mg/dL (40-59) L 09/09/17 03:40 Cholesterol/HDL Ratio 6.9 (0-4.9) H 09/09/17 03:40 Urine Clarity Turbid (Clear) A 09/08/17 09:40 Urine Protein 30 mg/dL (Neg-Trace) H 09/08/17 09:40 Urine Blood Large (Negative) H 09/08/17 09:40 Urine Microscopic RBC 50-100 per hpf (0-3) H 09/08/17 09:40 Urine Microscopic WBC TNTC per hpf (0-3) H 09/08/17 09:40 Ur Squamous Epith Cells Many per lpf (None-Few) H 09/08/17 09:40 Amorphous Sediment Moderate (Few) H 09/08/17 09:40 Vancomycin Trough 57 mcg/mL (5-10) H 09/08/17 06:03 - Microbiology Findings Microbiology Findings: Microbiology, Last 48 Hours 09/14/17 03:23 Blood Culture - Preliminary Peripheral Venipuncture No growth. 09/14/17 03:23 Blood Culture - Preliminary Peripheral Venipuncture No growth. 09/14/17 03:35 Blood Culture - Preliminary Central Venous Catheter No growth. - Clinical Findings Intake & Output: Intake & Output 09/16/17 09/16/17 09/17/17 15:59 23:59 07:59 Intake Total 1016 / 1016 677.4 / 677.4 887.1 / 887.1 Output Total 0 / 0 0 / 0 32 / 32 Balance 1016 / 1016 677.4 / 677.4 855.1 / 855.1 Weight 182.2 kg Consult Discharge Plan - Plan Referrals: Kayleen Sheth, TAILORING TEACHER [Primary Care Provider] - <Janessa Hale - Last Filed: 09/17/17 22:15> Date of Encounter: 09/17/17 Objective PUL Vital signs: Last Vital Signs Temp 99.7 F H 09/17/17 07:41 Pulse 98 09/17/17 08:19 Resp 23 09/17/17 08:19 BP 78/29 09/17/17 08:19 Pulse Ox 97 09/17/17 08:19 Ventilator Settings Ventilator Settings: Ventilator Settings, Last 8 Hours Ventilator Mode A/C Ventilator Mode VC+ Ventilator Mode A/C Ventilator Mode VC+ Ventilator Mode A/C Ventilator Mode VC+ Ventilator Mode A/C Ventilator Mode A/C Ventilator Mode A/C Ventilator Mode A/C Ventilator Tidal Volume 550 Setting Ventilator Tidal Volume 600 Setting Ventilator Tidal Volume 550 Setting Ventilator Tidal Volume 550 Setting Ventilator Tidal Volume 550 Setting Ventilator Tidal Volume 550 Setting Ventilator Tidal Volume 550 Setting Ventilator Tidal Volume 550 Setting Ventilator Tidal Volume 550 Setting Ventilator Tidal Volume 550 Setting Ventilator Respiratory Rate 22 Setting Ventilator Respiratory Rate 22 Setting Ventilator Respiratory Rate 22 Setting Ventilator Respiratory Rate 22 Setting Ventilator Respiratory Rate 22 Setting Ventilator Respiratory Rate 22 Setting Ventilator Respiratory Rate 22 Setting Ventilator Respiratory Rate 22 Setting Ventilator Respiratory Rate 22 Setting Ventilator Respiratory Rate 22 Setting Actual Respiratory Rate 22 Actual Respiratory Rate 23 Actual Respiratory Rate 28 Actual Respiratory Rate 26 Actual Respiratory Rate 25 Actual Respiratory Rate 26 Actual Respiratory Rate 26 Actual Respiratory Rate 26 Actual Respiratory Rate 25 Positive End Expiratory 18 Pressure Positive End Expiratory 18 Pressure Positive End Expiratory 18 Pressure Positive End Expiratory 18 Pressure Positive End Expiratory 18 Pressure Positive End Expiratory 18 Pressure Positive End Expiratory 18 Pressure Positive End Expiratory 18 Pressure Positive End Expiratory 18 Pressure Positive End Expiratory 18 Pressure Peak Inspiratory Airway 43 Pressure Peak Inspiratory Airway 43 Pressure Peak Inspiratory Airway 30 Pressure Peak Inspiratory Airway 24 Pressure Peak Inspiratory Airway 29 Pressure Peak Inspiratory Airway 30 Pressure Peak Inspiratory Airway 27 Pressure Peak Inspiratory Airway 27 Pressure Peak Inspiratory Airway 27 Pressure Results - Laboratory Findings CBC and BMP: 09/17/17 01:22 09/17/17 01:22 ABG ABG pH 7.25 pH Units (7.32-7.45) L 09/17/17 04:53 ABG pCO2 47 mmHg (35-45) H 09/17/17 04:53 ABG pO2 77 mmHg (85-104) L 09/17/17 04:53 ABG O2 Saturation 93 % (95-98) L 09/17/17 04:53 PT/INR, D-dimer PT 12.9 Seconds (9.4-12.1) H 09/06/17 01:33 Abnormal lab findings: Abnormal lab results WBC 19.3 K/mcL (4.3-11.1) H 09/17/17 01:22 RBC 3.25 M/mcL (4.19-5.50) L 09/17/17 01:22 Hgb 8.8 g/dL (12.9-16.9) L 09/17/17 01:22 Hct 28.5 % (37.5-50.1) L 09/17/17 01:22 MCH 27.1 pg (28.0-33.3) L 09/17/17 01:22 MCHC 30.9 g/dL (31.6-35.5) L 09/17/17 01:22 RDW 16.7 % (11.5-14.5) H 09/17/17 01:22 Plt Count 402 K/mcL (140-400) H 09/17/17 01:22 Immature Gran % 10.9 % (0-4) H 09/14/17 03:35 Band Neutrophils % 25.0 % (0-4) H 09/17/17 01:22 Metamyelocytes % 1.0 % (0) H 09/17/17 01:22 Myelocytes % 3.0 % (0) H 09/17/17 01:22 Neutrophils # 15.4 K/mcL (1.6-8.9) H 09/17/17 01:22 Monocytes # 1.5 K/mcL (0.0-1.3) H 09/17/17 01:22 Eosinophils # 1.0 K/mcL (0.0-0.6) H 09/17/17 01:22 Nucleated RBCs/100 WBC 0.3 /100 WBC (0) H 09/14/17 03:35 Toxic Granulation Present (Not Present) A 09/14/17 03:35 Platelet Estimate Slight increase (Normal) H 09/17/17 01:22 Large Platelets Present (Not Present) A 09/14/17 03:35 Hypochromasia Present (Not Present) A 09/14/17 03:35 Anisocytosis 1+ (Not Present) A 09/17/17 01:22 PT 12.9 Seconds (9.4-12.1) H 09/06/17 01:33 ABG pH 7.25 pH Units (7.32-7.45) L 09/17/17 04:53 ABG pCO2 47 mmHg (35-45) H 09/17/17 04:53 ABG pO2 77 mmHg (85-104) L 09/17/17 04:53 ABG O2 Saturation 93 % (95-98) L 09/17/17 04:53 ABG Base Excess -7 mEq/L (-2 to 3) L 09/17/17 04:53 VBG pH 7.22 pH Units (7.32-7.42) L 09/08/17 06:20 VBG pCO2 61 mmHg (41-51) H 09/08/17 06:20 VBG pO2 166 mmHg (25-50) H 09/08/17 06:20 Sodium 135 mEq/L (136-145) L 09/17/17 01:22 Chloride 91 mEq/L (98-107) L 09/17/17 01:22 Carbon Dioxide 20 mEq/L (23-29) L 09/17/17 01:22 BUN 117 mg/dL (6-20) H 09/17/17 01:22 Creatinine 6.87 mg/dL (0.70-1.30) H 09/17/17 01:22 Est GFR ( Amer) 10 (> 60) L 09/17/17 01:22 Est GFR (Non-Af Amer) 8 (> 60) L 09/17/17 01:22 Glucose 144 mg/dL (70-105) H 09/17/17 01:22 POC Glucose 157 mg/dL (70-99) H 09/17/17 08:01 Calculated Osmolality 320 (280-300) H 09/17/17 01:22 Venous Ioniz Calcium 0.93 mmol/L (1.15-1.35) L 09/17/17 01:48 Phosphorus 10.6 mg/dL (2.7-4.5) H 09/16/17 03:00 Magnesium 2.7 mg/dL (1.6-2.6) H 09/17/17 01:22 Direct Bilirubin 0.3 mg/dL (0.0-0.2) H 09/08/17 06:03 AST 69 Units/L (13-39) H 09/08/17 06:03 ALT 60 Units/L (7-52) H 09/08/17 06:03 Creatine Kinase 1160 Units/L (30-223) H 09/09/17 03:40 Troponin I 0.05 ng/mL (< 0.04) H* 09/06/17 08:17 B-Natriuretic Peptide 127 pg/mL (Less than 100) H 09/06/17 08:16 Albumin 3.3 g/dL (3.5-5.7) L 09/08/17 06:03 Albumin/Globulin Ratio 0.9 (1.1-2.2) L 09/08/17 06:03 Triglycerides 526 mg/dL (< 150) H 09/09/17 03:40 LDL Cholesterol Measurd 60 mg/dL (75-193) L 09/09/17 03:40 HDL Cholesterol 20 mg/dL (40-59) L 09/09/17 03:40 Cholesterol/HDL Ratio 6.9 (0-4.9) H 09/09/17 03:40 Urine Clarity Turbid (Clear) A 09/08/17 09:40 Urine Protein 30 mg/dL (Neg-Trace) H 09/08/17 09:40 Urine Blood Large (Negative) H 09/08/17 09:40 Urine Microscopic RBC 50-100 per hpf (0-3) H 09/08/17 09:40 Urine Microscopic WBC TNTC per hpf (0-3) H 09/08/17 09:40 Ur Squamous Epith Cells Many per lpf (None-Few) H 09/08/17 09:40 Amorphous Sediment Moderate (Few) H 09/08/17 09:40 Vancomycin Trough 57 mcg/mL (5-10) H 09/08/17 06:03 - Microbiology Findings Microbiology Findings: Microbiology, Last 48 Hours 09/14/17 03:23 Blood Culture - Preliminary Peripheral Venipuncture No growth. 09/14/17 03:23 Blood Culture - Preliminary Peripheral Venipuncture No growth. 09/14/17 03:35 Blood Culture - Preliminary Central Venous Catheter No growth. - Clinical Findings Intake & Output: Intake & Output 09/16/17 09/17/17 09/17/17 23:59 07:59 15:59 Intake Total 677.4 / 677.4 916.0 / 916.0 469 / 469 Output Total 0 / 0 32 / 32 Balance 677.4 / 677.4 884.0 / 884.0 469 / 469 Weight 182.2 kg - Attending Attestation I saw and evaluated this patient and my medical decision-making was reviewed with the Resident Physician. I agree with the documented findings, disposition and treatment plan as described except to the extent set forth below. We independently had [id number] contact with the patient Patient seen and examined at bedside Labs, radiology, chart personally reviewed. Management was reviewed during multidisciplinary critical care rounds. 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 Lines: All lines examined without evidence of infection : Dispo: After palliative care discussion with family it was decided by family according to patient wishes patient is going to be extubated to comfort today evening CODE:[id number]
[2017-09-17] MEDS ORDERED: 0.9 % Sodium Chloride 1,000 ML ONE ×2 (07:27→12:55)
--- NOTE | 2017-09-17 07:45 | Palliative Progress Note ---
Date of Encounter: 09/17/17 Time of Encounter: 07:10 - Assessment and plan (1) Goals of care, counseling/discussion Current Visit: Yes Status: Acute Assessment and plan: Per discussion that I had with the mother last week patient would not want to be maintained long-term on the vent. Therefore no tracheal pain. Okay with extubation whenever ICU team is ready. I understand from the nursing staff this was planned over the weekend but brother did not show up. It is not in the be able to come in if she is still an inpatient at [facility] per best my knowledge at this time. (2) JAZZY (acute kidney injury) Current Visit: Yes Status: Acute Assessment and plan: Patient is on dialysis plan is to continue dialysis. (3) Acute respiratory failure with hypoxia Current Visit: Yes Status: Acute Assessment and plan: Patient has not succeeded in being extubated. Per family he would not want to be reintubated once extubated. At this time I do not know if extubation is expected to be successful, however family would not want a trach and patent placed. (4) CHF (congestive heart failure) Current Visit: Yes Status: Acute Assessment and plan: Lantus per the sales administration manager team. Qualifiers: Heart failure type: diastolic Heart failure chronicity: acute on chronic Qualified Code(s): I50.33 - Acute on chronic diastolic (congestive) heart failure (5) Sepsis Current Visit: Yes Status: Acute Assessment and plan: White count continues to be elevated, all blood cultures since the of been negative. MAXIMUM TEMPERATURE in last 24 hours is 100.5 she is on antibiotics plan per sales administration manager team Qualifiers: Sepsis type: sepsis due to unspecified organism Qualified Code(s): A41.9 - Sepsis, unspecified organism - Time Spent With Patient Total time spent is greater than 50% in coordination of care (as documented) at patient's floor/unit and/or counseling patient: - Subjective Interval history: Events of weekend noted apparently brother did not show up. Extubation has taken place patient continues to be on the vent and per nursing staff there having a hard time keeping him properly sedated. - Constitutional Vitals: Abnormal lab results WBC 19.3 K/mcL (4.3-11.1) H 09/17/17 01:22 RBC 3.25 M/mcL (4.19-5.50) L 09/17/17 01:22 Hgb 8.8 g/dL (12.9-16.9) L 09/17/17 01:22 Hct 28.5 % (37.5-50.1) L 09/17/17 01:22 MCH 27.1 pg (28.0-33.3) L 09/17/17 01:22 MCHC 30.9 g/dL (31.6-35.5) L 09/17/17 01:22 RDW 16.7 % (11.5-14.5) H 09/17/17 01:22 Plt Count 402 K/mcL (140-400) H 09/17/17 01:22 Immature Gran % 10.9 % (0-4) H 09/14/17 03:35 Band Neutrophils % 25.0 % (0-4) H 09/17/17 01:22 Metamyelocytes % 1.0 % (0) H 09/17/17 01:22 Myelocytes % 3.0 % (0) H 09/17/17 01:22 Neutrophils # 15.4 K/mcL (1.6-8.9) H 09/17/17 01:22 Monocytes # 1.5 K/mcL (0.0-1.3) H 09/17/17 01:22 Eosinophils # 1.0 K/mcL (0.0-0.6) H 09/17/17 01:22 Nucleated RBCs/100 WBC 0.3 /100 WBC (0) H 09/14/17 03:35 Toxic Granulation Present (Not Present) A 09/14/17 03:35 Platelet Estimate Slight increase (Normal) H 09/17/17 01:22 Large Platelets Present (Not Present) A 09/14/17 03:35 Hypochromasia Present (Not Present) A 09/14/17 03:35 Anisocytosis 1+ (Not Present) A 09/17/17 01:22 PT 12.9 Seconds (9.4-12.1) H 09/06/17 01:33 ABG pH 7.25 pH Units (7.32-7.45) L 09/17/17 04:53 ABG pCO2 47 mmHg (35-45) H 09/17/17 04:53 ABG pO2 77 mmHg (85-104) L 09/17/17 04:53 ABG O2 Saturation 93 % (95-98) L 09/17/17 04:53 ABG Base Excess -7 mEq/L (-2 to 3) L 09/17/17 04:53 VBG pH 7.22 pH Units (7.32-7.42) L 09/08/17 06:20 VBG pCO2 61 mmHg (41-51) H 09/08/17 06:20 VBG pO2 166 mmHg (25-50) H 09/08/17 06:20 Sodium 135 mEq/L (136-145) L 09/17/17 01:22 Chloride 91 mEq/L (98-107) L 09/17/17 01:22 Carbon Dioxide 20 mEq/L (23-29) L 09/17/17 01:22 BUN 117 mg/dL (6-20) H 09/17/17 01:22 Creatinine 6.87 mg/dL (0.70-1.30) H 09/17/17 01:22 Est GFR ( Amer) 10 (> 60) L 09/17/17 01:22 Est GFR (Non-Af Amer) 8 (> 60) L 09/17/17 01:22 Glucose 144 mg/dL (70-105) H 09/17/17 01:22 POC Glucose 158 mg/dL (70-99) H 09/17/17 06:03 Calculated Osmolality 320 (280-300) H 09/17/17 01:22 Venous Ioniz Calcium 0.93 mmol/L (1.15-1.35) L 09/17/17 01:48 Phosphorus 10.6 mg/dL (2.7-4.5) H 09/16/17 03:00 Magnesium 2.7 mg/dL (1.6-2.6) H 09/17/17 01:22 Direct Bilirubin 0.3 mg/dL (0.0-0.2) H 09/08/17 06:03 AST 69 Units/L (13-39) H 09/08/17 06:03 ALT 60 Units/L (7-52) H 09/08/17 06:03 Creatine Kinase 1160 Units/L (30-223) H 09/09/17 03:40 Troponin I 0.05 ng/mL (< 0.04) H* 09/06/17 08:17 B-Natriuretic Peptide 127 pg/mL (Less than 100) H 09/06/17 08:16 Albumin 3.3 g/dL (3.5-5.7) L 09/08/17 06:03 Albumin/Globulin Ratio 0.9 (1.1-2.2) L 09/08/17 06:03 Triglycerides 526 mg/dL (< 150) H 09/09/17 03:40 LDL Cholesterol Measurd 60 mg/dL (75-193) L 09/09/17 03:40 HDL Cholesterol 20 mg/dL (40-59) L 09/09/17 03:40 Cholesterol/HDL Ratio 6.9 (0-4.9) H 09/09/17 03:40 Urine Clarity Turbid (Clear) A 09/08/17 09:40 Urine Protein 30 mg/dL (Neg-Trace) H 09/08/17 09:40 Urine Blood Large (Negative) H 09/08/17 09:40 Urine Microscopic RBC 50-100 per hpf (0-3) H 09/08/17 09:40 Urine Microscopic WBC TNTC per hpf (0-3) H 09/08/17 09:40 Ur Squamous Epith Cells Many per lpf (None-Few) H 09/08/17 09:40 Amorphous Sediment Moderate (Few) H 09/08/17 09:40 Vancomycin Trough 57 mcg/mL (5-10) H 09/08/17 06:03 General appearance: Present: mild distress - Respiratory Respiratory exam: Present: decreased breath sounds - Cardiovascular Cardiovascular exam: Present: tachycardia - GI/Abdominal GI/Abdominal exam: Present: hypoactive bowel sounds, soft - Extremities Exam Extremities exam: Present: pedal edema. Absent: tenderness - Neurological Exam Neurological exam: Present: altered - Psychiatric Psychiatric exam: Present: agitated - Skin Skin exam: Present: dry, warm Palliative Quality Palliative Quality: Screen for Code Status: Yes, Screen for Goals of Care: Yes, Screen for Pain: Yes, If Pain Regimen Started, Initiate Bowel Regimen: Yes, Screen for Nausea/Vomitting: Yes Code Status: 09/06/17 00:49 Resuscitation Status: Active [RES] Routine Comment: Resuscitation Status: Full Code Resuscitation Status: Active [RES] Routine Comment: do not reintubate Resuscitation Status: [id number] - Labs CBC & Chem 7: 09/17/17 01:22 09/17/17 01:22 Labs: Laboratory Results - last 24 hr 09/16/17 09/16/17 09/16/17 08:14 10:11 11:47 WBC RBC Hgb Hct MCV MCH MCHC RDW Plt Count MPV Seg Neutrophils % Band Neutrophils % Lymphocytes % Monocytes % Eosinophils % Metamyelocytes % Myelocytes % Neutrophils # Lymphocytes # Monocytes # Eosinophils # Platelet Estimate Anisocytosis Sample Site ABG pH ABG pCO2 ABG pO2 ABG HCO3 ABG Total CO2 ABG O2 Saturation ABG Base Excess Priaynk Test Respiration Rate O2 Delivery Device Blood Gas Modality Inspired O2 Tidal Volume PEEP Sodium Potassium Chloride Carbon Dioxide BUN Creatinine Est GFR ( Amer) Est GFR (Non-Af Amer) BUN/Creatinine Ratio Glucose POC Glucose 182 H 178 H 153 H Calculated Osmolality Calcium Venous Ioniz Calcium Magnesium 09/16/17 09/16/17 09/16/17 14:23 15:48 18:05 WBC RBC Hgb Hct MCV MCH MCHC RDW Plt Count MPV Seg Neutrophils % Band Neutrophils % Lymphocytes % Monocytes % Eosinophils % Metamyelocytes % Myelocytes % Neutrophils # Lymphocytes # Monocytes # Eosinophils # Platelet Estimate Anisocytosis Sample Site ABG pH ABG pCO2 ABG pO2 ABG HCO3 ABG Total CO2 ABG O2 Saturation ABG Base Excess Priyank Test Respiration Rate O2 Delivery Device Blood Gas Modality Inspired O2 Tidal Volume PEEP Sodium Potassium Chloride Carbon Dioxide BUN Creatinine Est GFR ( Amer) Est GFR (Non-Af Amer) BUN/Creatinine Ratio Glucose POC Glucose 152 H 144 H 143 H Calculated Osmolality Calcium Venous Ioniz Calcium Magnesium 09/16/17 09/16/17 09/17/17 19:59 22:07 00:18 WBC RBC Hgb Hct MCV MCH MCHC RDW Plt Count MPV Seg Neutrophils % Band Neutrophils % Lymphocytes % Monocytes % Eosinophils % Metamyelocytes % Myelocytes % Neutrophils # Lymphocytes # Monocytes # Eosinophils # Platelet Estimate Anisocytosis Sample Site ABG pH ABG pCO2 ABG pO2 ABG HCO3 ABG Total CO2 ABG O2 Saturation ABG Base Excess Priyank Test Respiration Rate O2 Delivery Device Blood Gas Modality Inspired O2 Tidal Volume PEEP Sodium Potassium Chloride Carbon Dioxide BUN Creatinine Est GFR ( Amer) Est GFR (Non-Af Amer) BUN/Creatinine Ratio Glucose POC Glucose 153 H 178 H 139 H Calculated Osmolality Calcium Venous Ioniz Calcium Magnesium 04/30/18 04/30/18 04/30/18 01:22 01:22 01:48 WBC 19.3 H RBC 3.25 L Hgb 8.8 L Hct 28.5 L MCV 87.7 MCH 27.1 L MCHC 30.9 L RDW 16.7 H Plt Count 402 H MPV 9.4 Seg Neutrophils % 55.0 Band Neutrophils % 25.0 H Lymphocytes % 3.0 Monocytes % 8.0 Eosinophils % 5.0 Metamyelocytes % 1.0 H Myelocytes % 3.0 H Neutrophils # 15.4 H Lymphocytes # 0.6 Monocytes # 1.5 H Eosinophils # 1.0 H Platelet Estimate Slight increase H Anisocytosis 1+ A Sample Site ABG pH ABG pCO2 ABG pO2 ABG HCO3 ABG Total CO2 ABG O2 Saturation ABG Base Excess Priyank Test Respiration Rate O2 Delivery Device Blood Gas Modality Inspired O2 Tidal Volume PEEP Sodium 135 L Potassium 4.9 Chloride 91 L Carbon Dioxide 20 L BUN 117 H Creatinine 6.87 H Est GFR ( Amer) 10 L Est GFR (Non-Af Amer) 8 L BUN/Creatinine Ratio 17 Glucose 144 H POC Glucose Calculated Osmolality 320 H Calcium 8.8 Venous Ioniz Calcium 0.93 L Magnesium 2.7 H 09/17/17 09/17/17 09/17/17 02:03 04:04 04:53 WBC RBC Hgb Hct MCV MCH MCHC RDW Plt Count MPV Seg Neutrophils % Band Neutrophils % Lymphocytes % Monocytes % Eosinophils % Metamyelocytes % Myelocytes % Neutrophils # Lymphocytes # Monocytes # Eosinophils # Platelet Estimate Anisocytosis Sample Site R Radial ABG pH 7.25 L ABG pCO2 47 H ABG pO2 77 L ABG HCO3 21 ABG Total CO2 22 ABG O2 Saturation 93 L ABG Base Excess -7 L Priyank Test N/A Respiration Rate 22 O2 Delivery Device Adult Vent Blood Gas Modality VC Inspired O2 100.0 Tidal Volume 550 PEEP 18 Sodium Potassium Chloride Carbon Dioxide BUN Creatinine Est GFR ( Amer) Est GFR (Non-Af Amer) BUN/Creatinine Ratio Glucose POC Glucose 144 H 151 H Calculated Osmolality Calcium Venous Ioniz Calcium Magnesium 09/17/17 06:03 WBC RBC Hgb Hct MCV MCH MCHC RDW Plt Count MPV Seg Neutrophils % Band Neutrophils % Lymphocytes % Monocytes % Eosinophils % Metamyelocytes % Myelocytes % Neutrophils # Lymphocytes # Monocytes # Eosinophils # Platelet Estimate Anisocytosis Sample Site ABG pH ABG pCO2 ABG pO2 ABG HCO3 ABG Total CO2 ABG O2 Saturation ABG Base Excess Priyank Test Respiration Rate O2 Delivery Device Blood Gas Modality Inspired O2 Tidal Volume PEEP Sodium Potassium Chloride Carbon Dioxide BUN Creatinine Est GFR ( Amer) Est GFR (Non-Af Amer) BUN/Creatinine Ratio Glucose POC Glucose 158 H Calculated Osmolality Calcium Venous Ioniz Calcium Magnesium - ABG Interpretation ABG results: ABG ABG pH 7.25 pH Units (7.32-7.45) L 09/17/17 04:53 ABG pCO2 47 mmHg (35-45) H 09/17/17 04:53 ABG pO2 77 mmHg (85-104) L 09/17/17 04:53 ABG O2 Saturation 93 % (95-98) L 09/17/17 04:53 PT/INR, D-dimer PT 12.9 Seconds (9.4-12.1) H 09/06/17 01:33 Consult Discharge Plan - Plan Referrals: Kayleen Sheth, AIR SURVEILLANCE OPERATOR [Primary Care Provider] -
[2017-09-17] MEDS: Docusate Oral Soln 100 MG/10 ML UDC GTUBE SCH (07:48)
[2017-09-17] MEDS: Chlorhexidine Rinse 15 ML MOUTHWASH MM SCH (07:49)
[2017-09-17] MEDS: Insulin Human Regular 100 UNIT in 0.9 % Sodium Chloride 100 ML IVC SCH (07:51)
--- NOTE | 2017-09-17 08:59 | Nephrology Progress Note ---
Date of Encounter: 09/17/17 Time of Encounter: 08:25 - Assessment and Plan (1) JAZZY (acute kidney injury) Current Visit: Yes Status: Acute JAZZY superimposed on CKD in setting of sepsis, pneumonia and acute respiratory failure. Creat 6.87. Oliguric. Documented urine output 32cc. HD today, orders given. Will continue to monitor. (2) Acute respiratory failure with hypoxia Current Visit: Yes Status: Acute (3) Sepsis Current Visit: Yes Status: Acute Qualifiers: Sepsis type: sepsis due to unspecified organism Qualified Code(s): A41.9 - Sepsis, unspecified organism Subjective Principal diagnosis: Acute hypoxic respiratory Interval history: Intubated, sedated. FIO2 100, peep 18. Objective - Vital Signs Vital signs: Vital Signs Temp Pulse Resp BP Pulse Ox 09/17/17 08:19 98 22 78/29 97 09/17/17 07:41 99.7 F H 09/17/17 06:00 112 27 123/56 94 09/17/17 05:23 26 119/60 93 09/17/17 05:00 108 25 119/60 95 09/17/17 04:00 108 28 115/65 90 09/17/17 03:19 26 112/51 90 09/17/17 03:00 108 27 112/51 90 09/17/17 02:00 105 27 116/49 90 09/17/17 01:00 101 24 123/51 92 09/17/17 00:00 98.6 F 101 26 121/59 92 09/16/17 23:17 24 105/55 91 09/16/17 23:00 98 26 104/55 91 09/16/17 22:30 98 26 116/63 88 09/16/17 21:54 115 24 134/55 90 09/16/17 21:23 26 107/54 93 09/16/17 20:00 112 25 96/47 98 09/16/17 19:30 111 24 102/48 98 09/16/17 19:25 23 94/42 97 09/16/17 18:00 113 24 91/44 95 09/16/17 17:50 24 91/44 92 09/16/17 17:00 118 25 98/44 94 09/16/17 16:40 99.6 F 09/16/17 16:00 117 24 95/50 89 09/16/17 15:40 25 89 09/16/17 15:00 120 26 123/61 90 09/16/17 14:00 120 25 112/55 91 09/16/17 13:10 25 88 09/16/17 13:00 117 25 102/50 90 09/16/17 12:00 100.4 F H 107 27 91/45 88 09/16/17 11:00 105 24 106/54 88 09/16/17 10:13 24 105/80 92 09/16/17 10:00 110 24 103/49 89 09/16/17 09:00 104 24 103/47 92 Intake and Output 09/16/17 09/17/17 09/17/17 23:59 07:59 15:59 Intake Total 677.4 / 677.4 916.0 / 916.0 469 / 469 Output Total 0 / 0 32 / 32 Balance 677.4 / 677.4 884.0 / 884.0 469 / 469 Intake: IV Fluids 270.4 / 270.4 301.0 / 301.0 100 / 100 FentaNYL (PF) 2,500 MCG In 36 / 36 Empty Bag 50 Each @ 200 MCG/HR 4 mls/hr IVC CONT [facility] Rx#: [id number] HumuLIN R 100 UNIT In 0.9 % 34.4 / 34.4 101.0 / 101.0 Sodium Chloride 100 ML @ 7 UNIT /HR 7.07 mls/hr IVC CONT [facility] Rx #:[id number] Diprivan 1,000 mg In 100 ml @ 5 100 / 100 100 / 100 100 / 100 MCG/KG/MIN 5.715 mls/hr IVC . [id number] [facility] Rx#:[id number] Zosyn 3.375 GM In 0.9 % Sodium 100 / 100 100 / 100 Chloride (Mini-Bag +) 100 ML @ 25 mls/hr IVPB Q8HR [facility] Rx#: [id number] Tube Feeding 407 / 407 615 / 615 269 / 269 Free Water Intake Amount 100 / 100 Output: Catheter 0 / 0 32 / 32 Other: Stool Size Large Copious Stool Consistency loose loose Stool Color Brown Brown Weight 182.2 kg Blood Glucose* 178 158 158 Patient Weight 09/17/17 23:59 Weight 182.2 kg - General Appearance General appearance: Present: well-developed, well-nourished, appears started age , obese EENT: Present: mucous membranes moist Neck: Present: no JVD Respiratory: Present: rhonchi Cardiology: Present: edema, regular rate, regular rhythm Additional Comments: generalized pitting Dialysis Vascular Access: Venous Catheter Gastrointestinal: Present: hypoactive bowel sounds Integumentary: Present: warm and dry - Lab 09/17/17 01:22 09/17/17 01:22 Most recent lab results ABG pH 7.25 pH Units (7.32-7.45) L 09/17/17 04:53 ABG pCO2 47 mmHg (35-45) H 09/17/17 04:53 ABG pO2 77 mmHg (85-104) L 09/17/17 04:53 ABG HCO3 21 mEq/L (21-27) 09/17/17 04:53 ABG O2 Saturation 93 % (95-98) L 09/17/17 04:53 Calcium 8.8 mg/dL (8.6-10.3) 09/17/17 01:22 Phosphorus 10.6 mg/dL (2.7-4.5) H 09/16/17 03:00 Magnesium 2.7 mg/dL (1.6-2.6) H 09/17/17 01:22 Consult Discharge Plan - Plan Referrals: Kayleen Sheth CNP [Primary Care Provider] -
[2017-09-17] MEDS: FentaNYL (PF) 2,500 MCG in EMPTY BAG 50 EACH IVC SCH (09:27)
[2017-09-17] MEDS ORDERED: *HR* Heparin 10,000 UNIT/10 ML VIAL IV PRN (10:23)
[2017-09-17] MEDS ORDERED: 0.9 % Sodium Chloride 250 ML IVC PRN (10:23)
[2017-09-17 17:35] VITALS: BP 121/66
[2017-09-17] MEDS ORDERED: *HR* FentaNYL (PF) 100 MCG/2 ML VIAL IVP PRN ×2 (18:00→18:19)
[2017-09-17] MEDS ORDERED: *HR* LORazepam 2 MG/ML VIAL IVP PRN (18:00)
[2017-09-17] MEDS ORDERED: Atropine Sulfate 1% 40 DROP/2 ML BOTTLE SL PRN (18:00)
--- NOTE | 2017-09-17 18:46 | Death Note ---
<Kennedy Amador - Last Filed: 09/17/17 18:43> Discharge Sum: Summary - Date and Time Date of admission: 09/06/17 00:49 Date of : 09/17/17 Time of : 18:42 - Summary Details: 52-year-old male previously admitted on 09/06/17 with a past medical history of diabetes, CHF who is admitted as a transfer secondary to knee pain and shortness of breath. He was initially evaluated at [facility] and transferred. He rather quickly decompensated upon arrival with acute hypoxic respiratory failure necessitating emergent intubation by anesthesia. Throughout his hospitalization he required escalating ventilatory support. The patient was subsequently treated for pneumonia as well as acute exacerbation of congestive heart failure. His hospital course was further complicated by renal insufficiency that necessitated dialysis. Renal insufficiency continued to worsen. Leukocytosis continued to escalate. His overall clinical course deteriorated over several days. Numerous discussions were had with the family. They're understanding was that he would never have wanted any type of heroic measures performed. His mother was unable to be present as she was in another facility. Family was present and determined to compassionately extubate on 09/17. Soon after extubation the patient passed at 18:42. - Additional Data Confirmation of as documented by pronouncing clinician: no pulse, no respirations, no heart sounds Family: at bedside Attending/PCP notified?: No Attending physician: Timmy Cook MD Was code activated?: No Discharge Sum: Diag - PCOD Probable Cause of : Cardiac arrest Discharge Sum: Prov - Provider Primary care physician: Kayleen Sheth CNP Admitting clinician: Dewayne Funez Consults: 09/06/17 05:53 Consult to Pulmonology [CONS] Routine Consulting Provider: Pulm Crit Care & Sleep [place] Reason for Consult: acute respiratory failure Call Completed: No 09/08/17 07:26 Consult to Nephrology [CONS] Routine Consulting Provider: Kidney & HTN Spclst DIGNA Reason for Consult: JAZZY with oliguira Call Completed: No 09/08/17 12:18 Consult to Nutrition [CONS] Routine Comment: Consulting Provider: NUTRITION Reason for Dietary Consult: Tube Feed Start & Manage 09/11/17 07:58 Consult to Interventional Radiology [CONS] Routine Consulting Provider: Radiology Interventional Cols Reason for Consult: place temporary dialysis catheter Time Notified: 07:59 Call Completed: No 09/11/17 08:00 Consult to Dialysis [CONS] ONCE 09/12/17 10:45 Consult to Dialysis [CONS] ONCE 09/13/17 08:45 Consult to Dialysis [CONS] ONCE 09/13/17 10:30 Consult to Biometric Fingerprinting Technician [CONS] Routine Reason for SW Consult: family planning with goals of care. NOK hospitalized at [facility]. 09/14/17 11:14 Consult to Palliative Care [CONS] Routine Comment: Consulting Provider: Palliative Care [place] Reason for Consult: family planning for goals of care, care coordination Time Notified: 10:45 Call Completed: Yes 09/14/17 13:00 Consult to Dialysis [CONS] ONCE 09/15/17 09:00 Consult to Dialysis [CONS] ONCE 09/17/17 10:30 Consult to Dialysis [CONS] ONCE Pronouncing clinician: Kennedy Amdaor <Janessa Hale - Last Filed: 09/17/17 22:09> Discharge Sum: Summary - Date and Time Date of admission: 09/06/17 00:49 - Summary Details: Agree with Hospital course documented by the resident , patient developed Severe ARDS needed high PEEP therapy couldnt wean from High PEEP and High FIO2 according to patient prior and family wishes patient was extubated to comfort - Additional Data Attending physician: Timmy Cook MD Discharge Sum: Prov - Provider Primary care physician: Kayleen Sheth CNP Consults: 09/06/17 05:53 Consult to Pulmonology [CONS] Routine Consulting Provider: Pulm Crit Care & Sleep [place] Reason for Consult: acute respiratory failure Call Completed: No 09/08/17 07:26 Consult to Nephrology [CONS] Routine Consulting Provider: Kidney & HTN Spclst DIGNA Reason for Consult: JAZZY with oliguira Call Completed: No 09/08/17 12:18 Consult to Nutrition [CONS] Routine Comment: Consulting Provider: NUTRITION Reason for Dietary Consult: Tube Feed Start & Manage 09/11/17 07:58 Consult to Interventional Radiology [CONS] Routine Consulting Provider: Radiology Interventional Cols Reason for Consult: place temporary dialysis catheter Time Notified: 07:59 Call Completed: No 09/11/17 08:00 Consult to Dialysis [CONS] ONCE 09/12/17 10:45 Consult to Dialysis [CONS] ONCE 09/13/17 08:45 Consult to Dialysis [CONS] ONCE 09/13/17 10:30 Consult to Biometric Fingerprinting Technician [CONS] Routine Reason for SW Consult: family planning with goals of care. WENDIEK hospitalized at [facility]. 09/14/17 11:14 Consult to Palliative Care [CONS] Routine Comment: Consulting Provider: Palliative Care Sonam Reason for Consult: family planning for goals of care, care coordination Time Notified: 10:45 Call Completed: Yes 09/14/17 13:00 Consult to Dialysis [CONS] ONCE 09/15/17 09:00 Consult to Dialysis [CONS] ONCE 09/17/17 10:30 Consult to Dialysis [CONS] ONCE - Attending Attestation I agree with documentation done by the resident
== END 2017-09-17 18:42 | disposition expired | DRG 720 ==
LOC: 3NENU → ICNU 09-06 00:12
PROVIDERS: ADMIT Student in an Organized Health Care Education/Training Program; ATTEND Internal Medicine